=== PATIENT | male | born 1960 | race Caucasian/White ===

== ENCOUNTER 2018-08-28 10:40 | Emergency (ER) | payer MEDICAID ==
[~2018-08-28] VITALS: Ht 180.3 cm; Wt 58.7 kg
[~2018-08-28 10:40] MED LIST: APIX5TAB3 PO; ASPI-842 PO; ATOR80TA PO; CLON-529 PO; CYCL-1 PO; DICL100G30 TP; DOCU-28 PO; DULO-31 PO; FOLI1TAB16 PO; LISI-644 PO; METO50TA7 PO; MORP30TA60 PO; NICO-687 TP; PREG150C PO; SERT50TA10 PO; TEG100T PO
[2018-08-28 11:20] VITALS: BP 116/66
[2018-08-28] MEDS ORDERED: furosemide 40mg/4ml inj IV ONE (13:50)
== END 2018-08-28 14:27 | disposition home or self-care (01) ==
LOC: ER 10:41
DX: Z45.2 Encounter for adjustment and management of vascular access device (principal); I10 Essential (primary) hypertension; J44.9 Chronic obstructive pulmonary disease, unspecified; G89.29 Other chronic pain; Z86.718 Personal history of other venous thrombosis and embolism; Z98.890 Other specified postprocedural states; Z88.0 Allergy status to penicillin; Z79.82 Long term (current) use of aspirin; Z79.899 Other long term (current) drug therapy
CPT/HCPCS: 71045; 93005; 99283

== ENCOUNTER 2020-06-26 19:26 | Inpatient (IN) | payer MEDICAID ==
[~2020-06-26] VITALS: Ht 182.9 cm; Wt 60.4 kg
[~2020-06-26 19:26] MED LIST changes: +calcium chloride 100 MG/1 ML inj IV ONE; +epiNEPHrine 0.1mg/ml 10ml syringe ONE; +etomidate 2mg/ml inj. ONE; +rocuronium 10mg/ml inj IV ONE; +sod chloride 0.9% 10ml flush syringe IV ONE; +sodium bicarbonate (8.4%) 1 mEq/ml syringe ONE
--- NOTE | 2020-06-26 19:30 | NUR ---
MD Santiago verbal orders for setup for intubation, 100mg rocuronium, 20mg etomidate, and to follow with setup for central line.
[2020-06-26] MEDS ORDERED: MIDAZolam 5mg/ml 2ml vial IV ONE (19:35)
[2020-06-26] MEDS ORDERED: LIDOcaine 2% 10ml TOPICAL JELLY (Urojet) TP ONE ×2 (19:40→23:00)
[2020-06-26 20:01] LABS: ABG HCO3 6.7 mmol/L (22.0-26.0); ABG PCO2 (T) 23.2 mmHg (35.0-48.0); ABG PO2 (T) 420.6 mmHg (75.0-100.0); ALLEN'S TEST POSITIVE; PATIENT TEMPERATURE 36.6; PEEP 5 cm H2O; RESPIRATORY RATE 18 b/min; TIDAL VOLUME 500 mL; TOTAL HEMOGLOBIN < 4.7 G/dl (14.0-18.0)
[2020-06-26 20:26] LABS: CHLORIDE 104 MMOL/L (99-107); POTASSIUM 3.3 MMOL/L (3.5-5.1); SODIUM 143 MMOL/L (135-145)
[2020-06-26] MEDS: midazolam 100mg in NS 100ml 100 ML IV PRN (20:28)
[2020-06-26 20:39] LABS: CLARITY,URINE CLEAR (Clear); COLOR,URINE YELLOW (Yellow); GLUCOSE, URINE NEGATIVE (Neg); KETONES,URINE 15 mg/dl (Neg); LEUKOCYTE ESTERASE ,URINE NEGATIVE (Neg); NITRITES, URINE NEGATIVE (Neg); OCCULT BLOOD,URINE TRACE-INTACT (Neg); PH,URINE 5.5 (4.8-8.0); PROTEIN,URINE NEGATIVE (Neg); UROBILINOGEN,URINE 0.2 E.U/dL (0.2-1.0)
[2020-06-26 20:39] LABS: EOSINOPHILS % (AUTO) 0 % (0-6); MONOCYTES # (AUTO) 0.5 X10'3 (0-0.9)
[2020-06-26 20:40] LABS: OCCULT BLOOD STOOL POSITIVE (Neg)
[2020-06-26 20:41] LABS: BASOPHILS % (AUTO) 0.4 % (0-1); LYMPHOCYTES # (AUTO) 0.8 X10'3 (1.1-4.8); LYMPHOCYTES % (AUTO) 11.4 % (21-51); MEAN CORPUSCULAR HEMOGLOBIN 20.3 PG (27.0-31.0); MEAN CORPUSCULAR HGB CONC 25.6 g/dL (33.0-36.5); MEAN CORPUSCULAR VOLUME 79.5 FL (78-98); MEAN PLATELET VOLUME 8.9 FL (7.4-10.4); MONOCYTES % (AUTO) 6.6 % (2-12); NEUTROPHILS # (AUTO) 5.9 X10'3 (1.8-7.7); NEUTROPHILS % (AUTO) 81.6 % (42-75); PLATELET COUNT 191 X10'3 (140-440); RED CELL DISTRIBUTION WIDTH 22.9 % (11.5-14.5); WHITE BLOOD COUNT 7.2 X10'3 (4.5-11.0)
[2020-06-26] MEDS ORDERED: ONDA-103 PO (20:47)
[2020-06-26] MEDS ORDERED: MSC30T PO (20:47)
[2020-06-26] MEDS ORDERED: HYDR-3973 PO (20:47)
[2020-06-26] MEDS ORDERED: SERT100T10 PO (20:47)
[2020-06-26 20:50] LABS: HEMATOCRIT 8.7 % (42.0-52.0); HEMOGLOBIN 2.2 g/dl (14.0-17.9)
[2020-06-26 20:50] LABS: UA COLLECTION TYPE STRAIGHT CATH
[2020-06-26] MEDS ORDERED: METO-384 PO (20:50)
[2020-06-26 20:51] LABS: BACTERIA,URINE FEW /HPF (Neg); RBC,URINE 0-2 /HPF (0-2); SQUAMOUS EPITHELIAL CELL,UR FEW /LPF (FEW); WBC,URINE NONE SEEN /HPF (0-4)
--- NOTE | 2020-06-26 21:30 | NUR ---
Blood transfusion initiated with LRPC O positive blood. EDP aware that blood is not irradiated and OKd to administer d/t critical lab values. Pt. tolerating blood transfusion at this time, with no evident changes in VS.
[2020-06-26 22:08] LABS: ANION GAP 31 (8-16); BILIRUBIN,TOTAL 0.8 MG/DL (0.1-1.0); BLOOD UREA NITROGEN 15 MG/DL (7-18); BUN/CREATININE RATIO 7.6 (5.4-32.0); CALCIUM 8.1 MG/DL (8.5-10.1); CREATININE 1.97 MG/DL (0.60-1.10); GLUCOSE 52 MG/DL (70-104); eGFR 35 ML/MIN
[2020-06-26 22:09] LABS: ALANINE AMINOTRANSFERASE 72 U/L (12-78); ALBUMIN 3.2 G/DL (3.4-5.0); ALBUMIN/GLOBULIN RATIO 1.1 (1.1-1.5); ALKALINE PHOSPHATASE 80 IU/L (46-116); ASPARTATE AMINO TRANSFERASE 88 U/L (10-37); TOTAL PROTEIN 6.2 G/DL (6.4-8.2)
[2020-06-26 22:15] LABS: TOTAL CARBON DIOXIDE 7.6 MMOL/L (24-32)
[2020-06-26] MEDS ORDERED: CefTRIAXone 2gm/D5W 50ml BAG 50 ML IV ONE (22:25)
[2020-06-26 22:49] VITALS: BP 95/59
[2020-06-26 22:54] LABS: ANISOCYTOSIS 3+; MICROCYTOSIS 1+; NUCLEATED RED BLOOD CELLS 9 /100WBC (0-0); PLATELET ESTIMATE NORMAL; TOTAL CELLS COUNTED 100
[2020-06-26 22:55] LABS: ACANTHOCYTES FEW; HYPOCHROMASIA 3+; LARGE PLATELETS FEW
[2020-06-26] MEDS ORDERED: acetaminophen 325mg tablet PO PRN ×2 (23:00)
[2020-06-26] MEDS ORDERED: ondansetron/PF 4mg/2ml inj IV PRN (23:00)
[2020-06-26] MEDS ORDERED: acetaminophen 650mg rectal suppository RC PRN (23:00)
[2020-06-26] MEDS ORDERED: morphine 2 MG/ML inj. syringe IV PRN (23:00)
[2020-06-26] MEDS ORDERED: ipratropium/albuterol 3ml nebule NEB PRN (23:00)
[2020-06-26] MEDS ORDERED: potassium Cl 20 mEq SR tablet PO PRN ×2 (23:00)
[2020-06-26] MEDS ORDERED: midazolam 100mg in NS 100ml 100 ML IV PRN (23:00)
[2020-06-26 23:14] VITALS: BP 101/66
[2020-06-26] MEDS: normal saline 1000ml 1,000 ML IV SCH (23:19)
[2020-06-26] MEDS: K, MAG and/or Phos replacement - Verify level? MC SCH (23:43)
[2020-06-26] MEDS: levoFLOXACIN-Levaquin 750MG/D5 150 ML IV SCH (23:51)
[2020-06-27] VITALS (35 sets, daily range): BP systolic 90–118; BP diastolic 51–82
[2020-06-27 01:06] LABS: CHLORIDE 104 MMOL/L (99-107); D-DIMER 20.02 MG/L FEU (0-0.50); PARTIAL THROMBOPLASTIN TIME 24 SECONDS (22-32); SODIUM 142 MMOL/L (135-145)
[2020-06-27 01:17] LABS: BASOPHILS % (AUTO) 0.1 % (0-1); EOSINOPHILS % (AUTO) 0 % (0-6); LYMPHOCYTES # (AUTO) 0.5 X10'3 (1.1-4.8); WHITE BLOOD COUNT 12.1 X10'3 (4.5-11.0)
[2020-06-27 01:18] LABS: LYMPHOCYTES % (AUTO) 4.4 % (21-51); MEAN CORPUSCULAR HEMOGLOBIN 25.4 PG (27.0-31.0); MEAN CORPUSCULAR HGB CONC 29.5 g/dL (33.0-36.5); MEAN CORPUSCULAR VOLUME 86.3 FL (78-98); MEAN PLATELET VOLUME 9.6 FL (7.4-10.4); MONOCYTES # (AUTO) 1.6 X10'3 (0-0.9); MONOCYTES % (AUTO) 13.4 % (2-12); NEUTROPHILS % (AUTO) 82.1 % (42-75); PLATELET COUNT 189 X10'3 (140-440); RED BLOOD COUNT 2.04 X10'6 (4.70-6.10); RED CELL DISTRIBUTION WIDTH 21.8 % (11.5-14.5)
[2020-06-27 01:21] LABS: HEMATOCRIT 17.6 % (42.0-52.0); HEMOGLOBIN 5.2 g/dl (14.0-17.9)
[2020-06-27 01:24] LABS: ALANINE AMINOTRANSFERASE 79 U/L (12-78); ALBUMIN/GLOBULIN RATIO 0.5 (1.1-1.5); ALKALINE PHOSPHATASE 78 IU/L (46-116); ANION GAP 27 (8-16); ASPARTATE AMINO TRANSFERASE 110 U/L (10-37); BILIRUBIN,TOTAL 0.8 MG/DL (0.1-1.0); BLOOD UREA NITROGEN 16 MG/DL (7-18); BUN/CREATININE RATIO 8.2 (5.4-32.0); CALCIUM 7.6 MG/DL (8.5-10.1); CREATININE 1.95 MG/DL (0.60-1.10); GLUCOSE 161 MG/DL (70-104); MAGNESIUM 2.1 MG/DL (1.5-2.4); PHOSPHORUS 4.6 MG/DL (2.3-4.5); TOTAL PROTEIN 5.9 G/DL (6.4-8.2); eGFR 35 ML/MIN
[2020-06-27 01:30] LABS: OXYGEN SATURATION (MIXED VEN) 87.9 % (60-80); PO2 MIXED VENOUS (TEMP COR) 56.1 mmHg (35-46)
[2020-06-27 01:32] LABS: TOTAL CARBON DIOXIDE 11.5 MMOL/L (24-32)
[2020-06-27 02:26] LABS: ABG BASE EXCESS -12.5 mmol/L (-2.0-2.0); ABG OXYGEN SATURATION 99.6 % (94-97); ABG PCO2 (T) 27.3 mmHg (35.0-48.0); ABG PO2 (T) 283.1 mmHg (75.0-100.0); ALLEN'S TEST POSITIVE; FCOHb 0.7 % (0.0-3.9); FMetHb 0.4 % (0.0-1.5); FO2Hb 98.5 % (94-97); PATIENT TEMPERATURE 36.6; PEEP 5 cm H2O; RESPIRATORY RATE 18 b/min; TIDAL VOLUME 500 mL; TOTAL HEMOGLOBIN 5.5 G/dl (14.0-18.0)
[2020-06-27] MEDS: CefTRIAXone 2gm/D5W 50ml BAG 50 ML IV SCH (04:20)
[2020-06-27] MEDS: FENTANYL-0.9 % NACL/PF 100 ML IV PRN ×2 (05:16→19:25)
--- NOTE | 2020-06-27 06:30 | NUR ---
Received report from CHRISTIAN Chen
[2020-06-27] MEDS: carBAMazepine 100mg chewable tablet PO SCH ×3 (08:00→21:58)
[2020-06-27] MEDS: K, MAG and/or Phos replacement - Verify level? MC SCH (08:00)
[2020-06-27] MEDS: pantoprazole 40 MG vial IV SCH (08:15)
[2020-06-27] MEDS: nicotine 21mg patch - 24 hr TD SCH (08:16)
[2020-06-27] MEDS ORDERED: MESSAGE TO PHARMACY PO ONE (08:20)
[2020-06-27] MEDS ORDERED: glucagon, human recombinant 1mg kit SUBCUT PRN (08:20)
[2020-06-27] MEDS ORDERED: insulin regular, human U-100 3ml vial - multi-dose SQ SCH (08:20)
[2020-06-27] MEDS ORDERED: insulin Lispro (HumaLOG) vial - multi-dose SQ SCH ×2 (08:20→13:45)
[2020-06-27] MEDS ORDERED: dextrose 50%-water 50ml dispensing syringe IV PRN ×2 (08:20)
[2020-06-27] MEDS ORDERED: dextrose ORAL solution 15 GM/59 ML bottle PO PRN ×2 (08:20)
[2020-06-27 08:27] LABS: EOSINOPHILS % (AUTO) 0 % (0-6); LYMPHOCYTES # (AUTO) 0.6 X10'3 (1.1-4.8); MEAN CORPUSCULAR HEMOGLOBIN 27.2 PG (27.0-31.0); MONOCYTES # (AUTO) 0.7 X10'3 (0-0.9); PLATELET COUNT 115 X10'3 (140-440)
[2020-06-27 08:29] LABS: BASOPHILS % (AUTO) 0.2 % (0-1); LYMPHOCYTES % (AUTO) 8.9 % (21-51); MEAN CORPUSCULAR HGB CONC 32.6 g/dL (33.0-36.5); MEAN CORPUSCULAR VOLUME 83.6 FL (78-98); MONOCYTES % (AUTO) 9.1 % (2-12); NEUTROPHILS % (AUTO) 81.8 % (42-75); RED BLOOD COUNT 2.56 X10'6 (4.70-6.10); RED CELL DISTRIBUTION WIDTH 20.2 % (11.5-14.5); WHITE BLOOD COUNT 7.3 X10'3 (4.5-11.0)
[2020-06-27 08:37] LABS: HEMATOCRIT 21.4 % (42.0-52.0)
[2020-06-27 09:02] LABS: ANISOCYTOSIS 3+; NUCLEATED RED BLOOD CELLS 2 /100WBC (0-0); PLATELET ESTIMATE DECREASED; TOTAL CELLS COUNTED 100
[2020-06-27 09:04] LABS: HYPOCHROMASIA 2+
[2020-06-27 09:05] LABS: POLYCHROMASIA FEW; SCHISTOCYTES FEW
[2020-06-27] MEDS: normal saline 1000ml 1,000 ML IV SCH ×3 (10:19→19:00)
[2020-06-27] MEDS: midazolam 100mg in NS 100ml 100 ML IV PRN ×2 (10:24→19:49)
[2020-06-27 10:29] LABS: ALANINE AMINOTRANSFERASE 85 U/L (12-78); ALBUMIN 2.7 G/DL (3.4-5.0); ALKALINE PHOSPHATASE 64 IU/L (46-116); ASPARTATE AMINO TRANSFERASE 115 U/L (10-37); BILIRUBIN,TOTAL 0.8 MG/DL (0.1-1.0); BLOOD UREA NITROGEN 20 MG/DL (7-18); CALCIUM 7.6 MG/DL (8.5-10.1); CREATININE 1.67 MG/DL (0.60-1.10); GLUCOSE 178 MG/DL (70-104); TOTAL CARBON DIOXIDE 21.7 MMOL/L (24-32); TOTAL PROTEIN 5.4 G/DL (6.4-8.2); eGFR 42 ML/MIN
[2020-06-27 11:17] LABS: CHLORIDE 107 MMOL/L (99-107); POTASSIUM 3.1 MMOL/L (3.5-5.1)
[2020-06-27 11:22] LABS: ANION GAP 11 (8-16); SODIUM 140 MMOL/L (135-145)
[2020-06-27 12:36] LABS: CLARITY,URINE TURBID (Clear); COLOR,URINE YELLOW (Yellow); GLUCOSE, URINE NEGATIVE (Neg); KETONES,URINE 15 mg/dl (Neg); LEUKOCYTE ESTERASE ,URINE TRACE (Neg); NITRITES, URINE NEGATIVE (Neg); OCCULT BLOOD,URINE SMALL (Neg); PROTEIN,URINE 30 mg/dl (Neg); UROBILINOGEN,URINE 0.2 E.U/dL (0.2-1.0)
[2020-06-27 12:51] LABS: UA COLLECTION TYPE FOLEY CATH
[2020-06-27 13:02] LABS: HYALINE CASTS 0-3 /LPF (NEGATIVE)
[2020-06-27 13:03] LABS: MUCUS STRANDS FEW /LPF (Neg)
[2020-06-27 13:04] LABS: BACTERIA,URINE 1+ /HPF (Neg)
[2020-06-27 13:06] LABS: RBC,URINE 0-2 /HPF (0-2); SQUAMOUS EPITHELIAL CELL,UR FEW /LPF (FEW); WBC,URINE 0-4 /HPF (0-4)
[2020-06-27 13:07] LABS: AMORPHOUS URATES 2+
[2020-06-27 13:39] LABS: UA EOSINOPHILS NO EOS /HPF
[2020-06-27 14:26] LABS: HEMATOCRIT 24.1 % (42.0-52.0); HEMOGLOBIN 8.1 g/dl (14.0-17.9); MEAN CORPUSCULAR HGB CONC 33.7 g/dL (33.0-36.5); MEAN CORPUSCULAR VOLUME 83.3 FL (78-98); PLATELET COUNT 102 X10'3 (140-440); RED BLOOD COUNT 2.89 X10'6 (4.70-6.10); RED CELL DISTRIBUTION WIDTH 18.8 % (11.5-14.5); WHITE BLOOD COUNT 9.5 X10'3 (4.5-11.0)
[2020-06-27] MEDS: potassium Cl 20mEq/100mL bag 100 ML IV PRN ×4 (14:43→18:37)
[2020-06-27] MEDS ORDERED: vancomycin/NS 1 GM ADD-VANTAGE 250 ML IV ONE (15:05)
--- NOTE | 2020-06-27 18:25 | NUR ---
Report given to CHRISTIAN Chen
[2020-06-27] MEDS: insulin glargine (Lantus) pen - multi-dose SQ SCH (21:00)
[2020-06-27] MEDS ORDERED: carBAMazepine 100mg chewable tablet PO ONE (22:10)
[2020-06-28] VITALS (23 sets, daily range): BP systolic 94–116; BP diastolic 53–73
[2020-06-28] MEDS ORDERED: propofol 1000mg/100ml bottle 100 ML IV SCH (00:05)
[2020-06-28] MEDS: mineral oil/petrolatum ophthal oint EACHEYE SCH ×4 (01:04→19:56)
[2020-06-28] MEDS: CefTRIAXone 2gm/D5W 50ml BAG 50 ML IV SCH (01:04)
[2020-06-28] MEDS: normal saline 1000ml 1,000 ML IV SCH (01:40)
[2020-06-28 02:26] LABS: ABG BASE EXCESS -7.2 mmol/L (-2.0-2.0); ABG HCO3 16.1 mmol/L (22.0-26.0); ABG OXYGEN SATURATION 97.2 % (94-97); ABG PCO2 (T) 23.7 mmHg (35.0-48.0); ABG PO2 (T) 91.9 mmHg (75.0-100.0); ALLEN'S TEST POSITIVE; FCOHb 0.8 % (0.0-3.9); FMetHb 0.1 % (0.0-1.5); FO2Hb 96.3 % (94-97); PATIENT TEMPERATURE 36.1; PEEP 5 cm H2O; RESPIRATORY RATE 18 b/min; TIDAL VOLUME 500 mL; TOTAL HEMOGLOBIN 7.8 G/dl (14.0-18.0)
[2020-06-28 03:21] LABS: BASOPHILS % (AUTO) 0.3 % (0-1); EOSINOPHILS % (AUTO) 0.1 % (0-6); HEMATOCRIT 24.2 % (42.0-52.0); HEMOGLOBIN 8.1 g/dl (14.0-17.9); LYMPHOCYTES % (AUTO) 10.9 % (21-51); MEAN CORPUSCULAR HEMOGLOBIN 27.8 PG (27.0-31.0); MEAN CORPUSCULAR HGB CONC 33.5 g/dL (33.0-36.5); MEAN CORPUSCULAR VOLUME 82.8 FL (78-98); MEAN PLATELET VOLUME 9.6 FL (7.4-10.4); MONOCYTES # (AUTO) 0.5 X10'3 (0-0.9); MONOCYTES % (AUTO) 5.4 % (2-12); NEUTROPHILS # (AUTO) 7.9 X10'3 (1.8-7.7); NEUTROPHILS % (AUTO) 83.3 % (42-75); PLATELET COUNT 91 X10'3 (140-440); RED BLOOD COUNT 2.92 X10'6 (4.70-6.10); RED CELL DISTRIBUTION WIDTH 18.8 % (11.5-14.5); WHITE BLOOD COUNT 9.5 X10'3 (4.5-11.0)
[2020-06-28 03:28] LABS: PARTIAL THROMBOPLASTIN TIME 32 SECONDS (22-32)
[2020-06-28 03:36] LABS: ALANINE AMINOTRANSFERASE 191 U/L (12-78); ALBUMIN 2.5 G/DL (3.4-5.0); ALKALINE PHOSPHATASE 59 IU/L (46-116); ANION GAP 15 (8-16); ASPARTATE AMINO TRANSFERASE 245 U/L (10-37); BILIRUBIN,TOTAL 0.8 MG/DL (0.1-1.0); BLOOD UREA NITROGEN 19 MG/DL (7-18); BUN/CREATININE RATIO 12.9 (5.4-32.0); CALCIUM 7.5 MG/DL (8.5-10.1); CHLORIDE 112 MMOL/L (99-107); CREATININE 1.47 MG/DL (0.60-1.10); GLUCOSE 99 MG/DL (70-104); MAGNESIUM 1.8 MG/DL (1.5-2.4); PHOSPHORUS 1.4 MG/DL (2.3-4.5); POTASSIUM 3.9 MMOL/L (3.5-5.1); SODIUM 145 MMOL/L (135-145); TOTAL CARBON DIOXIDE 18.3 MMOL/L (24-32); TOTAL PROTEIN 5.1 G/DL (6.4-8.2); eGFR 49 ML/MIN
[2020-06-28 04:42] LABS: ANISOCYTOSIS 2+; PLATELET ESTIMATE DECREASED; TOTAL CELLS COUNTED 100
[2020-06-28 04:44] LABS: BURR CELLS 1+; HYPOCHROMASIA 1+
[2020-06-28] MEDS: K, MAG and/or Phos replacement - Verify level? MC SCH (08:00)
[2020-06-28] MEDS: sodium bicarbonate (8.4%) inj. 150 MEQ in dextrose 5%-water 1,000 ML IV SCH ×2 (09:37→19:50)
[2020-06-28] MEDS: nicotine 21mg patch - 24 hr TD SCH (09:38)
[2020-06-28] MEDS: carBAMazepine 100mg chewable tablet PO SCH (09:39)
[2020-06-28] MEDS: pantoprazole 40 MG vial IV SCH (09:39)
[2020-06-28] MEDS: midazolam 100mg in NS 100ml 100 ML IV PRN ×2 (11:00→17:47)
[2020-06-28] MEDS ORDERED: acetaminophen 325mg/10.15ml oral unit dose solution OGT PRN (11:40)
[2020-06-28] MEDS ORDERED: dextrose ORAL solution 15 GM/59 ML bottle OGT PRN ×2 (11:41)
[2020-06-28] MEDS ORDERED: POTASSIUM BICARB 20meq eff tab 20 MEQ TABLET.EFF OGT PRN (11:42)
--- NOTE | 2020-06-28 12:48 | NUR ---
Tube feeding consult. Pt intubated sedated. Presented to ED with respiratory distress. Admitted with severe anemia with hemoglobin 2.2; recent eye cancer removal sx per H&P, JOAN, right lower lobe PNA, acute respiratory failure, and metabolic acidosis. Recommend: 1. continuous tube feeding using Vital AF starting at 30 ml/hr and advance as tolerated by 20 ml q 8 hours to goal rate of 75 ml/hr will provide total volume 1800 ml, 2160 calories, 135 g protein, and 1460 ml water. 2. daily wts, prealbumin q sunday and , additional 120 ml water flush q 4 hours 3. when extubated, advance diet as medically indicated to heart healthy Addendum: 06/28/20 at [address] Amended: Links added.
[2020-06-28 13:01] LABS: PREALBUMIN 8.1 MG/DL (19-36)
--- NOTE | 2020-06-28 13:13 | NUR ---
Vital AF tube feeding started at 30 mls/hr via og tube following md orders and wallpaper inspector recommendations.
[2020-06-28] MEDS: vancomycin/NS 1 GM ADD-VANTAGE 250 ML IV SCH (13:35)
[2020-06-28] MEDS: carBAMazepine 100mg chewable tablet OGT SCH ×2 (13:35→19:56)
[2020-06-28] MEDS: FENTANYL-0.9 % NACL/PF 100 ML IV PRN (17:50)
--- NOTE | 2020-06-28 18:15 | NUR ---
Patient in room CICU 2013. I have received report from Luisa GONZALES and had the opportunity to ask questions and assume patient care.
[2020-06-28] MEDS: lactobacillus rhamnosus 10,000 MMU CELLS/CAPSULE OGT SCH (19:56)
[2020-06-28] MEDS: insulin glargine (Lantus) pen - multi-dose SQ SCH (21:00)
[2020-06-28] MEDS: levoFLOXACIN-Levaquin 750MG/D5 150 ML IV SCH (23:46)
[2020-06-29] VITALS (23 sets, daily range): BP systolic 84–132; BP diastolic 51–81
[2020-06-29 01:36] LABS: ABG BASE EXCESS -3.8 mmol/L (-2.0-2.0); ABG HCO3 19.5 mmol/L (22.0-26.0); ABG OXYGEN SATURATION 93.4 % (94-97); ABG PCO2 (T) 27.5 mmHg (35.0-48.0); ABG PO2 (T) 59.6 mmHg (75.0-100.0); ALLEN'S TEST POSITIVE; FCOHb 0.3 % (0.0-3.9); FMetHb 0.1 % (0.0-1.5); PATIENT TEMPERATURE 35.8; PEEP 5 cm H2O; RESPIRATORY RATE 18 b/min; TIDAL VOLUME 500 mL; TOTAL HEMOGLOBIN 9.3 G/dl (14.0-18.0)
[2020-06-29] MEDS: mineral oil/petrolatum ophthal oint EACHEYE SCH ×4 (02:22→23:11)
[2020-06-29] MEDS: CefTRIAXone 2gm/D5W 50ml BAG 50 ML IV SCH (02:22)
[2020-06-29] MEDS: midazolam 100mg in NS 100ml 100 ML IV PRN (02:46)
[2020-06-29 04:17] LABS: BASOPHILS # (AUTO) 0.1 X10'3 (0-0.2); BASOPHILS % (AUTO) 0.8 % (0-1); EOSINOPHILS # (AUTO) 0.1 X10'3 (0-0.9); EOSINOPHILS % (AUTO) 1.1 % (0-6); HEMATOCRIT 25.5 % (42.0-52.0); HEMOGLOBIN 8.4 g/dl (14.0-17.9); LYMPHOCYTES # (AUTO) 0.9 X10'3 (1.1-4.8); LYMPHOCYTES % (AUTO) 13.2 % (21-51); MEAN CORPUSCULAR HEMOGLOBIN 27.3 PG (27.0-31.0); MEAN CORPUSCULAR VOLUME 82.7 FL (78-98); MONOCYTES # (AUTO) 0.4 X10'3 (0-0.9); NEUTROPHILS # (AUTO) 5.5 X10'3 (1.8-7.7); NEUTROPHILS % (AUTO) 78.9 % (42-75); PLATELET COUNT 88 X10'3 (140-440); RED BLOOD COUNT 3.08 X10'6 (4.70-6.10); RED CELL DISTRIBUTION WIDTH 19.6 % (11.5-14.5)
[2020-06-29 04:24] LABS: PARTIAL THROMBOPLASTIN TIME 32 SECONDS (22-32)
[2020-06-29 04:29] LABS: ALANINE AMINOTRANSFERASE 151 U/L (12-78); ALBUMIN 2.2 G/DL (3.4-5.0); ALBUMIN/GLOBULIN RATIO 0.8 (1.1-1.5); ALKALINE PHOSPHATASE 64 IU/L (46-116); ANION GAP 7 (8-16); ASPARTATE AMINO TRANSFERASE 85 U/L (10-37); BILIRUBIN,TOTAL 0.6 MG/DL (0.1-1.0); BLOOD UREA NITROGEN 14 MG/DL (7-18); CALCIUM 7.2 MG/DL (8.5-10.1); CHLORIDE 109 MMOL/L (99-107); CREATININE 1.27 MG/DL (0.60-1.10); GLUCOSE 126 MG/DL (70-104); MAGNESIUM 1.5 MG/DL (1.5-2.4); PHOSPHORUS 1.4 MG/DL (2.3-4.5); SODIUM 141 MMOL/L (135-145); TOTAL CARBON DIOXIDE 24.6 MMOL/L (24-32); TOTAL PROTEIN 4.8 G/DL (6.4-8.2); TRIGLYCERIDES 67 MG/DL (20-135); eGFR 58 ML/MIN
[2020-06-29] MEDS: POTASSIUM BICARB 20meq eff tab 20 MEQ TABLET.EFF OGT PRN ×3 (04:39→15:16)
[2020-06-29 04:46] LABS: ANISOCYTOSIS 2+; PLATELET ESTIMATE DECREASED
[2020-06-29 04:48] LABS: BURR CELLS FEW; POLYCHROMASIA FEW; SCHISTOCYTES FEW; SPHEROCYTES FEW
[2020-06-29 04:49] LABS: ELLIPTOCYTES FEW; HYPOCHROMASIA 1+
--- NOTE | 2020-06-29 06:25 | NUR ---
Problems reprioritized. Patient report given, questions answered & plan of care reviewed with Luisa GONZALES.
[2020-06-29] MEDS: K, MAG and/or Phos replacement - Verify level? MC SCH (08:00)
[2020-06-29] MEDS: sodium bicarbonate (8.4%) inj. 150 MEQ in dextrose 5%-water 1,000 ML IV SCH (09:00)
[2020-06-29] MEDS: nicotine 21mg patch - 24 hr TD SCH (09:49)
[2020-06-29] MEDS: carBAMazepine 100mg chewable tablet OGT SCH ×3 (09:49→23:10)
[2020-06-29] MEDS: lactobacillus rhamnosus 10,000 MMU CELLS/CAPSULE OGT SCH ×2 (09:49→23:10)
[2020-06-29] MEDS: pantoprazole 40 MG vial IV SCH (09:50)
[2020-06-29] MEDS ORDERED: FLU VACC QS2020-21(6MOS UP)/PF 60 MCG/0.5 ML SYRINGE IMVAC ONE (10:00)
[2020-06-29] MEDS: vancomycin/NS 1 GM ADD-VANTAGE 250 ML IV SCH (13:01)
--- NOTE | 2020-06-29 18:15 | NUR ---
Patient in room CICU 2013. I have received report from Luisa GONZALES and had the opportunity to ask questions and assume patient care. Patient is on spontaneous mode of ventilator and has fentanyl gtt infusing. He is slightly tachycardic but all other VS are WNL. Will continue to monitor.
[2020-06-29] MEDS: insulin glargine (Lantus) pen - multi-dose SQ SCH (21:00)
--- NOTE | 2020-06-29 21:25 | NUR ---
Dr. Tineo called to check on patient's status. Since there is no evidence of active bleeding he will hold off on EGD - at least until pt. becomes more alert and oriented.
[2020-06-30] VITALS (23 sets, daily range): BP systolic 90–137; BP diastolic 57–83
[2020-06-30 03:35] LABS: BASOPHILS % (AUTO) 0.5 % (0-1); EOSINOPHILS # (AUTO) 0.1 X10'3 (0-0.9); EOSINOPHILS % (AUTO) 0.7 % (0-6); HEMATOCRIT 25.7 % (42.0-52.0); HEMOGLOBIN 8.4 g/dl (14.0-17.9); LYMPHOCYTES % (AUTO) 13.4 % (21-51); MEAN CORPUSCULAR HEMOGLOBIN 27.5 PG (27.0-31.0); MEAN CORPUSCULAR HGB CONC 32.7 g/dL (33.0-36.5); MEAN CORPUSCULAR VOLUME 84.2 FL (78-98); MEAN PLATELET VOLUME 9.4 FL (7.4-10.4); MONOCYTES # (AUTO) 0.8 X10'3 (0-0.9); MONOCYTES % (AUTO) 10.5 % (2-12); NEUTROPHILS # (AUTO) 5.6 X10'3 (1.8-7.7); NEUTROPHILS % (AUTO) 74.9 % (42-75); PLATELET COUNT 87 X10'3 (140-440); RED BLOOD COUNT 3.05 X10'6 (4.70-6.10); RED CELL DISTRIBUTION WIDTH 20.1 % (11.5-14.5); WHITE BLOOD COUNT 7.5 X10'3 (4.5-11.0)
[2020-06-30 03:43] LABS: PARTIAL THROMBOPLASTIN TIME 31 SECONDS (22-32)
[2020-06-30 03:46] LABS: ALANINE AMINOTRANSFERASE 111 U/L (12-78); ALBUMIN 2.4 G/DL (3.4-5.0); ALBUMIN/GLOBULIN RATIO 0.8 (1.1-1.5); ALKALINE PHOSPHATASE 82 IU/L (46-116); ANION GAP 9 (8-16); ASPARTATE AMINO TRANSFERASE 32 U/L (10-37); BILIRUBIN,TOTAL 0.7 MG/DL (0.1-1.0); BLOOD UREA NITROGEN 14 MG/DL (7-18); BUN/CREATININE RATIO 12.8 (5.4-32.0); CALCIUM 7.6 MG/DL (8.5-10.1); CHLORIDE 105 MMOL/L (99-107); CREATININE 1.09 MG/DL (0.60-1.10); GLUCOSE 113 MG/DL (70-104); MAGNESIUM 1.6 MG/DL (1.5-2.4); PHOSPHORUS 1.5 MG/DL (2.3-4.5); POTASSIUM 3.8 MMOL/L (3.5-5.1); SODIUM 142 MMOL/L (135-145); TOTAL CARBON DIOXIDE 28.4 MMOL/L (24-32); TOTAL PROTEIN 5.3 G/DL (6.4-8.2); eGFR 69 ML/MIN
[2020-06-30 04:15] LABS: ABG BASE EXCESS -0.6 mmol/L (-2.0-2.0); ABG HCO3 23.5 mmol/L (22.0-26.0); ABG OXYGEN SATURATION 94.1 % (94-97); ABG PCO2 (T) 37.8 mmHg (35.0-48.0); ABG PO2 (T) 80.4 mmHg (75.0-100.0); ALLEN'S TEST POSITIVE; FCOHb 0.1 % (0.0-3.9); FMetHb 0.4 % (0.0-1.5); FO2Hb 93.6 % (94-97); PATIENT TEMPERATURE 37.7; PEEP 5 cm H2O; TOTAL HEMOGLOBIN 9.1 G/dl (14.0-18.0)
[2020-06-30 04:30] LABS: ANISOCYTOSIS 3+; PLATELET ESTIMATE DECREASED
[2020-06-30 04:32] LABS: POIKILOCYTOSIS FEW; POLYCHROMASIA FEW
[2020-06-30 04:33] LABS: BURR CELLS FEW; ELLIPTOCYTES FEW
[2020-06-30 04:34] LABS: SPHEROCYTES FEW
[2020-06-30] MEDS: mineral oil/petrolatum ophthal oint EACHEYE SCH ×4 (04:49→20:06)
[2020-06-30] MEDS: FENTANYL-0.9 % NACL/PF 100 ML IV PRN (04:49)
[2020-06-30] MEDS: midazolam 100mg in NS 100ml 100 ML IV PRN ×2 (05:52→20:53)
--- NOTE | 2020-06-30 06:34 | NUR ---
Patient in room CICU 2013. I have received report from Ashley GONZALES and had the opportunity to ask questions and assume patient care.
[2020-06-30] MEDS: K, MAG and/or Phos replacement - Verify level? MC SCH (08:00)
[2020-06-30] MEDS: lactobacillus rhamnosus 10,000 MMU CELLS/CAPSULE OGT SCH ×2 (08:00→20:06)
[2020-06-30] MEDS: pantoprazole 40 MG vial IV SCH (08:00)
[2020-06-30] MEDS: nicotine 21mg patch - 24 hr TD SCH (08:00)
[2020-06-30] MEDS: carBAMazepine 100mg chewable tablet OGT SCH ×3 (08:00→20:06)
--- NOTE | 2020-06-30 09:27 | NUR ---
0800 medpass did not save. Meds were given 0745
[2020-06-30] MEDS: vancomycin/NS 1 GM ADD-VANTAGE 250 ML IV SCH ×2 (11:53→23:50)
[2020-06-30] MEDS ORDERED: sodium phosphate inj. 15 MMOL in dextrose 5%-water 250 ML IV PRN (13:00)
[2020-06-30] MEDS ORDERED: sodium phosphate inj. 30 MMOL in dextrose 5%-water 250 ML IV PRN (13:00)
[2020-06-30] MEDS ORDERED: magnesium hydroxide 30ml (MOM) UD suspension OGT ONE (13:05)
[2020-06-30] MEDS ORDERED: magnesium hydroxide 30ml (MOM) UD suspension PO PRN (13:36)
[2020-06-30] MEDS: Neutra Phos packet PO PRN ×2 (13:38→20:06)
[2020-06-30] MEDS ORDERED: magnesium hydroxide 30ml (MOM) UD suspension PO ONE (13:40)
--- NOTE | 2020-06-30 18:22 | NUR ---
Problems reprioritized. Patient report given, questions answered & plan of care reviewed with Chad GONZALES.
[2020-06-30] MEDS: insulin glargine (Lantus) pen - multi-dose SQ SCH (20:07)
[2020-06-30] MEDS: acetaminophen 325mg/10.15ml oral unit dose solution OGT PRN (21:38)
[2020-07-01] VITALS (28 sets, daily range): BP systolic 79–139; BP diastolic 49–92
--- NOTE | 2020-07-01 00:11 | NUR ---
Earlier in the shift I replaced the OG tube. Old one was difficult to flush and was found to have a kink in it. Previous tube feed residual checks likely not accurate. Midnight check had over 500cc. I replaced only 250cc and turned tube feed off until next check at 0400. Notified Aviva SCHILLING
[2020-07-01] MEDS: Neutra Phos packet PO PRN ×2 (00:24→21:00)
[2020-07-01] MEDS: docusate sodium 100mg/10ml UD cup PO SCH ×3 (00:24→20:59)
[2020-07-01] MEDS: mineral oil/petrolatum ophthal oint EACHEYE SCH ×4 (02:00→20:00)
[2020-07-01 04:11] LABS: PARTIAL THROMBOPLASTIN TIME 33 SECONDS (22-32)
[2020-07-01 04:17] LABS: ALANINE AMINOTRANSFERASE 65 U/L (12-78); ALBUMIN/GLOBULIN RATIO 0.7 (1.1-1.5); ALKALINE PHOSPHATASE 70 IU/L (46-116); ANION GAP 1 (8-16); ASPARTATE AMINO TRANSFERASE 17 U/L (10-37); BILIRUBIN,TOTAL 0.8 MG/DL (0.1-1.0); BLOOD UREA NITROGEN 15 MG/DL (7-18); BUN/CREATININE RATIO 16.5 (5.4-32.0); CALCIUM 7.1 MG/DL (8.5-10.1); CHLORIDE 106 MMOL/L (99-107); CREATININE 0.91 MG/DL (0.60-1.10); GLUCOSE 110 MG/DL (70-104); MAGNESIUM 1.7 MG/DL (1.5-2.4); PHOSPHORUS 2.6 MG/DL (2.3-4.5); SODIUM 137 MMOL/L (135-145); TOTAL CARBON DIOXIDE 29.8 MMOL/L (24-32); TOTAL PROTEIN 4.7 G/DL (6.4-8.2); eGFR 85 ML/MIN
[2020-07-01 04:19] LABS: BASOPHILS # (AUTO) 0.1 X10'3 (0-0.2); BASOPHILS % (AUTO) 0.8 % (0-1); EOSINOPHILS # (AUTO) 0.1 X10'3 (0-0.9); EOSINOPHILS % (AUTO) 1.3 % (0-6); HEMOGLOBIN 7.1 g/dl (14.0-17.9); LYMPHOCYTES # (AUTO) 1.2 X10'3 (1.1-4.8); LYMPHOCYTES % (AUTO) 16.8 % (21-51); MEAN CORPUSCULAR HEMOGLOBIN 27.9 PG (27.0-31.0); MEAN CORPUSCULAR HGB CONC 32.5 g/dL (33.0-36.5); MEAN CORPUSCULAR VOLUME 85.8 FL (78-98); MONOCYTES # (AUTO) 0.9 X10'3 (0-0.9); NEUTROPHILS # (AUTO) 4.7 X10'3 (1.8-7.7); NEUTROPHILS % (AUTO) 68.1 % (42-75); PLATELET COUNT 86 X10'3 (140-440); RED BLOOD COUNT 2.56 X10'6 (4.70-6.10); RED CELL DISTRIBUTION WIDTH 21.1 % (11.5-14.5); WHITE BLOOD COUNT 6.9 X10'3 (4.5-11.0)
[2020-07-01 04:28] LABS: HEMATOCRIT 21.9 % (42.0-52.0)
[2020-07-01] MEDS: FENTANYL-0.9 % NACL/PF 100 ML IV PRN ×2 (04:44→18:34)
[2020-07-01 05:35] LABS: ABG BASE EXCESS 2.7 mmol/L (-2.0-2.0); ABG HCO3 26.2 mmol/L (22.0-26.0); ABG OXYGEN SATURATION 96.4 % (94-97); ABG PO2 (T) 80.7 mmHg (75.0-100.0); ALLEN'S TEST Yes; FCOHb 0.3 % (0.0-3.9); FMetHb 0.2 % (0.0-1.5); FO2Hb 95.9 % (94-97); PATIENT TEMPERATURE 37.4; PEEP 5 cm H2O; RESPIRATORY RATE 16 b/min; TIDAL VOLUME 500 mL; TOTAL HEMOGLOBIN 8.5 G/dl (14.0-18.0)
[2020-07-01 06:24] LABS: ANISOCYTOSIS 3+; PLATELET ESTIMATE DECREASED
[2020-07-01 06:25] LABS: ELLIPTOCYTES FEW; HYPOCHROMASIA 1+
--- NOTE | 2020-07-01 06:45 | NUR ---
Patient in room CICU 2013. I have received report from Chad GONZALES and had the opportunity to ask questions and assume patient care.
[2020-07-01] MEDS: K, MAG and/or Phos replacement - Verify level? MC SCH (08:00)
[2020-07-01] MEDS: nicotine 21mg patch - 24 hr TD SCH (08:06)
[2020-07-01] MEDS: lactobacillus rhamnosus 10,000 MMU CELLS/CAPSULE OGT SCH ×2 (08:10→21:00)
[2020-07-01] MEDS: pantoprazole 40 MG vial IV SCH (08:10)
[2020-07-01] MEDS: furosemide 40mg/4ml inj IV SCH ×2 (08:10→20:00)
[2020-07-01] MEDS: carBAMazepine 100mg chewable tablet OGT SCH ×3 (08:11→21:00)
[2020-07-01] MEDS: midazolam 100mg in NS 100ml 100 ML IV PRN ×2 (08:12→18:34)
[2020-07-01 10:35] LABS: BASOPHILS # (AUTO) 0.1 X10'3 (0-0.2); EOSINOPHILS # (AUTO) 0.2 X10'3 (0-0.9); EOSINOPHILS % (AUTO) 2.4 % (0-6); HEMATOCRIT 22.1 % (42.0-52.0); HEMOGLOBIN 7.2 g/dl (14.0-17.9); LYMPHOCYTES # (AUTO) 1.2 X10'3 (1.1-4.8); LYMPHOCYTES % (AUTO) 18.7 % (21-51); MEAN CORPUSCULAR HEMOGLOBIN 27.8 PG (27.0-31.0); MEAN CORPUSCULAR HGB CONC 32.5 g/dL (33.0-36.5); MEAN CORPUSCULAR VOLUME 85.4 FL (78-98); MEAN PLATELET VOLUME 9.5 FL (7.4-10.4); MONOCYTES # (AUTO) 0.7 X10'3 (0-0.9); MONOCYTES % (AUTO) 11.5 % (2-12); NEUTROPHILS # (AUTO) 4.2 X10'3 (1.8-7.7); NEUTROPHILS % (AUTO) 66.4 % (42-75); PLATELET COUNT 86 X10'3 (140-440); RED BLOOD COUNT 2.59 X10'6 (4.70-6.10); RED CELL DISTRIBUTION WIDTH 21.5 % (11.5-14.5); WHITE BLOOD COUNT 6.4 X10'3 (4.5-11.0)
--- NOTE | 2020-07-01 10:51 | NUR ---
Recieved report that during the night time patient had a residual over 500. RN then stopped the feed. Feeding restarted at 0400 @ 40ml/hr. Checked residual during shift and increased feed to 60ml/hr per protocol with a goal rate 75. Will continue to monitor.
[2020-07-01] MEDS: vancomycin/NS 1 GM ADD-VANTAGE 250 ML IV SCH (11:52)
--- NOTE | 2020-07-01 12:45 | NUR ---
Reassessment: Pt remains intubated and tolerating TF at goal rate with GRV WNL. No documented BM. Pt started on routine bowel care this morning and received first dose of PRN bowel care 06/30, d/w at critical care rounds. Will continue to follow closely and make recommendations as appropriate. Recommend: 1. continuous tube feeding using Vital AF starting at 30 ml/hr and advance as tolerated by 20 ml q 8 hours to goal rate of 75 ml/hr will provide total volume 1800 ml, 2160 calories, 135 g protein, and 1460 ml water. 2. daily wts, prealbumin q Sunday and , additional 120 ml water flush q 4 hours 3. when extubated, advance diet as medically indicated to heart healthy Addendum: 07/01/20 at [address] Amended: Links added.
--- NOTE | 2020-07-01 15:47 | NUR ---
I have reviewed and agree with all medications administered and interventions performed by [facility] Student Eduardo Hale Addendum: 07/01/20 at 1548 by Alessandra Paredes RT Amended: Links added.
--- NOTE | 2020-07-01 16:41 | NUR ---
Stopped drips to further evaluate patient's low blood pressures. Will assess pt ability to comprehend and follow commands as well. Pt BP 102/62. Will continue to monitor.
--- NOTE | 2020-07-01 16:48 | NUR ---
Called Dr. Leal in regards to patient's low blood pressure. is aware pt is running low 80/50 with CVP 8-9. MD request to hold all lasix and blood pressure medication tonight and tomorrow if need be. Two fluid bolus with no effect per charge. Will continue to monitor and evaluate blood pressure.
--- NOTE | 2020-07-01 17:11 | NUR ---
Patients Iv drips restarted due to patient starting to thrash in bed. Both drips back on and pt is resting comfortably. Will continue to monitor.
--- NOTE | 2020-07-01 18:24 | NUR ---
Problems reprioritized. Patient report given, questions answered & plan of care reviewed with Chad GONZALES.
[2020-07-01 19:37] LABS: MEAN CORPUSCULAR HEMOGLOBIN 27.7 PG (27.0-31.0); MEAN CORPUSCULAR HGB CONC 32.3 g/dL (33.0-36.5); MEAN CORPUSCULAR VOLUME 85.8 FL (78-98); MEAN PLATELET VOLUME 9.5 FL (7.4-10.4); PLATELET COUNT 93 X10'3 (140-440); RED CELL DISTRIBUTION WIDTH 21.7 % (11.5-14.5); WHITE BLOOD COUNT 5.8 X10'3 (4.5-11.0)
[2020-07-01 19:42] LABS: HEMATOCRIT 21.4 % (42.0-52.0); HEMOGLOBIN 6.9 g/dl (14.0-17.9)
[2020-07-01] MEDS: insulin glargine (Lantus) pen - multi-dose SQ SCH (21:00)
[2020-07-01] MEDS ORDERED: VANCOMYCIN LEVEL IV ONE (23:30)
[2020-07-02] VITALS (24 sets, daily range): BP systolic 85–139; BP diastolic 52–87
[2020-07-02] MEDS: vancomycin/NS 1 GM ADD-VANTAGE 250 ML IV SCH ×2 (00:07)
--- NOTE | 2020-07-02 00:10 | NUR ---
Vanco trough 24.5. Held midnight dose at direction of the pharmacist
[2020-07-02] MEDS: mineral oil/petrolatum ophthal oint EACHEYE SCH ×4 (02:25→19:42)
[2020-07-02] MEDS: midazolam 100mg in NS 100ml 100 ML IV PRN ×3 (03:18→20:21)
[2020-07-02 03:24] LABS: BASOPHILS # (AUTO) 0.1 X10'3 (0-0.2); BASOPHILS % (AUTO) 0.8 % (0-1); EOSINOPHILS # (AUTO) 0.2 X10'3 (0-0.9); EOSINOPHILS % (AUTO) 3.2 % (0-6); HEMATOCRIT 25.7 % (42.0-52.0); HEMOGLOBIN 8.4 g/dl (14.0-17.9); LYMPHOCYTES # (AUTO) 1.3 X10'3 (1.1-4.8); LYMPHOCYTES % (AUTO) 20.6 % (21-51); MEAN CORPUSCULAR HEMOGLOBIN 28.1 PG (27.0-31.0); MEAN CORPUSCULAR HGB CONC 32.7 g/dL (33.0-36.5); MEAN CORPUSCULAR VOLUME 85.8 FL (78-98); MEAN PLATELET VOLUME 9.6 FL (7.4-10.4); MONOCYTES # (AUTO) 0.8 X10'3 (0-0.9); MONOCYTES % (AUTO) 12.4 % (2-12); PLATELET COUNT 101 X10'3 (140-440); RED CELL DISTRIBUTION WIDTH 19.5 % (11.5-14.5); WHITE BLOOD COUNT 6.4 X10'3 (4.5-11.0)
[2020-07-02 03:37] LABS: PARTIAL THROMBOPLASTIN TIME 28 SECONDS (22-32)
[2020-07-02 03:38] LABS: ALANINE AMINOTRANSFERASE 52 U/L (12-78); ALBUMIN/GLOBULIN RATIO 0.7 (1.1-1.5); ALKALINE PHOSPHATASE 69 IU/L (46-116); ANION GAP 3 (8-16); ASPARTATE AMINO TRANSFERASE 15 U/L (10-37); BILIRUBIN,TOTAL 0.8 MG/DL (0.1-1.0); BLOOD UREA NITROGEN 18 MG/DL (7-18); BUN/CREATININE RATIO 19.4 (5.4-32.0); CALCIUM 7.7 MG/DL (8.5-10.1); CHLORIDE 105 MMOL/L (99-107); CREATININE 0.93 MG/DL (0.60-1.10); GLUCOSE 95 MG/DL (70-104); MAGNESIUM 1.7 MG/DL (1.5-2.4); PHOSPHORUS 2.3 MG/DL (2.3-4.5); POTASSIUM 3.5 MMOL/L (3.5-5.1); SODIUM 138 MMOL/L (135-145); TOTAL CARBON DIOXIDE 29.6 MMOL/L (24-32); TOTAL PROTEIN 4.9 G/DL (6.4-8.2); eGFR 83 ML/MIN
[2020-07-02 04:11] LABS: ABG BASE EXCESS 2.6 mmol/L (-2.0-2.0); ABG HCO3 25.9 mmol/L (22.0-26.0); ABG PCO2 (T) 35.2 mmHg (35.0-48.0); ABG PO2 (T) 92.2 mmHg (75.0-100.0); ALLEN'S TEST POSITIVE; FCOHb 0.6 % (0.0-3.9); FMetHb 0.2 % (0.0-1.5); FO2Hb 96.2 % (94-97); PATIENT TEMPERATURE 37.1; PEEP 5 cm H2O; RESPIRATORY RATE 16 b/min; TIDAL VOLUME 500 mL; TOTAL HEMOGLOBIN 9.6 G/dl (14.0-18.0)
[2020-07-02] MEDS: FENTANYL-0.9 % NACL/PF 100 ML IV PRN ×2 (05:05→14:46)
--- NOTE | 2020-07-02 06:24 | NUR ---
Patient in room CICU 2013. I have received report from Chad GONZALES and had the opportunity to ask questions and assume patient care.
[2020-07-02] MEDS: pantoprazole 40 MG vial IV SCH (07:24)
[2020-07-02] MEDS: nicotine 21mg patch - 24 hr TD SCH (07:24)
[2020-07-02] MEDS: furosemide 40mg/4ml inj IV SCH ×3 (07:24→20:11)
[2020-07-02] MEDS: docusate sodium 100mg/10ml UD cup PO SCH ×2 (07:25→19:41)
[2020-07-02] MEDS: lactobacillus rhamnosus 10,000 MMU CELLS/CAPSULE OGT SCH ×2 (07:25→19:41)
[2020-07-02] MEDS: carBAMazepine 100mg chewable tablet OGT SCH ×3 (07:25→19:42)
[2020-07-02 07:36] LABS: ANISOCYTOSIS 2+; HYPOCHROMASIA 1+; MICROCYTOSIS 1+; NUCLEATED RED BLOOD CELLS 3 /100WBC (0-0); PLATELET ESTIMATE DECREASED; POLYCHROMASIA FEW; TOTAL CELLS COUNTED 100
[2020-07-02] MEDS: K, MAG and/or Phos replacement - Verify level? MC SCH (08:00)
[2020-07-02] MEDS ORDERED: metoclopramide 5 mg/ml inj IV PRN (08:15)
[2020-07-02] MEDS ORDERED: mineral oil 133ml enema RC ONE (08:15)
--- NOTE | 2020-07-02 08:18 | NUR ---
Dr. Leal at bedside with patient and nurse. MD is aware of patient unable to tolerate tube feeding at rate of 75, Currently patients tube rate is 40. No ext pt today due to being unstable, MD also aware of no BM. GI consult still waiting for patient to be stable. New orders; Relistor 12 mg Q48 hrs, Lactulose 20 mg Q6, Reglan 10 mg Q6 PRN, Once time dose enema. Goal today to to have patient pass a BM. Will continue to monitor.
[2020-07-02] MEDS: methylnaltrexone br 12mg/0.6ml inj***SubQ only SQ SCH (09:30)
[2020-07-02] MEDS: vancomycin inj. 750 MG in normal saline 250ml IV soln 250 ML IV SCH (11:59)
--- NOTE | 2020-07-02 12:13 | NUR ---
Called Pharmacy to ask for enema that the MD ordered. They are unable to obtain the location of this medication. Call materials.
[2020-07-02] MEDS: lactulose 20gm/30ml cup PO SCH ×2 (14:14→19:41)
--- NOTE | 2020-07-02 14:34 | NUR ---
Patient received enema and all the PRNs to have a bowel movement. Will continue to monitor.
[2020-07-02] MEDS: insulin glargine (Lantus) pen - multi-dose SQ SCH (21:00)
[2020-07-03] VITALS (24 sets, daily range): BP systolic 80–147; BP diastolic 51–88
[2020-07-03] MEDS: vancomycin inj. 750 MG in normal saline 250ml IV soln 250 ML IV SCH ×2 (00:03→12:30)
[2020-07-03] MEDS: FENTANYL-0.9 % NACL/PF 100 ML IV PRN (01:05)
[2020-07-03] MEDS: furosemide 40mg/4ml inj IV SCH ×5 (02:00→19:35)
[2020-07-03] MEDS: lactulose 20gm/30ml cup PO SCH ×2 (02:26→09:01)
[2020-07-03] MEDS: mineral oil/petrolatum ophthal oint EACHEYE SCH ×4 (02:26→19:32)
[2020-07-03 03:06] LABS: BASOPHILS # (AUTO) 0.1 X10'3 (0-0.2); BASOPHILS % (AUTO) 0.9 % (0-1); EOSINOPHILS # (AUTO) 0.3 X10'3 (0-0.9); HEMOGLOBIN 8.9 g/dl (14.0-17.9); LYMPHOCYTES % (AUTO) 14.1 % (21-51); MEAN CORPUSCULAR HEMOGLOBIN 28.3 PG (27.0-31.0); MEAN CORPUSCULAR HGB CONC 32.7 g/dL (33.0-36.5); MEAN CORPUSCULAR VOLUME 86.3 FL (78-98); MEAN PLATELET VOLUME 8.9 FL (7.4-10.4); MONOCYTES % (AUTO) 14.1 % (2-12); NEUTROPHILS # (AUTO) 4.8 X10'3 (1.8-7.7); NEUTROPHILS % (AUTO) 66.9 % (42-75); PLATELET COUNT 147 X10'3 (140-440); RED BLOOD COUNT 3.13 X10'6 (4.70-6.10); RED CELL DISTRIBUTION WIDTH 20.3 % (11.5-14.5); WHITE BLOOD COUNT 7.1 X10'3 (4.5-11.0)
[2020-07-03 03:17] LABS: PARTIAL THROMBOPLASTIN TIME 26 SECONDS (22-32)
[2020-07-03] MEDS: midazolam 100mg in NS 100ml 100 ML IV PRN ×2 (03:20→09:50)
[2020-07-03 03:28] LABS: ALANINE AMINOTRANSFERASE 48 U/L (12-78); ALBUMIN 2.2 G/DL (3.4-5.0); ALBUMIN/GLOBULIN RATIO 0.7 (1.1-1.5); ALKALINE PHOSPHATASE 83 IU/L (46-116); ANION GAP 2 (8-16); ASPARTATE AMINO TRANSFERASE 21 U/L (10-37); BILIRUBIN,TOTAL 0.8 MG/DL (0.1-1.0); BLOOD UREA NITROGEN 16 MG/DL (7-18); BUN/CREATININE RATIO 16.2 (5.4-32.0); CALCIUM 8.1 MG/DL (8.5-10.1); CHLORIDE 105 MMOL/L (99-107); CREATININE 0.99 MG/DL (0.60-1.10); GLUCOSE 96 MG/DL (70-104); MAGNESIUM 1.7 MG/DL (1.5-2.4); PHOSPHORUS 3.2 MG/DL (2.3-4.5); SODIUM 140 MMOL/L (135-145); TOTAL CARBON DIOXIDE 33.2 MMOL/L (24-32); TOTAL PROTEIN 5.4 G/DL (6.4-8.2); eGFR 77 ML/MIN
[2020-07-03 03:30] LABS: POTASSIUM 2.9 MMOL/L (3.5-5.1)
[2020-07-03 03:35] LABS: ABG BASE EXCESS -1.6 mmol/L (-2.0-2.0); ABG HCO3 22.3 mmol/L (22.0-26.0); ABG OXYGEN SATURATION 93.5 % (94-97); ABG PCO2 (T) 34.6 mmHg (35.0-48.0); ABG PO2 (T) 71.2 mmHg (75.0-100.0); ALLEN'S TEST POSITIVE; FCOHb 0.1 % (0.0-3.9); FMetHb 0.2 % (0.0-1.5); FO2Hb 93.2 % (94-97); PATIENT TEMPERATURE 37.2; PEEP 5 cm H2O; RESPIRATORY RATE 12 b/min; TIDAL VOLUME 500 mL; TOTAL HEMOGLOBIN 9.9 G/dl (14.0-18.0)
[2020-07-03] MEDS: POTASSIUM BICARB 20meq eff tab 20 MEQ TABLET.EFF OGT PRN ×3 (03:44→14:22)
--- NOTE | 2020-07-03 06:04 | NUR ---
Patient in room CICU 2013. I have received report from Chad GONZALES and had the opportunity to ask questions and assume patient care.
[2020-07-03 07:04] LABS: ANISOCYTOSIS 3+; PLATELET ESTIMATE DECREASED
[2020-07-03 07:05] LABS: POIKILOCYTOSIS FEW; POLYCHROMASIA 1+
[2020-07-03] MEDS: K, MAG and/or Phos replacement - Verify level? MC SCH (08:00)
[2020-07-03] MEDS: carBAMazepine 100mg chewable tablet OGT SCH ×3 (09:01→21:03)
[2020-07-03] MEDS: lactobacillus rhamnosus 10,000 MMU CELLS/CAPSULE OGT SCH ×2 (09:01→19:32)
[2020-07-03] MEDS: pantoprazole 40 MG vial IV SCH (09:01)
[2020-07-03] MEDS: nicotine 21mg patch - 24 hr TD SCH (09:01)
[2020-07-03] MEDS: docusate sodium 100mg/10ml UD cup PO SCH ×2 (09:01→19:32)
--- NOTE | 2020-07-03 10:30 | NUR ---
Dr. Leal at bedside with patient and nurse. is aware that patient had BMS today. New orders to stop all bm medications besides Reglan as prn and Relistor. is wanting to start weaning Patient with vent. New order to start Precedex and titrate to comfortable levels. And slow down to Discontinue fentanyl and versed as tolerated. Will continue to monitor.
--- NOTE | 2020-07-03 10:40 | NUR ---
With help from Mary downey, Precedex was initiated. Will continue to follow directions from .
[2020-07-03] MEDS: dexmedetomidine/D5W 100mL 100 ML IV SCH ×2 (10:41→18:34)
--- NOTE | 2020-07-03 12:19 | NUR ---
Fentanyl and Versed stopped with Precedex running. Will continue to monitor patient for weaning measures. Will continue to monitor.
--- NOTE | 2020-07-03 14:46 | NUR ---
Lowered patient drip on Preced to 0.2ml/hr, top help challange patiemt in getting home and feeling better. Pt is upsat at staff. Will cvontinue to monitor,
--- NOTE | 2020-07-03 18:29 | NUR ---
Patient in room CICU 2013. I have received report from CHRISTIAN Vogel and had the opportunity to ask questions and assume patient care.
[2020-07-03] MEDS: insulin glargine (Lantus) pen - multi-dose SQ SCH (19:47)
[2020-07-03] MEDS ORDERED: VANCOMYCIN LEVEL IV ONE (23:30)
[2020-07-04] VITALS (25 sets, daily range): BP systolic 87–160; BP diastolic 52–95
[2020-07-04] LABS: VANCOMYCIN,TROUGH 18.7 UG/ML (6.0-14.0)
[2020-07-04] MEDS: vancomycin inj. 750 MG in normal saline 250ml IV soln 250 ML IV SCH ×3 (00:08→23:45)
[2020-07-04 00:33] LABS: POTASSIUM 3.3 MMOL/L (3.5-5.1)
[2020-07-04] MEDS: morphine 4 MG/ML inj SYRINge IV PRN ×2 (01:02→22:36)
[2020-07-04] MEDS: mineral oil/petrolatum ophthal oint EACHEYE SCH ×4 (01:34→20:00)
[2020-07-04] MEDS: furosemide 40mg/4ml inj IV SCH ×2 (01:34→08:45)
[2020-07-04 03:07] LABS: BASOPHILS # (AUTO) 0.1 X10'3 (0-0.2); BASOPHILS % (AUTO) 1.2 % (0-1); EOSINOPHILS # (AUTO) 0.1 X10'3 (0-0.9); EOSINOPHILS % (AUTO) 1.4 % (0-6); HEMATOCRIT 28.8 % (42.0-52.0); HEMOGLOBIN 9.5 g/dl (14.0-17.9); LYMPHOCYTES # (AUTO) 1.1 X10'3 (1.1-4.8); LYMPHOCYTES % (AUTO) 15.2 % (21-51); MEAN CORPUSCULAR HEMOGLOBIN 28.4 PG (27.0-31.0); MEAN CORPUSCULAR HGB CONC 32.8 g/dL (33.0-36.5); MEAN CORPUSCULAR VOLUME 86.4 FL (78-98); MEAN PLATELET VOLUME 8.4 FL (7.4-10.4); MONOCYTES # (AUTO) 1.5 X10'3 (0-0.9); NEUTROPHILS # (AUTO) 4.7 X10'3 (1.8-7.7); NEUTROPHILS % (AUTO) 62.2 % (42-75); PLATELET COUNT 169 X10'3 (140-440); RED BLOOD COUNT 3.33 X10'6 (4.70-6.10); WHITE BLOOD COUNT 7.5 X10'3 (4.5-11.0)
[2020-07-04 03:16] LABS: PARTIAL THROMBOPLASTIN TIME 28 SECONDS (22-32)
[2020-07-04] MEDS: dexmedetomidine/D5W 100mL 100 ML IV SCH (03:23)
[2020-07-04 03:34] LABS: ALANINE AMINOTRANSFERASE 42 U/L (12-78); ALBUMIN 2.3 G/DL (3.4-5.0); ALBUMIN/GLOBULIN RATIO 0.7 (1.1-1.5); ALKALINE PHOSPHATASE 83 IU/L (46-116); ANION GAP 5 (8-16); ASPARTATE AMINO TRANSFERASE 20 U/L (10-37); BILIRUBIN,TOTAL 0.8 MG/DL (0.1-1.0); BLOOD UREA NITROGEN 19 MG/DL (7-18); BUN/CREATININE RATIO 18.8 (5.4-32.0); CALCIUM 8.2 MG/DL (8.5-10.1); CHLORIDE 97 MMOL/L (99-107); CREATININE 1.01 MG/DL (0.60-1.10); GLUCOSE 110 MG/DL (70-104); MAGNESIUM 1.9 MG/DL (1.5-2.4); PHOSPHORUS 3.9 MG/DL (2.3-4.5); POTASSIUM 3.7 MMOL/L (3.5-5.1); SODIUM 137 MMOL/L (135-145); TOTAL CARBON DIOXIDE 35.3 MMOL/L (24-32); TOTAL PROTEIN 5.8 G/DL (6.4-8.2); eGFR 76 ML/MIN
[2020-07-04 05:51] LABS: ABG BASE EXCESS 9.8 mmol/L (-2.0-2.0); ABG HCO3 32.3 mmol/L (22.0-26.0); ABG OXYGEN SATURATION 96.3 % (94-97); ABG PCO2 (T) 35.8 mmHg (35.0-48.0); ABG PO2 (T) 78.8 mmHg (75.0-100.0); ALLEN'S TEST POSITIVE; FMetHb 0.1 % (0.0-1.5); FO2Hb 96.2 % (94-97); PATIENT TEMPERATURE 37.4; PEEP 5 cm H2O; TIDAL VOLUME 500 mL; TOTAL HEMOGLOBIN 10.4 G/dl (14.0-18.0)
--- NOTE | 2020-07-04 06:21 | NUR ---
Problems reprioritized. Patient report given, questions answered & plan of care reviewed with CHRISTAIN Moran.
[2020-07-04] MEDS: docusate sodium 100mg/10ml UD cup PO SCH ×2 (08:00→20:00)
[2020-07-04] MEDS: K, MAG and/or Phos replacement - Verify level? MC SCH (08:00)
[2020-07-04] MEDS: methylnaltrexone br 12mg/0.6ml inj***SubQ only SQ SCH (08:00)
[2020-07-04] MEDS ORDERED: racepinephrine 11.25mg/0.5ml nebule IH PRN (08:30)
[2020-07-04 08:41] LABS: TOTAL CELLS COUNTED 100
[2020-07-04] MEDS: pantoprazole 40 MG vial IV SCH (08:45)
[2020-07-04] MEDS: nicotine 21mg patch - 24 hr TD SCH (08:45)
[2020-07-04 08:46] LABS: ANISOCYTOSIS 3+; HYPOCHROMASIA 1+; PLATELET ESTIMATE NORMAL; POLYCHROMASIA 1+
[2020-07-04] MEDS: carBAMazepine 100mg chewable tablet OGT SCH ×3 (08:46→20:41)
[2020-07-04] MEDS: lactobacillus rhamnosus 10,000 MMU CELLS/CAPSULE OGT SCH ×2 (08:46→20:00)
[2020-07-04 08:47] LABS: STOMATOCYTES FEW; TEAR DROP CELLS FEW
--- NOTE | 2020-07-04 12:52 | NUR ---
F/u 07/04: Pt extubated this AM s/p corpak placement and pending GYNAECOLOGICAL ONCOLOGIST BSS tomorrow per EMR. Tolerating TF at goal. LBM 07/03. Will monitor for diet advancement; recommend continue NGTF until at least 50% avg PO meals IF diet advances. Noted all vegetables allergies comments "difficulty swallowing" in EMR; likely not true allergy to all though will hold all as well as all nuts/nut products once PO diet until appropriate for allergy list review s/p extubation. Recommend: 1. NGTF via corpak using Vital AF starting at 75 ml/hr goal; to provide total volume 1800 ml, 2160 calories, 135 g protein, and 1460 ml water. 2. daily wts, prealbumin q Sunday and 3. additional 120 ml water flush q 4 hours 4. advance diet as medically indicated to heart healthy per GYNAECOLOGICAL ONCOLOGIST/MD recs 5. Updated allergy list once pt appropriate for verbal review of food allergies Addendum: 07/04/20 at [address] Amended: Links added.
--- NOTE | 2020-07-04 18:30 | NUR ---
Patient in room CICU 2013. I have received report from Luisa GONZALES and had the opportunity to ask questions and assume patient care.
[2020-07-04] MEDS: insulin glargine (Lantus) pen - multi-dose SQ SCH (21:00)
[2020-07-05] VITALS (22 sets, daily range): BP systolic 132–148; BP diastolic 74–98
[2020-07-05] MEDS: mineral oil/petrolatum ophthal oint EACHEYE SCH ×4 (02:00→20:26)
[2020-07-05 02:36] LABS: BASOPHILS # (AUTO) 0.1 X10'3 (0-0.2); BASOPHILS % (AUTO) 0.4 % (0-1); EOSINOPHILS % (AUTO) 0 % (0-6); HEMATOCRIT 33.6 % (42.0-52.0); HEMOGLOBIN 10.7 g/dl (14.0-17.9); LYMPHOCYTES # (AUTO) 0.5 X10'3 (1.1-4.8); LYMPHOCYTES % (AUTO) 3.7 % (21-51); MEAN CORPUSCULAR HEMOGLOBIN 27.7 PG (27.0-31.0); MEAN CORPUSCULAR HGB CONC 31.8 g/dL (33.0-36.5); MONOCYTES # (AUTO) 1.7 X10'3 (0-0.9); MONOCYTES % (AUTO) 11.3 % (2-12); NEUTROPHILS # (AUTO) 12.4 X10'3 (1.8-7.7); NEUTROPHILS % (AUTO) 84.6 % (42-75); PLATELET COUNT 192 X10'3 (140-440); RED BLOOD COUNT 3.86 X10'6 (4.70-6.10); RED CELL DISTRIBUTION WIDTH 21.1 % (11.5-14.5); WHITE BLOOD COUNT 14.7 X10'3 (4.5-11.0)
[2020-07-05] MEDS: morphine 4 MG/ML inj SYRINge IV PRN ×4 (02:42→17:07)
[2020-07-05 02:48] LABS: PARTIAL THROMBOPLASTIN TIME 27 SECONDS (22-32)
[2020-07-05 02:51] LABS: ALANINE AMINOTRANSFERASE 41 U/L (12-78); ALBUMIN 2.7 G/DL (3.4-5.0); ALBUMIN/GLOBULIN RATIO 0.7 (1.1-1.5); ALKALINE PHOSPHATASE 81 IU/L (46-116); ANION GAP 6 (8-16); ASPARTATE AMINO TRANSFERASE 23 U/L (10-37); BILIRUBIN,TOTAL 0.9 MG/DL (0.1-1.0); BLOOD UREA NITROGEN 23 MG/DL (7-18); BUN/CREATININE RATIO 20.7 (5.4-32.0); CALCIUM 8.6 MG/DL (8.5-10.1); CHLORIDE 101 MMOL/L (99-107); CREATININE 1.11 MG/DL (0.60-1.10); GLUCOSE 132 MG/DL (70-104); PHOSPHORUS 4.8 MG/DL (2.3-4.5); POTASSIUM 3.5 MMOL/L (3.5-5.1); PREALBUMIN 13.2 MG/DL (19-36); SODIUM 142 MMOL/L (135-145); TOTAL CARBON DIOXIDE 35.1 MMOL/L (24-32); TOTAL PROTEIN 6.5 G/DL (6.4-8.2); eGFR 68 ML/MIN
--- NOTE | 2020-07-05 06:04 | NUR ---
[place] documentation: I have reviewed and agree with all interventions, assessments performed and documented by Ladarius GONZALES. [place] Medication Administration: For this medication-pass time frame, all medication were reviewed, dispensed, administered and documented per hospital policy by Ladarius GONZALES.
--- NOTE | 2020-07-05 06:06 | NUR ---
Problems reprioritized. Patient report given, questions answered & plan of care reviewed with Luh GONZALES.
[2020-07-05 06:31] LABS: ANISOCYTOSIS 3+; PLATELET ESTIMATE NORMAL
[2020-07-05 06:32] LABS: HYPOCHROMASIA 1+
[2020-07-05] MEDS: K, MAG and/or Phos replacement - Verify level? MC SCH (08:00)
[2020-07-05] MEDS: pantoprazole 40 MG vial IV SCH (08:03)
[2020-07-05] MEDS: docusate sodium 100mg/10ml UD cup PO SCH (08:12)
[2020-07-05] MEDS: furosemide 40mg/4ml inj IV SCH (08:22)
[2020-07-05] MEDS: lactobacillus rhamnosus 10,000 MMU CELLS/CAPSULE OGT SCH ×2 (08:29→20:26)
[2020-07-05] MEDS: nicotine 21mg patch - 24 hr TD SCH (08:30)
[2020-07-05] MEDS: carBAMazepine 100mg chewable tablet OGT SCH ×3 (08:49→20:26)
--- NOTE | 2020-07-05 08:59 | NUR ---
Patient in room CICU 2013. I have received report from Xiomy GONZALES, and Alen GONZALES and had the opportunity to ask questions and assume patient care.
--- NOTE | 2020-07-05 09:00 | NUR ---
Pt failed swallow eval 07/05/20 at 0700, and directed to crush PO med for admin. I non administered the carbamazipine order originally at 0800 after reading the label comments below stating "do not crush medication... request oral/ liquid carbamazipine" per directions. After speaking with pharmacist, she stated that was a misprint, would correct the label comment and his short acting med could and should be crushed. I then re-admin med at 0845 and recieved a [employer] note stating I could not change the admin documentation. Med was verified, dose, route time and pt. given at 0845
[2020-07-05] MEDS: dexmedetomidine/D5W 100mL 100 ML IV SCH (09:16)
[2020-07-05] MEDS ORDERED: magnesium hydroxide 30ml (MOM) UD suspension OGT PRN (09:51)
[2020-07-05] MEDS ORDERED: Neutra Phos packet OGT PRN (09:51)
[2020-07-05] MEDS: vancomycin inj. 750 MG in normal saline 250ml IV soln 250 ML IV SCH ×2 (12:15→23:14)
--- NOTE | 2020-07-05 15:01 | NUR ---
F/u 07/05: Pt corpak has been removed for unknown reasons s/p extubation and pt remains NPO at this time unsafe for PO per DEVELOPER EVANGELIST recs. Not receiving nutrition at this time given NPO status. Addendum: 07/05/20 at [address] Amended: Links added.
--- NOTE | 2020-07-05 19:09 | NUR ---
Patient in room CICU 2013. I have received report from Luh GONZALES and had the opportunity to ask questions and assume patient care.
--- NOTE | 2020-07-05 19:28 | NUR ---
Problems reprioritized. Patient report given, questions answered & plan of care reviewed with Vernon GONZALES.
--- NOTE | 2020-07-05 19:29 | NUR ---
Dr Billings requested pt oncologist to get in touch with him reguarding Right Eye CA. I have attempted to locate pt oncoligist name and number and can not locate. Pt is a poor historian and does not know the name.
[2020-07-05] MEDS: docusate sodium 100mg/10ml UD cup OGT SCH (20:00)
[2020-07-05] MEDS: insulin glargine (Lantus) pen - multi-dose SQ SCH (21:00)
[2020-07-06] VITALS (37 sets, daily range): BP systolic 78–181; BP diastolic 44–173
[2020-07-06] MEDS: mineral oil/petrolatum ophthal oint EACHEYE SCH ×4 (02:15→21:26)
[2020-07-06 03:04] LABS: BASOPHILS # (AUTO) 0.1 X10'3 (0-0.2); BASOPHILS % (AUTO) 0.4 % (0-1); EOSINOPHILS % (AUTO) 0 % (0-6); HEMATOCRIT 32.9 % (42.0-52.0); HEMOGLOBIN 10.4 g/dl (14.0-17.9); LYMPHOCYTES # (AUTO) 0.6 X10'3 (1.1-4.8); LYMPHOCYTES % (AUTO) 5.2 % (21-51); MEAN CORPUSCULAR HEMOGLOBIN 28.5 PG (27.0-31.0); MEAN CORPUSCULAR HGB CONC 31.5 g/dL (33.0-36.5); MEAN CORPUSCULAR VOLUME 90.5 FL (78-98); MEAN PLATELET VOLUME 8.5 FL (7.4-10.4); MONOCYTES % (AUTO) 8.3 % (2-12); NEUTROPHILS # (AUTO) 10.6 X10'3 (1.8-7.7); NEUTROPHILS % (AUTO) 86.1 % (42-75); PLATELET COUNT 237 X10'3 (140-440); RED BLOOD COUNT 3.63 X10'6 (4.70-6.10); RED CELL DISTRIBUTION WIDTH 21.2 % (11.5-14.5); WHITE BLOOD COUNT 12.4 X10'3 (4.5-11.0)
[2020-07-06 03:09] LABS: PARTIAL THROMBOPLASTIN TIME 28 SECONDS (22-32)
[2020-07-06 03:17] LABS: ALANINE AMINOTRANSFERASE 42 U/L (12-78); ALBUMIN 2.8 G/DL (3.4-5.0); ALBUMIN/GLOBULIN RATIO 0.8 (1.1-1.5); ALKALINE PHOSPHATASE 77 IU/L (46-116); ANION GAP 8 (8-16); ASPARTATE AMINO TRANSFERASE 24 U/L (10-37); BILIRUBIN,TOTAL 0.9 MG/DL (0.1-1.0); BLOOD UREA NITROGEN 29 MG/DL (7-18); BUN/CREATININE RATIO 24.4 (5.4-32.0); CALCIUM 8.6 MG/DL (8.5-10.1); CHLORIDE 104 MMOL/L (99-107); CREATININE 1.19 MG/DL (0.60-1.10); GLUCOSE 123 MG/DL (70-104); MAGNESIUM 2.3 MG/DL (1.5-2.4); PHOSPHORUS 6.1 MG/DL (2.3-4.5); SODIUM 146 MMOL/L (135-145); TOTAL CARBON DIOXIDE 34.4 MMOL/L (24-32); TOTAL PROTEIN 6.5 G/DL (6.4-8.2); TRIGLYCERIDES 154 MG/DL (20-135); eGFR 63 ML/MIN
[2020-07-06 03:27] LABS: ANISOCYTOSIS 2+; HYPOCHROMASIA 1+; PLATELET ESTIMATE NORMAL
[2020-07-06] MEDS: morphine 4 MG/ML inj SYRINge IV PRN ×2 (05:58→10:38)
--- NOTE | 2020-07-06 06:33 | NUR ---
Problems reprioritized. Patient report given, questions answered & plan of care reviewed with Bailey GONZALES.
--- NOTE | 2020-07-06 06:34 | NUR ---
Patient in room CICU 2013. I have received report from Vernon GONZALES and had the opportunity to ask questions and assume patient care.
[2020-07-06] MEDS: lactobacillus rhamnosus 10,000 MMU CELLS/CAPSULE OGT SCH ×2 (07:34→21:26)
[2020-07-06] MEDS: furosemide 40mg/4ml inj IV SCH (07:34)
[2020-07-06] MEDS: pantoprazole 40 MG vial IV SCH (07:34)
[2020-07-06] MEDS: carBAMazepine 100mg chewable tablet OGT SCH ×3 (07:35→21:26)
[2020-07-06] MEDS: nicotine 21mg patch - 24 hr TD SCH (07:36)
[2020-07-06] MEDS: acetaminophen 325mg/10.15ml oral unit dose solution OGT PRN (07:56)
[2020-07-06] MEDS: K, MAG and/or Phos replacement - Verify level? MC SCH (08:00)
[2020-07-06] MEDS: docusate sodium 100mg/10ml UD cup OGT SCH ×2 (08:00→21:26)
[2020-07-06] MEDS: methylnaltrexone br 12mg/0.6ml inj***SubQ only SQ SCH (08:00)
[2020-07-06] MEDS: vancomycin inj. 750 MG in normal saline 250ml IV soln 250 ML IV SCH (13:11)
--- NOTE | 2020-07-06 13:50 | NUR ---
Pt suddenly had severe bradycardia Dr Billings close by ( came back in he had just assessed with nurse prior to sudden change and gave new orders) When he came in the Merrick went to Asystole and Bertha Gupta called.
--- NOTE | 2020-07-06 14:00 | NUR ---
1400 Blood glucose not done due to Code Blue.
--- NOTE | 2020-07-06 14:21 | NUR ---
I received verbal lab orders from Dr. Billings post code blue for CMP, CBC, blood cultures, and troponin series.
[2020-07-06] MEDS ORDERED: propofol 1000mg/100ml bottle 100 ML IV ONE (14:37)
[2020-07-06 14:38] LABS: BASOPHILS # (AUTO) 0.1 X10'3 (0-0.2); BASOPHILS % (AUTO) 0.6 % (0-1); EOSINOPHILS % (AUTO) 0 % (0-6); HEMATOCRIT 30.3 % (42.0-52.0); HEMOGLOBIN 9.4 g/dl (14.0-17.9); LYMPHOCYTES # (AUTO) 1.2 X10'3 (1.1-4.8); LYMPHOCYTES % (AUTO) 11.3 % (21-51); MEAN CORPUSCULAR HEMOGLOBIN 27.9 PG (27.0-31.0); MEAN CORPUSCULAR VOLUME 89.9 FL (78-98); MEAN PLATELET VOLUME 8.3 FL (7.4-10.4); MONOCYTES # (AUTO) 1.1 X10'3 (0-0.9); MONOCYTES % (AUTO) 10.6 % (2-12); NEUTROPHILS # (AUTO) 8.4 X10'3 (1.8-7.7); NEUTROPHILS % (AUTO) 77.5 % (42-75); PLATELET COUNT 223 X10'3 (140-440); RED BLOOD COUNT 3.37 X10'6 (4.70-6.10); RED CELL DISTRIBUTION WIDTH 21.9 % (11.5-14.5); WHITE BLOOD COUNT 10.8 X10'3 (4.5-11.0)
[2020-07-06] MEDS ORDERED: NORepinephrine 8mg/ 250ml NS 250 ML IV ONE (15:04)
[2020-07-06 16:06] LABS: ABG BASE EXCESS 9.6 mmol/L (-2.0-2.0); ABG HCO3 33.8 mmol/L (22.0-26.0); ABG PCO2 (T) 44.7 mmHg (35.0-48.0); ABG PO2 (T) 85.5 mmHg (75.0-100.0); FCOHb 0.3 % (0.0-3.9); FMetHb 0.3 % (0.0-1.5); FO2Hb 96.4 % (94-97); PEEP 5 cm H2O; RESPIRATORY RATE 18 b/min; TIDAL VOLUME 500 mL; TOTAL HEMOGLOBIN 9.7 G/dl (14.0-18.0)
--- NOTE | 2020-07-06 17:15 | NUR ---
Paged for stat PICC for 2013 s/p code. Upon arrival no consent signed. Contacted Dr. Billings, he stated "If I wanted a PICC I would have asked for one." Bailey GONZALES advised, PIV placed to right ac for additional ports if needed, IJ line has one clotted off, Dr. Billings aware two running. Katy Lew PICC RN
--- NOTE | 2020-07-06 18:00 | NUR ---
Problems reprioritized. Patient report given, questions answered & plan of care reviewed with ICU Noc RN.
[2020-07-06] MEDS: FENTANYL-0.9 % NACL/PF 100 ML IV PRN (18:33)
[2020-07-06] MEDS: propofol 1000mg/100ml bottle 100 ML IV SCH (19:03)
[2020-07-06] MEDS: insulin glargine (Lantus) pen - multi-dose SQ SCH (21:00)
[2020-07-07] VITALS (22 sets, daily range): BP systolic 95–137; BP diastolic 50–78
[2020-07-07] MEDS: FENTANYL-0.9 % NACL/PF 100 ML IV PRN ×4 (00:32→21:42)
[2020-07-07] MEDS: vancomycin inj. 750 MG in normal saline 250ml IV soln 250 ML IV SCH ×2 (00:35→12:33)
[2020-07-07] MEDS: propofol 1000mg/100ml bottle 100 ML IV SCH ×4 (02:38→18:09)
[2020-07-07 02:43] LABS: BASOPHILS # (AUTO) 0.1 X10'3 (0-0.2); BASOPHILS % (AUTO) 0.6 % (0-1); EOSINOPHILS % (AUTO) 0 % (0-6); HEMATOCRIT 24.3 % (42.0-52.0); LYMPHOCYTES # (AUTO) 1.4 X10'3 (1.1-4.8); LYMPHOCYTES % (AUTO) 14.7 % (21-51); MEAN CORPUSCULAR HEMOGLOBIN 28.8 PG (27.0-31.0); MEAN CORPUSCULAR HGB CONC 32.8 g/dL (33.0-36.5); MEAN CORPUSCULAR VOLUME 87.8 FL (78-98); MEAN PLATELET VOLUME 7.9 FL (7.4-10.4); MONOCYTES % (AUTO) 10.6 % (2-12); NEUTROPHILS % (AUTO) 74.1 % (42-75); PLATELET COUNT 170 X10'3 (140-440); RED BLOOD COUNT 2.77 X10'6 (4.70-6.10); RED CELL DISTRIBUTION WIDTH 20.9 % (11.5-14.5); WHITE BLOOD COUNT 9.4 X10'3 (4.5-11.0)
[2020-07-07 02:58] LABS: PARTIAL THROMBOPLASTIN TIME 25 SECONDS (22-32)
[2020-07-07 03:08] LABS: ALANINE AMINOTRANSFERASE 30 U/L (12-78); ALBUMIN 2.3 G/DL (3.4-5.0); ALBUMIN/GLOBULIN RATIO 0.8 (1.1-1.5); ALKALINE PHOSPHATASE 57 IU/L (46-116); ANION GAP 6 (8-16); ASPARTATE AMINO TRANSFERASE 18 U/L (10-37); BILIRUBIN,TOTAL 1.1 MG/DL (0.1-1.0); BLOOD UREA NITROGEN 33 MG/DL (7-18); BUN/CREATININE RATIO 27.3 (5.4-32.0); CHLORIDE 111 MMOL/L (99-107); CREATININE 1.21 MG/DL (0.60-1.10); GLUCOSE 94 MG/DL (70-104); MAGNESIUM 2.1 MG/DL (1.5-2.4); PHOSPHORUS 1.8 MG/DL (2.3-4.5); SODIUM 150 MMOL/L (135-145); TOTAL PROTEIN 5.2 G/DL (6.4-8.2); TRIGLYCERIDES 141 MG/DL (20-135); eGFR 61 ML/MIN
[2020-07-07 03:10] LABS: ANISOCYTOSIS 3+; PLATELET ESTIMATE NORMAL; POLYCHROMASIA FEW
[2020-07-07 03:11] LABS: ELLIPTOCYTES FEW
[2020-07-07 03:13] LABS: POTASSIUM 2.5 MMOL/L (3.5-5.1)
[2020-07-07] MEDS: mineral oil/petrolatum ophthal oint EACHEYE SCH ×4 (03:21→20:09)
[2020-07-07] MEDS: potassium Cl 20mEq/100mL bag 100 ML IV PRN ×5 (03:21→06:57)
[2020-07-07 04:16] LABS: ABG BASE EXCESS 9.8 mmol/L (-2.0-2.0); ABG HCO3 31.4 mmol/L (22.0-26.0); ABG OXYGEN SATURATION 97.5 % (94-97); ABG PCO2 (T) 31.2 mmHg (35.0-48.0); ABG PO2 (T) 89.7 mmHg (75.0-100.0); FCOHb 0.4 % (0.0-3.9); FMetHb 0.3 % (0.0-1.5); FO2Hb 96.8 % (94-97); PATIENT TEMPERATURE 37.3; PEEP 5 cm H2O; RESPIRATORY RATE 18 b/min; TIDAL VOLUME 500 mL; TOTAL HEMOGLOBIN 8.7 G/dl (14.0-18.0)
[2020-07-07] MEDS: furosemide 40mg/4ml inj IV SCH (09:12)
[2020-07-07] MEDS: pantoprazole 40 MG vial IV SCH (09:13)
[2020-07-07] MEDS: docusate sodium 100mg/10ml UD cup OGT SCH ×2 (09:13→20:00)
[2020-07-07] MEDS: carBAMazepine 100mg chewable tablet OGT SCH ×3 (09:13→21:00)
[2020-07-07] MEDS: lactobacillus rhamnosus 10,000 MMU CELLS/CAPSULE OGT SCH ×2 (09:14→20:00)
[2020-07-07] MEDS: nicotine 21mg patch - 24 hr TD SCH (09:14)
[2020-07-07] MEDS: K, MAG and/or Phos replacement - Verify level? MC SCH (09:14)
--- NOTE | 2020-07-07 12:30 | NUR ---
Reassessment: Pt intubated s/p code blue. OG tube in place though not to resume TF at this time per MD at critical care rounds. TF recommendations below remain in place for if to initiate nutrition support. [facility] 07/07. Will continue to follow closely. Recommend: 1. IF TF, continuous Vital AF starting at 75 ml/hr goal; to provide total volume 1800 ml, 2160 calories, 135 g protein, and 1460 ml water. 2. IF TF, daily wts, prealbumin q Sunday and 3. IF TF, additional 200 ml water flush q 4 hours; monitor serum Na 4. advance diet as medically indicated to heart healthy per CANDY PULLER/MD recs following extubation 5. Updated allergy list once pt appropriate for verbal review of food allergies Addendum: 07/07/20 at [address] Amended: Links added.
[2020-07-07] MEDS: insulin glargine (Lantus) pen - multi-dose SQ SCH (20:37)
[2020-07-08] VITALS (23 sets, daily range): BP systolic 107–162; BP diastolic 57–91
[2020-07-08] MEDS: mineral oil/petrolatum ophthal oint EACHEYE SCH ×4 (02:17→20:00)
[2020-07-08 03:27] LABS: BASOPHILS # (AUTO) 0.1 X10'3 (0-0.2); BASOPHILS % (AUTO) 1.3 % (0-1); EOSINOPHILS # (AUTO) 0.1 X10'3 (0-0.9); EOSINOPHILS % (AUTO) 1.1 % (0-6); HEMATOCRIT 26.7 % (42.0-52.0); HEMOGLOBIN 8.6 g/dl (14.0-17.9); LYMPHOCYTES % (AUTO) 10.4 % (21-51); MEAN CORPUSCULAR HGB CONC 32.4 g/dL (33.0-36.5); MEAN CORPUSCULAR VOLUME 86.4 FL (78-98); MEAN PLATELET VOLUME 7.8 FL (7.4-10.4); MONOCYTES # (AUTO) 0.8 X10'3 (0-0.9); NEUTROPHILS # (AUTO) 7.2 X10'3 (1.8-7.7); NEUTROPHILS % (AUTO) 78.2 % (42-75); PLATELET COUNT 185 X10'3 (140-440); RED BLOOD COUNT 3.09 X10'6 (4.70-6.10); RED CELL DISTRIBUTION WIDTH 20.8 % (11.5-14.5); WHITE BLOOD COUNT 9.2 X10'3 (4.5-11.0)
[2020-07-08 03:31] LABS: PARTIAL THROMBOPLASTIN TIME 27 SECONDS (22-32)
[2020-07-08 03:33] LABS: ALANINE AMINOTRANSFERASE 23 U/L (12-78); ALBUMIN 2.3 G/DL (3.4-5.0); ALBUMIN/GLOBULIN RATIO 0.7 (1.1-1.5); ALKALINE PHOSPHATASE 62 IU/L (46-116); ANION GAP 5 (8-16); ASPARTATE AMINO TRANSFERASE 16 U/L (10-37); BLOOD UREA NITROGEN 26 MG/DL (7-18); BUN/CREATININE RATIO 23.6 (5.4-32.0); CALCIUM 8.1 MG/DL (8.5-10.1); CHLORIDE 110 MMOL/L (99-107); GLUCOSE 92 MG/DL (70-104); MAGNESIUM 1.9 MG/DL (1.5-2.4); PHOSPHORUS 4.1 MG/DL (2.3-4.5); PREALBUMIN 12.6 MG/DL (19-36); SODIUM 150 MMOL/L (135-145); TOTAL CARBON DIOXIDE 34.8 MMOL/L (24-32); TOTAL PROTEIN 5.4 G/DL (6.4-8.2); eGFR 69 ML/MIN
[2020-07-08 03:35] LABS: POTASSIUM 2.9 MMOL/L (3.5-5.1)
[2020-07-08] MEDS: potassium Cl 20mEq/100mL bag 100 ML IV PRN ×4 (03:38→07:58)
[2020-07-08 03:50] LABS: ABG BASE EXCESS 11.1 mmol/L (-2.0-2.0); ABG HCO3 34.2 mmol/L (22.0-26.0); ABG OXYGEN SATURATION 95.4 % (94-97); ABG PCO2 (T) 40.6 mmHg (35.0-48.0); ABG PO2 (T) 78.8 mmHg (75.0-100.0); FCOHb 0.1 % (0.0-3.9); FMetHb 0.1 % (0.0-1.5); FO2Hb 95.2 % (94-97); PATIENT TEMPERATURE 37.8; PEEP 5 cm H2O; RESPIRATORY RATE 14 b/min; TIDAL VOLUME 500 mL; TOTAL HEMOGLOBIN 9.5 G/dl (14.0-18.0)
[2020-07-08] MEDS: lactobacillus rhamnosus 10,000 MMU CELLS/CAPSULE OGT SCH ×2 (07:59→20:00)
[2020-07-08] MEDS: furosemide 40mg/4ml inj IV SCH (07:59)
[2020-07-08] MEDS: docusate sodium 100mg/10ml UD cup OGT SCH ×2 (07:59→20:00)
[2020-07-08] MEDS: nicotine 21mg patch - 24 hr TD SCH (07:59)
[2020-07-08] MEDS: methylnaltrexone br 12mg/0.6ml inj***SubQ only SQ SCH (07:59)
[2020-07-08] MEDS: pantoprazole 40 MG vial IV SCH (07:59)
[2020-07-08] MEDS: K, MAG and/or Phos replacement - Verify level? MC SCH (08:00)
[2020-07-08] MEDS: carBAMazepine 100mg chewable tablet OGT SCH ×3 (08:00→21:00)
[2020-07-08] MEDS: vancomycin inj. 750 MG in normal saline 250ml IV soln 250 ML IV SCH ×3 (11:55)
--- NOTE | 2020-07-08 14:00 | NUR ---
TF consult: Pt remains intubated. TF recommendations below. Pt with a low Bunny of 12, only documented wound is a surgical wound to right eye. [facility] 07/07. Will continue to follow closely. Recommend: 1. Continuous Vital AF with 75 ml/hr goal to begin at 30 mL/hr and advance by 20 mL Q8H as tolerated to goal; to provide total volume 1800 ml, 2160 calories, 135 g protein, and 1460 ml water. 2. Daily wts, prealbumin q Sunday and 3. Additional 200 ml water flush q 4 hours; monitor serum Na 4. advance diet as medically indicated to heart healthy per BRINE PLANT OPERATOR/MD recs following extubation 5. Updated allergy list once pt appropriate for verbal review of food allergies Addendum: 07/08/20 at [address] Amended: Links added.
[2020-07-08] MEDS: FENTANYL-0.9 % NACL/PF 100 ML IV PRN (14:18)
[2020-07-08] MEDS: insulin glargine (Lantus) pen - multi-dose SQ SCH (21:00)
[2020-07-09] VITALS (24 sets, daily range): BP systolic 116–165; BP diastolic 59–90
[2020-07-09] MEDS: vancomycin inj. 750 MG in normal saline 250ml IV soln 250 ML IV SCH ×3 (01:04→23:52)
[2020-07-09] MEDS: mineral oil/petrolatum ophthal oint EACHEYE SCH ×4 (02:00→20:00)
[2020-07-09 02:58] LABS: BASOPHILS # (AUTO) 0.1 X10'3 (0-0.2); BASOPHILS % (AUTO) 0.5 % (0-1); EOSINOPHILS % (AUTO) 0.4 % (0-6); HEMATOCRIT 27.4 % (42.0-52.0); HEMOGLOBIN 8.6 g/dl (14.0-17.9); LYMPHOCYTES # (AUTO) 1.2 X10'3 (1.1-4.8); LYMPHOCYTES % (AUTO) 9.9 % (21-51); MEAN CORPUSCULAR HEMOGLOBIN 27.6 PG (27.0-31.0); MEAN CORPUSCULAR HGB CONC 31.5 g/dL (33.0-36.5); MEAN CORPUSCULAR VOLUME 87.7 FL (78-98); MEAN PLATELET VOLUME 8.4 FL (7.4-10.4); MONOCYTES % (AUTO) 8.1 % (2-12); NEUTROPHILS % (AUTO) 81.1 % (42-75); PLATELET COUNT 181 X10'3 (140-440); RED BLOOD COUNT 3.13 X10'6 (4.70-6.10); RED CELL DISTRIBUTION WIDTH 21.3 % (11.5-14.5); WHITE BLOOD COUNT 12.4 X10'3 (4.5-11.0)
[2020-07-09 03:13] LABS: PARTIAL THROMBOPLASTIN TIME 31 SECONDS (22-32)
[2020-07-09 03:29] LABS: ALANINE AMINOTRANSFERASE 20 U/L (12-78); ALBUMIN 2.2 G/DL (3.4-5.0); ALBUMIN/GLOBULIN RATIO 0.6 (1.1-1.5); ALKALINE PHOSPHATASE 68 IU/L (46-116); ANION GAP 7 (8-16); ASPARTATE AMINO TRANSFERASE 13 U/L (10-37); BILIRUBIN,TOTAL 1.1 MG/DL (0.1-1.0); BLOOD UREA NITROGEN 23 MG/DL (7-18); BUN/CREATININE RATIO 21.3 (5.4-32.0); CHLORIDE 110 MMOL/L (99-107); CREATININE 1.08 MG/DL (0.60-1.10); GLUCOSE 103 MG/DL (70-104); PHOSPHORUS 4.6 MG/DL (2.3-4.5); POTASSIUM 3.1 MMOL/L (3.5-5.1); SODIUM 149 MMOL/L (135-145); TOTAL PROTEIN 5.7 G/DL (6.4-8.2); eGFR 70 ML/MIN
[2020-07-09 03:30] LABS: ABG BASE EXCESS 8.2 mmol/L (-2.0-2.0); ABG HCO3 32.7 mmol/L (22.0-26.0); ABG OXYGEN SATURATION 96.9 % (94-97); ABG PCO2 (T) 46.3 mmHg (35.0-48.0); ABG PO2 (T) 94.1 mmHg (75.0-100.0); FCOHb 0.3 % (0.0-3.9); FMetHb 0.2 % (0.0-1.5); FO2Hb 96.4 % (94-97); PATIENT TEMPERATURE 37.4; PEEP 5 cm H2O; RESPIRATORY RATE 12 b/min; TIDAL VOLUME 500 mL
[2020-07-09] MEDS: potassium Cl 20mEq/100mL bag 100 ML IV PRN ×2 (04:54→09:07)
[2020-07-09] MEDS: docusate sodium 100mg/10ml UD cup OGT SCH ×2 (07:39→20:00)
[2020-07-09] MEDS: furosemide 40mg/4ml inj IV SCH (07:40)
[2020-07-09] MEDS: lactobacillus rhamnosus 10,000 MMU CELLS/CAPSULE OGT SCH ×2 (07:40→20:04)
[2020-07-09] MEDS: pantoprazole 40 MG vial IV SCH (07:40)
[2020-07-09] MEDS: nicotine 21mg patch - 24 hr TD SCH (07:40)
[2020-07-09] MEDS: carBAMazepine 100mg chewable tablet OGT SCH ×3 (07:40→20:04)
[2020-07-09] MEDS: K, MAG and/or Phos replacement - Verify level? MC SCH (08:00)
[2020-07-09] MEDS: FENTANYL-0.9 % NACL/PF 100 ML IV PRN ×2 (12:42→23:18)
--- NOTE | 2020-07-09 18:11 | NUR ---
Problems reprioritized. Patient report given, questions answered & plan of care reviewed with CHRISTIAN Bonilla.
[2020-07-09] MEDS: insulin glargine (Lantus) pen - multi-dose SQ SCH (20:04)
[2020-07-09] MEDS ORDERED: VANCOMYCIN LEVEL IV ONE (23:30)
[2020-07-10] VITALS (24 sets, daily range): BP systolic 95–190; BP diastolic 50–100
[2020-07-10] MEDS: mineral oil/petrolatum ophthal oint EACHEYE SCH ×4 (01:53→19:57)
[2020-07-10 02:46] LABS: BASOPHILS # (AUTO) 0.1 X10'3 (0-0.2); BASOPHILS % (AUTO) 0.7 % (0-1); EOSINOPHILS # (AUTO) 0.1 X10'3 (0-0.9); EOSINOPHILS % (AUTO) 0.6 % (0-6); HEMATOCRIT 27.5 % (42.0-52.0); HEMOGLOBIN 8.7 g/dl (14.0-17.9); LYMPHOCYTES # (AUTO) 1.5 X10'3 (1.1-4.8); LYMPHOCYTES % (AUTO) 9.5 % (21-51); MEAN CORPUSCULAR HEMOGLOBIN 28.2 PG (27.0-31.0); MEAN CORPUSCULAR HGB CONC 31.7 g/dL (33.0-36.5); MEAN CORPUSCULAR VOLUME 88.9 FL (78-98); MEAN PLATELET VOLUME 8.4 FL (7.4-10.4); MONOCYTES # (AUTO) 1.6 X10'3 (0-0.9); NEUTROPHILS # (AUTO) 12.2 X10'3 (1.8-7.7); NEUTROPHILS % (AUTO) 79.2 % (42-75); PLATELET COUNT 201 X10'3 (140-440); RED BLOOD COUNT 3.09 X10'6 (4.70-6.10); RED CELL DISTRIBUTION WIDTH 21.3 % (11.5-14.5); WHITE BLOOD COUNT 15.5 X10'3 (4.5-11.0)
[2020-07-10 02:52] LABS: PARTIAL THROMBOPLASTIN TIME 30 SECONDS (22-32)
[2020-07-10 02:56] LABS: ABG BASE EXCESS 8.7 mmol/L (-2.0-2.0); ABG HCO3 33.2 mmol/L (22.0-26.0); ABG OXYGEN SATURATION 97.5 % (94-97); ABG PCO2 (T) 48.2 mmHg (35.0-48.0); ABG PO2 (T) 104.9 mmHg (75.0-100.0); FCOHb 0.1 % (0.0-3.9); FMetHb 0.1 % (0.0-1.5); FO2Hb 97.3 % (94-97); PATIENT TEMPERATURE 38.1; PEEP 5 cm H2O; TIDAL VOLUME 500 mL; TOTAL HEMOGLOBIN 9.3 G/dl (14.0-18.0)
[2020-07-10 03:12] LABS: ANISOCYTOSIS 3+; ELLIPTOCYTES FEW; PLATELET ESTIMATE NORMAL; POLYCHROMASIA FEW; TEAR DROP CELLS FEW
[2020-07-10 04:03] LABS: ALANINE AMINOTRANSFERASE 22 U/L (12-78); ALBUMIN 2.3 G/DL (3.4-5.0); ALBUMIN/GLOBULIN RATIO 0.6 (1.1-1.5); ALKALINE PHOSPHATASE 82 IU/L (46-116); ANION GAP 7 (8-16); ASPARTATE AMINO TRANSFERASE 15 U/L (10-37); BILIRUBIN,TOTAL 0.7 MG/DL (0.1-1.0); BLOOD UREA NITROGEN 20 MG/DL (7-18); BUN/CREATININE RATIO 18.9 (5.4-32.0); CALCIUM 8.2 MG/DL (8.5-10.1); CHLORIDE 109 MMOL/L (99-107); CREATININE 1.06 MG/DL (0.60-1.10); GLUCOSE 124 MG/DL (70-104); POTASSIUM 3.7 MMOL/L (3.5-5.1); SODIUM 147 MMOL/L (135-145); TOTAL PROTEIN 6.1 G/DL (6.4-8.2); eGFR 72 ML/MIN
[2020-07-10] MEDS: furosemide 40mg/4ml inj IV SCH (07:09)
[2020-07-10] MEDS: lactobacillus rhamnosus 10,000 MMU CELLS/CAPSULE OGT SCH ×2 (07:09→19:57)
[2020-07-10] MEDS: docusate sodium 100mg/10ml UD cup OGT SCH ×2 (07:09→19:57)
[2020-07-10] MEDS: pantoprazole 40 MG vial IV SCH (07:09)
[2020-07-10] MEDS: nicotine 21mg patch - 24 hr TD SCH (07:10)
[2020-07-10] MEDS: carBAMazepine 100mg chewable tablet OGT SCH ×3 (07:11→19:58)
[2020-07-10] MEDS: acetaminophen 325mg/10.15ml oral unit dose solution OGT PRN (07:12)
[2020-07-10] MEDS: methylnaltrexone br 12mg/0.6ml inj***SubQ only SQ SCH (08:00)
[2020-07-10] MEDS: K, MAG and/or Phos replacement - Verify level? MC SCH (08:00)
[2020-07-10] MEDS: vancomycin/NS 1 GM ADD-VANTAGE 250 ML IV SCH (12:28)
[2020-07-10] MEDS: FENTANYL-0.9 % NACL/PF 100 ML IV PRN (16:01)
--- NOTE | 2020-07-10 18:15 | NUR ---
Patient in room CICU 2013. I have received report from CHRISTIAN BERRY and had the opportunity to ask questions and assume patient care.
--- NOTE | 2020-07-10 19:00 | NUR ---
patient agitated and restless, continues to reach for ETT. BP in the 200's systloic when patient is awake and agitated. Called PATIENT INTAKE COORDINATOR section housekeeper. New orders received.
[2020-07-10] MEDS: dexmedetomidine/D5W 100mL 100 ML IV PRN (19:14)
[2020-07-10] MEDS: insulin glargine (Lantus) pen - multi-dose SQ SCH (21:00)
[2020-07-11] VITALS (24 sets, daily range): BP systolic 99–166; BP diastolic 51–86
[2020-07-11] MEDS: mineral oil/petrolatum ophthal oint EACHEYE SCH ×4 (01:33→20:00)
[2020-07-11 02:03] LABS: BASOPHILS # (AUTO) 0.1 X10'3 (0-0.2); BASOPHILS % (AUTO) 0.8 % (0-1); EOSINOPHILS # (AUTO) 0.1 X10'3 (0-0.9); EOSINOPHILS % (AUTO) 1.2 % (0-6); HEMATOCRIT 24.3 % (42.0-52.0); HEMOGLOBIN 7.8 g/dl (14.0-17.9); LYMPHOCYTES % (AUTO) 8.5 % (21-51); MEAN CORPUSCULAR HEMOGLOBIN 28.5 PG (27.0-31.0); MEAN CORPUSCULAR HGB CONC 32.1 g/dL (33.0-36.5); MEAN CORPUSCULAR VOLUME 88.7 FL (78-98); MEAN PLATELET VOLUME 8.1 FL (7.4-10.4); MONOCYTES # (AUTO) 1.5 X10'3 (0-0.9); MONOCYTES % (AUTO) 12.5 % (2-12); NEUTROPHILS # (AUTO) 9.1 X10'3 (1.8-7.7); PLATELET COUNT 194 X10'3 (140-440); RED BLOOD COUNT 2.74 X10'6 (4.70-6.10); RED CELL DISTRIBUTION WIDTH 20.9 % (11.5-14.5); WHITE BLOOD COUNT 11.8 X10'3 (4.5-11.0)
[2020-07-11 02:07] LABS: ALANINE AMINOTRANSFERASE 22 U/L (12-78); ALBUMIN 1.9 G/DL (3.4-5.0); ALBUMIN/GLOBULIN RATIO 0.5 (1.1-1.5); ALKALINE PHOSPHATASE 73 IU/L (46-116); ANION GAP 2 (8-16); ASPARTATE AMINO TRANSFERASE 16 U/L (10-37); BILIRUBIN,TOTAL 0.6 MG/DL (0.1-1.0); BLOOD UREA NITROGEN 22 MG/DL (7-18); BUN/CREATININE RATIO 23.4 (5.4-32.0); CALCIUM 7.9 MG/DL (8.5-10.1); CHLORIDE 105 MMOL/L (99-107); CREATININE 0.94 MG/DL (0.60-1.10); GLUCOSE 124 MG/DL (70-104); POTASSIUM 3.3 MMOL/L (3.5-5.1); SODIUM 140 MMOL/L (135-145); TOTAL CARBON DIOXIDE 32.7 MMOL/L (24-32); TOTAL PROTEIN 5.6 G/DL (6.4-8.2); eGFR 82 ML/MIN
[2020-07-11] MEDS: dexmedetomidine/D5W 100mL 100 ML IV PRN (02:17)
[2020-07-11] MEDS: potassium Cl 20mEq/100mL bag 100 ML IV PRN ×2 (03:04→04:33)
[2020-07-11 03:13] LABS: PHOSPHORUS 3.5 MG/DL (2.3-4.5)
[2020-07-11 03:55] LABS: ABG HCO3 31.2 mmol/L (22.0-26.0); ABG OXYGEN SATURATION 95.3 % (94-97); ABG PCO2 (T) 44.2 mmHg (35.0-48.0); ABG PO2 (T) 78.1 mmHg (75.0-100.0); FCOHb 0.1 % (0.0-3.9); FMetHb 0.2 % (0.0-1.5); PATIENT TEMPERATURE 37.6; PEEP 5 cm H2O; RESPIRATORY RATE 12 b/min; TOTAL HEMOGLOBIN 10.4 G/dl (14.0-18.0)
[2020-07-11] MEDS: FENTANYL-0.9 % NACL/PF 100 ML IV PRN (04:33)
--- NOTE | 2020-07-11 06:20 | NUR ---
Problems reprioritized. Patient report given, questions answered & plan of care reviewed with Meron GONZALES.
[2020-07-11] MEDS: furosemide 40mg/4ml inj IV SCH (07:10)
[2020-07-11] MEDS: pantoprazole 40 MG vial IV SCH (07:10)
[2020-07-11] MEDS: docusate sodium 100mg/10ml UD cup OGT SCH ×2 (07:10→20:00)
[2020-07-11] MEDS: lactobacillus rhamnosus 10,000 MMU CELLS/CAPSULE OGT SCH ×2 (07:11→20:57)
[2020-07-11] MEDS: carBAMazepine 100mg chewable tablet OGT SCH ×3 (07:11→21:01)
[2020-07-11] MEDS: nicotine 21mg patch - 24 hr TD SCH (07:11)
[2020-07-11] MEDS: K, MAG and/or Phos replacement - Verify level? MC SCH (08:05)
--- NOTE | 2020-07-11 11:19 | NUR ---
Reassessment: TF continues at goal rate. No change in nutrition intervention. Intubated, sedated. Will continue to follow. Recommend: 1. Continuous Vital AF with 75 ml/hr goal to provide total volume 1800 ml, 2160 calories, 135 g protein, and 1460 ml water. 2. Daily wts, prealbumin q Sunday and 3. Additional 200 ml water flush q 4 hours; monitor serum Na Addendum: 07/11/20 at [address] Amended: Links added.
[2020-07-11] MEDS: vancomycin/NS 1 GM ADD-VANTAGE 250 ML IV SCH (11:45)
[2020-07-11] MEDS ORDERED: vancomycin/NS 1 GM ADD-VANTAGE 250 ML IV SCH (12:00)
[2020-07-11] MEDS: insulin glargine (Lantus) pen - multi-dose SQ SCH (21:00)
[2020-07-12] VITALS (24 sets, daily range): BP systolic 136–162; BP diastolic 79–99
[2020-07-12] MEDS: dexmedetomidine/D5W 100mL 100 ML IV PRN ×2 (00:41→14:15)
[2020-07-12 03:36] LABS: BASOPHILS # (AUTO) 0.1 X10'3 (0-0.2); BASOPHILS % (AUTO) 0.9 % (0-1); EOSINOPHILS # (AUTO) 0.1 X10'3 (0-0.9); EOSINOPHILS % (AUTO) 0.6 % (0-6); HEMATOCRIT 28.4 % (42.0-52.0); MEAN CORPUSCULAR HEMOGLOBIN 27.7 PG (27.0-31.0); MEAN CORPUSCULAR HGB CONC 31.6 g/dL (33.0-36.5); MEAN CORPUSCULAR VOLUME 87.7 FL (78-98); MEAN PLATELET VOLUME 8.3 FL (7.4-10.4); MONOCYTES # (AUTO) 1.6 X10'3 (0-0.9); MONOCYTES % (AUTO) 12.6 % (2-12); NEUTROPHILS # (AUTO) 9.9 X10'3 (1.8-7.7); NEUTROPHILS % (AUTO) 77.9 % (42-75); PLATELET COUNT 265 X10'3 (140-440); RED BLOOD COUNT 3.24 X10'6 (4.70-6.10); RED CELL DISTRIBUTION WIDTH 20.6 % (11.5-14.5); WHITE BLOOD COUNT 12.8 X10'3 (4.5-11.0)
[2020-07-12 03:42] LABS: ALANINE AMINOTRANSFERASE 24 U/L (12-78); ALBUMIN 2.4 G/DL (3.4-5.0); ALBUMIN/GLOBULIN RATIO 0.6 (1.1-1.5); ALKALINE PHOSPHATASE 77 IU/L (46-116); ANION GAP 6 (8-16); ASPARTATE AMINO TRANSFERASE 21 U/L (10-37); BILIRUBIN,TOTAL 0.9 MG/DL (0.1-1.0); BLOOD UREA NITROGEN 18 MG/DL (7-18); BUN/CREATININE RATIO 20.2 (5.4-32.0); CALCIUM 8.6 MG/DL (8.5-10.1); CHLORIDE 107 MMOL/L (99-107); CREATININE 0.89 MG/DL (0.60-1.10); GLUCOSE 91 MG/DL (70-104); MAGNESIUM 2.1 MG/DL (1.5-2.4); PHOSPHORUS 3.1 MG/DL (2.3-4.5); POTASSIUM 3.4 MMOL/L (3.5-5.1); SODIUM 144 MMOL/L (135-145); TOTAL CARBON DIOXIDE 31.2 MMOL/L (24-32); TOTAL PROTEIN 6.5 G/DL (6.4-8.2); eGFR 87 ML/MIN
[2020-07-12] MEDS: potassium Cl 20mEq/100mL bag 100 ML IV PRN ×3 (04:06→06:00)
--- NOTE | 2020-07-12 06:37 | NUR ---
Problems reprioritized. Patient report given, questions answered & plan of care reviewed with CHRISTIAN Nunez.
[2020-07-12] MEDS: K, MAG and/or Phos replacement - Verify level? MC SCH (08:00)
[2020-07-12] MEDS: docusate sodium 100mg/10ml UD cup OGT SCH ×2 (08:00→20:00)
[2020-07-12] MEDS: pantoprazole 40 MG vial IV SCH (08:49)
[2020-07-12] MEDS: methylnaltrexone br 12mg/0.6ml inj***SubQ only SQ SCH (08:49)
[2020-07-12] MEDS: furosemide 40mg/4ml inj IV SCH (08:49)
[2020-07-12] MEDS: lactobacillus rhamnosus 10,000 MMU CELLS/CAPSULE OGT SCH ×2 (08:49→20:00)
[2020-07-12] MEDS: nicotine 21mg patch - 24 hr TD SCH (08:49)
[2020-07-12] MEDS: carBAMazepine 100mg chewable tablet OGT SCH ×3 (08:50→20:32)
[2020-07-12] MEDS: vancomycin/NS 1 GM ADD-VANTAGE 250 ML IV SCH (12:33)
--- NOTE | 2020-07-12 12:37 | NUR ---
Reassessment: Pt extubated, OG tube removed. Pending BSS, FIELD SPEC deferred first swallow eval d/t increased respiratory effort per nursing report. Will continue to follow. Recommend: 1. advance diet as medically indicated when can pass swallow evaluation to regular, texture per FIELD SPEC recommendations 2. monitor appetite, honor preferences, and monitor need for ONS if with suboptimal PO intake 3. bowel care as needed 4. wt per rx Addendum: 07/12/20 at [address] Amended: Links added.
[2020-07-12] MEDS: ipratropium/albuterol 3ml nebule IH SCH ×3 (19:22→20:43)
--- NOTE | 2020-07-12 20:38 | NUR ---
Patient extubated and NG out, he is unable to follow commands and failed my bedside swallow. Per pharmacy Tegretol does not come IV, I will notify LANCE Dillon
[2020-07-12] MEDS: insulin glargine (Lantus) pen - multi-dose SQ SCH (21:00)
[2020-07-13] VITALS (15 sets, daily range): BP systolic 133–149; BP diastolic 66–90
[2020-07-13] MEDS: dexmedetomidine/D5W 100mL 100 ML IV PRN ×2 (00:26→09:09)
[2020-07-13 02:42] LABS: BASOPHILS # (AUTO) 0.1 X10'3 (0-0.2); BASOPHILS % (AUTO) 1.3 % (0-1); EOSINOPHILS # (AUTO) 0.1 X10'3 (0-0.9); EOSINOPHILS % (AUTO) 1.2 % (0-6); HEMOGLOBIN 8.9 g/dl (14.0-17.9); LYMPHOCYTES % (AUTO) 10.6 % (21-51); MEAN CORPUSCULAR HEMOGLOBIN 27.8 PG (27.0-31.0); MEAN CORPUSCULAR HGB CONC 31.6 g/dL (33.0-36.5); MEAN CORPUSCULAR VOLUME 87.8 FL (78-98); MEAN PLATELET VOLUME 8.1 FL (7.4-10.4); MONOCYTES # (AUTO) 1.5 X10'3 (0-0.9); MONOCYTES % (AUTO) 15.4 % (2-12); NEUTROPHILS % (AUTO) 71.5 % (42-75); PLATELET COUNT 309 X10'3 (140-440); RED BLOOD COUNT 3.19 X10'6 (4.70-6.10); RED CELL DISTRIBUTION WIDTH 20.8 % (11.5-14.5); WHITE BLOOD COUNT 9.8 X10'3 (4.5-11.0)
[2020-07-13 03:08] LABS: ALANINE AMINOTRANSFERASE 31 U/L (12-78); ALBUMIN 2.3 G/DL (3.4-5.0); ALBUMIN/GLOBULIN RATIO 0.6 (1.1-1.5); ALKALINE PHOSPHATASE 77 IU/L (46-116); ANION GAP 5 (8-16); ASPARTATE AMINO TRANSFERASE 27 U/L (10-37); BILIRUBIN,TOTAL 0.8 MG/DL (0.1-1.0); BLOOD UREA NITROGEN 17 MG/DL (7-18); BUN/CREATININE RATIO 17.9 (5.4-32.0); CALCIUM 8.7 MG/DL (8.5-10.1); CHLORIDE 110 MMOL/L (99-107); CREATININE 0.95 MG/DL (0.60-1.10); GLUCOSE 96 MG/DL (70-104); MAGNESIUM 2.3 MG/DL (1.5-2.4); PHOSPHORUS 3.4 MG/DL (2.3-4.5); POTASSIUM 3.8 MMOL/L (3.5-5.1); SODIUM 146 MMOL/L (135-145); TOTAL PROTEIN 6.3 G/DL (6.4-8.2); TRIGLYCERIDES 136 MG/DL (20-135); eGFR 81 ML/MIN
--- NOTE | 2020-07-13 06:15 | NUR ---
Problems reprioritized. Patient report given, questions answered & plan of care reviewed with CHRISTIAN Moran.
[2020-07-13] MEDS: K, MAG and/or Phos replacement - Verify level? MC SCH (08:00)
[2020-07-13] MEDS: docusate sodium 100mg/10ml UD cup OGT SCH (08:00)
[2020-07-13] MEDS: ipratropium/albuterol 3ml nebule IH SCH ×2 (08:02→14:55)
[2020-07-13] MEDS: lactobacillus rhamnosus 10,000 MMU CELLS/CAPSULE OGT SCH (09:05)
[2020-07-13] MEDS: furosemide 40mg/4ml inj IV SCH (09:05)
[2020-07-13] MEDS: pantoprazole 40 MG vial IV SCH (09:05)
[2020-07-13] MEDS: carBAMazepine 100mg chewable tablet OGT SCH ×2 (09:05→13:54)
[2020-07-13] MEDS: nicotine 21mg patch - 24 hr TD SCH (09:06)
[2020-07-13 10:52] LABS: PLATELET ESTIMATE NORMAL; TOTAL CELLS COUNTED 100
[2020-07-13 10:53] LABS: ANISOCYTOSIS 3+; BURR CELLS FEW; POLYCHROMASIA FEW; TEAR DROP CELLS FEW
[2020-07-13 10:54] LABS: STOMATOCYTES 1+
[2020-07-13] MEDS ORDERED: diltiazem 30mg tablet PO ONE (11:25)
[2020-07-13] MEDS ORDERED: VANCOMYCIN LEVEL IV ONE (11:30)
[2020-07-13] MEDS ORDERED: amiodarone 200mg tablet PO SCH (11:30)
[2020-07-13] MEDS: vancomycin/NS 1 GM ADD-VANTAGE 250 ML IV SCH (13:54)
--- NOTE | 2020-07-13 14:40 | NUR ---
Patient in room CICU 2009. I have received report from Luisa GONZALES and had the opportunity to ask questions and assume patient care.
--- NOTE | 2020-07-13 16:02 | NUR ---
Patient stable for transfer per MD orders. Transfer packet sent with patient. PIV discontinued - cannula intact. Patient transported via [facility]. Stable at time of transfer.
[2020-07-14] MEDS ORDERED: VANCOMYCIN 750MG IV in NS 250 ML IV SCH (12:00)
[2020-07-17] MEDS ORDERED: VANCOMYCIN LEVEL IV ONE (11:30)
[2020-07-18] MEDS ORDERED: amiodarone 200mg tablet PO SCH (20:00)
== END 2020-07-13 16:17 | DRG 720 ==
LOC: ER 19:26 → ED HOLD 23:00 → CICU 2S 23:35 → CMPBEDREQ 06-28 19:49 → CICU 2S 07-11 17:15
PROVIDERS: ADMIT Internal Medicine Critical Care Medicine; ATTEND Internal Medicine Critical Care Medicine
PROC: 30233N1 Transfusion of Nonautologous Red Blood Cells into Peripheral Vein, Percutaneous Approach (ICD-10-PCS; principal; 2020-06-26)
PROC: 5A1955Z Respiratory Ventilation, Greater than 96 Consecutive Hours (ICD-10-PCS; 2020-06-26)
PROC: 0BH17EZ Insertion of Endotracheal Airway into Trachea, Via Natural or Artificial Opening (ICD-10-PCS; 2020-06-26)
PROC: 30233L1 Transfusion of Nonautologous Fresh Plasma into Peripheral Vein, Percutaneous Approach (ICD-10-PCS; 2020-06-27)
PROC: 30233K1 Transfusion of Nonautologous Frozen Plasma into Peripheral Vein, Percutaneous Approach (ICD-10-PCS; 2020-06-27)
PROC: 3E02340 Introduction of Influenza Vaccine into Muscle, Percutaneous Approach (ICD-10-PCS; 2020-06-29)
DX: A41.01 Sepsis due to Methicillin susceptible Staphylococcus aureus (principal); I21.4 Non-ST elevation (NSTEMI) myocardial infarction; J96.01 Acute respiratory failure with hypoxia; F17.210 Nicotine dependence, cigarettes, uncomplicated; I10 Essential (primary) hypertension; N17.9 Acute kidney failure, unspecified; J18.9 Pneumonia, unspecified organism; C69.60 Malignant neoplasm of unspecified orbit; K92.2 Gastrointestinal hemorrhage, unspecified; J44.0 Chronic obstructive pulmonary disease with (acute) lower respiratory infection; Z66 Do not resuscitate; J81.1 Chronic pulmonary edema; J91.8 Pleural effusion in other conditions classified elsewhere; E11.9 Type 2 diabetes mellitus without complications; Z51.5 Encounter for palliative care; Z20.828 Contact with and (suspected) exposure to other viral communicable diseases; E87.4 Mixed disorder of acid-base balance; F03.90 Unspecified dementia, unspecified severity, without behavioral disturbance, psychotic disturbance, mood disturbance, and anxiety; D64.9 Anemia, unspecified; Z83.3 Family history of diabetes mellitus; Z85.840 Personal history of malignant neoplasm of eye; Z86.718 Personal history of other venous thrombosis and embolism; Z88.0 Allergy status to penicillin; Z90.01 Acquired absence of eye; Z23 Encounter for immunization
CPT/HCPCS: 31500; 36415; 36430; 36556; 36600; 71045; 74176; 76937; 80053; 80156; 80202; 81001; 82272; 82570; 82803; 82810; 82948; 83605; 83735; 83880; 84100; 84132; 84134; 84145; 84300; 84478; 84484; 85007; 85008; 85018; 85025; 85027; 85379; 85384; 85610; 85730; 86885; 86900; 86901; 86920; 86945; 87040; 87070; 87075; 87077; 87081; 87102; 87186; 87207; 87635; 92508; 92616; 92950; 93005; 93306; 93308; 94002; 94003; 94640; 94668; 94760; 94799; 96365; 99291; 99292; C9113; C9803; G0378; J0171; J0696; J1815; J1940; J1956; J2212; J2250; J2270; J2704; J2765; J3010; J3370; J3480; J7030; J7050; J7060; P9016; P9059; Q2039

== ENCOUNTER 2022-08-22 08:05 | Outpatient (CLI) | payer MEDICAID ==
[~2022-08-22 08:05] MED LIST changes: -APIX5TAB3 PO; -DICL100G30 TP; -DULO-31 PO; -FOLI1TAB16 PO; +FOLI1TAB27 PO; +HYDR-3973 PO; +METO-384 PO; -METO50TA7 PO; -MORP30TA60 PO; +MSC30T PO; +ONDA-103 PO; +SERT-434 PO; -SERT50TA10 PO; -calcium chloride 100 MG/1 ML inj IV ONE; -epiNEPHrine 0.1mg/ml 10ml syringe ONE; -etomidate 2mg/ml inj. ONE; -rocuronium 10mg/ml inj IV ONE; -sod chloride 0.9% 10ml flush syringe IV ONE; -sodium bicarbonate (8.4%) 1 mEq/ml syringe ONE
== END 2022-08-22 23:59 | disposition home or self-care (01) ==
LOC: RAD 08:05
PROVIDERS: ATTEND Psychiatry & Neurology Neurology
DX: R94.01 Abnormal electroencephalogram [EEG] (principal); G40.919 Epilepsy, unspecified, intractable, without status epilepticus
CPT/HCPCS: 95819

== ENCOUNTER → 2024-02-14 | Outpatient (CLI) | payer MEDICAID | END | disposition home or self-care (01) | LOC: RAD 16:43 | PROVIDERS: ATTEND Student in an Organized Health Care Education/Training Program | DX: J44.9 Chronic obstructive pulmonary disease, unspecified (principal); J98.11 Atelectasis | CPT/HCPCS: 71046 ==

== ENCOUNTER 2024-04-15 18:59 | Inpatient (IN) | payer MEDICAID ==
[~2024-04-15] VITALS: Ht 180.3 cm; Wt 58.6 kg
[2024-04-15 19:24] LABS: BASOPHILS # (AUTO) 0.1 X10'3 (0-0.2); BASOPHILS % (AUTO) 1.3 % (0-1); EOSINOPHILS # (AUTO) 0.2 X10'3 (0-0.9); EOSINOPHILS % (AUTO) 3.1 % (0-6); HEMOGLOBIN 12.3 g/dl (14.0-17.9); LYMPHOCYTES # (AUTO) 0.3 X10'3 (1.1-4.8); LYMPHOCYTES % (AUTO) 4.7 % (21-51); MEAN CORPUSCULAR HEMOGLOBIN 30.2 PG (27.0-31.0); MEAN CORPUSCULAR HGB CONC 33.3 g/dL (33.0-36.5); MEAN CORPUSCULAR VOLUME 90.6 FL (78-98); MEAN PLATELET VOLUME 8.9 FL (7.4-10.4); MONOCYTES # (AUTO) 0.7 X10'3 (0-0.9); MONOCYTES % (AUTO) 11.1 % (2-12); NEUTROPHILS # (AUTO) 5.2 X10'3 (1.8-7.7); NEUTROPHILS % (AUTO) 79.8 % (42-75); PLATELET COUNT 199 X10'3 (140-440); RED BLOOD COUNT 4.08 X10'6 (4.70-6.10); RED CELL DISTRIBUTION WIDTH 14.4 % (11.5-14.5); WHITE BLOOD COUNT 6.5 X10'3 (4.5-11.0)
[2024-04-15] MEDS: acetaminophen 1,000mg/100ml IV 100 ML IV SCH (19:39)
[2024-04-15 19:42] LABS: ALANINE AMINOTRANSFERASE 28 U/L (12-78); ALBUMIN/GLOBULIN RATIO 0.9 (1.1-1.5); ALKALINE PHOSPHATASE 101 IU/L (46-116); ANION GAP 4 (8-16); ASPARTATE AMINO TRANSFERASE 22 U/L (10-37); BILIRUBIN,TOTAL 0.3 MG/DL (0.1-1.0); BLOOD UREA NITROGEN 17 MG/DL (7-18); BUN/CREATININE RATIO 14.2 (10.0-20.0); CALCIUM 8.4 MG/DL (8.5-10.1); CHLORIDE 99 MMOL/L (99-107); GLUCOSE 97 MG/DL (70-104); SODIUM 132 MMOL/L (135-145); TOTAL CARBON DIOXIDE 29.5 MMOL/L (24-32); TOTAL PROTEIN 6.4 G/DL (6.4-8.2); eCRCL 50 ML/MIN; eGFR 61 ML/MIN
[2024-04-15 19:49] LABS: PRO BRAIN NATRIURETIC PEPTIDE 293 PG/ML (0-125)
[2024-04-15] MEDS: normal saline 1000ml 1,000 ML IV ONE ×2 (20:15→20:48)
[2024-04-15] MEDS ORDERED: ondansetron/PF 4mg/2ml inj IV PRN (23:35)
[2024-04-15] MEDS ORDERED: potassium Cl 20 mEq SR tablet PO PRN ×2 (23:35)
[2024-04-15] MEDS ORDERED: magnesium hydroxide 30ml (MOM) UD suspension PO PRN (23:35)
[2024-04-15] MEDS ORDERED: acetaminophen 325mg tablet PO PRN (23:35)
[2024-04-15] MEDS ORDERED: mag hydrox/Alum hydrox/simeth 30ml oral suspension PO PRN (23:35)
[2024-04-15] MEDS ORDERED: magnesium sulf-water 4G/100mL 100 ML IV PRN (23:35)
[2024-04-15] MEDS ORDERED: magnesium Cl slow-release 64mg tablet PO PRN (23:35)
[2024-04-15] MEDS ORDERED: potassium Cl 40MEQ/1/2NS 520ml 520 ML IV PRN (23:35)
[2024-04-16] VITALS (7 sets, daily range): BP systolic 111–171; BP diastolic 55–114; PULSE 63–88; RESP 12–18; TEMP 96.8–100; O2SAT 96–97
[2024-04-16] MEDS: normal saline 1000ml 1,000 ML IV SCH (00:06)
[2024-04-16 02:51] LABS: BASOPHILS # (AUTO) 0.1 X10'3 (0-0.2); BASOPHILS % (AUTO) 1.3 % (0-1); EOSINOPHILS # (AUTO) 0.1 X10'3 (0-0.9); EOSINOPHILS % (AUTO) 2.3 % (0-6); HEMATOCRIT 34.1 % (42.0-52.0); HEMOGLOBIN 11.2 g/dl (14.0-17.9); LYMPHOCYTES # (AUTO) 0.6 X10'3 (1.1-4.8); LYMPHOCYTES % (AUTO) 14.2 % (21-51); MEAN CORPUSCULAR HEMOGLOBIN 29.9 PG (27.0-31.0); MEAN CORPUSCULAR HGB CONC 32.7 g/dL (33.0-36.5); MEAN CORPUSCULAR VOLUME 91.3 FL (78-98); MEAN PLATELET VOLUME 8.6 FL (7.4-10.4); MONOCYTES # (AUTO) 0.6 X10'3 (0-0.9); MONOCYTES % (AUTO) 13.3 % (2-12); NEUTROPHILS # (AUTO) 3.1 X10'3 (1.8-7.7); NEUTROPHILS % (AUTO) 68.9 % (42-75); PLATELET COUNT 162 X10'3 (140-440); RED BLOOD COUNT 3.74 X10'6 (4.70-6.10); RED CELL DISTRIBUTION WIDTH 14.8 % (11.5-14.5); WHITE BLOOD COUNT 4.4 X10'3 (4.5-11.0)
[2024-04-16 03:05] LABS: ALANINE AMINOTRANSFERASE 21 U/L (12-78); ALBUMIN 2.6 G/DL (3.4-5.0); ALBUMIN/GLOBULIN RATIO 0.9 (1.1-1.5); ALKALINE PHOSPHATASE 90 IU/L (46-116); ANION GAP 3 (8-16); ASPARTATE AMINO TRANSFERASE 26 U/L (10-37); BILIRUBIN,TOTAL 0.2 MG/DL (0.1-1.0); BLOOD UREA NITROGEN 16 MG/DL (7-18); BUN/CREATININE RATIO 14.7 (10.0-20.0); CALCIUM 8.1 MG/DL (8.5-10.1); CHLORIDE 104 MMOL/L (99-107); CREATININE 1.09 MG/DL (0.60-1.10); GLUCOSE 89 MG/DL (70-104); MAGNESIUM 1.8 MG/DL (1.5-2.4); POTASSIUM 4.8 MMOL/L (3.5-5.1); SODIUM 135 MMOL/L (135-145); TOTAL CARBON DIOXIDE 28.3 MMOL/L (24-32); TOTAL PROTEIN 5.6 G/DL (6.4-8.2); eCRCL 55 ML/MIN; eGFR 68 ML/MIN
[2024-04-16] MEDS: docusate sod 100mg capsule PO SCH (08:00)
[2024-04-16] MEDS: heparin, porcine 5000 units/ml vial SQ SCH (09:27)
[2024-04-16 13:10] LABS: APTT 32 SECONDS (22-32); PROTHROMBIN TIME 10.7 SECONDS (9.0-12.0)
[2024-04-16 13:56] LABS: CREATINE KINASE 557 U/L (39-308); LIPASE 19 U/L (16-77); PHOSPHORUS 3.8 MG/DL (2.3-4.5); THYROID STIMULATING HORMONE 0.59 ulU/ml (0.34-4.50)
[2024-04-16 14:06] LABS: CARBAMAZEPINE (TEGRETOL) 2.7 UG/ML (4.0-12.0)
[2024-04-16] MEDS: HYDROcodone/acetaminophen 5mg/325mg tablet PO PRN (17:55)
[2024-04-16 21:06] LABS: OCCULT BLOOD STOOL NEGATIVE (Neg)
[2024-04-17 02:00] VITALS: BP 169/70; PULSE 53; RESP 15; TEMP 99.1; O2SAT 97
[2024-04-17 05:54] LABS: BASOPHILS % (AUTO) 1.3 % (0-1); EOSINOPHILS % (AUTO) 0.2 % (0-6); HEMATOCRIT 35.7 % (42.0-52.0); HEMOGLOBIN 11.9 g/dl (14.0-17.9); LYMPHOCYTES # (AUTO) 0.7 X10'3 (1.1-4.8); MEAN CORPUSCULAR HEMOGLOBIN 30.1 PG (27.0-31.0); MEAN CORPUSCULAR HGB CONC 33.3 g/dL (33.0-36.5); MEAN CORPUSCULAR VOLUME 90.2 FL (78-98); MEAN PLATELET VOLUME 9.6 FL (7.4-10.4); MONOCYTES # (AUTO) 0.7 X10'3 (0-0.9); MONOCYTES % (AUTO) 16.7 % (2-12); NEUTROPHILS # (AUTO) 2.5 X10'3 (1.8-7.7); NEUTROPHILS % (AUTO) 64.8 % (42-75); PLATELET COUNT 157 X10'3 (140-440); RED BLOOD COUNT 3.95 X10'6 (4.70-6.10); RED CELL DISTRIBUTION WIDTH 14.6 % (11.5-14.5); WHITE BLOOD COUNT 3.9 X10'3 (4.5-11.0)
[2024-04-17 06:00] VITALS: BP 167/64; PULSE 52; RESP 16; TEMP 98.2; O2SAT 97
[2024-04-17 06:18] LABS: ALANINE AMINOTRANSFERASE 28 U/L (12-78); ALBUMIN 2.5 G/DL (3.4-5.0); ALBUMIN/GLOBULIN RATIO 0.8 (1.1-1.5); ALKALINE PHOSPHATASE 80 IU/L (46-116); ANION GAP 12 (8-16); ASPARTATE AMINO TRANSFERASE 46 U/L (10-37); BILIRUBIN,TOTAL 0.2 MG/DL (0.1-1.0); BLOOD UREA NITROGEN 16 MG/DL (7-18); BUN/CREATININE RATIO 20.5 (10.0-20.0); CALCIUM 8.3 MG/DL (8.5-10.1); CHLORIDE 102 MMOL/L (99-107); CREATININE 0.78 MG/DL (0.60-1.10); GLUCOSE 80 MG/DL (70-104); MAGNESIUM 1.5 MG/DL (1.5-2.4); POTASSIUM 3.9 MMOL/L (3.5-5.1); SODIUM 139 MMOL/L (135-145); TOTAL CARBON DIOXIDE 24.9 MMOL/L (24-32); TOTAL PROTEIN 5.5 G/DL (6.4-8.2); eCRCL 80 ML/MIN; eGFR > 90 ML/MIN
[2024-04-17 06:32] LABS: PLATELET ESTIMATE NORMAL; TOTAL CELLS COUNTED 100
[2024-04-17] MEDS ORDERED: cyclobenzaprine 10mg tablet PO PRN (09:55)
[2024-04-17 10:00] VITALS: BP_SYST 169; BP_SYST 175; BP_SYST 182; BP_DIAS 74; BP_DIAS 77; BP_DIAS 83; PULSE 55; PULSE 60; PULSE 70; RESP 18; TEMP 98.1; O2SAT 97
[2024-04-17] MEDS: morphine ER 30mg tablet PO SCH (11:19)
[2024-04-17] MEDS: carBAMazepine 100mg chewable tablet PO SCH (12:57)
[2024-04-17] MEDS: HYDROcodone/acetaminophen 10/325mg tab PO PRN (13:05)
[2024-04-17] MEDS ORDERED: morphine ER 30mg tablet PO SCH (16:00)
[2024-04-17] MEDS ORDERED: docusate sod 100mg capsule PO SCH (20:00)
[2024-04-17] MEDS ORDERED: ondansetron 4mg rapidly disintigrating tab PO SCH (20:00)
[2024-04-17] MEDS ORDERED: cloNIDine 0.1 mg tablet PO SCH (20:00)
[2024-04-17] MEDS ORDERED: pregabalin 75mg capsule PO SCH (20:00)
[2024-04-17] MEDS ORDERED: metoprolol succinate 25mg (24-HOUR) SR. Tablet PO SCH (20:00)
[2024-04-17] MEDS ORDERED: atorvastatin 20mg tablet PO SCH (21:00)
[2024-04-17] MEDS ORDERED: lisinopril 20mg tablet PO SCH (21:00)
[2024-04-17] MEDS ORDERED: folic acid 1mg tablet PO SCH (21:00)
[2024-04-18] MEDS ORDERED: sertraline 50mg tablet PO SCH (08:00)
[2024-04-18] MEDS ORDERED: nicotine 21mg patch - 24 hr TD SCH (08:00)
== END 2024-04-17 15:10 | disposition swing bed (61) | DRG 52 ==
LOC: ER 19:00 → ED HOLD 23:38 → ORTHO 4S 04-16 03:00
PROVIDERS: ADMIT Surgery; ATTEND Family Medicine
PROC: 4A00X4Z Measurement of Central Nervous Electrical Activity, External Approach (ICD-10-PCS; principal; 2024-04-16)
DX: G93.49 Other encephalopathy (principal); J96.00 Acute respiratory failure, unspecified whether with hypoxia or hypercapnia; I50.33 Acute on chronic diastolic (congestive) heart failure; N17.9 Acute kidney failure, unspecified; E87.1 Hypo-osmolality and hyponatremia; E11.42 Type 2 diabetes mellitus with diabetic polyneuropathy; G91.0 Communicating hydrocephalus; I95.9 Hypotension, unspecified; D64.9 Anemia, unspecified; E78.5 Hyperlipidemia, unspecified; F41.9 Anxiety disorder, unspecified; J44.1 Chronic obstructive pulmonary disease with (acute) exacerbation; G43.909 Migraine, unspecified, not intractable, without status migrainosus; Z20.822 Contact with and (suspected) exposure to COVID-19; I11.0 Hypertensive heart disease with heart failure; G89.4 Chronic pain syndrome; K21.9 Gastro-esophageal reflux disease without esophagitis; Z79.82 Long term (current) use of aspirin; Z88.0 Allergy status to penicillin; Z91.018 Allergy to other foods; Z79.899 Other long term (current) drug therapy; Z85.840 Personal history of malignant neoplasm of eye; Z86.718 Personal history of other venous thrombosis and embolism
CPT/HCPCS: 36415; 70450; 70551; 71045; 71250; 74176; 80053; 80156; 82140; 82272; 82550; 83605; 83690; 83735; 83880; 84100; 84132; 84145; 84443; 84484; 85007; 85025; 85610; 85651; 85730; 87040; 87081; 87811; 93005; 93306; 95816; 96374; 97161; 97530; 99285; G0378; J0131; J1644; J7030

== ENCOUNTER 2025-01-06 18:57 | Inpatient (IN) | payer MEDICAID ==
[~2025-01-06] VITALS: Ht 180.3 cm; Wt 60.0 kg
[~2025-01-06 18:57] MED LIST changes: -ASPI-842 PO; +ATOR-429 PO; -ATOR80TA PO
--- NOTE | 2025-01-06 19:12 | Physician Documentation ---
History of Present Illness ~ Chief Complaint: Leg Pain Stated Complaint: "HE HAS BLOOD CLOTS IN HIS LEG" Time Seen by MD: 19:31 Primary Medical Doctor: Heather BASURTO This is a 64-year-old male with history of peripheral vascular disease who presents with bilateral leg pain, patient was at a scheduled outpatient vascular study in which severe occlusions of his left leg were observed by certified nuclear medicine technologist, he was directed to the emergency department. Patient reports that he has had multiple vascular surgeries on his lower extremities due to occlusions. Patient reports no chest pain or new shortness of breath. He is not on anticoagulation Tetanus witin 5 years: No Medication Reconciliation Allergies: Coded Allergies: Penicillins (Unverified Allergy, Unknown, ANAPHYLAXIS, 01/06/25) Uncoded Allergies: ALL VEGETABLES (Allergy, Intermediate, 03/13/16) DIFFICULTY SWALLOWING All Nuts (Allergy, Unknown, 03/23/17) Scheduled Atorvastatin Calcium* (Lipitor*), 1 TABLET PO HS, (Reported) Carbamazepine* (Tegretol*), 200 MG PO TID, (Reported) Clonidine Hcl* (Catapres*), 0.2 MG PO BID, (Reported) Docusate Sodium (Colace), 1 CAP PO BID, (Reported) Folic Acid* (Folic Acid*), 1 TABLET PO HS, (Reported) Lisinopril* (Zestril*), 1 TAB PO HS, (Reported) Metoprolol Succinate (Metoprolol Succinate), 1 TAB PO BID, (Reported) Morphine Sulfate (MS CONTIN tablet), 1 TAB PO Q8H, (Reported) Nicotine 21 MG Patch* (Habitrol 21 MG Patch*), 1 PATCH TP DAILY, (Reported) Ondansetron HCl (Ondansetron HCl), 1 TAB PO BID, (Reported) Pregabalin (Lyrica), 1 CAP PO Q12H, (Reported) Sertraline HCl (Sertraline HCl), 1 TAB PO DAILY, (Reported) Scheduled PRN Cyclobenzaprine* (Cyclobenzaprine*), 1 TAB PO TID PRN for muscle spasms, (Reported) Hydrocodone Bit/Acetaminophen (Hydrocodone-Apap 10-325 Tablet), 1-2 TAB PO DAILY PRN for pain, (Reported) Past Medical History Past Medical History: Seizures, Hypertension, COPD, Anemia, Chronic Pain, Deep Vein Thrombosis, Anxiety Past Surgical History: abdominal surgery, other Patient History: (DM Type 2) Diabetes mellitus type 2 MOTHER Alcohol Use: None Drug Use: none Lives with: Alone Lives In: Home Occupation: disabled Physical Exam Vital Signs: Temperature: 98.6, Source: Oral, Heart Rate: 92, Respiratory Rate: 19, BP: 172/85, Pulse Oximetry: 96, Weight: 60.000 Oxygen Flow Rate: 0 Physical Exam VITALS: Reviewed and as above. GENERAL: Alert, nontoxic appearing, no apparent distress. RESPIRATORY: No increased work of breathing, no respiratory distress, speaking in full clear sentences Progress Progress Note Reviewed ultrasound with the certified nuclear medicine technologist and confirms that is there it was an occlusion of is bypass graft from the groin to the distal anastomosis. Last ultrasound performed of this area it was October 26, 2023 and it was unclear when the occlusion occurred. From what patient was states he always has pain that has it was not seem to be an acute episode of when he was leg pain symptoms worsened. Speaking with Dr. Velasquez states that if this is an acute occlusion he needs a place where Interventional Radiology can administered tPA and if it is chronic thin it was pain management. He was set at bedside evaluated patient feels there may be an acute element to patient's symptoms therefore we will admit. Lovenox already administered. Recommends heparin until he was able to intervene tomorrow. Results/Orders Results/Orders Orders - CHAD ARTHUR MD Cta Abdomen Lower Extr Runoff (01/06/25 20:20) Page Hospitalist (01/06/25 21:46) Fill Out Med Reconciliation (01/06/25 21:46) Completed Orders - CHAD ARTHUR MD Cbc/Diff (01/06/25 19:15) CMP (01/06/25 19:15) PTT (01/06/25 19:15) Pt Inr (01/06/25 19:15) Cta Abdomen Lower Extr Runoff (01/06/25 20:20) Normal Saline 1000ml (Sodium Chloride 10 (01/06/25 19:50) Enoxaparin Syringe (Lovenox Syringe) (01/06/25 19:50) Enoxaparin Syringe (Lovenox Syringe) (01/06/25 19:55) Iohexol 350mg/Ml 50ml Inj (Omnipaque 350 (01/06/25 19:53) Iohexol 350mg/Ml 100ml (Omnipaque 350mg/ (01/06/25 19:53) Medications Received in ER Medications (Trade) Dose Ordered Sig/Andreia Route PRN Reason Start Time Stop Time Status Last Admin Dose Admin Sodium Chloride 1,000 ml @ 1,000 mls/hr ONCE ONCE IV 01/06/25 19:50 01/06/25 20:49 DC 01/06/25 20:24 1,000 MLS/HR (Lovenox syringe) 60 mg ONCE ONCE SUBCUT 01/06/25 19:55 01/06/25 19:56 DC 01/06/25 20:25 60 MG Vancomycin HCl 250 ml @ 166 mls/hr ONCE ONCE IV 01/06/25 22:15 01/06/25 23:45 01/06/25 22:39 166 MLS/HR Vital Signs 01/06/25 18:58 Temp 98.6 Pulse 92 Resp 19 B/P (MAP) 172/85 Pulse Ox 96 O2 Flow Rate 0 Laboratory Tests Test 01/06/25 19:23 White Blood Count 9.2 Red Blood Count 4.61 L Hemoglobin 13.9 L Hematocrit 41.6 L Mean Corpuscular Volume 90.4 Mean Corpuscular Hemoglobin 30.1 Mean Corpuscular Hemoglobin Concent 33.3 Red Cell Distribution Width 15.1 H Platelet Count 262 Mean Platelet Volume 8.2 Neutrophils (%) (Auto) 64.8 Lymphocytes (%) (Auto) 23.2 Monocytes (%) (Auto) 6.3 Eosinophils (%) (Auto) 4.3 Basophils (%) (Auto) 1.4 H Neutrophils # (Auto) 6.0 Lymphocytes # (Auto) 2.1 Monocytes # (Auto) 0.6 Eosinophils # (Auto) 0.4 Basophils # (Auto) 0.1 CBC Comment Prothrombin Time 10.7 INR International Normalized Ratio 1.0 Activated Partial Thromboplast Time 29 Coagulation Comments Sodium Level 136 Potassium Level 4.8 Chloride Level 100 Carbon Dioxide Level 29.3 Anion Gap 7 L Blood Urea Nitrogen 13 Creatinine 1.04 Estimated GFR/1.73 m2 72 BUN/Creatinine Ratio 12.5 Glucose Level 86 Calcium Level 9.0 Total Bilirubin 0.5 Aspartate Amino Transf (AST/SGOT) 13 Alanine Aminotransferase (ALT/SGPT) 18 Alkaline Phosphatase 112 Total Protein 7.0 Albumin 3.5 Globulin 3.5 Albumin/Globulin Ratio 1.0 L Chemistry Comments Medical Decision Making Findings Patient presented to the emergency room reporting occluded bypass graft. Differentials include but are not limited to include bypass graft, DVT, limb ischemia, rhabdo therefore emergent labs and imaging indicated. Ultrasound confirms bypass graft occlusion. Dr. Velasquez feels there may be an acute sanket ment to this therefore he recommends heparin and admission for intervention tomorrow. Departure Admitted to Inpatient Unit: yes, to hospitalist Impression: Primary Impression: Occluded bypass graft Condition: Guarded Referrals: NO PRIMARY CARE PROVIDER (PCP) Signature Scribe Signature: No scribe Attestation: The note accurately reflects work and decisions made by me.Chad Arthur MD 01/06/25 21:48 VLADISLAV LÓPEZ January 06, 2025 19:12 CHAD ARTHUR MD January 06, 2025 21:23
[2025-01-06 19:35] LABS: BASOPHILS # (AUTO) 0.1 X10'3 (0-0.2); BASOPHILS % (AUTO) 1.4 % (0-1); EOSINOPHILS # (AUTO) 0.4 X10'3 (0-0.9); EOSINOPHILS % (AUTO) 4.3 % (0-6); HEMATOCRIT 41.6 % (42.0-52.0); HEMOGLOBIN 13.9 g/dl (14.0-17.9); LYMPHOCYTES # (AUTO) 2.1 X10'3 (1.1-4.8); LYMPHOCYTES % (AUTO) 23.2 % (21-51); MEAN CORPUSCULAR HEMOGLOBIN 30.1 PG (27.0-31.0); MEAN CORPUSCULAR HGB CONC 33.3 g/dL (33.0-36.5); MEAN CORPUSCULAR VOLUME 90.4 FL (78-98); MEAN PLATELET VOLUME 8.2 FL (7.4-10.4); MONOCYTES # (AUTO) 0.6 X10'3 (0-0.9); MONOCYTES % (AUTO) 6.3 % (2-12); NEUTROPHILS % (AUTO) 64.8 % (42-75); PLATELET COUNT 262 X10'3 (140-440); RED BLOOD COUNT 4.61 X10'6 (4.70-6.10); RED CELL DISTRIBUTION WIDTH 15.1 % (11.5-14.5); WHITE BLOOD COUNT 9.2 X10'3 (4.5-11.0)
[2025-01-06 19:43] LABS: APTT 29 SECONDS (22-32); PROTHROMBIN TIME 10.7 SECONDS (9.0-12.0)
[2025-01-06 19:45] LABS: ALANINE AMINOTRANSFERASE 18 U/L (12-78); ALBUMIN 3.5 G/DL (3.4-5.0); ALKALINE PHOSPHATASE 112 IU/L (46-116); ANION GAP 7 (8-16); ASPARTATE AMINO TRANSFERASE 13 U/L (10-37); BILIRUBIN,TOTAL 0.5 MG/DL (0.1-1.0); BLOOD UREA NITROGEN 13 MG/DL (7-18); BUN/CREATININE RATIO 12.5 (10.0-20.0); CHLORIDE 100 MMOL/L (99-107); CREATININE 1.04 MG/DL (0.60-1.10); GLUCOSE 86 MG/DL (70-104); POTASSIUM 4.8 MMOL/L (3.5-5.1); SODIUM 136 MMOL/L (135-145); TOTAL CARBON DIOXIDE 29.3 MMOL/L (24-32); eCRCL 62 ML/MIN; eGFR 72 ML/MIN
[2025-01-06] MEDS ORDERED: iohexol 350MG/ML 100ml bottle IV ONE (19:53)
[2025-01-06] MEDS ORDERED: iohexol 350 MG/ML 50ML vial IV ONE (19:53)
[2025-01-06] MEDS: normal saline 1000ml 1,000 ML IV ONE (20:24)
[2025-01-06] MEDS: enoxaparin 60mg/0.6ml syringe SUBCUT ONE (20:25)
[2025-01-06] MEDS: enoxaparin 100mg/ml syringe SUBCUT ONE (20:26)
--- NOTE | 2025-01-06 22:13 | PROGRESS NOTE ---
Progress Note ID Providers to CC ~ Progress Note Progress Note: pt seen and examined-motor and sensory function intact in left foot-cta fidings consistent with left ilio-popliteal graft occlusion-pt has reconstitution of popliteal-last doppler from 11/24 revealed patent graft-pt taken off eliquis by pmd-timing of graft occlusion unclear-pt needs lovenox adn graft thrombectomy in am JARRETT DA SILVA MD January 06, 2025 22:13
[2025-01-06] MEDS: vancomycin/NS 1 GM ADD-VANTAGE 250 ML IV ONE (22:39)
[2025-01-06] MEDS ORDERED: IPRA3AMP31 NEB (22:56)
[2025-01-06] MEDS ORDERED: FLUT1BLS16 PO (22:56)
[2025-01-06] MEDS ORDERED: ACET-2778 PO (22:56)
[2025-01-06] MEDS ORDERED: CLON-330 PO (22:56)
[2025-01-06] MEDS ORDERED: PREG150C47 PO (22:56)
[2025-01-06] MEDS ORDERED: BACL10TA2 PO (22:56)
[2025-01-06] MEDS ORDERED: BISA-77 PO (22:56)
[2025-01-06] MEDS ORDERED: magnesium Cl slow-release 64mg tablet PO PRN (23:05)
[2025-01-06] MEDS ORDERED: acetaminophen 325mg tablet PO PRN ×2 (23:05)
[2025-01-06] MEDS ORDERED: potassium Cl 20 mEq SR tablet PO PRN ×2 (23:05)
[2025-01-06] MEDS ORDERED: mag hydrox/Alum hydrox/simeth 30ml oral suspension PO PRN (23:05)
[2025-01-06] MEDS ORDERED: magnesium hydroxide 30ml (MOM) UD suspension PO PRN (23:05)
[2025-01-06] MEDS ORDERED: potassium Cl 40MEQ/1/2NS 520ml 520 ML IV PRN (23:05)
[2025-01-06] MEDS ORDERED: ondansetron/PF 4mg/2ml inj IV PRN (23:05)
[2025-01-06] MEDS ORDERED: HYDROcodone/acetaminophen 5mg/325mg tablet PO PRN (23:05)
[2025-01-06] MEDS: HYDROcodone/acetaminophen 10/325mg tab PO PRN (23:27)
[2025-01-06 23:35] LABS: HEMOGLOBIN A1C 5.3 % (4.5-6.2)
[2025-01-06 23:37] LABS: BILIRUBIN,URINE NEGATIVE (Neg); CLARITY,URINE CLEAR (Clear); COLOR,URINE YELLOW (Yellow); GLUCOSE, URINE NEGATIVE (Neg); KETONES,URINE NEGATIVE (Neg); LEUKOCYTE ESTERASE ,URINE NEGATIVE (Neg); NITRITES, URINE NEGATIVE (Neg); OCCULT BLOOD,URINE NEGATIVE (Neg); PROTEIN,URINE NEGATIVE (Neg); UROBILINOGEN,URINE 0.2 E.U/dL (0.2-1.0)
[2025-01-06 23:38] LABS: PRO BRAIN NATRIURETIC PEPTIDE 765 PG/ML (0-125)
[2025-01-06 23:40] LABS: UA COLLECTION TYPE NON-SPECIFIED
--- NOTE | 2025-01-06 23:49 | HISTORY AND PHYSICAL-Residence ---
History & Physical Providers to CC Resident Creating Document: MARGY HECTOR, RES ~ History of Present Illness Primary Medical Doctor: Heather Reason for Admit\Complaint: Left lower extremity bypass thrombosis History of Present Illness The patient was a 64-year-old male with past medical history of hypertension, seizures, COPD, DVT, presented to the ED with complaints of left leg pain. The patient is a poor historian. He underwent an outpatient vascular study which showed severe occlusions of his left leg arteries and was thus sent to the ED. The patient has a history of left ileo popliteal bypass graft placement and reconstitution of popliteal. Doppler from 11/24 showed patent graft. The patient was taken off Eliquis by PMD. The patient reports pain in his left thigh even at rest. Denies fevers, cough, shortness of breaths, nausea, vomiting, diarrhea, constipation, burning micturition. He continues to smoke about four cigarettes per day. Allergies: Coded Allergies: Penicillins (Unverified Allergy, Unknown, ANAPHYLAXIS, 01/06/25) Uncoded Allergies: ALL VEGETABLES (Allergy, Intermediate, 03/13/16) DIFFICULTY SWALLOWING All Nuts (Allergy, Unknown, 03/23/17) Home Medications Home Medications Active Reported Acetaminophen ER (Acetaminophen) 650 Mg Tablet.er 1 Tab PO Q8H PRN MDD 4000 Baclofen 10 Mg Tablet 1 Tab PO TID Duoneb 2.5-0.5 Mg/3 Ml Soln (Ipratropium/Albuterol Sulfate) 0.5 Mg-3 Mg (2.5 Mg Base)/3 Ml Ampul.neb 3 Ml QID Trelegy Ellipta 200-62.5-25 (Fluticasone/Umeclidin/Vilanter) 200-62.5 Blst.w.dev 1 Puffs PO DAILY Bisacodyl 5 Mg Tablet. Clonidine HCl 0.2 Mg Tablet 1 Tab PO BID Pregabalin 150 Mg Capsule 1 Cap PO BID Metoprolol Succinate 50 Mg Tab.sr.24h 1 Tab PO BID MS CONTIN tablet (Morphine Sulfate) 30 Mg Tablet.sa 1 Tab PO Q8H Hydrocodone-Apap 10-325 Tablet (Acetaminophen/Hydrocodone Bitart) 1 Each Tablet 1-2 Tab PO DAILY PRN Ondansetron HCl 4 Mg Tablet 1 Tab PO BID Sertraline HCl 100 Mg Tablet 1 Tab PO DAILY Habitrol 21 MG Patch* (Nicotine) 1 Each Patch.td24 1 Patch TP DAILY STARTED ON 06/03/18 21 MG PATCH DAILY FOR 90 DAYS, 14 MG PATCH DAILY FOR 60 DAYS, 7 MG PATCH DAILY Cyclobenzaprine* (Cyclobenzaprine HCl) 10 Mg Tablet 1 Tab PO TID PRN Colace (Docusate Sodium) 100 Mg Capsule 1 Cap PO BID Zestril* (Lisinopril) 20 Mg Tablet 1 Tab PO HS Folic Acid* (Folic Acid) 1 Mg Tablet 1 Tablet PO HS Lipitor* (Atorvastatin Calcium) 80 Mg Tablet 1 Tablet PO HS Tegretol* (Carbamazepine) 100 Mg Tab.chew 200 Mg PO TID Past Medical History Past Medical History Hypertension Seizures COPD DVT PAD s/p left ileo popliteal bypass graft Anxiety History of right eye cancer Past Surgical History Surgical History Comment Left ileo popliteal bypass graft and popliteal reconstitution Right eye removal after cancer Family History Family History: (DM Type 2) Diabetes mellitus type 2 MOTHER Past Social History Social History Comment The patient lives in an apartment by himself with his cat. He ambulates using a walker. Continues to smoke four cigarettes every morning. Has been smoking all his life. Denies alcohol and illicit drug abuse. He does not remember the name of his primary care physician or other specialists he sees. Smoking: Cigarettes, Greater than 1 pack/day Alcohol Use: None Drug Use: None Lives with: Alone Lives In: Home Occupation: disabled ROS ROS Reviewed in full. Negative except for pertinent positives in HPI. Exam Vitals: Vital Signs Date Time Temp Pulse Resp B/P (MAP) Pulse Ox O2 Delivery O2 Flow Rate FiO2 01/06/25 23:27 14 01/06/25 22:59 62 169/84 (112) 97 0 01/06/25 18:58 98.6 General: Elderly male, lethargic, alert and oriented, not in acute distress Head: Normocephalic with an atraumatic Eyes: Right eye excision, wearing a patch, Pupils- 3mm, reacting to light, conjunctiva- anicteric Nose and throat: No polyps, septum- normal, no mucosal ulcers, moist mucosal membranes Neck: Supple, no lymphadenopathy, no carotid bruit Respiratory: No use of accessory muscles of respiration, Bilateral normal vesicular breath sounds heard. No wheeze, rhochi or creps Cardiac: S1-S2 heard, rhythm regular, no gallop/murmur Abdomen: non distended, no tenderness, no organomegaly, bowel sounds - heard Extremities: Left foot colder than right, dorsalis pedis pulse faint on left foot, 1+ on right foot Skin: warm and dry, no rash, no purpura Neuro: No focal deficit, gross cranial nerve exam - normal, left foot sensations absent Diagnostic Data Last Recorded Lab Results: 01/06/[id number]/[id number] Diagnostic Data: Laboratory Tests Test 01/06/25 19:23 Prothrombin Time 10.7 SECONDS (9.0-12.0) INR International Normalized Ratio 1.0 INR Activated Partial Thromboplast Time 29 SECONDS (22-32) Coagulation Comments Counseling Services Smoking & Tobacco Cessation: > 10 Minutes Advance Care Planning Advanced Care plannin - 30 Minutes Additional Plan A 64-year-old male admitted for the management of left ileo popliteal bypass graft occlusion. Plan: Left ileo popliteal graft occlusion Vascular surgeon, Dr. Romero aware. Plan for graft thrombectomy tomorrow. Patient received 60 mg of Lovenox subcutaneous. Start heparin drip tomorrow. NPO from midnight. Doppler ultrasound of left leg-occlusion of bypass graft from groin to distal anastomosis. Patient's [place] left PFA and proximal to mid SFA still appear to be occluded. >75% stenosis noted at left distal SFA. Awaiting results of CTA with lower extremity runoff. COPD Continue home inhalers. Hypertension Seizures COPD DVT PAD s/p left ileo popliteal bypass graft Anxiety History of right eye cancer Continue medications after medication reconciliation. Code Status: Full code DVT Prophylaxis: Lovenox Analgesia/Sedation: [place] Lines/Tubes: PIV Nutrition: NPO after midnight PT: Ordered Disposition: We will admit the patient into medical huitron. NPO from midnight and thrombectomy by Dr. Romero tomorrow. Margy Hector MD Internal Medicine Resident PGY-1 I discussed patient with resident and agree with the plan and recommendations above. Siobhan Marx MD Tele medicine Date of Service: January 06, 2025 Billing Provider: SIOBHAN MARX MD,MARGY POWERS, RES January 06, 2025 23:49 SIOBHAN MARX MD January 07, 2025 03:57
[2025-01-07] VITALS (34 sets, daily range): BP systolic 121–180; BP diastolic 51–90; PULSE 54–80; RESP 9–20; TEMP 96.2–98.7; O2SAT 95–100
[2025-01-07] MEDS: amLODIPine 5mg tablet PO ONE (00:22)
--- NOTE | 2025-01-07 00:30 | RADIOLOGY REPORT ---
Clinical History difficulty breathing Comparison None Technique: A single AP/PA chest radiograph was provided for review. Without Contrast NOLAN ZAPATA, [id number] FINDINGS:/IMPRESSION: Normal cardiac size. Surgical clips in the right upper extremity. Bilaterally hyperexpanded lungs. Scattered hazy densities at left lung base likely represents scarring. Flattened diaphragm bilaterally. This report was electronically signed by Scott Serrano MD on 01/07/2025 12:26:24 AM.
--- NOTE | 2025-01-07 00:50 | RADIOLOGY REPORT ---
Clinical History occluded arteries Comparison None Technique: MIPS reconstruction was performed in multiple planes. All CT scans at this medical facility are performed using dose modulation techniques as appropriate t o a performed exam including the following: Automated exposure control was utilized; adjustment of th e mA and/or kV according to patient size; and use of iterative reconstruction technique. All CT studies are reported to the Dose Index Registry of the [employer]. Contrast: Radiation Dose: CTDI (mGy): 5.86; DLP (mGy-cm): 1167.0 NOLAN ZAPATA, [id number] CT angiogram extremity Clinical history: 64-year-old occluded arteries Findings: Contrast:130ml Omni 350 Left leg: There is mild diffuse narrowing of the left popliteal artery. The trifurcation vessels are intact. The left posterior Tibial artery is dominant. Right leg:Trifurcation vessels intact. The anterior tibial artery appears dominant. Impression: No definite obstruction. This report was electronically signed by Claudio Barreto MD on 01/07/2025 12:46:45 AM.
[2025-01-07] MEDS: morphine 2 MG/ML inj. syringe IV ONE (06:02)
[2025-01-07 07:07] LABS: BASOPHILS # (AUTO) 0.1 X10'3 (0-0.2); BASOPHILS % (AUTO) 1.5 % (0-1); EOSINOPHILS # (AUTO) 0.5 X10'3 (0-0.9); EOSINOPHILS % (AUTO) 7.3 % (0-6); HEMATOCRIT 38.9 % (42.0-52.0); HEMOGLOBIN 13.1 g/dl (14.0-17.9); MEAN CORPUSCULAR HEMOGLOBIN 30.6 PG (27.0-31.0); MEAN CORPUSCULAR HGB CONC 33.8 g/dL (33.0-36.5); MEAN CORPUSCULAR VOLUME 90.4 FL (78-98); MEAN PLATELET VOLUME 8.4 FL (7.4-10.4); MONOCYTES # (AUTO) 0.5 X10'3 (0-0.9); MONOCYTES % (AUTO) 7.7 % (2-12); NEUTROPHILS # (AUTO) 3.8 X10'3 (1.8-7.7); NEUTROPHILS % (AUTO) 54.5 % (42-75); PLATELET COUNT 200 X10'3 (140-440); RED CELL DISTRIBUTION WIDTH 14.8 % (11.5-14.5)
[2025-01-07 07:42] LABS: ALANINE AMINOTRANSFERASE 13 U/L (12-78); ALBUMIN 2.8 G/DL (3.4-5.0); ALBUMIN/GLOBULIN RATIO 0.9 (1.1-1.5); ALKALINE PHOSPHATASE 99 IU/L (46-116); ANION GAP 5 (8-16); ASPARTATE AMINO TRANSFERASE 18 U/L (10-37); BILIRUBIN,TOTAL 0.2 MG/DL (0.1-1.0); BLOOD UREA NITROGEN 14 MG/DL (7-18); BUN/CREATININE RATIO 14.4 (10.0-20.0); CALCIUM 8.3 MG/DL (8.5-10.1); CHLORIDE 103 MMOL/L (99-107); CHOL/HDL RATIO 2.4 (0.00-4.99); CHOLESTEROL 126 MG/DL (0-200); CREATININE 0.97 MG/DL (0.60-1.10); GLUCOSE 93 MG/DL (70-104); HDL CHOLESTEROL 53 MG/DL (35-60); LDL CHOLESTEROL 55 MG/DL (50-100); MAGNESIUM 1.9 MG/DL (1.5-2.4); POTASSIUM 4.3 MMOL/L (3.5-5.1); SODIUM 136 MMOL/L (135-145); TOTAL CARBON DIOXIDE 28.1 MMOL/L (24-32); TOTAL PROTEIN 5.9 G/DL (6.4-8.2); TRIGLYCERIDES 108 MG/DL (20-135); eCRCL 66 ML/MIN; eGFR 78 ML/MIN
[2025-01-07] MEDS: K and/or MAG REPLACEMENT MC SCH (08:00)
[2025-01-07] MEDS ORDERED: heparin 10,000 units/1 ML INJ ONE (10:39)
--- NOTE | 2025-01-07 11:00 | ELECTROCARDIOGRAPH REPORT ---
[facility] Test Date: 2025-01-07 Test Time: 10:56:17 Pat Name: NOLAN ZAPATA Department: [facility] Room: [facility] Gender: M Management Professor: : [id number] Requested By: JARRETT DA SILVA Order Number: [id number] Reading MD: Dr. MALLORIE Meza Measurements Intervals [place] Rate: 53 P: 65 DE: 228 QRS: 38 QRSD: 84 T: 85 QT: 461 QTc: 433 Interpretive Statements Sinus bradycardia Prolonged DE interval Abnormal R-wave progression, early transition Minimal ST depression, lateral leads Electronically Signed On 01-07-2025 17:37:[address] MALLORIE Meza Please click the below link to view image of tracing.
[2025-01-07] MEDS ORDERED: DULO-31 PO (11:16)
[2025-01-07] MEDS ORDERED: PANT-47 PO (11:16)
[2025-01-07] MEDS ORDERED: CARB100T15 PO (11:16)
[2025-01-07] MEDS ORDERED: PRIM50TA5 PO (11:16)
[2025-01-07] MEDS ORDERED: iohexol 300 MG/1 ML 50ml polymer ONE (11:46)
[2025-01-07] MEDS ORDERED: LIDOcaine 1% (10mg/ml)w/preservative inj. 20ml MDV ONE (11:55)
[2025-01-07] MEDS: morphine 2 MG/ML inj. syringe IV PRN ×2 (11:56→18:57)
[2025-01-07] MEDS: vancomycin/NS 1 GM ADD-VANTAGE 250 ML IV SCH (12:00)
--- NOTE | 2025-01-07 12:47 | VASCULAR REPORT ---
PROCEDURE: [facility] VENOUS Exam Date: 01/06/2025 12:00 AM History: Pre op mapping Findings: Technique: Duplex Doppler evaluation of the superficial veins of the right and left lower extremities was perfor med including color Doppler and spectral/pulsed waveform analysis. Findings: Measurements of the lower extremity superficial veins in millimeters (mm) are provided below. RIGHT GREAT SAPHENOUS VEIN (GSV) in mm: 1.3 at proximal thigh, patent. 1.2 at mid thigh, patent. 1.3 at distal thigh, patent. 0.9 at proximal calf, patent. 0.8 at mid calf, patent. 0.7 at distal calf, patent. LEFT GREAT SAPHENOUS VEIN (GSV) in mm: 1.5 at proximal thigh, patent. 1.8 at mid thigh, patent. 1.9 at distal thigh, patent. 1.3 at proximal calf, patent. 1.3 at mid calf, patent. 1.6 at distal calf, patent. Impression: Lower extremity superficial venous mapping as detailed above.
[2025-01-07] MEDS ORDERED: ondansetron/PF 4mg/2ml inj IV PRN (13:00)
[2025-01-07] MEDS: ringers solution, lacted 1,000 ML IV SCH (13:00)
[2025-01-07] MEDS ORDERED: HYDROmorphone/PF 0.2 MG/ML SYRINGE IV PRN (13:00)
[2025-01-07] MEDS ORDERED: labetalol 20mg/4ml (5mg/ml) syringe IV PRN (13:00)
[2025-01-07] MEDS ORDERED: sevoflurane 250ml liquid IH ONE (13:07)
[2025-01-07] MEDS ORDERED: fentaNYL /PF 50mcg/ml 5ml ampule ONE (13:09)
[2025-01-07] MEDS ORDERED: midazolam 1 mg/ML 2ml injection ONE (13:09)
[2025-01-07] MEDS ORDERED: propofol inj 20 ML IV ONE (13:09)
[2025-01-07] MEDS ORDERED: rocuronium 10mg/ml inj IV ONE ×2 (13:09→14:40)
[2025-01-07] MEDS ORDERED: vancomycin 1,000mg inj ONE (13:31)
[2025-01-07] MEDS ORDERED: heparin 1,000unit/ml 10ml vial 10 ML ONE ×2 (14:03→16:37)
[2025-01-07] MEDS ORDERED: DULO60CA65 PO (16:09)
--- NOTE | 2025-01-07 16:12 | PROGRESS NOTE- Residence ---
Progress Note - Resident Providers to CC Resident Creating Document: TONJA GREENWOOD RES ~ Antibiotic Timeout Antibiotic Ordered?: Yes Subjective Seen and examined the patient at bedside. still complaining of leg pain. Patient is going to the OR for thrombectomy by Dr. Romero. Objective Vital Signs Date Time Temp Pulse Resp B/P (MAP) Pulse Ox O2 Delivery O2 Flow Rate FiO2 01/07/25 12:39 98.4 54 01/07/25 11:50 158/77 (104) 01/07/25 10:00 10 96 Room Air 01/07/25 08:04 0.0 Result Diagram: 01/07/25 0641 01/07/25 0641 Elderly male, lethargic, alert and oriented, not in acute distress Head: Normocephalic with an atraumatic Eyes: Right eye excision, wearing a patch, Pupils- 3mm, reacting to light, conjunctiva- anicteric Nose and throat: No polyps, septum- normal, no mucosal ulcers, moist mucosal membranes Neck: Supple, no lymphadenopathy, no carotid bruit Respiratory: No use of accessory muscles of respiration, Bilateral normal vesicular breath sounds heard. No wheeze, rhochi or creps Cardiac: S1-S2 heard, rhythm regular, no gallop/murmur Abdomen: non distended, no tenderness, no organomegaly, bowel sounds - heard Extremities: Left foot colder than right, dorsalis pedis pulse faint on left foot, 1+ on right foot Skin: warm and dry, no rash, no purpura Neuro: No focal deficit, gross cranial nerve exam - normal, left foot sensations absent Coagulation Studies Laboratory Tests Test 01/06/25 19:23 Prothrombin Time 10.7 SECONDS (9.0-12.0) INR International Normalized Ratio 1.0 INR Activated Partial Thromboplast Time 29 SECONDS (22-32) Coagulation Comments Advance Care Planning Advanced Care plannin - 30 Minutes Assessment Assessment A 64-year-old male admitted for the management of left ileo popliteal bypass graft occlusion. Plan Plan Peripheral arterial disease Left ileo popliteal graft occlusion 01/06/2025 Vascular surgeon, Dr. Romero aware. Plan for graft thrombectomy tomorrow. Patient received 60 mg of Lovenox subcutaneous. Start heparin drip tomorrow. NPO from midnight. Doppler ultrasound of left leg-occlusion of bypass graft from groin to distal anastomosis. Patient's [place] left PFA and proximal to mid SFA still appear to be occluded. >75% stenosis noted at left distal SFA. Awaiting results of CTA with lower extremity runoff. 01/07/2025 CT angiography with lower extremity Left leg: There is mild diffuse narrowing of the left popliteal artery. Dr. Romero is on board patient will be going to OR for surgical intervention- thrombectomy and then to CICU COPD Continue home inhalers. Hypertension Blood pressures are in 170s Continue to monitor blood pressure Seizures On home medications of carbamazepine, primidone COPD On home medications of DuoNebs, fluticasone/umeclidin/vilanter DVT Anxiety Was using sertraline 100 mg p.o. daily Using duloxetine History of right eye cancer Continue medications after medication reconciliation. Code Status: Full code DVT Prophylaxis: Lovenox Analgesia/Sedation: [place] Lines/Tubes: PIV Nutrition: NPO after midnight PT: Ordered Disposition: Patient is going to the OR for thrombectomy and then to CICU and management plan is per Dr. Romero. Tonja Greenwood MD Internal Medicine Resident PGY-1 Date of Service: January 07, 2025 Billing Provider: ESSENCE HATCH MD Common Visit Codes: [id number] INP/OBS CARE(HIGH) TONJA GREENWOOD, JESSICA January 07, 2025 16:12 ESSENCE HATCH MD January 07, 2025 21:07
[2025-01-07] MEDS ORDERED: albumin (Human) 5% 250ml 250 ML IV ONE ×2 (17:11)
[2025-01-07] MEDS ORDERED: acetaminophen 1,000mg/100ml IV 100 ML IV ONE (17:36)
[2025-01-07 17:55] LABS: APTT > 139 SECONDS (22-32)
[2025-01-07] MEDS ORDERED: sugammadex 200mg/2ml injection IV ONE (17:57)
[2025-01-07] MEDS: potassium 20mEq/D5LR 1,000 ML IV SCH (18:35)
--- NOTE | 2025-01-07 18:36 | RADIOLOGY REPORT ---
EXAM: DI ABDOMEN,SINGLE VIEW(KUB) HISTORY: INSTRUMENT COUNT IN THE O.R. COMPARISON: None TECHNIQUE: Single AP of the abdomen and pelvis was obtained. Findings: Frontal view of the abdomen demonstrates gaseous dilated loops of bowel. No visualized renal calculi. There is no evidence of an acute fracture, dislocation, blastic, or lytic lesions. The visualized portions of the lung bases are unremarkable. Midline surgical clips. Partially visualized enteric tube. Surgical clips overlying the left proxima l femur. No definite retained radiopaque foreign bodies. No superficial soft tissue abnormalities. Impression: 1. Multiple loops of gaseous dilated bowel which may reflect ileus versus bowel obstruction. Correlat e with signs and symptoms. 2. No definite retained radiopaque foreign bodies. Dr. Mckeon spoke with Dr. Romero on 01/07/2025 at 6:32 PM regarding the above finding(s). Findings we re understood.
--- NOTE | 2025-01-07 18:46 | OPERATIVE REPORT ---
Operative Report Providers to CC ~ Date of Procedure: January 07, 2025 Pre-Operative Diagnosis: LLE ischemia with graft occlusion Post-Operative Diagnosis SAME as PRE-Op Procedure Performed right iliac to left popliteal with goretex/redo left groin/right iliac endart erectomy'/attempted graft thrombectomy Surgeon: fransisco patino Anesthesiologist: Charles Purcell Type of Anesthesia: General Findings: left iliopop graft thrombosis/right iliac plaque Estimated Blood Loss: 500 ml Specimen Removed: clot JARRETT DA SILVA MD January 07, 2025 18:45
[2025-01-07] MEDS ORDERED: naloxone 0.4 mg/ml inj IV PRN (18:55)
[2025-01-07] MEDS: hydrALAZINE 20mg/ml inj. IV PRN ×2 (18:59→20:43)
[2025-01-07] MEDS: morphine 4 MG/ML inj SYRINge IV PRN (20:03)
[2025-01-07] MEDS: niCARDipine-NS 40mg/200ml IVPB 200 ML IV PRN (22:10)
[2025-01-07] MEDS: HYDROmorphone/PF 0.2 MG/ML SYRINGE IV PRN (23:08)
[2025-01-08] VITALS (36 sets, daily range): BP systolic 90–184; BP diastolic 48–79; PULSE 77–106; RESP 12–26; O2SAT 90–100
[2025-01-08 04:08] LABS: BASOPHILS % (AUTO) 0 % (0-1); EOSINOPHILS % (AUTO) 0 % (0-6); HEMATOCRIT 30.8 % (42.0-52.0); HEMOGLOBIN 10.3 g/dl (14.0-17.9); LYMPHOCYTES # (AUTO) 1.1 X10'3 (1.1-4.8); LYMPHOCYTES % (AUTO) 6.2 % (21-51); MEAN CORPUSCULAR HEMOGLOBIN 29.9 PG (27.0-31.0); MEAN CORPUSCULAR HGB CONC 33.4 g/dL (33.0-36.5); MEAN CORPUSCULAR VOLUME 89.3 FL (78-98); MEAN PLATELET VOLUME 8.7 FL (7.4-10.4); MONOCYTES # (AUTO) 1.5 X10'3 (0-0.9); NEUTROPHILS # (AUTO) 14.5 X10'3 (1.8-7.7); NEUTROPHILS % (AUTO) 84.8 % (42-75); PLATELET COUNT 290 X10'3 (140-440); RED BLOOD COUNT 3.45 X10'6 (4.70-6.10); RED CELL DISTRIBUTION WIDTH 14.9 % (11.5-14.5); WHITE BLOOD COUNT 17.1 X10'3 (4.5-11.0)
[2025-01-08 04:23] LABS: ALANINE AMINOTRANSFERASE 24 U/L (12-78); ALBUMIN 2.9 G/DL (3.4-5.0); ALBUMIN/GLOBULIN RATIO 1.1 (1.1-1.5); ALKALINE PHOSPHATASE 71 IU/L (46-116); ANION GAP 8 (8-16); ASPARTATE AMINO TRANSFERASE 31 U/L (10-37); BILIRUBIN,TOTAL 0.4 MG/DL (0.1-1.0); BLOOD UREA NITROGEN 11 MG/DL (7-18); BUN/CREATININE RATIO 12.9 (10.0-20.0); CALCIUM 7.9 MG/DL (8.5-10.1); CHLORIDE 101 MMOL/L (99-107); CREATININE 0.85 MG/DL (0.60-1.10); GLUCOSE 250 MG/DL (70-104); MAGNESIUM 1.3 MG/DL (1.5-2.4); POTASSIUM 3.9 MMOL/L (3.5-5.1); SODIUM 136 MMOL/L (135-145); TOTAL CARBON DIOXIDE 26.9 MMOL/L (24-32); TOTAL PROTEIN 5.5 G/DL (6.4-8.2); eCRCL 75 ML/MIN; eGFR > 90 ML/MIN
[2025-01-08] MEDS: magnesium sulf-water 2g/50mL 50 ML IV PRN (04:52)
--- NOTE | 2025-01-08 06:26 | CONSULTATION ---
DATE OF CONSULTATION: 01/06/2025 DICTATING PHYSICIAN: Rosalino Romero MD REASON FOR CONSULTATION: Evaluation of abnormal Doppler study. HISTORY OF PRESENT ILLNESS: The patient is a 64-year-old male with known peripheral vascular disease and a previous left iliopopliteal bypass in the past. He is seen, he had a Doppler on 11/24/2024, which revealed a patent graft. The patient was taken off his Eliquis, presented to the ER with complaints of left leg pain. CTA revealed occlusion of the previously placed left iliofemoral bypass graft. Surgical evaluation is now requested. On further questioning, the patient complains of some pain of the left lower extremity. His motor and sensory function intact. PAST MEDICAL HISTORY: Notable for hypertension, seizures, COPD, history of DVT, PAD, anxiety, right eye cancer. PAST SURGICAL HISTORY: Include right eye removal, left iliopopliteal bypass, and brachial artery repair. MEDICATIONS: Included Baclofen, DuoNeb, Trelegy, clonidine, pregabalin, metoprolol, MS Contin, hydrocodone, Zofran, sertraline, Habitrol, Tegretol, and Lipitor. ALLERGIES: PENICILLIN. SOCIAL HISTORY: Ongoing tobacco use, no alcohol use. REVIEW OF SYSTEMS: See H and P. PHYSICAL EXAMINATION: GENERAL: Well-nourished male, in no acute distress. VITAL SIGNS: Unremarkable. HEART: Regular rate and rhythm. LUNGS: Clear to auscultation. ABDOMEN: Benign. EXTREMITIES: Left lower extremity has diminished pedal pulses. CTA reveals occlusion of the previously placed iliopopliteal bypass graft. There is a reconstitution of the popliteal below the level of the anastomosis. LABORATORY DATA: WBC of 9, hematocrit of 41, platelet count is 262. Chemistries notable for BUN and creatinine of 13 and 1. IMPRESSION: * Left lower extremity ischemia secondary to occlusion of the previously placed iliopopliteal bypass. * History of chronic obstructive pulmonary disease. * Ongoing tobacco use. * History of deep vein thrombosis. * History of anxiety. * Right eye cancer. RECOMMENDATIONS: * Lovenox. * Graft thrombectomy with possible revision. Rosalino Romero MD TID: [id number] RECEIPT: [id number] KB/KISHAN/AMI
[2025-01-08] MEDS: acetaminophen 1,000mg/100ml IV 100 ML IV PRN (06:33)
--- NOTE | 2025-01-08 07:16 | OPERATIVE REPORT ---
DATE OF SURGERY: 01/07/2025 DICTATING PHYSICIAN: Rosalino Romero MD PREOPERATIVE DIAGNOSIS: Left lower extremity ischemia secondary to occluded iliopopliteal bypass. POSTOPERATIVE DIAGNOSIS: Left lower extremity ischemia secondary to occluded iliopopliteal bypass. PROCEDURES PERFORMED: * Attempted left iliopopliteal graft thrombectomy. * Right common iliac left popliteal bypass using [employer]. * Right common iliac endarterectomy. * Redo left groin exposure. SURGEON: Rosalino Romero MD M[employer]IAL [employer] INSTRUCTOR: Evy. ANESTHESIA: General/Dr. Purcell DRAINS: None. INDICATIONS FOR OPERATION: The patient is a 64-year-old male who has history of peripheral vascular disease who was taking Eliquis, had a normal Doppler approximately a year ago. The patient was taken off of his Eliquis, developed left leg pain, CTA revealed a graft occlusion. The patient was taken to surgery for attempted graft thrombectomy, possible revision. INTRAOPERATIVE FINDINGS: The patient had a large amount of clot in the previous iliopopliteal bypass graft. The clot appears to be somewhat old. Despite multiple attempts, catheter could not be passed through the common iliac. Given the inability to reestablish inflow, decision was made to proceed with a new bypass graft to the left popliteal artery. DESCRIPTION OF PROCEDURE: The patient was placed supine on the operating room table. After induction of general anesthesia and placement of endotracheal tube, the abdomen was subsequently prepped and draped. Incision was made in the medial aspect of the left thigh. Previously placed graft identified. Popliteal artery seemed to be isolated distal to the anastomosis. Incision was made in graft and #4 and #5 Mady catheter passed proximally without reestablishment of inflow to the graft. Graft was then sutured with 4-0 Prolene. Midline incision was subsequently made. Abdominal cavity entered. Subcutaneous incised over the previously placed graft. Remnant scar tissue present. Decision was made to use the right common iliac as inflow. Right common iliac was isolated proximally and distally. The patient was heparinized with 5000 units of heparin. After a few minutes, clamps were placed in the right common iliac. Incision was then made and endarterectomy performed. The patient had good inflow. Incision was then made in the left groin and extended down through the fascia. Tunnel was created from the left groin to the left retroperitoneal space and 8 mm graft passed. Peroneus then ripped over the left iliac. Graft was passed and tunnel created. Graft was then anastomosed end-to-side to the right common iliac with running suture of 5-0 Prolene. Clamps were removed. Hemostasis was obtained. Graft was then flushed, found to have good inflow. Attention was then turned to the left thigh where tunnel was created from the medial aspect of the left distal thigh to the groin. Graft subsequently passed in the tunnel and passed down to the popliteal space. Popliteal artery was occluded proximally and distally. proximally and distally. This end-to-side anastomosis was secured with running suture of 5-0 Prolene after the graft was trimmed to length. Flow was then established in the left lower extremity. Hemostasis was obtained. Abdomen was irrigated with large amount of antibiotic-containing solution. Perineum was closed over the graft using a running suture of #1 Vicryl. Hemostasis was found to be adequate. The abdomen was irrigated with antibiotic-containing solution. Rectal fascia was closed with running suture of looped PDS. Skin was closed with clips. closed in layers. Skin was closed with clips. Left calf incision was irrigated with a Marcaine solution and closing in layers. After hemostasis was obtained, skin was closed with clips. Dressing was applied. The patient was transferred to ICU in critical condition. Rosalino Romero MD TID: [id number] RECEIPT: [id number] SUZY/KISHAN/FARSHAD
[2025-01-08] MEDS ORDERED: vancomycin/NS 1 GM ADD-VANTAGE 250 ML IV SCH (10:00)
[2025-01-08] MEDS ORDERED: metoclopramide 5 mg/ml inj IV PRN (10:50)
[2025-01-08] MEDS ORDERED: naloxone 0.4 mg/ml inj IV PRN (10:50)
[2025-01-08] MEDS ORDERED: non-formulary drug (Acetaminophen (Acetaminophen ER) 1 TAB) PO PRN (10:50)
[2025-01-08] MEDS ORDERED: cloNIDine 0.1 mg tablet PO SCH (11:29)
[2025-01-08] MEDS: carBAMazepine 100mg chewable tablet PO ONE (12:02)
[2025-01-08] MEDS: ringers solution, lacted 1,000 ML IV SCH (12:04)
[2025-01-08] MEDS: cloNIDine 0.1 mg tablet PO SCH (12:05)
[2025-01-08] MEDS: vancomycin/NS 1 GM ADD-VANTAGE 250 ML IV SCH (12:06)
[2025-01-08] MEDS: metoclopramide 5 mg/ml inj IV SCH (12:08)
[2025-01-08] MEDS: baclofen 10mg tablet PO SCH (12:12)
[2025-01-08] MEDS: carBAMazepine 100mg chewable tablet PO SCH ×2 (12:36→21:23)
[2025-01-08] MEDS: HYDROmorph/NS 0.2 mg/ml PCA 100 ML IV SCH (12:40)
[2025-01-08] MEDS ORDERED: ipratropium/albuterol 3ml nebule NEB SCH (13:00)
--- NOTE | 2025-01-08 14:10 | PROGRESS NOTE ---
Progress Note ID Providers to CC ~ Progress Note Progress Note: complains of pain/vss/LLE well perfused/labs noted a/p 1. s/p ilio fem-doing well/cont supportive care JARRETT DA SILVA MD January 08, 2025 14:10
[2025-01-08] MEDS: ipratropium/albuterol 3ml nebule NEB SCH (15:00)
[2025-01-08] MEDS: magnesium sulf-water 4G/100mL 100 ML IV PRN (15:20)
--- NOTE | 2025-01-08 19:42 | PROGRESS NOTE- Residence ---
Progress Note - Resident Providers to CC Resident Creating Document: TONJA GREENWOOD RES ~ Antibiotic Timeout Antibiotic Ordered?: Yes Subjective Seen and examined the patient at bedside. He is Still complaining of pain. Status post iliofemoral bypass graft, Day one. Objective Vital Signs Date Time Temp Pulse Resp B/P (MAP) Pulse Ox O2 Delivery O2 Flow Rate FiO2 01/08/25 18:00 106 20 125/70 (88) 90 01/08/25 17:00 99.1 Room Air 01/08/25 08:00 2.0 Result Diagram: 01/08/25 0324 01/08/25 0324 Elderly male, lethargic, alert and oriented, not in acute distress Head: Normocephalic with an atraumatic Eyes: Right eye excision, wearing a patch, Pupils- 3mm, reacting to light, conjunctiva- anicteric Nose and throat: No polyps, septum- normal, no mucosal ulcers, moist mucosal membranes Neck: Supple, no lymphadenopathy, no carotid bruit Respiratory: No use of accessory muscles of respiration, Bilateral normal vesicular breath sounds heard. No wheeze, rhochi or creps Cardiac: S1-S2 heard, rhythm regular, no gallop/murmur Abdomen: non distended, no tenderness, no organomegaly, bowel sounds - heard Extremities: Well-perfused Skin: warm and dry, no rash, no purpura Neuro: No focal deficit, gross cranial nerve exam - normal, left foot sensations absent Coagulation Studies Laboratory Tests Test 01/06/25 19:23 01/07/25 16:42 Prothrombin Time 10.7 SECONDS (9.0-12.0) INR International Normalized Ratio 1.0 INR Activated Partial Thromboplast Time > 139 SECONDS (22-32) *H Coagulation Comments Advance Care Planning Advanced Care plannin - 30 Minutes Assessment Assessment A 64-year-old male admitted for the management of left ileo popliteal bypass graft occlusion. Plan Plan Peripheral arterial disease Left ileo popliteal graft occlusion Status post left popliteal bypass(with the right common iliac as inflow), Pod one Vascular surgeon, Dr. Romero is on board Plan for graft thrombectomy tomorrow. Patient received 60 mg of Lovenox subcutaneous. Start heparin drip tomorrow. NPO from midnight. Doppler ultrasound of left leg-occlusion of bypass graft from groin to distal anastomosis. Patient's [place] left PFA and proximal to mid SFA still appear to be occluded. >75% stenosis noted at left distal SFA. Awaiting results of CTA with lower extremity runoff. 01/07/2025 CT angiography with lower extremity Left leg: There is mild diffuse narrowing of the left popliteal artery. Dr. Romero is on board patient will be going to OR for surgical intervention- thrombectomy and then to CICU 01/08/[address] Romero. Left popliteal bypass with graft secured from right common iliac artery. complains of pain over the leg. Vitals are stable. Pain management with hydro morphine. Patient is on vancomycin and clonidine and Reglan. COPD On albuterol ipratropium nebulization q.i.d. scheduled doses Hypertension Blood pressures are in 140s Continue to monitor blood pressure On clonidine 0.2 mg p.o. b.i.d. and hydralazine 10 mg p.r.n. Seizures Continuing carbamazepine, primidone 50 mg p.o. daily. Anxiety Was using sertraline 100 mg p.o. daily Using duloxetine History of right eye cancer History of DVT Code Status: Full code Analgesia/Sedation: Dilaudid Lines/Tubes: PIV Tonja Greenwood MD Internal Medicine Resident PGY-1 Date of Service: January 08, 2025 Billing Provider: ESSENCE HATCH MD Common Visit Codes: [id number] INP/OBS CARE(HIGH) TONJA GREENWOOD, RES January 08, 2025 19:42 ESSENCE HATCH MD January 08, 2025 21:13
[2025-01-08] MEDS: docusate sod 100mg capsule PO SCH (21:05)
[2025-01-08] MEDS: pregabalin 75mg capsule PO SCH (21:05)
[2025-01-08] MEDS: HYDROcodone/acetaminophen 10/325mg tab PO ONE (21:52)
--- NOTE | 2025-01-08 23:46 | RADIOLOGY REPORT ---
Clinical History line placement Comparison PCXR on 01/06/2025, 1 images. Technique: A single AP/PA chest radiograph was provided for review. Without Contrast JODINOLAN, [id number] FINDINGS:/IMPRESSION: Normal cardiac silhouette. Low lung volumes. Scarring at the left lung base Right jugular central line terminates in the superior vena cava. Endovascular stent overlies the right lung apex. Diffuse hazy densities in the lungs, possible underlying interstitial lung disease. This report was electronically signed by Scott Serrano MD on 01/08/2025 11:42:29 PM.
[2025-01-09] VITALS (23 sets, daily range): BP systolic 109–172; BP diastolic 61–92; PULSE 77–107; RESP 16–25; TEMP 97.4–97.8; O2SAT 94–98
[2025-01-09] MEDS: vancomycin/NS 1 GM ADD-VANTAGE 250 ML IV SCH (00:46)
[2025-01-09 03:43] LABS: BASOPHILS % (AUTO) 0.2 % (0-1); EOSINOPHILS % (AUTO) 0 % (0-6); HEMATOCRIT 26.1 % (42.0-52.0); HEMOGLOBIN 8.8 g/dl (14.0-17.9); LYMPHOCYTES # (AUTO) 1.7 X10'3 (1.1-4.8); LYMPHOCYTES % (AUTO) 9.7 % (21-51); MEAN CORPUSCULAR HEMOGLOBIN 30.1 PG (27.0-31.0); MEAN CORPUSCULAR HGB CONC 33.7 g/dL (33.0-36.5); MEAN CORPUSCULAR VOLUME 89.2 FL (78-98); MEAN PLATELET VOLUME 8.6 FL (7.4-10.4); MONOCYTES # (AUTO) 1.9 X10'3 (0-0.9); MONOCYTES % (AUTO) 10.9 % (2-12); NEUTROPHILS # (AUTO) 13.9 X10'3 (1.8-7.7); NEUTROPHILS % (AUTO) 79.2 % (42-75); PLATELET COUNT 222 X10'3 (140-440); RED BLOOD COUNT 2.92 X10'6 (4.70-6.10); RED CELL DISTRIBUTION WIDTH 15.1 % (11.5-14.5); WHITE BLOOD COUNT 17.6 X10'3 (4.5-11.0)
[2025-01-09 03:49] LABS: ALANINE AMINOTRANSFERASE 23 U/L (12-78); ALBUMIN 2.6 G/DL (3.4-5.0); ALKALINE PHOSPHATASE 66 IU/L (46-116); ANION GAP 7 (8-16); ASPARTATE AMINO TRANSFERASE 19 U/L (10-37); BILIRUBIN,TOTAL 0.4 MG/DL (0.1-1.0); BLOOD UREA NITROGEN 11 MG/DL (7-18); BUN/CREATININE RATIO 15.7 (10.0-20.0); CALCIUM 7.9 MG/DL (8.5-10.1); CHLORIDE 102 MMOL/L (99-107); GLUCOSE 99 MG/DL (70-104); MAGNESIUM 2.4 MG/DL (1.5-2.4); POTASSIUM 3.9 MMOL/L (3.5-5.1); SODIUM 138 MMOL/L (135-145); TOTAL CARBON DIOXIDE 29.4 MMOL/L (24-32); TOTAL PROTEIN 5.2 G/DL (6.4-8.2); eCRCL 92 ML/MIN; eGFR > 90 ML/MIN
[2025-01-09] MEDS: pantoprazole 40mg Tablet.DR PO SCH (07:55)
[2025-01-09] MEDS: sertraline 50mg tablet PO SCH (07:56)
[2025-01-09] MEDS: primidone 50mg tablet PO SCH (07:56)
[2025-01-09] MEDS ORDERED: Fluticasone/Umeclidin/Vilanter (Trelegy Ellipta 200-62.5-25) PO SCH (08:00)
[2025-01-09] MEDS: ondansetron/PF 4mg/2ml inj IV PRN (08:07)
[2025-01-09 11:18] LABS: ALBUMIN 2.4 G/DL (3.4-5.0); ANION GAP 6 (8-16); BLOOD UREA NITROGEN 11 MG/DL (7-18); BUN/CREATININE RATIO 14.7 (10.0-20.0); CALCIUM 7.9 MG/DL (8.5-10.1); CHLORIDE 102 MMOL/L (99-107); CREATININE 0.75 MG/DL (0.60-1.10); GLUCOSE 100 MG/DL (70-104); SODIUM 137 MMOL/L (135-145); TOTAL CARBON DIOXIDE 29.5 MMOL/L (24-32); eCRCL 86 ML/MIN; eGFR > 90 ML/MIN
--- NOTE | 2025-01-09 12:52 | RADIOLOGY REPORT ---
CHEST RADIOGRAPH Indication: tachypnea Technique: Single frontal view of the chest was obtained Comparison: DI CHEST,SINGLE VIEW on DOS: 01/08/25, DI CHEST,SINGLE VIEW on DOS: 01/06/25, DI CHEST,SINGLE VIEW on DOS: 04/15/24, CHEST,SINGLE VIEW on DOS: 07/11/20, CHEST,SINGLE VIEW on DOS: 07/10/20 FINDINGS: Lines and Tubes: Right central venous catheter tip in the SVC Lungs: No focal consolidation. Pleura: No effusion. No pneumothorax. Cardiomediastinal contours: Unremarkable Bones: No acute osseous abnormality. IMPRESSION: No acute cardiopulmonary disease.
--- NOTE | 2025-01-09 15:58 | PROGRESS NOTE- Residence ---
Progress Note - Resident Providers to CC Resident Creating Document: TONJA GREENWOOD RES ~ Antibiotic Timeout Antibiotic Ordered?: Yes Subjective Seen and examined the patient at bedside. He is Still complaining of pain. Status post iliofemoral bypass graft, Day one. Objective Vital Signs Date Time Temp Pulse Resp B/P (MAP) Pulse Ox O2 Delivery O2 Flow Rate FiO2 01/09/25 14:00 89 22 126/86 (99) 94 Room Air 01/09/25 13:00 99.9 01/09/25 07:36 0 21 Result Diagram: 01/09/25 0308 01/09/25 1057 Elderly male, lethargic, alert and oriented, not in acute distress Head: Normocephalic with an atraumatic Eyes: Right eye excision, wearing a patch, Pupils- 3mm, reacting to light, conjunctiva- anicteric Nose and throat: No polyps, septum- normal, no mucosal ulcers, moist mucosal membranes Neck: Supple, no lymphadenopathy, no carotid bruit Respiratory: No use of accessory muscles of respiration, Bilateral normal vesicular breath sounds heard. No wheeze, rhochi or creps Cardiac: S1-S2 heard, rhythm regular, no gallop/murmur Abdomen: non distended, no tenderness, no organomegaly, bowel sounds - heard Extremities: Well-perfused Skin: warm and dry, no rash, no purpura Neuro: No focal deficit, gross cranial nerve exam - normal, left foot sensations absent Coagulation Studies Laboratory Tests Test 01/06/25 19:23 01/07/25 16:42 Prothrombin Time 10.7 SECONDS (9.0-12.0) INR International Normalized Ratio 1.0 INR Activated Partial Thromboplast Time > 139 SECONDS (22-32) *H Coagulation Comments Advance Care Planning Advanced Care plannin - 30 Minutes Assessment Assessment A 64-year-old male admitted for the management of left ileo popliteal bypass graft occlusion. Plan Plan Peripheral arterial disease Left ileo popliteal graft occlusion Status post left popliteal bypass(with the right common iliac as inflow), Pod one Vascular surgeon, Dr. Romero is on board Plan for graft thrombectomy tomorrow. Patient received 60 mg of Lovenox subcutaneous. Start heparin drip tomorrow. NPO from midnight. Doppler ultrasound of left leg-occlusion of bypass graft from groin to distal anastomosis. Patient's [place] left PFA and proximal to mid SFA still appear to be occluded. >75% stenosis noted at left distal SFA. Awaiting results of CTA with lower extremity runoff. 01/07/2025 CT angiography with lower extremity Left leg: There is mild diffuse narrowing of the left popliteal artery. Dr. Romero is on board patient will be going to OR for surgical intervention- thrombectomy and then to CICU 01/08/[address] Romero. Left popliteal bypass with graft secured from right common iliac artery. complains of pain over the leg. Vitals are stable. Pain management with hydro morphine. Patient is on vancomycin and clonidine and Reglan. 01/09/[address] Romero. Status post left popliteal bypass, Pod day two. Vitals are stable. Reactive leukocytosis is seen. Hemoglobin is 8.8. Hematocrit is 26.1. Sodium, potassium is okay. Hypoalbuminemia is present. Continuing vancomycin, clonidine, carbamazepine, baclofen, ipratropium albuterol nebulizations, Dilaudid, hydralazine p.r.n. COPD On albuterol ipratropium nebulization q.i.d. scheduled doses Hypertension Blood pressures are in 140s Continue to monitor blood pressure On clonidine 0.2 mg p.o. b.i.d. and hydralazine 10 mg p.r.n. 01/09/2025 Blood pressures are in normal range we are continuing clonidine, hydralazine. Seizures Continuing carbamazepine, primidone 50 mg p.o. daily. Anxiety Was using sertraline 100 mg p.o. daily Using duloxetine History of right eye cancer History of DVT Code Status: Full code Analgesia/Sedation: Dilaudid Lines/Tubes: PIV Tonja Greenwood MD Internal Medicine Resident PGY-1 Date of Service: January 09, 2025 Billing Provider: ESSENCE HATCH MD Common Visit Codes: [id number] INP/OBS CARE(HIGH) TONJA GREENWOOD RES January 09, 2025 15:58 ESSENCE HATCH MD January 09, 2025 21:57
--- NOTE | 2025-01-09 16:16 | PATHOLOGY REPORT ---
[facility] [address] [place] [address] SURGICAL PATHOLOGY REPORT CaseNumber: [id number] Surgeon:Rosalino Romero P.A.-C CLINICAL INFORMATION CLINICAL INFORMATION: Blood clots. DIAGNOSIS DIAGNOSIS: A.ARTERY, LEFT ILIAC; THROMBECTOMY - BLOOD CLOT, RECENT. DIAGNOSIS: B.ARTERY, AORTA; ENDARTERECTOMY - ATHEROSCLEROTIC PLAQUE, GROSSLY IDENTIFIED. MICROSCOPIC DESCRIPTION A. ARTERY, LEFT ILIAC MICROSCOPIC DESCRIPTION: One slide is examined. Performed. B. ARTERY, AORTA MICROSCOPIC DESCRIPTION: Not performed. GROSS DESCRIPTION A. ARTERY, LEFT ILIAC GROSS DESCRIPTION: Received in a container of formalin labeled with the patient's name, number, and " thrombus" is a 3 cm aggregate of irregularly shaped pieces of purple-mcconnell tissue. [employer] ons are submitted as A1. The time at which the specimen was removed was 155. The time at which the s pecimen was placed in formalin was not provided. B. ARTERY, AORTA GROSS DESCRIPTION: Received in a container of formalin labeled with the patient's name, number, and " aortic calcification" is a 1.7 cm aggregate of irregularly shaped pieces of moderately calcified athe rosclerotic plaque. Thrombus is not identified. A discrete mass lesion is not identified. No sections . The time at which the specimen was removed was 1559. The time at which the specimen was placed in f ormalin was not provided. (ncb) Electronically signed by: Jordi Castro M.D. 01/09/2025 3:45:00 PM
[2025-01-10] VITALS (10 sets, daily range): BP systolic 80–153; BP diastolic 43–86; PULSE 59–98; RESP 11–19; TEMP 97–98.9; O2SAT 94–99
[2025-01-10 06:26] LABS: BASOPHILS # (AUTO) 0.1 X10'3 (0-0.2); BASOPHILS % (AUTO) 0.8 % (0-1); EOSINOPHILS % (AUTO) 0.1 % (0-6); HEMATOCRIT 22.9 % (42.0-52.0); HEMOGLOBIN 7.6 g/dl (14.0-17.9); LYMPHOCYTES # (AUTO) 1.4 X10'3 (1.1-4.8); LYMPHOCYTES % (AUTO) 12.1 % (21-51); MEAN CORPUSCULAR HEMOGLOBIN 29.8 PG (27.0-31.0); MEAN CORPUSCULAR HGB CONC 33.1 g/dL (33.0-36.5); MEAN CORPUSCULAR VOLUME 89.8 FL (78-98); MEAN PLATELET VOLUME 8.6 FL (7.4-10.4); MONOCYTES # (AUTO) 1.2 X10'3 (0-0.9); NEUTROPHILS # (AUTO) 9.2 X10'3 (1.8-7.7); PLATELET COUNT 185 X10'3 (140-440); RED BLOOD COUNT 2.55 X10'6 (4.70-6.10); RED CELL DISTRIBUTION WIDTH 15.3 % (11.5-14.5); WHITE BLOOD COUNT 11.9 X10'3 (4.5-11.0)
[2025-01-10 07:17] LABS: ALANINE AMINOTRANSFERASE 24 U/L (12-78); ALBUMIN 2.3 G/DL (3.4-5.0); ALBUMIN/GLOBULIN RATIO 0.9 (1.1-1.5); ALKALINE PHOSPHATASE 60 IU/L (46-116); ANION GAP 11 (8-16); ASPARTATE AMINO TRANSFERASE 16 U/L (10-37); BILIRUBIN,TOTAL 0.4 MG/DL (0.1-1.0); BLOOD UREA NITROGEN 10 MG/DL (7-18); BUN/CREATININE RATIO 12.8 (10.0-20.0); CALCIUM 7.9 MG/DL (8.5-10.1); CHLORIDE 103 MMOL/L (99-107); CREATININE 0.78 MG/DL (0.60-1.10); GLUCOSE 87 MG/DL (70-104); MAGNESIUM 1.9 MG/DL (1.5-2.4); SODIUM 139 MMOL/L (135-145); TOTAL CARBON DIOXIDE 25.4 MMOL/L (24-32); TOTAL PROTEIN 4.9 G/DL (6.4-8.2); eCRCL 82 ML/MIN; eGFR > 90 ML/MIN
[2025-01-10] MEDS: pantoprazole 40mg Tablet.DR PO SCH (08:36)
[2025-01-10 12:29] LABS: MEAN CORPUSCULAR HEMOGLOBIN 30.7 PG (27.0-31.0); MEAN CORPUSCULAR HGB CONC 33.9 g/dL (33.0-36.5); MEAN CORPUSCULAR VOLUME 90.5 FL (78-98); MEAN PLATELET VOLUME 8.6 FL (7.4-10.4); PLATELET COUNT 157 X10'3 (140-440); RED BLOOD COUNT 2.11 X10'6 (4.70-6.10); RED CELL DISTRIBUTION WIDTH 15.3 % (11.5-14.5); WHITE BLOOD COUNT 8.8 X10'3 (4.5-11.0)
[2025-01-10 12:33] LABS: HEMATOCRIT 19.1 % (42.0-52.0); HEMOGLOBIN 6.5 g/dl (14.0-17.9)
[2025-01-10] MEDS: PCA WASTE DOCUMENTATION 1 MG ML MC SCH (13:36)
[2025-01-10] MEDS: morphine ER 15mg tablet PO SCH (13:57)
[2025-01-10] MEDS: HYDROmorphone inj. 0.5 MG/0.5 ML DISP.SYRIN IV PRN ×2 (13:58→20:22)
--- NOTE | 2025-01-10 17:23 | PROGRESS NOTE ---
Progress Note ID Providers to CC ~ Progress Note Progress Note: doing well/advance po JARRETT DA SILVA MD January 10, 2025 17:23
--- NOTE | 2025-01-10 19:15 | PROGRESS NOTE- Residence ---
Progress Note - Resident Providers to CC Resident Creating Document: DIDI LINDSEY RES ~ Antibiotic Timeout Antibiotic Ordered?: Yes Subjective Patient had a bowel movement which is dark brown color, patient was reported to press pain pump by on and pain is not controlled well. The patient is refusing to have breathing therapy which will be changed to p.r.n.. Patient's hemoglobin is dropping down. Objective Vital Signs Date Time Temp Pulse Resp B/P (MAP) Pulse Ox O2 Delivery O2 Flow Rate FiO2 01/10/25 18:11 97.6 78 14 153/80 01/10/25 15:00 96 Room Air 01/10/25 08:00 0.0 21 Result Diagram: 01/10/25 1146 01/10/25 0554 Vitals were stable at the moment with temp 97.7 F, OR 64/minute, RR 11/minute, BP 90/45 mm Hg, pulse oximetry 96% on room air. On examination, General: Well alert, well oriented, not confused, not agitated, not in acute distress, well cooperated during the physical. HEENT: Conjunctive are pink, sclerae clear, no icterus, pupil is equal in both sides, reactive to light, no ear discharge, no pharyngeal erythema or an edema, mouth and lips are moist. Neck: Supple, no JVD, no lymphadenopathy and thyromegaly. Lungs:Equal air entry on both lungs, no additional sounds Heart: S1-S2 regular sinus rhythm and, regular rate, no gallops, no rubs, no murmurs Abdomen: No visible peristalsis, Bowel sounds present on auscultation, soft, nontender, no guarding, no rigidity Extremities: Left medial thigh was secured with the intent and dry dressing, No obvious deformities, no pitting edema bilaterally, capillary refill intact, able to wiggle toes both sides, peripheral pulsations are intact on both sides TROUBLE DISPATCHER: No focal neurological deficits, no motor and sensory weakness in all 4 extremities, could move all 4 extremities Musculoskeletal: No joint swelling, deformities, inflammations, and no scoliosis and back tenderness Skin: No active skin lesions and rashes Coagulation Studies Laboratory Tests Test 01/06/25 19:23 01/07/25 16:42 Prothrombin Time 10.7 SECONDS (9.0-12.0) INR International Normalized Ratio 1.0 INR Activated Partial Thromboplast Time > 139 SECONDS (22-32) *H Coagulation Comments Assessment Assessment A 64-year-old male admitted for the management of left ileo popliteal bypass graft occlusion. Plan Plan Normochromic normocytic anemia Likely upper GI bleeding 01/10/2025: Hemoglobin dropped down to 7.6 today from 8.8 yesterday, H&H q.6 hours show 6.5 again -continue H&H q.6 hours -continue IV pantoprazole 40 mg b.i.d. -typing and cross matching, transfused 1 unit of PRBC's -plan for transfusion if hemoglobin dropping down < 7 Peripheral arterial disease Left ileo popliteal graft occlusion Status post left popliteal bypass(with the right common iliac as inflow), Pod one Vascular surgeon, Dr. Romero is on board Plan for graft thrombectomy tomorrow. Patient received 60 mg of Lovenox subcutaneous. Start heparin drip tomorrow. NPO from midnight. Doppler ultrasound of left leg-occlusion of bypass graft from groin to distal anastomosis. Patient's [place] left PFA and proximal to mid SFA still appear to be occluded. >75% stenosis noted at left distal SFA. Awaiting results of CTA with lower extremity runoff. 01/07/2025 CT angiography with lower extremity Left leg: There is mild diffuse narrowing of the left popliteal artery. Dr. Romero is on board patient will be going to OR for surgical intervention- thrombectomy and then to CICU 01/08/[address] Romero. Left popliteal bypass with graft secured from right common iliac artery. complains of pain over the leg. Vitals are stable. Pain management with hydro morphine. Patient is on vancomycin and clonidine and Reglan. 01/09/[address] Romero. Status post left popliteal bypass, Pod day two. Vitals are stable. Reactive leukocytosis is seen. Hemoglobin is 8.8. Hematocrit is 26.1. Sodium, potassium is okay. Hypoalbuminemia is present. Continuing vancomycin, clonidine, carbamazepine, baclofen, ipratropium albuterol nebulizations, Dilaudid, hydralazine p.r.n. 01/10/2025 Patient's pain is managed with IV Dilaudid 0.5 mg q.4 hours now and discontinue pain pump. Switch to PRN Reglan for his bowel movement. Continue management as per Dr. Gilmore COPD On albuterol ipratropium nebulization q.i.d. scheduled doses 01/10/2025: Switch breathing therapy into PRN as patient is refusing. Hypertension Blood pressures are in 140s Continue to monitor blood pressure On clonidine 0.2 mg p.o. b.i.d. and hydralazine 10 mg p.r.n. 01/09/2025 Blood pressures are in normal range we are continuing clonidine, hydralazine. Seizures Continuing carbamazepine, primidone 50 mg p.o. daily. Anxiety Was using sertraline 100 mg p.o. daily Using duloxetine History of right eye cancer History of DVT Code Status: Full code Analgesia/Sedation: Dilaudid Lines/Tubes: PIV Disposition: Continue medical management, H&H q.6 hours and plan for transfusion, continue IV Protonix 40 mg, follow up with FOBT, continue management as per surgical team plan, PT eval and DC plan possibly rehab. Resident MD attestation: Patient was seen, examined and discussed with attending MD, Dr. Luz LINDSEY MD Internal Medicine Resident, PGY2 [facility] Date of Service: January 10, 2025 Billing Provider: ESSENCE HATCH MD Common Visit Codes: [id number] INP/OBS CARE(HIGH) DIDI LINDSEY RES January 10, 2025 19:15 ESSENCE HATCH MD January 10, 2025 21:07
[2025-01-10] MEDS: pantoprazole 40 MG vial IV SCH (20:12)
[2025-01-10 21:01] LABS: HEMATOCRIT 28.8 % (42.0-52.0); HEMOGLOBIN 9.6 g/dl (14.0-17.9); MEAN CORPUSCULAR HGB CONC 33.5 g/dL (33.0-36.5); MEAN CORPUSCULAR VOLUME 89.4 FL (78-98); MEAN PLATELET VOLUME 8.8 FL (7.4-10.4); PLATELET COUNT 185 X10'3 (140-440); RED BLOOD COUNT 3.22 X10'6 (4.70-6.10); RED CELL DISTRIBUTION WIDTH 15.9 % (11.5-14.5); WHITE BLOOD COUNT 11.5 X10'3 (4.5-11.0)
[2025-01-11] VITALS (13 sets, daily range): BP systolic 96–159; BP diastolic 50–75; PULSE 60–111; RESP 9–20; TEMP 97.3–98.5; O2SAT 93–98
[2025-01-11 01:19] LABS: HEMATOCRIT 24.2 % (42.0-52.0); HEMOGLOBIN 8.2 g/dl (14.0-17.9); MEAN CORPUSCULAR HEMOGLOBIN 30.2 PG (27.0-31.0); MEAN CORPUSCULAR HGB CONC 33.7 g/dL (33.0-36.5); MEAN CORPUSCULAR VOLUME 89.7 FL (78-98); MEAN PLATELET VOLUME 8.4 FL (7.4-10.4); PLATELET COUNT 142 X10'3 (140-440); WHITE BLOOD COUNT 11.6 X10'3 (4.5-11.0)
[2025-01-11 06:31] LABS: BASOPHILS # (AUTO) 0.1 X10'3 (0-0.2); BASOPHILS % (AUTO) 1.2 % (0-1); EOSINOPHILS # (AUTO) 0.3 X10'3 (0-0.9); EOSINOPHILS % (AUTO) 2.6 % (0-6); HEMATOCRIT 26.3 % (42.0-52.0); HEMOGLOBIN 8.7 g/dl (14.0-17.9); LYMPHOCYTES # (AUTO) 2.4 X10'3 (1.1-4.8); LYMPHOCYTES % (AUTO) 21.4 % (21-51); MEAN CORPUSCULAR HEMOGLOBIN 29.9 PG (27.0-31.0); MEAN CORPUSCULAR HGB CONC 33.1 g/dL (33.0-36.5); MEAN CORPUSCULAR VOLUME 90.3 FL (78-98); MEAN PLATELET VOLUME 8.5 FL (7.4-10.4); MONOCYTES # (AUTO) 1.8 X10'3 (0-0.9); MONOCYTES % (AUTO) 15.7 % (2-12); NEUTROPHILS # (AUTO) 6.7 X10'3 (1.8-7.7); NEUTROPHILS % (AUTO) 59.1 % (42-75); PLATELET COUNT 157 X10'3 (140-440); RED BLOOD COUNT 2.91 X10'6 (4.70-6.10); WHITE BLOOD COUNT 11.4 X10'3 (4.5-11.0)
[2025-01-11 07:06] LABS: ALANINE AMINOTRANSFERASE 22 U/L (12-78); ALBUMIN 2.2 G/DL (3.4-5.0); ALBUMIN/GLOBULIN RATIO 0.8 (1.1-1.5); ALKALINE PHOSPHATASE 56 IU/L (46-116); ANION GAP 9 (8-16); ASPARTATE AMINO TRANSFERASE 21 U/L (10-37); BILIRUBIN,TOTAL 0.5 MG/DL (0.1-1.0); BLOOD UREA NITROGEN 11 MG/DL (7-18); BUN/CREATININE RATIO 14.1 (10.0-20.0); CHLORIDE 105 MMOL/L (99-107); CREATININE 0.78 MG/DL (0.60-1.10); GLUCOSE 81 MG/DL (70-104); MAGNESIUM 1.9 MG/DL (1.5-2.4); POTASSIUM 3.8 MMOL/L (3.5-5.1); SODIUM 138 MMOL/L (135-145); TOTAL PROTEIN 4.9 G/DL (6.4-8.2); eCRCL 82 ML/MIN; eGFR > 90 ML/MIN
[2025-01-11 07:46] LABS: PLATELET ESTIMATE NORMAL; TOTAL CELLS COUNTED 100
--- NOTE | 2025-01-11 11:45 | PROGRESS NOTE ---
Progress Note ID Providers to CC ~ Progress Note Progress Note: complains of pain/vss/abd-mild distention/LLE well perfused/labs noted a/p 1. s/p ili0-pop bypass-doing well/cont pt JARRETT DA SILVA MD January 11, 2025 11:45
[2025-01-11] MEDS: ipratropium/albuterol 3ml nebule NEB PRN (12:17)
--- NOTE | 2025-01-11 13:18 | PROGRESS NOTE- Residence ---
Progress Note - Resident Providers to CC Resident Creating Document: TONJA GREENWOOD RES ~ Antibiotic Timeout Antibiotic Ordered?: Yes Subjective Seen and examined the patient at bedside. Complained of abdominal pain on and off. Patient is a smoker and vasculopathic. She had a bowel movement. Objective Vital Signs Date Time Temp Pulse Resp B/P (MAP) Pulse Ox O2 Delivery O2 Flow Rate FiO2 01/11/25 12:26 60 20 Room Air 0.0 21 01/11/25 12:17 93 01/11/25 10:00 98.0 105/60 (75) Result Diagram: 01/11/25 0608 01/11/25 0608 Elderly male, lethargic, alert and oriented, not in acute distress Head: Normocephalic with an atraumatic Eyes: Right eye excision, wearing a patch, Pupils- 3mm, reacting to light, conjunctiva- anicteric Nose and throat: No polyps, septum- normal, no mucosal ulcers, moist mucosal membranes Neck: Supple, no lymphadenopathy, no carotid bruit Respiratory: No use of accessory muscles of respiration, Bilateral normal vesicular breath sounds heard. No wheeze, rhochi or creps Cardiac: S1-S2 heard, rhythm regular, no gallop/murmur Abdomen: non distended, tenderness is present left iliac fossa, umbilical, left lower quadrant, no organomegaly, bowel sounds - heard Extremities: Well-perfused Skin: warm and dry, no rash, no purpura Neuro: No focal deficit, gross cranial nerve exam - normal, left foot sensations absent Coagulation Studies Laboratory Tests Test 01/06/25 19:23 01/07/25 16:42 Prothrombin Time 10.7 SECONDS (9.0-12.0) INR International Normalized Ratio 1.0 INR Activated Partial Thromboplast Time > 139 SECONDS (22-32) *H Coagulation Comments Advance Care Planning Advanced Care plannin - 30 Minutes Assessment Assessment A 64-year-old male admitted for the management of left ileo popliteal bypass graft occlusion. Plan Plan Pain abdomen likely secondary to possible acute on chronic mesenteric ischemia Dilaudid 0.[address] angiography abdomen done on today- IMPRESSION: 1. New postoperative changes of right common iliac artery to left lower extremity bypass graft. The bypass graft is patent. The distal extent of the bypass graft is not imaged here. There is associated left mid to lower mesenteric hematoma measuring up to 8.4 cm transverse. There is associated low volume free air gas within the abdominal wall and left inguinal region. 2. Extensive atherosclerotic vascular disease with greater than 50% stenosis of the renal artery origins, 50% stenosis of the left common iliac artery, occlusion of the previous left external iliac artery bypass. Evaluation of the arterial structures is limited by absence of standard sagittal and coronal reformatted images. 3. 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 Romero again on afternoon and left text with CTA chest abdomen pelvis report showing hematoma and renal artery stenosis. Normochromic normocytic anemia Likely upper GI bleeding 01/10/2025: Hemoglobin dropped down to 7.6 today from 8.8 yesterday, H&H q.6 hours show 6.5 again -continue H&H q.6 hours -continue IV pantoprazole 40 mg b.i.d. -typing and cross matching, transfused 1 unit of PRBC's -plan for transfusion if hemoglobin dropping down < 7 01/11/2025 Hemoglobin and hematocrit is gradually improving and we will continue to monitor H&H and transfuse if hemoglobin is less than seven. Peripheral arterial disease Left ileo popliteal graft occlusion Status post left popliteal bypass(with the right common iliac as inflow), Pod one Vascular surgeon, Dr. Romero is on board Plan for graft thrombectomy tomorrow. Patient received 60 mg of Lovenox subcutaneous. Start heparin drip tomorrow. NPO from midnight. Doppler ultrasound of left leg-occlusion of bypass graft from groin to distal anastomosis. Patient's [place] left PFA and proximal to mid SFA still appear to be occluded. >75% stenosis noted at left distal SFA. Awaiting results of CTA with lower extremity runoff. 01/07/2025 CT angiography with lower extremity Left leg: There is mild diffuse narrowing of the left popliteal artery. Dr. Romero is on board patient will be going to OR for surgical intervention- thrombectomy and then to CICU 01/08/[address] Romero. Left popliteal bypass with graft secured from right common iliac artery. complains of pain over the leg. Vitals are stable. Pain management with hydro morphine. Patient is on vancomycin and clonidine and Reglan. 01/09/[address] Romero. Status post left popliteal bypass, Pod day two. Vitals are stable. Reactive leukocytosis is seen. Hemoglobin is 8.8. Hematocrit is 26.1. Sodium, potassium is okay. Hypoalbuminemia is present. Continuing vancomycin, clonidine, carbamazepine, baclofen, ipratropium albuterol nebulizations, Dilaudid, hydralazine p.r.n. 01/10/2025 Patient's pain is managed with IV Dilaudid 0.5 mg q.4 hours now and discontinue pain pump. Switch to PRN Reglan for his bowel movement. Continue management as per Dr. Gilmore 01/11/2025 - Plan per Dr. Romero-started ceftriaxone - addressed the pain management with the Dilaudid 0.5 mg q.4 H IV if not subsiding with 0.5& 1 mg q.4h p.r.n. for severe pain. COPD On albuterol ipratropium nebulization q.i.d. scheduled doses 01/10/2025: Switch breathing therapy into PRN as patient is refusing. 01/11/2025: continue p.r.n. albuterol ipratropium nebulization Hypertension Blood pressures are in 140s Continue to monitor blood pressure On clonidine 0.2 mg p.o. b.i.d. and hydralazine 10 mg p.r.n. 01/09/2025 Blood pressures are in normal range we are continuing clonidine, hydralazine. 01/11/2025: Blood pressures are normal we will continue clonidine and hydralazine Seizures Continuing carbamazepine, primidone 50 mg p.o. daily. Anxiety Continuing sertraline 100 mg p.o. daily Was Using duloxetine. History of right eye cancer History of DVT Code Status: Full code Analgesia/Sedation: Dilaudid Lines/Tubes: PIV Tonja Greenwood Internal Medicine Resident. Date of Service: January 11, 2025 Billing Provider: ESSENCE HATCH MD Common Visit Codes: [id number] INP/OBS CARE(HIGH) TONJA GREENWOOD, JESSICA January 11, 2025 13:18 ESSENCE HATCH MD January 16, 2025 06:44
[2025-01-11] MEDS: HYDROmorphone 1 mg/ml syringe IV PRN (13:36)
[2025-01-11] MEDS ORDERED: iohexol 350MG/ML 100ml bottle IV ONE (13:50)
--- NOTE | 2025-01-11 15:33 | RADIOLOGY REPORT ---
EXAM: CT CTA ABDOMEN PELVIS HISTORY: abd pain COMPARISON: CT CT CHEST ABDOMEN PELVIS on DOS: 04/16/24; CTA with runoff dated 01/06/2025. TECHNIQUE: Helical high resolution CT images of the abdomen and pelvis were performed with 100 ml omn ipaque 350 IV contrast using CTA protocol. Sagittal and coronal reformatted images were not performed . 3-D MIP images were obtained. This CT exam was performed using one or more of the following dose re duction techniques: Automated exposure control, adjustment of the mA and/or kV according to patient s ize, or use of iterative reconstruction technique. Radiation Dose: CTDI volume is 12.16 mGy. Dose-length product is 635.16 mGy*cm FINDINGS: Abdominal Aorta: No abdominal aortic aneurysm, dissection, or significant stenosis. There are promine nt atherosclerotic calcifications of the abdominal aorta and major branches. Renals: There are single renal arteries arising from the abdominal aorta bilaterally. There is estima radhika 60% stenosis of the right renal artery origin. There is 70% stenosis of the left renal artery or igin. Celiomesenteric: There is common origin of the celiac trunk and SMA. There is narrowing of the JOANNE or igin. Pelvis: There is estimated 50% stenosis of the left common iliac artery. No significant stenosis of t he right common iliac artery. There is diffuse moderate narrowing of the bilateral internal iliac art eries. There is diffuse [id number] narrowing of the right external iliac artery. There is compl ete occlusion of a left external iliac artery bypass graft which extends to the left SFA on the previ ous CTA with runoff. There are interval postoperative changes of right common iliac artery to left lo wer extremity bypass graft, visualized to the left mid thigh but not fully imaged here. The new bypas s graft is patent. Miscellaneous: There are coronary artery calcifications. The heart is not enlarged. There is emphyse ma of the lung bases. There are trace right and small left pleural effusions. There is bilateral lowe r lobe atelectasis, increased. There are interval postoperative changes midline laparotomy with assoc iated low volume intraperitoneal gas and gas within the anterior abdominal wall. Gas also tracks in t he left inguinal region extending into the scrotum. There is a left mid to lower mesenteric hematoma measuring 8.4 cm transverse x 4.5 cm AP (image 64, series 2). There is presacral edema. There is low volume free fluid in the pericolic gutters. There is duplication of the right renal collecting system . Romero catheter decompresses the urinary bladder. There is advanced lumbar degenerative disc disease and facet arthropathy. There is mild osteoarthritis of the bilateral hips. IMPRESSION: 1. New postoperative changes of right common iliac artery to left lower extremity bypass graft. The bypass graft is patent. The distal extent of the bypass graft is not imaged here. There is associate d left mid to lower mesenteric hematoma measuring up to 8.4 cm transverse. There is associated low vo lume free air gas within the abdominal wall and left inguinal region. 2. Extensive atherosclerotic vascular disease with greater than 50% stenosis of the renal artery orig ins, 50% stenosis of the left common iliac artery, occlusion of the previous left external iliac amarilis ry bypass. Evaluation of the arterial structures is limited by absence of standard sagittal and ramesh nal reformatted images. 3. 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
[2025-01-12] VITALS (9 sets, daily range): BP systolic 95–181; BP diastolic 57–77; PULSE 60–103; RESP 11–20; TEMP 97.1–97.5; O2SAT 93–100
[2025-01-12 07:50] LABS: ALBUMIN 2.3 G/DL (3.4-5.0); ANION GAP 10 (8-16); BLOOD UREA NITROGEN 8 MG/DL (7-18); BUN/CREATININE RATIO 9.8 (10.0-20.0); CHLORIDE 105 MMOL/L (99-107); CREATININE 0.82 MG/DL (0.60-1.10); GLUCOSE 83 MG/DL (70-104); POTASSIUM 3.5 MMOL/L (3.5-5.1); SODIUM 141 MMOL/L (135-145); eCRCL 78 ML/MIN; eGFR > 90 ML/MIN
[2025-01-12 08:30] LABS: ALANINE AMINOTRANSFERASE 19 U/L (12-78); ALBUMIN/GLOBULIN RATIO 0.8 (1.1-1.5); ALKALINE PHOSPHATASE 68 IU/L (46-116); ASPARTATE AMINO TRANSFERASE 16 U/L (10-37); BILIRUBIN,TOTAL 0.5 MG/DL (0.1-1.0); TOTAL PROTEIN 5.3 G/DL (6.4-8.2)
[2025-01-12] MEDS: CefTRIAXone 2gm/D5W 50ml BAG 50 ML IV SCH (08:30)
[2025-01-12] MEDS: aspirin 81mg, enteric-coated 1 TAB TABLET.DR PO SCH (08:30)
[2025-01-12] MEDS ORDERED: baclofen 10mg tablet PO SCH (13:00)
[2025-01-12] MEDS: baclofen 10mg tablet PO SCH (13:14)
[2025-01-12] MEDS: HYDROmorphone inj. 0.5 MG/0.5 ML DISP.SYRIN IV PRN (17:19)
--- NOTE | 2025-01-12 17:56 | PROGRESS NOTE- Residence ---
Progress Note - Resident Providers to CC Resident Creating Document: TONJA GREENWOOD RES ~ Antibiotic Timeout Antibiotic Ordered?: Yes Subjective Seen and examined the patient at bedside. He is still complaining of the abdominal pain, 05/13. Patient had a bowel movement. We recommended for the cessation of smoking. There is a oozing of blood from the left lower extremity postsurgical area. We were concerned about the abdominal pain and left abdominal hematoma and we again consulted Dr. Romero. Objective Vital Signs Date Time Temp Pulse Resp B/P (MAP) Pulse Ox O2 Delivery O2 Flow Rate FiO2 01/12/25 17:19 16 01/12/25 16:30 68 93 Room Air* 0 21 01/12/25 15:00 97.5 158/69 (98) Result Diagram: 01/11/25 0608 01/12/25 0650 Elderly male, lethargic, alert and oriented, not in acute distress Head: Normocephalic with an atraumatic Eyes: Right eye excision, wearing a patch, Pupils- 3mm, reacting to light, conjunctiva- anicteric Nose and throat: No polyps, septum- normal, no mucosal ulcers, moist mucosal membranes Neck: Supple, no lymphadenopathy, no carotid bruit Respiratory: No use of accessory muscles of respiration, Bilateral normal vesicular breath sounds heard. No wheeze, rhochi or creps Cardiac: S1-S2 heard, rhythm regular, no gallop/murmur Abdomen: non distended, tenderness is present left iliac fossa, umbilical, left lower quadrant, no organomegaly, bowel sounds - heard Extremities: Well-perfused Skin: warm and dry, no rash, no purpura. Oozing of blood from the surgical site from one point. Neuro: No focal deficit, gross cranial nerve exam - normal, left foot sensations absent Coagulation Studies Laboratory Tests Test 01/06/25 19:23 01/07/25 16:42 Prothrombin Time 10.7 SECONDS (9.0-12.0) INR International Normalized Ratio 1.0 INR Activated Partial Thromboplast Time > 139 SECONDS (22-32) *H Coagulation Comments Advance Care Planning Advanced Care plannin - 30 Minutes Assessment Assessment A 64-year-old male admitted for the management of left ileo popliteal bypass graft occlusion. Plan Plan Pain abdomen likely secondary to possible acute on chronic mesenteric ischemia Dilaudid 0.[address] angiography abdomen done on today- IMPRESSION: 1. New postoperative changes of right common iliac artery to left lower extremity bypass graft. The bypass graft is patent. The distal extent of the bypass graft is not imaged here. There is associated left mid to lower mesenteric hematoma measuring up to 8.4 cm transverse. There is associated low volume free air gas within the abdominal wall and left inguinal region. 2. Extensive atherosclerotic vascular disease with greater than 50% stenosis of the renal artery origins, 50% stenosis of the left common iliac artery, occlusion of the previous left external iliac artery bypass. Evaluation of the arterial structures is limited by absence of standard sagittal and coronal reformatted images. 3. 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 Romero again on afternoon and left text with CTA chest abdomen pelvis report showing hematoma and renal artery stenosis. 01/12/2025: Nothing from the surgical point of view per Dr. Romero. Ordered procalcitonin, lactic acid, ESR. Normochromic normocytic anemia Likely upper GI bleeding 01/10/2025: Hemoglobin dropped down to 7.6 today from 8.8 yesterday, H&H q.6 hours show 6.5 again -continue H&H q.6 hours -continue IV pantoprazole 40 mg b.i.d. -typing and cross matching, transfused 1 unit of PRBC's -plan for transfusion if hemoglobin dropping down < 7 01/11/2025 Hemoglobin and hematocrit is gradually improving and we will continue to monitor H&H and transfuse if hemoglobin is less than seven. 01/12/2025 Hemoglobin is stable continue to monitor H&H Peripheral arterial disease Left ileo popliteal graft occlusion Status post left popliteal bypass(with the right common iliac as inflow), Pod one Vascular surgeon, Dr. Romero is on board Plan for graft thrombectomy tomorrow. Patient received 60 mg of Lovenox subcutaneous. Start heparin drip tomorrow. NPO from midnight. Doppler ultrasound of left leg-occlusion of bypass graft from groin to distal anastomosis. Patient's [place] left PFA and proximal to mid SFA still appear to be occluded. >75% stenosis noted at left distal SFA. Awaiting results of CTA with lower extremity runoff. 01/07/2025 CT angiography with lower extremity Left leg: There is mild diffuse narrowing of the left popliteal artery. Dr. Romero is on board patient will be going to OR for surgical intervention- thrombectomy and then to CICU 01/08/[address] Romero. Left popliteal bypass with graft secured from right common iliac artery. complains of pain over the leg. Vitals are stable. Pain management with hydro morphine. Patient is on vancomycin and clonidine and Reglan. 01/09/[address] Romero. Status post left popliteal bypass, Pod day two. Vitals are stable. Reactive leukocytosis is seen. Hemoglobin is 8.8. Hematocrit is 26.1. Sodium, potassium is okay. Hypoalbuminemia is present. Continuing vancomycin, clonidine, carbamazepine, baclofen, ipratropium albuterol nebulizations, Dilaudid, hydralazine p.r.n. 01/10/2025 Patient's pain is managed with IV Dilaudid 0.5 mg q.4 hours now and discontinue pain pump. Switch to PRN Reglan for his bowel movement. Continue management as per Dr. Gilmore 01/11/2025 - Plan per Dr. Romero-started ceftriaxone - addressed the pain management with the Dilaudid 0.5 mg q.4 H IV if not subsiding with 0.5& 1 mg q.4h p.r.n. for severe pain. 01/12/2025 - no acute postsurgical changes on today COPD On albuterol ipratropium nebulization q.i.d. scheduled doses 01/10/2025: Switch breathing therapy into PRN as patient is refusing. 01/11/2025: continue p.r.n. albuterol ipratropium nebulization 01/12/2025: We will continue albuterol ipratropium nebulization. PRN Hypertension Blood pressures are in 140s Continue to monitor blood pressure On clonidine 0.2 mg p.o. b.i.d. and hydralazine 10 mg p.r.n. 01/09/2025 Blood pressures are in normal range we are continuing clonidine, hydralazine. 01/11/2025: Blood pressures are normal we will continue clonidine and hydralazine 01/12/2025: Reduce the clonidine dose to 0.1 mg p.o. b.i.d. blood pressure is in 108 Seizures Continuing carbamazepine 100 mg p.o. b.i.d., carbamazepine 200 mg PO HS, primidone 50 mg p.o. daily. Anxiety Continuing sertraline 100 mg p.o. daily Was Using duloxetine. History of right eye cancer History of DVT Code Status: Full code Analgesia/Sedation: Dilaudid Lines/Tubes: JERZY [facility] Resident. Date of Service: January 12, 2025 Billing Provider: NICHOLAS HILL MD Common Visit Codes: [id number] INP/OBS CARE(HIGH) TONJA GREENWOOD, RES January 12, 2025 17:56 NICHOLAS HILL MD January 13, 2025 08:45
--- NOTE | 2025-01-12 19:16 | Visit Coding Note ---
Date of Service: January 12, 2025 Billing Provider: NICHOLAS HILL MD Common Visit Codes: [id number] INP/OBS CARE(HIGH) NICHOLAS HILL MD January 12, 2025 19:16
[2025-01-12] MEDS: cloNIDine 0.1 mg tablet PO SCH (20:12)
--- NOTE | 2025-01-12 20:28 | PROGRESS NOTE ---
Progress Note ID Providers to CC ~ Progress Note Progress Note: persistent pain/vss/abd-mild distention/labs noted/ct reviewed a/p 1. s/p [id number] progress/cont supportive care JARRETT DA SILVA MD January 12, 2025 20:28
[2025-01-12 20:31] LABS: BASOPHILS # (AUTO) 0.1 X10'3 (0-0.2); EOSINOPHILS % (AUTO) 10.4 % (0-6); HEMATOCRIT 29.2 % (42.0-52.0); HEMOGLOBIN 9.9 g/dl (14.0-17.9); LYMPHOCYTES # (AUTO) 1.5 X10'3 (1.1-4.8); LYMPHOCYTES % (AUTO) 15.9 % (21-51); MEAN CORPUSCULAR HEMOGLOBIN 30.6 PG (27.0-31.0); MEAN CORPUSCULAR HGB CONC 33.8 g/dL (33.0-36.5); MEAN CORPUSCULAR VOLUME 90.5 FL (78-98); MEAN PLATELET VOLUME 7.9 FL (7.4-10.4); MONOCYTES # (AUTO) 1.2 X10'3 (0-0.9); MONOCYTES % (AUTO) 12.8 % (2-12); NEUTROPHILS # (AUTO) 5.5 X10'3 (1.8-7.7); NEUTROPHILS % (AUTO) 59.9 % (42-75); PLATELET COUNT 243 X10'3 (140-440); RED BLOOD COUNT 3.23 X10'6 (4.70-6.10); RED CELL DISTRIBUTION WIDTH 15.7 % (11.5-14.5); WHITE BLOOD COUNT 9.2 X10'3 (4.5-11.0)
[2025-01-13] VITALS (10 sets, daily range): BP systolic 137–189; BP diastolic 69–107; PULSE 78–91; RESP 12–20; TEMP 97.1–98.5; O2SAT 93–98
[2025-01-13 07:07] LABS: BASOPHILS # (AUTO) 0.1 X10'3 (0-0.2); BASOPHILS % (AUTO) 1.1 % (0-1); EOSINOPHILS % (AUTO) 10.8 % (0-6); HEMATOCRIT 28.2 % (42.0-52.0); HEMOGLOBIN 9.6 g/dl (14.0-17.9); LYMPHOCYTES # (AUTO) 1.7 X10'3 (1.1-4.8); LYMPHOCYTES % (AUTO) 19.1 % (21-51); MEAN CORPUSCULAR HEMOGLOBIN 30.6 PG (27.0-31.0); MEAN CORPUSCULAR HGB CONC 34.1 g/dL (33.0-36.5); MEAN CORPUSCULAR VOLUME 89.8 FL (78-98); MEAN PLATELET VOLUME 8.1 FL (7.4-10.4); MONOCYTES # (AUTO) 1.2 X10'3 (0-0.9); MONOCYTES % (AUTO) 13.2 % (2-12); NEUTROPHILS % (AUTO) 55.8 % (42-75); PLATELET COUNT 258 X10'3 (140-440); RED BLOOD COUNT 3.14 X10'6 (4.70-6.10); RED CELL DISTRIBUTION WIDTH 15.5 % (11.5-14.5)
--- NOTE | 2025-01-13 13:33 | PROGRESS NOTE- Residence ---
Progress Note - Resident Providers to CC Resident Creating Document: TONJA GREENWOOD RES ~ Antibiotic Timeout Antibiotic Ordered?: Yes Subjective Seen and examined the patient at bedside. He is still complaining of the abdominal pain, 7-04/12. Patient had a bowel movement on yesterday but not today. Wound site and left lower extremities without any oozing blood. Objective Vital Signs Date Time Temp Pulse Resp B/P (MAP) Pulse Ox O2 Delivery O2 Flow Rate FiO2 01/13/25 11:49 16 01/13/25 11:40 82 96 Room Air* 0 21 01/13/25 02:00 97.1 141/84 (103) Result Diagram: 01/13/25 0637 01/12/25 0650 Elderly male, lethargic, alert and oriented, not in acute distress Head: Normocephalic with an atraumatic Eyes: Right eye excision, wearing a patch, Pupils- 3mm, reacting to light, conjunctiva- anicteric Nose and throat: No polyps, septum- normal, no mucosal ulcers, moist mucosal membranes Neck: Supple, no lymphadenopathy, no carotid bruit Respiratory: No use of accessory muscles of respiration, Bilateral normal vesicular breath sounds heard. No wheeze, rhochi or creps Cardiac: S1-S2 heard, rhythm regular, no gallop/murmur Abdomen: non distended, tenderness is present left iliac fossa, umbilical, left lower quadrant, no organomegaly, bowel sounds - heard Extremities: Well-perfused Skin: warm and dry, no rash, no purpura. Wound on left lower extremity is covered well with dressing and it does not showed any bleeding, discharge. Neuro: No focal deficit, gross cranial nerve exam - normal, left foot sensations absent Coagulation Studies Laboratory Tests Test 01/06/25 19:23 01/07/25 16:42 Prothrombin Time 10.7 SECONDS (9.0-12.0) INR International Normalized Ratio 1.0 INR Activated Partial Thromboplast Time > 139 SECONDS (22-32) *H Coagulation Comments Advance Care Planning Advanced Care plannin - 30 Minutes Assessment Assessment A 64-year-old male admitted for the management of left ileo popliteal bypass graft occlusion. Plan Plan Pain abdomen likely secondary to possible acute on chronic mesenteric ischemia Dilaudid 0.[address] angiography abdomen done on today- IMPRESSION: 1. New postoperative changes of right common iliac artery to left lower extremity bypass graft. The bypass graft is patent. The distal extent of the bypass graft is not imaged here. There is associated left mid to lower mesenteric hematoma measuring up to 8.4 cm transverse. There is associated low volume free air gas within the abdominal wall and left inguinal region. 2. Extensive atherosclerotic vascular disease with greater than 50% stenosis of the renal artery origins, 50% stenosis of the left common iliac artery, occlusion of the previous left external iliac artery bypass. Evaluation of the arterial structures is limited by absence of standard sagittal and coronal reformatted images. 3. 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 Romero again on afternoon and left text with CTA chest abdomen pelvis report showing hematoma and renal artery stenosis. 01/12/2025: Nothing from the surgical point of view per Dr. Romero. Ordered procalcitonin, lactic acid, ESR. 01/13/2025: - -patient is still complaining of the pain and pain medication seeking behavior is noted. -patient is getting Dilaudid, morphine for pain control. Normochromic normocytic anemia Likely upper GI bleeding 01/10/2025: Hemoglobin dropped down to 7.6 today from 8.8 yesterday, H&H q.6 hours show 6.5 again -continue H&H q.6 hours -continue IV pantoprazole 40 mg b.i.d. -typing and cross matching, transfused 1 unit of PRBC's -plan for transfusion if hemoglobin dropping down < 7 01/11/2025 Hemoglobin and hematocrit is gradually improving and we will continue to monitor H&H and transfuse if hemoglobin is less than seven. 01/12/2025 Hemoglobin is stable continue to monitor H&H 01/13/2025 -H&H is 9.6, 28 -we will monitor H&H Peripheral arterial disease Left ileo popliteal graft occlusion Status post left popliteal bypass(with the right common iliac as inflow), Pod one Vascular surgeon, Dr. Romero is on board Plan for graft thrombectomy tomorrow. Patient received 60 mg of Lovenox subcutaneous. Start heparin drip tomorrow. NPO from midnight. Doppler ultrasound of left leg-occlusion of bypass graft from groin to distal anastomosis. Patient's [place] left PFA and proximal to mid SFA still appear to be occluded. >75% stenosis noted at left distal SFA. Awaiting results of CTA with lower extremity runoff. 01/07/2025 CT angiography with lower extremity Left leg: There is mild diffuse narrowing of the left popliteal artery. Dr. Romero is on board patient will be going to OR for surgical intervention- thrombectomy and then to CICU 01/08/[address] Romero. Left popliteal bypass with graft secured from right common iliac artery. complains of pain over the leg. Vitals are stable. Pain management with hydro morphine. Patient is on vancomycin and clonidine and Reglan. 01/09/[address] Romero. Status post left popliteal bypass, Pod day two. Vitals are stable. Reactive leukocytosis is seen. Hemoglobin is 8.8. Hematocrit is 26.1. Sodium, potassium is okay. Hypoalbuminemia is present. Continuing vancomycin, clonidine, carbamazepine, baclofen, ipratropium albuterol nebulizations, Dilaudid, hydralazine p.r.n. 01/10/2025 Patient's pain is managed with IV Dilaudid 0.5 mg q.4 hours now and discontinue pain pump. Switch to PRN Reglan for his bowel movement. Continue management as per Dr. Gilmore 01/11/2025 - Plan per Dr. Romero-started ceftriaxone - addressed the pain management with the Dilaudid 0.5 mg q.4 H IV if not subsiding with 0.5& 1 mg q.4h p.r.n. for severe pain. 01/12/2025 - no acute postsurgical changes on today 01/13/2025: -patient surgical site wound is clear with with dressing. -patient is getting Dilaudid and morphine even with this he is asking for more pain med, looking like a pains medication seeking behavior. -we will continue vanc and ceftriaxone. COPD On albuterol ipratropium nebulization q.i.d. scheduled doses 01/10/2025: Switch breathing therapy into PRN as patient is refusing. 01/11/2025: continue p.r.n. albuterol ipratropium nebulization 01/12/2025: We will continue albuterol ipratropium nebulization. PRN 01/13/2025: No new complaints of shortness of breath and we will continue albuterol ipratropium p.r.n. nebulization. Hypertension Blood pressures are in 140s Continue to monitor blood pressure On clonidine 0.2 mg p.o. b.i.d. and hydralazine 10 mg p.r.n. 01/09/2025 Blood pressures are in normal range we are continuing clonidine, hydralazine. 01/11/2025: Blood pressures are normal we will continue clonidine and hydralazine 01/12/2025: Reduce the clonidine dose to 0.1 mg p.o. b.i.d. blood pressure is in 108 01/13/2025: -Blood pressure is in 140s, -we will continue clonidine 0.1 mg p.o. b.i.d. dose and hydralazine 10 mg q.6 H p.r.n. -continue to monitor blood pressure with a target of less than 130 Seizures Continuing carbamazepine 100 mg p.o. b.i.d., carbamazepine 200 mg PO HS, primidone 50 mg p.o. daily. Ordered trough levels of carbamazepine and primidone. Anxiety Continuing sertraline 100 mg p.o. daily Was Using duloxetine. History of right eye cancer History of DVT Code Status: Full code Analgesia/Sedation: Dilaudid Lines/Tubes: PIV PT: Recommended [facility]. Date of Service: January 13, 2025 Billing Provider: NICHOLAS HILL MD Common Visit Codes: [id number] INP/OBS CARE(HIGH) TONJA GREENWOOD, JESSICA January 13, 2025 13:33 NICHOLAS HILL MD January 13, 2025 15:58
--- NOTE | 2025-01-13 21:39 | PROGRESS NOTE ---
Progress Note ID Providers to CC ~ Progress Note Progress Note: slow progress/cont supportive care JARRETT DA SILVA MD January 13, 2025 21:39
[2025-01-14] VITALS (7 sets, daily range): BP systolic 104–156; BP diastolic 66–90; PULSE 74–92; RESP 14–16; TEMP 97.1–98.5; O2SAT 93–98
--- NOTE | 2025-01-14 14:13 | PROGRESS NOTE- Residence ---
Progress Note - Resident Providers to CC Resident Creating Document: TONJA GREENWOOD RES ~ Antibiotic Timeout Antibiotic Ordered?: Yes Subjective Seen and examined the patient at bedside. He is still complaining of the abdominal pain, five to 6/10. Wound left lower leg extremity is healing well. Patient is feeling weak. Dr. Romero cleared the patient for rehab discharge. Objective Vital Signs Date Time Temp Pulse Resp B/P (MAP) Pulse Ox O2 Delivery O2 Flow Rate FiO2 01/14/25 13:41 14 01/14/25 12:40 89 95 Room Air* 0 21 01/14/25 11:00 97.1 147/80 (102) Result Diagram: 01/13/25 0637 01/12/25 0650 Elderly male, lethargic, alert and oriented, not in acute distress Head: Normocephalic with an atraumatic Eyes: Right eye excision, wearing a patch, Pupils- 3mm, reacting to light, conjunctiva- anicteric Nose and throat: No polyps, septum- normal, no mucosal ulcers, moist mucosal membranes Neck: Supple, no lymphadenopathy, no carotid bruit Respiratory: No use of accessory muscles of respiration, Bilateral normal vesicular breath sounds heard. No wheeze, rhochi or creps Cardiac: S1-S2 heard, rhythm regular, no gallop/murmur Abdomen: non distended, tenderness is present left iliac fossa, umbilical, left lower quadrant, no organomegaly, bowel sounds - heard Extremities: Well-perfused Skin: warm and dry, no rash, no purpura. Wound on left lower extremity is covered well with dressing and it does not showed any bleeding, discharge. Neuro: No focal deficit, gross cranial nerve exam - normal, left foot sensations absent Coagulation Studies Laboratory Tests Test 01/06/25 19:23 01/07/25 16:42 Prothrombin Time 10.7 SECONDS (9.0-12.0) INR International Normalized Ratio 1.0 INR Activated Partial Thromboplast Time > 139 SECONDS (22-32) *H Coagulation Comments Advance Care Planning Advanced Care plannin - 30 Minutes Assessment Assessment A 64-year-old male admitted for the management of left ileo popliteal bypass graft occlusion. Plan Plan Pain abdomen likely secondary to possible acute on chronic mesenteric ischemia Dilaudid 0.[address] angiography abdomen done on today- IMPRESSION: 1. New postoperative changes of right common iliac artery to left lower extremity bypass graft. The bypass graft is patent. The distal extent of the bypass graft is not imaged here. There is associated left mid to lower mesenteric hematoma measuring up to 8.4 cm transverse. There is associated low volume free air gas within the abdominal wall and left inguinal region. 2. Extensive atherosclerotic vascular disease with greater than 50% stenosis of the renal artery origins, 50% stenosis of the left common iliac artery, occlusion of the previous left external iliac artery bypass. Evaluation of the arterial structures is limited by absence of standard sagittal and coronal reformatted images. 3. 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 Romero again on afternoon and left text with CTA chest abdomen pelvis report showing hematoma and renal artery stenosis. 01/12/2025: Nothing from the surgical point of view per Dr. Romero. Ordered procalcitonin, lactic acid, ESR. 01/13/2025: - -patient is still complaining of the pain and pain medication seeking behavior is noted. -patient is getting Dilaudid, morphine for pain control. 01/14/2025 :- patient is with Dilaudid and morphine for pain control and he could not able to walk for 4-5 steps with support. Patient needs to go to the rehab. Dr. Romero cleared the patient for rehab discharge. Normochromic normocytic anemia Likely upper GI bleeding 01/10/2025: Hemoglobin dropped down to 7.6 today from 8.8 yesterday, H&H q.6 hours show 6.5 again -continue H&H q.6 hours -continue IV pantoprazole 40 mg b.i.d. -typing and cross matching, transfused 1 unit of PRBC's -plan for transfusion if hemoglobin dropping down < 7 01/11/2025 Hemoglobin and hematocrit is gradually improving and we will continue to monitor H&H and transfuse if hemoglobin is less than seven. 01/12/2025 Hemoglobin is stable continue to monitor H&H 01/13/2025 -H&H is 9.6, 28 -we will monitor H&H 01/14/2025: -H&H is 9.628.4 and we will monitor H&H Peripheral arterial disease Left ileo popliteal graft occlusion Status post left popliteal bypass(with the right common iliac as inflow), Pod one Vascular surgeon, Dr. Romero is on board Plan for graft thrombectomy tomorrow. Patient received 60 mg of Lovenox subcutaneous. Start heparin drip tomorrow. NPO from midnight. Doppler ultrasound of left leg-occlusion of bypass graft from groin to distal anastomosis. Patient's [place] left PFA and proximal to mid SFA still appear to be occluded. >75% stenosis noted at left distal SFA. Awaiting results of CTA with lower extremity runoff. 01/07/2025 CT angiography with lower extremity Left leg: There is mild diffuse narrowing of the left popliteal artery. Dr. Romero is on board patient will be going to OR for surgical intervention- thrombectomy and then to CICU 01/08/[address] Romero. Left popliteal bypass with graft secured from right common iliac artery. complains of pain over the leg. Vitals are stable. Pain management with hydro morphine. Patient is on vancomycin and clonidine and Reglan. 01/09/[address] Romero. Status post left popliteal bypass, Pod day two. Vitals are stable. Reactive leukocytosis is seen. Hemoglobin is 8.8. Hematocrit is 26.1. Sodium, potassium is okay. Hypoalbuminemia is present. Continuing vancomycin, clonidine, carbamazepine, baclofen, ipratropium albuterol nebulizations, Dilaudid, hydralazine p.r.n. 01/10/2025 Patient's pain is managed with IV Dilaudid 0.5 mg q.4 hours now and discontinue pain pump. Switch to PRN Reglan for his bowel movement. Continue management as per Dr. Gilmore 01/11/2025 - Plan per Dr. Romero-started ceftriaxone - addressed the pain management with the Dilaudid 0.5 mg q.4 H IV if not subsiding with 0.5& 1 mg q.4h p.r.n. for severe pain. 01/12/2025 - no acute postsurgical changes on today 01/13/2025: -patient surgical site wound is clear with with dressing. -patient is getting Dilaudid and morphine even with this he is asking for more pain med, looking like a pains medication seeking behavior. -we will continue vanc and ceftriaxone. 01/14/2025 -surgical site is looking clear without any pus, discharge accept the serous discharge. -Dr. Romero is aware about the patient's hematoma in the pelvic region and patient is not going to get any interventions per Dr. Romero. Conservative management COPD On albuterol ipratropium nebulization q.i.d. scheduled doses 01/10/2025: Switch breathing therapy into PRN as patient is refusing. 01/11/2025: continue p.r.n. albuterol ipratropium nebulization 01/12/2025: We will continue albuterol ipratropium nebulization. PRN 01/13/2025: No new complaints of shortness of breath and we will continue albuterol ipratropium p.r.n. nebulization. 01/14/2025: No new complaints of shortness of breath and patient is on albuterol ipratropium p.r.n. nebulization Hypertension Blood pressures are in 140s Continue to monitor blood pressure On clonidine 0.2 mg p.o. b.i.d. and hydralazine 10 mg p.r.n. 01/09/2025 Blood pressures are in normal range we are continuing clonidine, hydralazine. 01/11/2025: Blood pressures are normal we will continue clonidine and hydralazine 01/12/2025: Reduce the clonidine dose to 0.1 mg p.o. b.i.d. blood pressure is in 108 01/13/2025: -Blood pressure is in 140s, -we will continue clonidine 0.1 mg p.o. b.i.d. dose and hydralazine 10 mg q.6 H p.r.n. -continue to monitor blood pressure with a target of less than 130 01/14/2025: -blood pressure is maintaining at one and rates with clonidine and hydralazine p.r.n. Seizures Continuing carbamazepine 100 mg p.o. b.i.d., carbamazepine 200 mg PO HS, primidone 50 mg p.o. daily. Carbamazepine is 3.3 which is low. Anxiety Continuing sertraline 100 mg p.o. daily and was using duloxetine History of right eye cancer History of DVT Code Status: Full code Analgesia/Sedation: Dilaudid Lines/Tubes: PIV PT: Recommended for post-acute care [facility] Internal Medicine Resident. Disposition: Anticipate rehab discharge on tomorrow. Date of Service: January 14, 2025 Billing Provider: NICHOLAS HILL MD Common Visit Codes: [id number] INP/OBS CARE(HIGH) TONJA GREENWOOD, JESSICA January 14, 2025 14:13 NICHOLAS HILL MD January 15, 2025 19:02
--- NOTE | 2025-01-14 17:59 | PROGRESS NOTE ---
Progress Note ID Providers to CC ~ Progress Note Progress Note: DOING WELL/OK FOR REHAB IN AM JARRETT DA SILVA MD January 14, 2025 17:59
[2025-01-15] VITALS (11 sets, daily range): BP systolic 92–167; BP diastolic 70–89; PULSE 67–97; RESP 11–18; TEMP 97–98.4; O2SAT 92–97
[2025-01-15 07:23] LABS: BASOPHILS # (AUTO) 0.1 X10'3 (0-0.2); BASOPHILS % (AUTO) 0.9 % (0-1); EOSINOPHILS # (AUTO) 0.5 X10'3 (0-0.9); EOSINOPHILS % (AUTO) 6.1 % (0-6); HEMATOCRIT 26.4 % (42.0-52.0); LYMPHOCYTES # (AUTO) 1.6 X10'3 (1.1-4.8); LYMPHOCYTES % (AUTO) 19.2 % (21-51); MEAN CORPUSCULAR HGB CONC 34.1 g/dL (33.0-36.5); MEAN CORPUSCULAR VOLUME 90.7 FL (78-98); MONOCYTES % (AUTO) 11.7 % (2-12); NEUTROPHILS # (AUTO) 5.2 X10'3 (1.8-7.7); NEUTROPHILS % (AUTO) 62.1 % (42-75); PLATELET COUNT 329 X10'3 (140-440); RED BLOOD COUNT 2.91 X10'6 (4.70-6.10); RED CELL DISTRIBUTION WIDTH 15.5 % (11.5-14.5); WHITE BLOOD COUNT 8.3 X10'3 (4.5-11.0)
[2025-01-15 07:55] LABS: ALANINE AMINOTRANSFERASE 14 U/L (12-78); ALBUMIN 2.4 G/DL (3.4-5.0); ALBUMIN/GLOBULIN RATIO 0.8 (1.1-1.5); ALKALINE PHOSPHATASE 74 IU/L (46-116); ANION GAP 7 (8-16); ASPARTATE AMINO TRANSFERASE 16 U/L (10-37); BLOOD UREA NITROGEN 4 MG/DL (7-18); BUN/CREATININE RATIO 4.8 (10.0-20.0); CALCIUM 8.2 MG/DL (8.5-10.1); CHLORIDE 101 MMOL/L (99-107); CREATININE 0.83 MG/DL (0.60-1.10); GLUCOSE 82 MG/DL (70-104); POTASSIUM 3.3 MMOL/L (3.5-5.1); SODIUM 137 MMOL/L (135-145); TOTAL CARBON DIOXIDE 29.5 MMOL/L (24-32); TOTAL PROTEIN 5.5 G/DL (6.4-8.2); eCRCL 77 ML/MIN; eGFR > 90 ML/MIN
[2025-01-15 07:58] LABS: BILIRUBIN,TOTAL 0.5 MG/DL (0.1-1.0)
--- NOTE | 2025-01-15 15:37 | PROGRESS NOTE- Residence ---
Progress Note - Resident Providers to CC Resident Creating Document: TONJA GREENWOOD RES ~ Antibiotic Timeout Antibiotic Ordered?: Yes Subjective Seen and examined the patient at bedside. His previous abdominal pain was a bit decreased and better than yesterday but did not had bowel movement in the past two days. Wound left lower leg extremity is healing well. patient is still feel weakness. Dr. Romero cleared the patient for rehab discharge. Objective Vital Signs Date Time Temp Pulse Resp B/P (MAP) Pulse Ox O2 Delivery O2 Flow Rate FiO2 01/15/25 15:00 98.4 85 18 134/89 (104) 95 Room Air 01/15/25 08:15 0.0 21 Result Diagram: 01/15/25 0641 01/15/25 0631 Elderly male, lethargic, alert and oriented, not in acute distress Head: Normocephalic with an atraumatic Eyes: Right eye excision, wearing a patch, Pupils- 3mm, reacting to light, conjunctiva- anicteric. Right eye is with cover. Nose and throat: No polyps, septum- normal, no mucosal ulcers, moist mucosal membranes Neck: Supple, no lymphadenopathy, no carotid bruit Respiratory: No use of accessory muscles of respiration, Bilateral normal vesicular breath sounds heard. No wheeze, rhochi or creps Cardiac: S1-S2 heard, rhythm regular, no gallop/murmur Abdomen: non distended, tenderness is present left iliac fossa but better than the previous three days, umbilical, left lower quadrant, no organomegaly, bowel sounds - heard Extremities: Well-perfused Skin: warm and dry, no rash, no purpura. Wound on left lower extremity is covered well with dressing and it does not showed any bleeding, discharge, pus. Neuro: No focal deficit, gross cranial nerve exam - normal, left foot sensations absent Coagulation Studies Laboratory Tests Test 01/06/25 19:23 01/07/25 16:42 Prothrombin Time 10.7 SECONDS (9.0-12.0) INR International Normalized Ratio 1.0 INR Activated Partial Thromboplast Time > 139 SECONDS (22-32) *H Coagulation Comments Advance Care Planning Advanced Care plannin - 30 Minutes Assessment Assessment A 64-year-old male admitted for the management of left ileo popliteal bypass graft occlusion. Plan Plan Pain abdomen likely secondary to possible acute on chronic mesenteric ischemia Dilaudid 0.5 mg q.4h p.r.n CT angiography abdomen done on 01/11/2025- IMPRESSION: 1. New postoperative changes of right common iliac artery to left lower extremity bypass graft. The bypass graft is patent. The distal extent of the bypass graft is not imaged here. There is associated left mid to lower mesenteric hematoma measuring up to 8.4 cm transverse. There is associated low volume free air gas within the abdominal wall and left inguinal region. 2. Extensive atherosclerotic vascular disease with greater than 50% stenosis of the renal artery origins, 50% stenosis of the left common iliac artery, occlusion of the previous left external iliac artery bypass. Evaluation of the arterial structures is limited by absence of standard sagittal and coronal reformatted images. 3. 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 Romero again on afternoon and left text with CTA chest abdomen pelvis report showing hematoma and renal artery stenosis. 01/12/2025: Nothing from the surgical point of view per Dr. Romero. Ordered procalcitonin, lactic acid, ESR. 01/13/2025: - -patient is still complaining of the pain and pain medication seeking behavior is noted. -patient is getting Dilaudid, morphine for pain control. 01/14/2025 :- patient is with Dilaudid and morphine for pain control and he could not able to walk for 4-5 steps with support. Patient needs to go to the rehab. Dr. Romero cleared the patient for rehab discharge. 01/15/2025: patient is on dilaudid 0.5 mg Q4H p.r.n and morphine for pain control and he could not walk with out support. patient needs to go to the rehab, Dr. Romero cleared the patient for discharge and going to rehab tomorrow. Normochromic normocytic anemia Likely upper GI bleeding 01/10/2025: Hemoglobin dropped down to 7.6 today from 8.8 yesterday, H&H q.6 hours show 6.5 again -continue H&H q.6 hours -continue IV pantoprazole 40 mg b.i.d. -typing and cross matching, transfused 1 unit of PRBC's -plan for transfusion if hemoglobin dropping down < 7 01/11/2025 Hemoglobin and hematocrit is gradually improving and we will continue to monitor H&H and transfuse if hemoglobin is less than seven. 01/12/2025 Hemoglobin is stable continue to monitor H&H 01/13/2025 -H&H is 9.6, 28 -we will monitor H&H 01/14/2025: -H&H is 9.628.4 and we will monitor H&H 01/15/2025: -H&H is 9.0 and 26.4 -we will monitor H&H Peripheral arterial disease Left ileo popliteal graft occlusion Status post left popliteal bypass(with the right common iliac as inflow), Vascular surgeon, Dr. Romero is on board Plan for graft thrombectomy tomorrow. Patient received 60 mg of Lovenox subcutaneous. Start heparin drip tomorrow. NPO from midnight. Doppler ultrasound of left leg-occlusion of bypass graft from groin to distal anastomosis. Patient's [place] left PFA and proximal to mid SFA still appear to be occluded. >75% stenosis noted at left distal SFA. Awaiting results of CTA with lower extremity runoff. 01/07/2025 CT angiography with lower extremity Left leg: There is mild diffuse narrowing of the left popliteal artery. Dr. Romero is on board patient will be going to OR for surgical intervention- thrombectomy and then to CICU 01/08/[address] Romero. Left popliteal bypass with graft secured from right common iliac artery. complains of pain over the leg. Vitals are stable. Pain management with hydro morphine. Patient is on vancomycin and clonidine and Reglan. 01/09/[address] Romero. Status post left popliteal bypass, Pod day two. Vitals are stable. Reactive leukocytosis is seen. Hemoglobin is 8.8. Hematocrit is 26.1. Sodium, potassium is okay. Hypoalbuminemia is present. Continuing vancomycin, clonidine, carbamazepine, baclofen, ipratropium albuterol nebulizations, Dilaudid, hydralazine p.r.n. 01/10/2025 Patient's pain is managed with IV Dilaudid 0.5 mg q.4 hours now and discontinue pain pump. Switch to PRN Reglan for his bowel movement. Continue management as per Dr. Gilmore 01/11/2025 - Plan per Dr. Romero-started ceftriaxone - addressed the pain management with the Dilaudid 0.5 mg q.4 H IV if not subsiding with 0.5& 1 mg q.4h p.r.n. for severe pain. 01/12/2025 - no acute postsurgical changes on today 01/13/2025: -patient surgical site wound is clear with with dressing. -patient is getting Dilaudid and morphine even with this he is asking for more pain med, looking like a pains medication seeking behavior. -we will continue vanc and ceftriaxone. 01/14/2025 -surgical site is looking clear without any pus, discharge except the serous discharge. -Dr. Romero is aware about the patient's hematoma in the pelvic region and patient is not going to get any interventions per Dr. Romero. Conservative management 01/15/2025: -surgical site is looking clear without any pus, discharge. Patient needs to follow up with Dr. Romero in outpatient. COPD On albuterol ipratropium nebulization q.i.d. scheduled doses 01/10/2025: Switch breathing therapy into PRN as patient is refusing. 01/11/2025: continue p.r.n. albuterol ipratropium nebulization 01/12/2025: We will continue albuterol ipratropium nebulization. PRN 01/13/2025: No new complaints of shortness of breath and we will continue albuterol ipratropium p.r.n. nebulization. 01/14/2025: No new complaints of shortness of breath and patient is on albuterol ipratropium p.r.n. nebulization 01/15/2025: No new complaints of shortness of breath and patient is on albuterol ipratropium p.r.n. nebulization Hypertension Blood pressures are in 140s Continue to monitor blood pressure On clonidine 0.2 mg p.o. b.i.d. and hydralazine 10 mg p.r.n. 01/09/2025 Blood pressures are in normal range we are continuing clonidine, hydralazine. 01/11/2025: Blood pressures are normal we will continue clonidine and hydralazine 01/12/2025: Reduce the clonidine dose to 0.1 mg p.o. b.i.d. blood pressure is in 108 01/13/2025: -Blood pressure is in 140s, -we will continue clonidine 0.1 mg p.o. b.i.d. dose and hydralazine 10 mg q.6 H p.r.n. -continue to monitor blood pressure with a target of less than 130 01/14/2025: -blood pressure is maintaining at one and rates with clonidine and hydralazine p.r.n. 01/15/2025: -Blood pressure is maintaining at normal range with clonidine and hydralazine p.r.n. Seizures Continuing carbamazepine 100 mg p.o. b.i.d., carbamazepine 200 mg PO HS, primidone 50 mg p.o. daily. Carbamazepine is 3.3 which is low. Anxiety Continuing sertraline 100 mg p.o. daily and was using duloxetine History of right eye cancer History of DVT Code Status: Full code Analgesia/Sedation: Dilaudid Lines/Tubes: PIV PT: Recommended for post-acute care [facility] Internal Medicine Resident. Disposition: Anticipate rehab discharge tomorrow. Date of Service: January 15, 2025 Billing Provider: NICHOLSA HILL MD Common Visit Codes: [id number] INP/OBS CARE(HIGH) TONJA GREENWOOD, JESSICA January 15, 2025 15:37 NICHOLAS HILL MD January 15, 2025 19:02
[2025-01-15] MEDS ORDERED: magnesium sulf-water 2g/50mL 50 ML IV PRN (16:25)
[2025-01-15] MEDS ORDERED: magnesium sulf-water 4G/100mL 100 ML IV PRN (16:25)
[2025-01-15] MEDS ORDERED: potassium Cl 40MEQ/1/2NS 520ml 520 ML IV PRN (16:25)
[2025-01-15] MEDS ORDERED: potassium Cl 20 mEq SR tablet PO PRN (16:25)
[2025-01-15] MEDS ORDERED: magnesium Cl slow-release 64mg tablet PO PRN (16:25)
--- NOTE | 2025-01-15 19:53 | PROGRESS NOTE ---
Progress Note ID Providers to CC ~ Progress Note Progress Note: doing well/awaiting rehab JARRETT DA SILVA MD January 15, 2025 19:53
[2025-01-15] MEDS: K and/or MAG REPLACEMENT MC SCH (19:58)
[2025-01-15] MEDS: magnesium hydroxide 30ml (MOM) UD suspension PO SCH (20:03)
[2025-01-15] MEDS: potassium Cl 20 mEq SR tablet PO PRN (20:04)
[2025-01-16 02:00] VITALS: BP 124/62; PULSE 70; RESP 15; TEMP 97.6; O2SAT 95
[2025-01-16 06:45] LABS: ALANINE AMINOTRANSFERASE 12 U/L (12-78); ALBUMIN 2.3 G/DL (3.4-5.0); ALBUMIN/GLOBULIN RATIO 0.7 (1.1-1.5); ALKALINE PHOSPHATASE 79 IU/L (46-116); ANION GAP 6 (8-16); ASPARTATE AMINO TRANSFERASE 21 U/L (10-37); BILIRUBIN,TOTAL 0.3 MG/DL (0.1-1.0); BLOOD UREA NITROGEN 4 MG/DL (7-18); BUN/CREATININE RATIO 4.9 (10.0-20.0); CALCIUM 7.8 MG/DL (8.5-10.1); CHLORIDE 105 MMOL/L (99-107); CREATININE 0.82 MG/DL (0.60-1.10); GLUCOSE 78 MG/DL (70-104); SODIUM 138 MMOL/L (135-145); TOTAL CARBON DIOXIDE 26.9 MMOL/L (24-32); TOTAL PROTEIN 5.4 G/DL (6.4-8.2); eCRCL 78 ML/MIN; eGFR > 90 ML/MIN
[2025-01-16 06:46] LABS: POTASSIUM 4.5 MMOL/L (3.5-5.1)
[2025-01-16 07:13] LABS: BASOPHILS # (AUTO) 0.1 X10'3 (0-0.2); EOSINOPHILS # (AUTO) 0.6 X10'3 (0-0.9); EOSINOPHILS % (AUTO) 6.2 % (0-6); HEMATOCRIT 26.9 % (42.0-52.0); LYMPHOCYTES % (AUTO) 22.3 % (21-51); MEAN CORPUSCULAR HEMOGLOBIN 30.7 PG (27.0-31.0); MEAN CORPUSCULAR HGB CONC 33.6 g/dL (33.0-36.5); MEAN CORPUSCULAR VOLUME 91.4 FL (78-98); MEAN PLATELET VOLUME 7.1 FL (7.4-10.4); MONOCYTES # (AUTO) 1.1 X10'3 (0-0.9); MONOCYTES % (AUTO) 12.5 % (2-12); NEUTROPHILS # (AUTO) 5.3 X10'3 (1.8-7.7); PLATELET COUNT 371 X10'3 (140-440); RED BLOOD COUNT 2.94 X10'6 (4.70-6.10); RED CELL DISTRIBUTION WIDTH 15.9 % (11.5-14.5); WHITE BLOOD COUNT 9.1 X10'3 (4.5-11.0)
[2025-01-16 07:14] VITALS: BP 152/86; PULSE 80; RESP 16; TEMP 97.8; O2SAT 95
[2025-01-16 08:19] VITALS: RESP 16; O2SAT 95
[2025-01-16 11:28] VITALS: BP 103/55; PULSE 82; RESP 19; TEMP 97.8; O2SAT 96
[2025-01-16 13:16] LABS: PRIMIDONE, SERUM None Detected ug/mL (5.0-12.0)
--- NOTE | 2025-01-16 17:46 | DISCHARGE SUMMARY-Residence ---
Discharge Summary Providers to CC Resident Creating Document: TONJA GREENWOOD, RES ~ Discharge Summary Admission Diagnosis: LLE ischemia with graft occlusion Hospital Course DATE OF ADMISSION: 01/06/2025 DATE OF DISCHARGE: 01/16/2025 Vascular ultrasound of the leg on 01/06/2025 PROCEDURE: VASC VL VENOUS Exam Date: 01/06/2025 12:00 AM History: Pre op mapping Findings: Technique: Duplex Doppler evaluation of the superficial veins of the right and left lower extremities was performed including color Doppler and spectral/pulsed waveform analysis. Findings: Measurements of the lower extremity superficial veins in millimeters (mm) are provided below. RIGHT GREAT SAPHENOUS VEIN (GSV) in mm: 1.3 at proximal thigh, patent. 1.2 at mid thigh, patent. 1.3 at distal thigh, patent. 0.9 at proximal calf, patent. 0.8 at mid calf, patent. 0.7 at distal calf, patent. LEFT GREAT SAPHENOUS VEIN (GSV) in mm: 1.5 at proximal thigh, patent. 1.8 at mid thigh, patent. 1.9 at distal thigh, patent. 1.3 at proximal calf, patent. 1.3 at mid calf, patent. 1.6 at distal calf, patent. Impression: Lower extremity superficial venous mapping as detailed above. Aorta with runoff CTA on 01/06/2025 CT angiogram extremity Clinical history: 64-year-old occluded arteries Findings: Contrast:130ml Omni 350 Left leg: There is mild diffuse narrowing of the left popliteal artery. The trifurcation vessels are intact. The left posterior Tibial artery is dominant. Right leg:Trifurcation vessels intact. The anterior tibial artery appears dominant. Impression: No definite obstruction. Chest x-ray on 01/06/2025 FINDINGS:/IMPRESSION: Normal cardiac size. Surgical clips in the right upper extremity. Bilaterally hyperexpanded lungs. Scattered hazy densities at left lung base likely represents scarring. Flattened diaphragm bilaterally. Abdomen x-ray on 01/07/2025 Findings: Frontal view of the abdomen demonstrates gaseous dilated loops of bowel. No visualized renal calculi. There is no evidence of an acute fracture, dislocation, blastic, or lytic lesions. The visualized portions of the lung bases are unremarkable. Midline surgical clips. Partially visualized enteric tube. Surgical clips overlying the left proximal femur. No definite retained radiopaque foreign bodies. No superficial soft tissue abnormalities. Impression: 1. Multiple loops of gaseous dilated bowel which may reflect ileus versus bowel obstruction. Correlate with signs and symptoms. 2. No definite retained radiopaque foreign bodies. Dr. Mckeon spoke with Dr. Romero on 01/07/2025 at 6:32 PM regarding the above finding(s). Findings were understood. Chest x-ray on 01/08/2025 FINDINGS:/IMPRESSION: Normal cardiac silhouette. Low lung volumes. Scarring at the left lung base Right jugular central line terminates in the superior vena cava. Endovascular stent overlies the right lung apex. Diffuse hazy densities in the lungs, possible underlying interstitial lung disease. Chest x-ray 01/09/2025 FINDINGS: Lines and Tubes: Right central venous catheter tip in the SVC Lungs: No focal consolidation. Pleura: No effusion. No pneumothorax. Cardiomediastinal contours: Unremarkable Bones: No acute osseous abnormality. IMPRESSION: No acute cardiopulmonary disease. abdominal pelvis CTA on 01/11/2025 FINDINGS: Abdominal Aorta: No abdominal aortic aneurysm, dissection, or significant stenosis. There are prominent atherosclerotic calcifications of the abdominal aorta and major branches. Renals: There are single renal arteries arising from the abdominal aorta bilaterally. There is estimated 60% stenosis of the right renal artery origin. There is 70% stenosis of the left renal artery origin. Celiomesenteric: There is common origin of the celiac trunk and SMA. There is narrowing of the JOANNE origin. Pelvis: There is estimated 50% stenosis of the left common iliac artery. No significant stenosis of the right common iliac artery. There is diffuse moderate narrowing of the bilateral internal iliac arteries. There is diffuse [id number] narrowing of the right external iliac artery. There is complete occlusion of a left external iliac artery bypass graft which extends to the left SFA on the previous CTA with runoff. There are interval postoperative changes of right common iliac artery to left lower extremity bypass graft, visualized to the left mid thigh but not fully imaged here. The new bypass graft is patent. Miscellaneous: There are coronary artery calcifications. The heart is not enlarged. There is emphysema of the lung bases. There are trace right and small left pleural effusions. There is bilateral lower lobe atelectasis, increased. There are interval postoperative changes midline laparotomy with associated low volume intraperitoneal gas and gas within the anterior abdominal wall. Gas also tracks in the left inguinal region extending into the scrotum. There is a left mid to lower mesenteric hematoma measuring 8.4 cm transverse x 4.5 cm AP (image 64, series 2). There is presacral edema. There is low volume free fluid in the pericolic gutters. There is duplication of the right renal collecting system. Romero catheter decompresses the urinary bladder. There is advanced lumbar degenerative disc disease and facet arthropathy. There is mild osteoarthritis of the bilateral hips. IMPRESSION: 1. New postoperative changes of right common iliac artery to left lower extremity bypass graft. The bypass graft is patent. The distal extent of the bypass graft is not imaged here. There is associated left mid to lower mesenteric hematoma measuring up to 8.4 cm transverse. There is associated low volume free air gas within the abdominal wall and left inguinal region. 2. Extensive atherosclerotic vascular disease with greater than 50% stenosis of the renal artery origins, 50% stenosis of the left common iliac artery, occlusion of the previous left external iliac artery bypass. Evaluation of the arterial structures is limited by absence of standard sagittal and coronal reformatted images. 3. 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 Discharge Diagnosis\Comment: Peripheral arterial disease Left iliac popliteal graft occlusion Status post left popliteal bypass with the right common iliac as inflow Moderate anemia Pain abdomen Mesenteric hematoma(expected outcome) Hypertension Seizure Anxiety History of right eye cancer history of DVT Operations\Procedures: DATE OF SURGERY: 01/07/2025 DICTATING PHYSICIAN: Rosalino Romero MD PREOPERATIVE DIAGNOSIS: Left lower extremity ischemia secondary to occluded iliopopliteal bypass. POSTOPERATIVE DIAGNOSIS: Left lower extremity ischemia secondary to occluded iliopopliteal bypass. PROCEDURES PERFORMED: * Attempted left iliopopliteal graft thrombectomy. * Right common iliac left popliteal bypass using Panther-Ramsey. * Right common iliac endarterectomy. * Redo left groin exposure. SURGEON: Rosalino Romero MD SHOULDER PUNCHER: Evy. ANESTHESIA: General/Dr. Purcell DRAINS: None. INDICATIONS FOR OPERATION: The patient is a 64-year-old male who has history of peripheral vascular disease who was taking Eliquis, had a normal Doppler approximately a year ago. The patient was taken off of his Eliquis, developed left leg pain, CTA revealed a graft occlusion. The patient was taken to surgery for attempted graft thrombectomy, possible revision. INTRAOPERATIVE FINDINGS: The patient had a large amount of clot in the previous iliopopliteal bypass graft. The clot appears to be somewhat old. Despite multiple attempts, catheter could not be passed through the common iliac. Given the inability to reestablish inflow, decision was made to proceed with a new bypass graft to the left popliteal artery. DESCRIPTION OF PROCEDURE: The patient was placed supine on the operating room table. After induction of general anesthesia and placement of endotracheal tube, the abdomen was subsequently prepped and draped. Incision was made in the medial aspect of the left thigh. Previously placed graft identified. Popliteal artery seemed to be isolated distal to the anastomosis. Incision was made in graft and #4 and #5 Mady catheter passed proximally without reestablishment of inflow to the graft. Graft was then sutured with 4-0 Prolene. Midline incision was subsequently made. Abdominal cavity entered. Subcutaneous incised over the previously placed graft. Remnant scar tissue present. Decision was made to use the right common iliac as inflow. Right common iliac was isolated proximally and distally. The patient was heparinized with 5000 units of heparin. After a few minutes, clamps were placed in the right common iliac. Incision was then made and endarterectomy performed. The patient had good inflow. Incision was then made in the left groin and extended down through the fascia. Tunnel was created from the left groin to the left retroperitoneal space and 8 mm graft passed. Peroneus then ripped over the left iliac. Graft was passed and tunnel created. Graft was then anastomosed end-to-side to the right common iliac with running suture of 5-0 Prolene. Clamps were removed. Hemostasis was obtained. Graft was then flushed, found to have good inflow. Attention was then turned to the left thigh where tunnel was created from the medial aspect of the left distal thigh to the groin. Graft subsequently passed in the tunnel and passed down to the popliteal space. Popliteal artery was occluded proximally and distally. proximally and distally. This end-to-side anastomosis was secured with running suture of 5-0 Prolene after the graft was trimmed to length. Flow was then established in the left lower extremity. Hemostasis was obtained. Abdomen was irrigated with large amount of antibiotic-containing solution. Perineum was closed over the graft using a running suture of #1 Vicryl. Hemostasis was found to be adequate. The abdomen was irrigated with antibiotic-containing solution. Rectal fascia was closed with running suture of looped PDS. Skin was closed with clips. closed in layers. Skin was closed with clips. Left calf incision was irrigated with a Marcaine solution and closing in layers. After hemostasis was obtained, skin was closed with clips. Dressing was applied. The patient was transferred to ICU in critical condition. Consultants: DR. Romero. Complications: NONE Condition on DC: Stable Discharge Summary: HPI at the time of admission The patient was a 64-year-old male with past medical history of hypertension, seizures, COPD, DVT, presented to the ED with complaints of left leg pain. The patient is a poor historian. He underwent an outpatient vascular study which showed severe occlusions of his left leg arteries and was thus sent to the ED. The patient has a history of left ileo popliteal bypass graft placement and reconstitution of popliteal. Doppler from 11/24 showed patent graft. The patient was taken off Eliquis by PMD. The patient reports pain in his left thigh even at rest. Denies fevers, cough, shortness of breaths, nausea, vomiting, diarrhea, constipation, burning micturition. He continues to smoke about four cigarettes per day. Course in the hospital 64-year-old male admitted for peripheral arterial disease left ileo popliteal graft occlusion and we consulted Dr. Romero. Patient received left popliteal bypass with the right common iliac case inflow. Evaluated with Doppler ultrasound of left leg which showed occlusion of bypass graft from groin to distal anastomosis. Patient's [place] left PF you and proximal to mid SFA still appear to be accompanied more than 70% stenosis noted at left distal SFA And received 60 mg of L[address]ox subcutaneous. CT angiography with left lower extremity on 01/07/2025 showed mild diffuse narrowing of the left popliteal artery. Dr. Romero is on board and plan for surgical intervention of thrombectomy . On 01/07/2025 Patient underwent surgical intervention by Dr. Romero-he attempted left ileo popliteal graft thrombectomy, right common iliac left popliteal bypass using Panther-Ramsey, right common iliac endarterectomy, redo left groin exposure. After that we managed the pain with pain pump and latter we discontinued that and then switched to hydro morphine and clonidine for blood pressure maintenance and vancomycin, ceftriaxone Reglan. Status post surgery was uneventful. Patient received medications of carbamazepine and primidone, nebulizations Dilaudid and hydralazine p.r.n, Reglan PRN. He is looking like a pain seeking behavior. Surgical site after the surgery is looking clear without any pus and discharge. Patient has a hematoma in the left mid to lower mesenteric hematoma up to 8.4 cm transverse. and we contacted Dr. Romero back for this finding on the imaging part. He recommended for conservative management and follow up in outpatient. Patient had abdominal pain and we did the CT angiography abdomen on 01/11/2025 which showedExtensive atherosclerotic vascular disease with greater than 50% stenosis of the renal artery origins, 50% stenosis of the left common iliac artery, occlusion of the previous left external iliac artery bypass. Evaluation of the arterial structures is limited by absence of standard sagittal and coronal reformatted images. Patient received 1 unit of PRBC as the hemoglobin is less than seven and then it trended up to 8.8 and stabilized over nine We monitored daily CBC and CMP. Patient received clonidine 0.2 mg p.o. and hydralazine p.r.n. for blood pressure maintenance and blood pressure was stable during the course of hospitalization. Trough levels of carbamazepine is 3.3 which is low. We treated his anxiety with sertraline 100 mg p.o. daily. We discharge the patient to rehab with antibiotics Examination at the time of discharge Vital Signs Date Time Temp Pulse Resp B/P (MAP) Pulse Ox O2 Delivery O2 Flow Rate FiO2 01/16/25 11:28 97.8 82 19 103/55 (71) 96 Nasal Cannula 01/16/25 08:19 0.0 21 Elderly male, lethargic, alert and oriented, not in acute distress Head: Normocephalic with an atraumatic Eyes: Right eye excision, wearing a patch, Pupils- 3mm, reacting to light, conjunctiva- anicteric. Right eye is with cover. Nose and throat: No polyps, septum- normal, no mucosal ulcers, moist mucosal membranes Neck: Supple, no lymphadenopathy, no carotid bruit Respiratory: No use of accessory muscles of respiration, Bilateral normal vesicular breath sounds heard. No wheeze, rhochi or creps Cardiac: S1-S2 heard, rhythm regular, no gallop/murmur Abdomen: non distended, mild tenderness is present left iliac fossa. umbilical, left lower quadrant, no organomegaly, bowel sounds - heard Extremities: Well-perfused Skin: warm and dry, no rash, no purpura. Wound on left lower extremity is cover ed well with dressing and it does not showed any bleeding, discharge, pus. Neuro: No focal deficit, gross cranial nerve exam - normal, left foot sensations are improving Laboratory Tests Test 01/15/25 06:31 01/15/25 06:41 01/16/25 05:34 01/16/25 07:05 Sodium Level 137 MMOL/L 138 MMOL/L Potassium Level 3.3 MMOL/L 4.5 MMOL/L Chloride Level 101 MMOL/L 105 MMOL/L Carbon Dioxide Level 29.5 MMOL/L 26.9 MMOL/L Anion Gap 7 6 Blood Urea Nitrogen 4 MG/DL 4 MG/DL Creatinine 0.83 MG/DL 0.82 MG/DL Estimated GFR/1.73 m2 > 90 ML/MIN > 90 ML/MIN BUN/Creatinine Ratio 4.8 4.9 Glucose Level 82 MG/DL 78 MG/DL Calcium Level 8.2 MG/DL 7.8 MG/DL Total Bilirubin 0.5 MG/DL 0.3 MG/DL Aspartate Amino Transf (AST/SGOT) 16 U/L 21 U/L Alanine Aminotransferase (ALT/SGPT) 14 U/L 12 U/L Alkaline Phosphatase 74 IU/L 79 IU/L Total Protein 5.5 G/DL 5.4 G/DL Albumin 2.4 G/DL 2.3 G/DL Globulin 3.1 G/DL 3.1 G/DL Albumin/Globulin Ratio 0.8 0.7 Chemistry Comments White Blood Count 8.3 X10'3 9.1 X10'3 Red Blood Count 2.91 X10'6 2.94 X10'6 Hemoglobin 9.0 g/dl 9.0 g/dl Hematocrit 26.4 % 26.9 % Mean Corpuscular Volume 90.7 FL 91.4 FL Mean Corpuscular Hemoglobin 31.0 PG 30.7 PG Mean Corpuscular Hemoglobin Concent 34.1 g/dL 33.6 g/dL Red Cell Distribution Width 15.5 % 15.9 % Platelet Count 329 X10'3 371 X10'3 Mean Platelet Volume 8.0 FL 7.1 FL Neutrophils (%) (Auto) 62.1 % 58.0 % Lymphocytes (%) (Auto) 19.2 % 22.3 % Monocytes (%) (Auto) 11.7 % 12.5 % Eosinophils (%) (Auto) 6.1 % 6.2 % Basophils (%) (Auto) 0.9 % 1.0 % Neutrophils # (Auto) 5.2 X10'3 5.3 X10'3 Lymphocytes # (Auto) 1.6 X10'3 2.0 X10'3 Monocytes # (Auto) 1.0 X10'3 1.1 X10'3 Eosinophils # (Auto) 0.5 X10'3 0.6 X10'3 Basophils # (Auto) 0.1 X10'3 0.1 X10'3 CBC Comment Discharge Advice FUP WITH PC IN 1 WEEK WITH CBC,CMP. FUP WITH FOLLOW UP WITH WOUND CARE CONTINUE CAP.CEFDINIR 300MG PO BID FOR 5 DAYS. STRICTLY ADHERE TO CARBAMAZEPINE 100MG PO BID & CARBAMAZEPINE 200MG PO HS AND PRIMIDONE 50MG PO DAILY. CONTINUE ASPIRIN 81MG PO DAILY,CLONIDINE 0.1 MG PO BID READ ADVERSE EFFECTS OF MEDICATIONS PRESCRIBED. Call 911 OR VISIT ER IF EMERGENCY. *Problems/Diagnosis: (1) Pain in the abdomen (2) Mesenteric hematoma (3) Hypertension (4) Seizure (5) Anxiety (6) Peripheral arterial disease with history of revascularization (7) Graft failure due to stenosis (8) Graft failure due to thrombosis (9) Normocytic normochromic anemia (10) Status post bypass graft of extremity Total Time Spent on D/C: > 30 Minutes Date of Service: January 16, 2025 Billing Provider: NICHOLAS HILL MD Common Visit Codes: 67477-NFX/OBS DISCH DAY >30min TONJA GREENWOOD, JESSICA January 16, 2025 17:30 NICHOLAS HILL MD January 16, 2025 18:35
== END 2025-01-16 15:26 | DRG 169 ==
LOC: ER 18:58 → ED HOLD 23:15 → ORTHO 4S 01-07 02:18 → CICU 2S 01-07 15:30 → PCU 3S 01-09 20:25
PROVIDERS: ADMIT Internal Medicine Pulmonary Disease; ATTEND Internal Medicine
PROC: 04CC0ZZ Extirpation of Matter from Right Common Iliac Artery, Open Approach (ICD-10-PCS; 2025-01-07)
PROC: 041 Lower Arteries, Bypass (ICD-10-PCS; 2025-01-07)
PROC: 041C0JQ Bypass Right Common Iliac Artery to Lower Extremity Artery with Synthetic Substitute, Open Approach (ICD-10-PCS; principal; 2025-01-07 13:07)
PROC: 05HF33Z Insertion of Infusion Device into Left Cephalic Vein, Percutaneous Approach (ICD-10-PCS; 2025-01-09)
PROC: B54NZZA Ultrasonography of Left Upper Extremity Veins, Guidance (ICD-10-PCS; 2025-01-09)
PROC: 30233N1 Transfusion of Nonautologous Red Blood Cells into Peripheral Vein, Percutaneous Approach (ICD-10-PCS; 2025-01-10)
PROC: B4201ZZ Computerized Tomography (CT Scan) of Abdominal Aorta using Low Osmolar Contrast (ICD-10-PCS; 2025-01-11)
PROC: B4241ZZ Computerized Tomography (CT Scan) of Superior Mesenteric Artery using Low Osmolar Contrast (ICD-10-PCS; 2025-01-11)
PROC: B4281ZZ Computerized Tomography (CT Scan) of Bilateral Renal Arteries using Low Osmolar Contrast (ICD-10-PCS; 2025-01-11)
PROC: B42C1ZZ Computerized Tomography (CT Scan) of Pelvic Arteries using Low Osmolar Contrast (ICD-10-PCS; 2025-01-11)
PROC: B42H1ZZ Computerized Tomography (CT Scan) of Bilateral Lower Extremity Arteries using Low Osmolar Contrast (ICD-10-PCS; 2025-01-11)
PROC: B4211ZZ Computerized Tomography (CT Scan) of Celiac Artery using Low Osmolar Contrast (ICD-10-PCS; 2025-01-11)
PROC: B42H1ZZ Computerized Tomography (CT Scan) of Bilateral Lower Extremity Arteries using Low Osmolar Contrast (ICD-10-PCS; 2025-01-11)
DX: T82.898A Other specified complication of vascular prosthetic devices, implants and grafts, initial encounter (principal); E11.51 Type 2 diabetes mellitus with diabetic peripheral angiopathy without gangrene; J44.9 Chronic obstructive pulmonary disease, unspecified; I10 Essential (primary) hypertension; F41.9 Anxiety disorder, unspecified; Y83.8 Other surgical procedures as the cause of abnormal reaction of the patient, or of later complication, without mention of misadventure at the time of the procedure; Z79.899 Other long term (current) drug therapy; Z88.0 Allergy status to penicillin; Z91.018 Allergy to other foods; Z86.718 Personal history of other venous thrombosis and embolism; Z85.840 Personal history of malignant neoplasm of eye; Z90.01 Acquired absence of eye; Y92.89 Other specified places as the place of occurrence of the external cause
CPT/HCPCS: 36410; 36415; 36430; 71045; 74018; 74174; 75635; 76937; 80048; 80053; 80061; 80156; 80184; 80188; 80202; 81003; 82948; 83036; 83605; 83735; 83880; 84145; 84484; 85007; 85025; 85027; 85610; 85651; 85730; 86885; 86900; 86901; 86920; 87070; 87075; 87081; 92508; 92616; 93005; 93970; 94640; 94760; 96365; 96372; 97116; 97161; 97530; 99285; A4215; A4615; A4618; A6212; A6213; A6234; A6253; A6258; A6402; A6449; A6455; A6590; A7000; C1751; C1757; C1758; C1768; G0378; J0131; J0360; J0696; J1100; J1171; J1644; J1650; J2250; J2270; J2405; J2470; J2704; J2765; J3010; J3370; J3475; J3480; J3490; J7030; J7040; J7120; P9016; P9045; Q9967

== ENCOUNTER 2025-06-06 19:25 | Inpatient (IN) | payer MEDICAID ==
[~2025-06-06] VITALS: Ht 180.3 cm; Wt 47.7 kg
[~2025-06-06 19:25] MED LIST changes: +ACET-3669 PO; +BACL10TA2 PO; +BISA-77 PO; +CARB100T15 PO; +CLON-330 PO; -CLON-529 PO; -CYCL-1 PO; +DULO60CA65 PO; +FLUT1BLS16 PO; -HYDR-3973 PO; +IPRA3AMP31 NEB; -LISI-644 PO; -METO-384 PO; -NICO-687 TP; -ONDA-103 PO; +PANT-47 PO; -PREG150C PO; +PREG150C47 PO; +PRIM50TA5 PO
[2025-06-06 19:53] LABS: MEAN PLATELET VOLUME 8.8 FL (7.4-10.4); RED CELL DISTRIBUTION WIDTH 15.4 % (11.5-14.5)
--- NOTE | 2025-06-06 20:05 | ELECTROCARDIOGRAPH REPORT ---
[facility] Test Date: 2025-06-06 Test Time: 20:03:39 Pat Name: NOLAN ZAPATA Department: EMERGENCY ROOM Room: Gender: M Cell Reliner: JOSE : 1960 Requested By: JAYDEN ROMO Order Number: [id number] Reading MD: Dr. Jayden Romo Measurements Intervals [place] Rate: 77 P: 75 WV: 199 QRS: 54 QRSD: 93 T: 104 QT: 384 QTc: 435 Interpretive Statements Sinus rhythm Consider left atrial enlargement LVH with secondary repolarization abnormality Baseline wander in lead(s) V4 Electronically Signed On 06-06-2025 21:45:[address] Jayden Romo Please click the below link to view image of tracing.
[2025-06-06 20:13] LABS: CREATININE 1.84 MG/DL (0.60-1.10); PRO BRAIN NATRIURETIC PEPTIDE 1114 PG/ML (0-125); TOTAL CARBON DIOXIDE 28.5 MMOL/L (24-32); eGFR 37 ML/MIN
--- NOTE | 2025-06-06 20:20 | RADIOLOGY REPORT ---
EXAM: CT CT CERVICAL SPINE INDICATION: fall on thinners EXAM DATE: 06/06/2025 07:46 PM COMPARISON: CT CT HEAD on DOS: 04/15/24 TECHNIQUE: Multiple axial CT images of the cervical spine were obtained using bone algorithm. Axial and coronal reformatting was done. Bone and soft tissue windows were reviewed. Radiation Dose Information: CT Dose: CTDI volume is 22.4 mGy. Dose-length product is 483 mGy*cm FINDINGS: Reversal of the normal cervical lordosis. No acute cervical spine fracture is identified. The vertebral body heights are intact. No suspicious osseous lesions are identified. Severe degenerative changes throughout the cervical spine. There is no prevertebral soft tissue swelling. IMPRESSION: 1. No evidence of acute cervical spine fracture or traumatic malalignment. 2. All CT scans at this medical facility are performed using dose modulation techniques as appropriate to a performed exam including the following: Automated exposure control was utilized; adjustment of the MA and/or KV according to patient size; and use of iterative reconstruction technique.
--- NOTE | 2025-06-06 20:21 | RADIOLOGY REPORT ---
Procedure: [facility] Study Date and Requested Time: 06/06/2025 07:44 PM History: fall on thinners Comparison: MR MRI HEAD on DOS: 04/16/24, CT CT HEAD on DOS: 04/15/24 reports only Dose: CTDI: 68.17 mGy DLP: 1319.6 mGycm Technique: Multiplanar images obtained through the brain without intravenous contrast. Findings: Moderate diffuse brain atrophy out of proportion for patient's age. Dilatation of the ventricles out of proportion with cortical atrophy. No prior imaging for direct comparison. No hemorrhages, masses, mass effect, midline shift, herniation or cytotoxic edema following a large vascular territory. No intra-axial or extra-axial fluid collections. No evidence of hydrocephalus. The basal cisterns are patent. The pituitary gland, sella and parasellar regions are unremarkable. The cerebellar tonsils are in normal position. 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 Dysplasia of the inferior cerebellum. The orbits and globes are unremarkable. The paranasal sinuses and mastoids are clear. There are no worrisome calvarial lesions. Extensive right-sided facial surgery with mucoperiosteal thickening of residual right frontal and maxillary sinus.. Impression: No evidence of acute intracranial abnormality. Moderate diffuse brain atrophy, out of proportion for patient's age. Mild communicating hydrocephalus.
--- NOTE | 2025-06-06 20:23 | RADIOLOGY REPORT ---
CHEST RADIOGRAPH Indication: CP Technique: 1 view Comparison: DI CHEST,SINGLE VIEW on DOS: 01/09/25, DI CHEST,SINGLE VIEW on DOS: 01/08/25, DI CHEST,SINGLE VIEW on DOS: 01/06/25, DI CHEST,SINGLE VIEW on DOS: 04/15/24, CHEST,SINGLE VIEW on DOS: 07/11/20 FINDINGS: Lines and Tubes: None Lungs/Pleura: No acute consolidation. Similar scarring/atelectasis in the left lung base. No pleural abnormality. Cardiomediastinum: Normal heart size. Aortic atherosclerosis. Other: No acute osseous abnormality. IMPRESSION: 1. No acute cardiopulmonary abnormality or significant change from prior exam.
--- NOTE | 2025-06-06 20:59 | Physician Documentation ---
History of Present Illness ~ Chief Complaint: Head Injury Stated Complaint: FALL/HIT HEAD ON BLOOD THINNERS Time Seen by MD: 20:58 OK to notify your PCP?: Yes Primary Medical Doctor: Heather Source: patient, RN/MD, EMS, RN notes reviewed, EMS notes reviewed, old records Mode of Arrival: EMS Exam Limitations: no limitations HPI This patient is on baclofen has been feeling weak wobbly tired falling a lot specifically today he has a chronic tremor for which he takes baclofen. He has been drinking fluids no vomiting no signs of dehydration that they are aware of does not take anti-inflammatories possible gabapentin use as well. Family or caregivers state that he dropped the pin was unable to pick it up see me more confused worsening tremors. Another time he just bent over fell down and had trouble getting up. Patient is very thin frail cachectic-appearing however he has no specific new complaints they were just concerned had him evaluated. He is now here for evaluation and care. No sick contacts no fevers chills series frequency cough. 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 Tetanus within 5 years?: No Medication Reconciliation Allergies: Coded Allergies: Penicillins (Unverified Allergy, Unknown, ANAPHYLAXIS, 01/11/25) PT TOLERATED ROCEPHIN 2020 Uncoded Allergies: ALL VEGETABLES (Allergy, Intermediate, 03/13/16) DIFFICULTY SWALLOWING All Nuts (Allergy, Unknown, 03/23/17) Scheduled Atorvastatin Calcium* (Lipitor*), 1 TABLET PO HS, (Reported) Baclofen (Baclofen), 1 TAB PO TID, (Reported) Bisacodyl (Bisacodyl), 5 MG PO BID, (Reported) Carbamazepine (Carbamazepine), 1 TAB PO BIDBL, (Reported) Carbamazepine* (Tegretol*), 200 MG PO HS, (Reported) Clonidine HCl (Clonidine HCl), 1 TAB PO BID, (Reported) Docusate Sodium (Colace), 1 CAP PO BID, (Reported) Duloxetine HCl (Duloxetine HCl), 1 CAP PO DAILY, (Reported) Fluticasone/Umeclidin/Vilanter (Trelegy Ellipta 200-62.5-25), 1 PUFFS PO DAILY, (Reported) Folic Acid* (Folic Acid*), 1 TABLET PO HS, (Reported) Ipratropium/Albuterol Sulfate (Duoneb 2.5-0.5 Mg/3 Ml Soln), 3 ML NEB QID, (Reported) Morphine Sulfate (MS CONTIN tablet), 1 TAB PO Q8H, (Reported) Pantoprazole Sodium (PROTONIX tablet), 20 MG PO DAILY, (Reported) Pregabalin (Pregabalin), 1 CAP PO BID, (Reported) Primidone (Mysoline), 1 TAB PO DAILY, (Reported) Sertraline HCl (Sertraline HCl), 1 TAB PO DAILY, (Reported) Scheduled PRN Acetaminophen (Acetaminophen ER), 1 TAB PO Q8H PRN for pain, (Reported) Past Medical History Past Medical History: Seizures, Hypertension, COPD, Anemia, Chronic Pain, Deep Vein Thrombosis, Anxiety Past Surgical History: abdominal surgery, other Patient History: (DM Type 2) Diabetes mellitus type 2 MOTHER Alcohol Use: None Drug Use: none Lives with: Alone Lives In: Home Occupation: disabled Review of Systems All Other Systems at this time: Reviewed and Negative Physical Exam Vital Signs: RN Vital Signs have been reviewed: Yes, Temperature: 97.6, Source: Oral, Heart Rate: 80, Respiratory Rate: 10, BP: 143/85, Pulse Oximetry: 98 Oxygen Flow Rate: 0 Physical Exam General: The patient is well developed, well nourished, nontoxic appearing and is in no acute distress. Thin frail cachectic Skin: [place], warm and dry with no rashes. HEENT: Head was normocephalic and atraumatic. Eyes - pupils equal, round, reactive to light and accommodation. Right eye patch status post I resection. Extraocular movements were intact. Conjunctivae were nonicteric. The mouth and oropharynx were clear with dry mucous membranes. There were no pharyngeal exudates or erythema. Neck: Supple and nontender. There was no jugular venous distention, lympha denopathy, thyromegaly or masses. Chest: Clear to auscultation bilaterally without wheezes, rales or rhonchi. No accessory muscle use. No dullness to percussion. Heart: Rate regular and rhythmic. S1, S2. No murmurs. Palpation of the chest wall was normal. No rubs or thrills. Abdomen: Soft, nontender and nondistended. Positive bowel sounds. No guarding or rebound. No hepatosplenomegaly or palpable masses. Extremities: No cyanosis, clubbing or edema. The patient moves all extremities. Pulses were equal and symmetric. Neurologic: Cranial nerves II-XII were intact. Sensation was intact to light touch throughout. Motor strength was 5/5 in all four extremities. Deep tendon reflexes were intact in both upper and lower extremities. Resting tremor Psychologic: The patient was oriented to person, place and time. The patient demonstrated appropriate judgement and insight. Progress Results/Orders Reviewed/noted all lab results: Yes Results/Orders Orders - GEORGE HERNANDEZ MD Chest,Single View (06/06/25:) Monitor (06/06/25:) Saline Lock (06/06/25:) Oxygen (06/06/25:) Electrocardiogram (06/06/25:) Hs Troponin I W Calculations (06/06/25:33) Hs Troponin I W Calculations (06/06/25 22:33) Ct Head (06/06/25 19:45) Ct Cervical Spine (06/06/25 19:45) Page Hospitalist (06/06/25 21:31) Fill Out Med Reconciliation (06/06/25:31) Completed Orders - GEORGE HERNANDEZ MD Chest,Single View (06/06/25:33) Cbc/Diff (06/06/25) BMP (06/06/25:33) PBNP (06/06/25:) Electrocardiogram (06/06/25:) Hs Troponin I W Calculations (06/06/25:) Ct Head (06/06/25 19:45) Ct Cervical Spine (06/06/25 19:45) Ua W/Microscopic, Cult If Ind (06/06/25 21:03) Vital Signs 06/06/25 06/06/25 19:33 20:14 Temp 97.6 Pulse 80 Resp 16 10 B/P (MAP) 143/85 Pulse Ox 98 O2 Flow Rate 0 Laboratory Tests Test 06/06/25 19:46 06/06/25 21:03 06/06/25 21:35 White Blood Count 11.0 Red Blood Count 4.38 L Hemoglobin 12.7 L Hematocrit 38.6 L Mean Corpuscular Volume 88.0 Mean Corpuscular Hemoglobin 29.1 Mean Corpuscular Hemoglobin Concent 33.1 Red Cell Distribution Width 15.4 H Platelet Count 246 Mean Platelet Volume 8.8 Neutrophils (%) (Auto) 66.7 Lymphocytes (%) (Auto) 17.6 L Monocytes (%) (Auto) 9.3 Eosinophils (%) (Auto) 5.3 Basophils (%) (Auto) 1.1 H Neutrophils # (Auto) 7.4 Lymphocytes # (Auto) 1.9 Monocytes # (Auto) 1.0 H Eosinophils # (Auto) 0.6 Basophils # (Auto) 0.1 CBC Comment Sodium Level 142 Potassium Level 3.5 Chloride Level 103 Carbon Dioxide Level 28.5 Anion Gap 11 Blood Urea Nitrogen 30 H Creatinine 1.84 H Estimated GFR/1.73 m2 37 BUN/Creatinine Ratio 16.3 Glucose Level 90 Calcium Level 9.4 Troponin I High Sensitivity 50 Pro-B-Type Natriuretic Peptide 1114 H Albumin 3.8 Chemistry Comments Urine Specimen Description Urinal Urine Color Yellow Urine Clarity Clear Urine pH 5.5 Urine Specific [place] 1.020 Urine Protein Trace Urine Glucose (UA) Negative Urine Ketones Trace H Urine Occult Blood Negative Urine Nitrite Negative Urine Bilirubin Moderate Urine Urobilinogen 0.2 Urine Leukocyte Esterase Negative Urine RBC 0-2 Urine WBC 0-4 Urine Squamous Epithelial Cells Few Urine Bacteria Few Urine Mucus Few Urine Culture Indicated Not ind Volume Urine Centrifuged 10 ml Urine Comment Re-Evaluation Re-Evaluation : Re-Evaluation: Improved Progress Patient was seen and examined. Patient is given reassurance. Patient takes baclofen appears to be dehydrated falling weak unsteady gait. Patient's laboratory work was obtained WBC within normal limits 11 hemoglobin 12 hem atocrit 38 platelets 243 without left shift slight anemia no signs of leukocytosis or infection. Chemistry troponin is negative proBNP slightly elevated at 1114. However patient's BUN is 30 creatinine 1.84 which is up from a baseline of 0.84. Patient's urinalysis has a specific gravity of 1.020 slightly dehydrated some trace bilirubin leukocyte esterase negative nitrates negative. Infectious etiologies appear negative. Chest x-ray was negative for infiltrates or effusions CT scan of the head showed no acute strokes hemorrhage subdurals tumors or masses. Patient was then admitted to the hospitalist service for hydration further workup and care holding baclofen for possible metabolic encephalopathy. Continuous wellness nurse interpretation shows normal sinus rhythm heart rate 80s, no ectopy, normal, my interpretation. Pulse oximetry monitor interpretation shows normal oxygenation 98% room air, normal, my interpretation. 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 George Hernandez Measurements Intervals [place] Rate: 77 P: 75 DC: 199 QRS: 54 QRSD: 93 T: 104 QT: 384 QTc: 435 Interpretive Statements Sinus rhythm Consider left atrial enlargement LVH with secondary repolarization abnormality Baseline wander in lead(s) V4 Electronically Signed On 06-06-2025 21:45:[address] George Hernandez Please click the below link to view image of tracing. Chest X-Ray : Interpreted By: self Additional Comments CHEST RADIOGRAPH Indication: CP Technique: 1 view Comparison: DI CHEST,SINGLE VIEW on DOS: 01/09/25, DI CHEST,SINGLE VIEW on DOS: 01/08/25, DI CHEST,SINGLE VIEW on DOS: 01/06/25, DI CHEST,SINGLE VIEW on DOS: 04/15/24, CHEST,SINGLE VIEW on DOS: 07/11/20 FINDINGS: Lines and Tubes: None Lungs/Pleura: No acute consolidation. Similar scarring/atelectasis in the left lung base. No pleural abnormality. Cardiomediastinum: Normal heart size. Aortic atherosclerosis. Other: No acute osseous abnormality. IMPRESSION: 1. No acute cardiopulmonary abnormality or significant change from prior exam. #1: CT: head With Contrast?: No Impression Procedure: CT CT HEAD [facility] Study Date and Requested Time: 06/06/2025 07:44 PM History: fall on thinners Comparison: MR MRI HEAD on DOS: 04/16/24, CT CT HEAD on DOS: 04/15/24 reports only Dose: CTDI: 68.17 mGy DLP: 1319.6 mGycm Technique: Multiplanar images obtained through the brain without intravenous contrast. Findings: Moderate diffuse brain atrophy out of proportion for patient's age. Dilatation of the ventricles out of proportion with cortical atrophy. No prior imaging for direct comparison. No hemorrhages, masses, mass effect, midline shift, herniation or cytotoxic edema following a large vascular territory. No intra-axial or extra-axial fluid collections. No evidence of hydrocephalus. The basal cisterns are patent. The pituitary gland, sella and parasellar regions are unremarkable. The cerebellar tonsils are in normal position. 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 Dysplasia of the inferior cerebellum. The orbits and globes are unremarkable. The paranasal sinuses and mastoids are clear. There are no worrisome calvarial lesions. Extensive right-sided facial surgery with mucoperiosteal thickening of residual right frontal and maxillary sinus.. Impression: No evidence of acute intracranial abnormality. Moderate diffuse brain atrophy, out of proportion for patient's age. Mild communicating hydrocephalus. #2: CT: C-spine With Contrast?: No Impression EXAM: CT CT CERVICAL SPINE INDICATION: fall on thinners EXAM DATE: 06/06/2025 07:46 PM COMPARISON: CT CT HEAD on DOS: 04/15/24 TECHNIQUE: Multiple axial CT images of the cervical spine were obtained using bone algorithm. Axial and coronal reformatting was done. Bone and soft tissue windows were reviewed. Radiation Dose Information: CT Dose: CTDI volume is 22.4 mGy. Dose-length product is 483 mGy*cm FINDINGS: Reversal of the normal cervical lordosis. No acute cervical spine fracture is identified. The vertebral body heights are intact. No suspicious osseous lesions are identified. Severe degenerative changes throughout the cervical spine. There is no prevertebral soft tissue swelling. IMPRESSION: 1. No evidence of acute cervical spine fracture or traumatic malalignment. 2. All CT scans at this medical facility are performed using dose modulation techniques as appropriate to a performed exam including the following: Automated exposure control was utilized; adjustment of the MA and/or KV according to patient size; and use of iterative reconstruction technique. Medical Decision Making Additional info obtained from: old records Differential Dx:Considerations: Include: Closed head injury, Cervical spine injury, Skull facture, Fracture, Abrasion, Contusion, Foreign body, Laceration, Intoxication-alcohol, Intoxication-other drug, Substance abuse disorder, Personality disorder, Non-accidental trauma, Other Departure Admitted to Inpatient Unit: yes, to hospitalist Admission Level of Care: Med/Surg with Tele Impression: Primary Impression: Acute renal failure Qualified Codes: N17.9 - Acute kidney failure, unspecified Additional Impressions: Dehydration Metabolic encephalopathy Falls frequently Condition: Fair Discharge Instructions: Contusion (Bruise), Post Concussion Syndrome,Adult Referrals: NO PRIMARY CARE PROVIDER (PCP) Education Educated: Patient Educated regarding: diagnosis Signature Scribe Signature: No Attestation: The note accurately reflects work and decisions made by me.George Hernandez MD 06/06/25 20:59 GEORGE HERNANDEZ MD Jun 06, 2025 20:59
[2025-06-06 21:27] LABS: LEUKOCYTE ESTERASE ,URINE NEGATIVE (Neg); NITRITES, URINE NEGATIVE (Neg); OCCULT BLOOD,URINE NEGATIVE (Neg)
[2025-06-06 21:29] LABS: UA COLLECTION TYPE URINAL
[2025-06-06 21:34] LABS: MUCUS STRANDS FEW /LPF (Neg); SQUAMOUS EPITHELIAL CELL,UR FEW /LPF (FEW)
[2025-06-06] MEDS ORDERED: CLOP75TA34 PO (22:02)
[2025-06-06] MEDS ORDERED: FERR325T7 PO (22:02)
[2025-06-06] MEDS ORDERED: potassium Cl 20 mEq SR tablet PO PRN ×2 (22:10)
[2025-06-06] MEDS ORDERED: mag hydrox/Alum hydrox/simeth 30ml oral suspension PO PRN (22:10)
[2025-06-06] MEDS ORDERED: magnesium sulf-water 2g/50mL 50 ML IV PRN (22:10)
[2025-06-06] MEDS ORDERED: albuterol 2.5 MG/3 ML nebule NEB PRN (22:10)
[2025-06-06] MEDS ORDERED: ipratropium/albuterol 3ml nebule NEB PRN (22:10)
[2025-06-06] MEDS ORDERED: magnesium sulf-water 4G/100mL 100 ML IV PRN (22:10)
[2025-06-06] MEDS ORDERED: magnesium hydroxide 30ml (MOM) UD suspension PO PRN (22:10)
[2025-06-06] MEDS ORDERED: magnesium Cl slow-release 64mg tablet PO PRN (22:10)
[2025-06-06] MEDS ORDERED: potassium Cl 40MEQ/1/2NS 520ml 520 ML IV PRN (22:10)
[2025-06-06 22:53] VITALS: PULSE 71; RESP 16; O2SAT 98
[2025-06-06 22:58] LABS: URINE AMPHETAMINE SCREEN NEGATIVE (Neg); URINE BARBITUATE SCREEN POSITIVE (Neg); URINE BENZODIAZEPINES SCREEN NEGATIVE (Neg); URINE CANNABINOID SCREEN NEGATIVE (Neg); URINE COCAINE SCREEN NEGATIVE (Neg); URINE METHADONE SCREEN NEGATIVE (Neg); URINE OPIATE SCREEN POSITIVE (Neg); URINE PHENCYCLIDINE SCREEN NEGATIVE (Neg)
--- NOTE | 2025-06-06 23:08 | HISTORY AND PHYSICAL-Residence ---
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 The patient is a poor historian, history also contributed from prior medical records. As per prior medical records, he has supposed to be on anticoagulation the patient is unsure. He reports multiple falls on an every day basis due to imbalance but today afternoon his legs gave away and he fell to the ground hitting his head, back, shoulders and lower extremities. Denies loss of consciousness, loss of bowel or bladder control. He has had worsening of his back pain and right lower extremity pain since then. He also complains of ongoing diffuse headache but this is not unusual as he has regular migraines. Also reports ongoing nausea and vomiting which again is not unusual for him as well since the cancer. His appetite and hydration has been at baseline. He in fact reports that he has been drinking plenty of fluids every day. Denies any fevers, chills, shortness of breath, chest pain, abdominal pain, diarrhea, urinary incontinence or retention. Allergies: Coded Allergies: Penicillins (Unverified Allergy, Unknown, ANAPHYLAXIS, 01/11/25) PT TOLERATED ROCEPHIN 2020 Uncoded Allergies: ALL VEGETABLES (Allergy, Intermediate, 03/13/16) DIFFICULTY SWALLOWING All Nuts (Allergy, Unknown, 03/23/17) Home Medications Home Medications Active Reported Clopidogrel (Clopidogrel Bisulfate) 75 Mg Tablet 1 Tab PO DAILY Ferrous Sulfate 325 Mg (65 Mg Iron) Tablet.dr 1 Tab PO DAILY Duloxetine HCl 60 Mg Capsule.dr 1 Cap PO DAILY Mysoline (Primidone) 50 Mg Tablet 2 Tab PO HS PROTONIX tablet (Pantoprazole Sodium) 40 Mg Tablet.dr 20 Mg PO DAILY Carbamazepine 100 Mg Tab.chew 1 Tab PO BIDBL Acetaminophen ER (Acetaminophen) 650 Mg Tablet.er 1 Tab PO Q8H PRN MDD 4000 Baclofen 10 Mg Tablet 1 Tab PO TID Duoneb 2.5-0.5 Mg/3 Ml Soln (Ipratropium/Albuterol Sulfate) 0.5 Mg-3 Mg (2.5 Mg Base)/3 Ml Ampul.neb 3 Ml NEB QID Trelegy Ellipta 200-62.5-25 (Fluticasone/Umeclidin/Vilanter) 200-62.5 Blst.w.dev 1 Puffs PO DAILY Bisacodyl 5 Mg Tablet.dr 5 Mg PO BID Clonidine HCl 0.2 Mg Tablet 1 Tab PO BID Pregabalin 150 Mg Capsule 1 Cap PO BID MS CONTIN tablet (Morphine Sulfate) 30 Mg Tablet.sa 1 Tab PO Q8H Sertraline HCl 100 Mg Tablet 1 Tab PO DAILY Colace (Docusate Sodium) 100 Mg Capsule 1 Cap PO BID Folic Acid* (Folic Acid) 1 Mg Tablet 1 Tablet PO HS Lipitor* (Atorvastatin Calcium) 80 Mg Tablet 1 Tablet PO HS Tegretol* (Carbamazepine) 100 Mg Tab.chew 200 Mg PO HS Past Medical History Past Medical History Hypertension COPD Seizure disorder 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 * Right common iliac left popliteal bypass using [place]. * Right common iliac endarterectomy. * Redo left groin exposure - ex vacuo evacuation for right eye malignancy Family History Family History: (DM Type 2) Diabetes mellitus type 2 MOTHER Past Social History Social History Comment Smokes four cigarettes per day all his life Denies alcohol and illicit drug abuse He ambulates using a walker Alcohol Use: None Drug Use: None Lives with: Alone Lives In: Home Occupation: disabled ROS Constitutional: Reports: no symptoms reported Eyes: Reports: blurred vision ENT: Reports: no symptoms reported Respiratory: Reports: cough Cardiovascular: Reports: no symptoms reported Gastrointestinal: Reports: no symptoms reported Genitourinary: Reports: no symptoms reported Male Genitalia: Reports: no symptoms reported Neurological: Reports: speech problem, headache, problems walking, unable to move lower ext Musculoskeletal: Reports: swelling, back pain Integumentary: Reports: bruise(s) Allergic/Immunologic: Reports: no symptoms reported Hematologic/Lymphatic: Reports: no symptoms reported Endocrine: Reports: no symptoms reported Psychiatric: Reports: no symptoms reported Exam Vitals: Vital Signs Date Time Temp Pulse Resp B/P (MAP) Pulse Ox O2 Delivery O2 Flow Rate FiO2 06/06/25 20:14 10 06/06/25 19:33 97.6 80 98 0 General: General: Awake and Alert, cachectic-appearing HEENT: Conjunctiva pale, Sclera clear, Mucus Membranes moist. Large ex-vacuo reseection of the right eye, part of the temporal bone Resp: Unlabored. Lungs clear to auscultation bilaterally. Heart: Regular Rate and rhythm, normal S1 and S2 without murmur, rub or gallop. Abdomen: Soft and non tender no organomegaly. Central large vertical scar present Extremities: No cyanosis,clubbing or edema. Bruising and tenderness in the bilateral knees. FACE WORKER: Oriented x4. Tongue midline. Mild dysarthria present. No other cranial nerve deficits. Poor nutrition in upper and lower extremities. Motor strength upper extremities 4+. Motor strength of right lower extremity 3+. Left lower extremity 4+. Preserved bilateral sensations. Reflexes 3+. Gait unable to be examined Spine: 3 x 3 cms cystic appearing paravertebral soft tissue mass Heme: Conjunctiva pale. There is a bruise on the left foot under the great toe extending to the medial aspect of the foot Skin: Warm and Dry. Bruising on the head in multiple location; diffuse tenderness Diagnostic Data Last Recorded Lab Results: 06/06/25194506/06/251945 Advance Care Planning Advanced Care plannin - 30 Minutes Additional Plan 1. Fall under evaluation: Increasing ataxia Mechanical/stroke/seizure CT head reveals no fractures or hematomas. No acute pathological findings on cervical spine. As patient is a poor historian, ordered prolactin and lactic acid to rule out seizure induced activity MRI from 04/26 reveals prominent cisterna magna versus posterior fossa arachnoid cyst Additionally, due to unclear history, extensive vasculopathy status and compliance with anticoagulation. Tele neurology consulted; recommends labs and MRI head. NIHSS score seven. Due to his high-risk of fall, no anticoagulation recommended at this time Follow TSH and vitamin B12 PT eval and treat in a.m. for baseline and discharge planning Fall precautions and neurochecks in place 2. Communicating hydrocephalus: Diffuse cortical atrophy notable on CT Ataxia likely secondary to above Recommend Neurosurgery consultation for NPH, consider possible lumbar puncture Fall precautions in place Patient is progressively declining in the ability of taking care of himself family assessment worker consulted 2. Acute kidney injury: Likely secondary to ATN/intrarenal injury Last known normal creatinine from 01/16/2025- 0.8 Creatinine today 1.84 with mildly elevated BUN IVF at the rate of 100 cc/hour Elevated proBNP likely secondary to JOAN. Chest x-ray without increased pulmonary vascular congestion Follow spot urine studies Hold home medication of baclofen and pregabalin Continue monitoring BMP 3. COPD: Current smoker RT eval and treat Albuterol q.2h p.r.n. and duo nebs q.4 hours PRN 4. Uncontrolled hypertension: Continue clonidine 0.2 mg b.i.d. Close monitoring of hemodynamic stability 5. Peripheral arterial disease status post endarterectomy and bypass grafting: Continue Plavix Controlled blood pressure with clonidine Pulses intact and warm bilateral lower extremities Advice regarding importance of quitting smoking was 16-30 minutes 6. Seizure disorder Follow carbamazepine level Prolactin and lactic acid Continue carbamazepine and primidone Considering underlying structural brain damage and seizure disorder, baclofen to be discontinued as it can increase the risk 7. Soft tissue cystic mass on the back: Follow soft tissue USG Lines: PIV Code status: Full code Diet: Renal GI prophylaxis: Protonix DVT prophylaxis: Heparin Barbie Dumont PGY3, Internal medicine resident I saw and discussed the case with the resident team and I agree with assessment and plan Would suggest neuro eval Sounds like Normal Pressure Hydrocephalus Date of Service: Jun 06, 2025 Billing Provider: MAURICIO MILLAN MD, DEEPANJALI, RES Jun 06, 2025 23:08 MAURICIO MILLAN MD Jun 07, 2025 08:11
[2025-06-06] MEDS ORDERED: morphine 4 MG/ML inj SYRINge IV PRN (23:15)
[2025-06-06] MEDS ORDERED: non-formulary drug (Acetaminophen (Acetaminophen ER) 1 TAB) PO PRN (23:30)
[2025-06-06] MEDS: normal saline 1000ml 1,000 ML IV SCH ×2 (23:34→23:40)
[2025-06-06] MEDS: ondansetron/PF 4mg/2ml inj IV PRN (23:34)
[2025-06-06] MEDS: morphine 4 MG/ML inj SYRINge IV PRN (23:34)
[2025-06-07] VITALS (8 sets, daily range): BP systolic 100–179; BP diastolic 59–107; PULSE 52–67; RESP 14–19; TEMP 96.8–97.9; O2SAT 96–100
[2025-06-07] MEDS: morphine ER 30mg tablet PO SCH
--- NOTE | 2025-06-07 01:34 | [facility] CONSULT REPORT ---
[facility] Procedure Note [facility] Procedure Note Consult [facility] Note # Demographics Consult Type: General Neurology Patient Location: Emergency Room First Name: NOLAN Last Name: JODI Date of : 1960 Age: 65 Gender: Male Facility: [facility] Time of Initial Page (): 06/07/2025 00:55 First Contact with Site (): 06/07/2025 00:55 # HPI Chief Complaint: - confusion - s/p falls History: 65-year-old male with a history of seizure disorder, stroke, brain tumor (right eye s/p resection) who presents after an unwitnessed fall today. The patient reports he did not lose consciousness during the fall but hit his head multiple times and sustained injuries to his back and knees. It was noted that his right side seemed weaker than the left. His speech was also noted to be slurred as well. It's unclear when these symptoms started. Patient is a poor historian. He thinks symptoms started this past November. Patient reports that he uses a walker due to his ataxia. Last Known Normal: - unknown Associated Symptoms: - headache - gait dyscoordination - confusion # Scores Time of exam and NIHSS (): 06/07/2025 01:28 Level of Consciousness 1a: [0] = Alert; keenly responsive LOC Questions 1b: [0] = Answers both questions correctly LOC Commands 1c: [2] = Performs neither correctly Best Gaze 2: [0] = Normal Visual 3: [0] = No visual loss Facial Palsy 4: [2] = Partial paralysis Motor Arm Left 5a: [0] = No drift Motor Arm Right 5b: [0] = No drift Motor Leg Left 6a: [1] = Drift Motor Leg Right 6b: [1] = Drift Limb Ataxia 7: [0] = Absent Sensory 8: [0] = Normal Best Language 9: [0] = No aphasia Dysarthria 10: [1] = Eznb-ef-vagalyew dysarthria Extinction and Inattention 11: [0] = No abnormality NIHSS Total: 7 # Exam Vitals: vital signs reviewed Mental Status: - disoriented to place - disoriented to time - confused Language: confusion Motor: - bilateral drift # ROS Unable to obtain ROS: - altered mentation # Data Time Head CT personally read by me (): 06/07/2025 01:[address]: - no bleed - per radiologist read # Assessment Impression: - Altered Mental Status - Differential diagnosis: metabolic encephalopathy. No clear focal findings on remote exam. Recommend a metabolic and infectious work-up. If patient doesn't improve, recommend MRI Brain with and without and spot EEG. Depending on findings on MRI, may need to consider LP. Please call us back or inpatient neurology to determine this. # Plan Thrombolytic/Intervention: NOT IV Thrombolysis or IA Intervention candidate Thrombolytic Exclusion: > 4.5 hours Intraarterial Exclusion: - clinical exam not consistent with presence of large vessel occlusion (LVO), can reconsider if LVO found on vascular imaging Labs: - Ammonia - B12 - CBC - comprehensive metabolic panel - ua - urine drug screen - TSH - thiamine - ABG Imaging: (urgency: routine): - MRI Brain without contrast Therapy/Evaluation: - NPO until swallow evaluation Medication: - aspirin 81 mg daily - start statin with goal of LDL < 70 Other: - If patient has any neurological deterioration please call me back immediately - seizure precautions - would not pursue stroke work-up if MRI is negative - I have discussed my recommendations with the referring provider Disposition: admit # Logistics Attestation of consult completion: The patient is located at: [facility]. Facility staff participated in the visit. I performed this telemedicine visit from my offsite office utilizing interactive 2 way audio and visual telecommunication technology at the request of the onsite emergency room provider. Total time spent in telemedicine encounter: I spent 15 minutes reviewing clinical data and/or imaging, obtaining history, examining the patient, communicating with the onsite care team, and in preparation of this report. # Demographics First Name: NOLAN Last Name: JODI Facility: [facility] Neuro Consult Order placed for: Yes ANIL RAYMUNDO MD Jun 07, 2025 01:34
[2025-06-07 06:14] LABS: MEAN PLATELET VOLUME 8.9 FL (7.4-10.4); RED CELL DISTRIBUTION WIDTH 15.9 % (11.5-14.5)
[2025-06-07 07:24] LABS: CHOL/HDL RATIO 2.7 (0.00-4.99); CREATININE 1.61 MG/DL (0.60-1.10); LDL CHOLESTEROL 60 MG/DL (50-100); PHOSPHORUS 3.4 MG/DL (2.3-4.5); TOTAL CARBON DIOXIDE 28.8 MMOL/L (24-32); eCRCL 31 ML/MIN; eGFR 43 ML/MIN
[2025-06-07] MEDS: K and/or MAG REPLACEMENT MC SCH (08:00)
[2025-06-07] MEDS ORDERED: pantoprazole 40mg Tablet.DR PO SCH (08:00)
[2025-06-07] MEDS: docusate sod 100mg capsule PO SCH (08:00)
[2025-06-07] MEDS: duloxetine 30mg CAPSULE.DR PO SCH (10:04)
[2025-06-07] MEDS: heparin, porcine 5000 units/ml vial SQ SCH (10:07)
[2025-06-07] MEDS: carBAMazepine 100mg chewable tablet PO SCH ×2 (12:30→21:25)
--- NOTE | 2025-06-07 14:33 | RADIOLOGY REPORT ---
Exam: US US SOFT TISSUE MASS Clinical History: Soft fluid-filled cyst on the skin near the upper lumbar vertebral column Comparison: None Technique: Targeted sonographic evaluation of the soft tissues of the left lower back was obtained utilizing grayscale and color Doppler imaging. Findings/Impression: Wider than tall isoechoic structure in the superficial subcutaneous soft-tissue of the left back. Differential considerations could include lipoma or edema. Clinical correlation advised.
--- NOTE | 2025-06-07 16:02 | PROGRESS NOTE- Residence ---
Progress Note - Resident Providers to CC Resident Creating Document: AFSHIN CAM, RES ~ Antibiotic Timeout Antibiotic Ordered?: No Subjective Patient was seen at bedside. He is a poor historian, hard of hearing. Patient complains of more weakness on right arm than the left arm. Patient uses walker at home. Kept on fall precautions. We tried to speak with his caregiver on phone but she did not pick the call ( [phone] - Olivia ) Objective Vital Signs Date Time Temp Pulse Resp B/P (MAP) Pulse Ox O2 Delivery O2 Flow Rate FiO2 06/07/25 06:00 97.4 63 15 179/88 (118) 99 Room Air 06/06/25 23:30 0 21 Result Diagram: 06/07/25 0529 06/07/25 0542 General: Awake and Alert cachectic-appearing HEENT: Conjunctiva pale, Sclera clear, Mucus Membranes moist. Large ex-vacuo reseection of the right eye, part of the temporal bone Resp: Unlabored. Lungs clear to auscultation bilaterally. Heart: Regular Rate and rhythm, normal S1 and S2 without murmur, rub or gallop. Abdomen: Soft and non tender no organomegaly. Central large vertical scar present Extremities: No cyanosis,clubbing or edema. Bruising and tenderness in the bilateral knees. 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 Tongue midline. Mild dysarthria present. No other cranial nerve deficits. Poor nutrition in upper and lower extremities. Motor strength upper extremities 4+. Motor strength of right lower extremity 3+. Left lower extremity 4+. Preserved bilateral sensations. Reflexes 3+. Gait unable to be examined. Spine: 3 x 3 cms cystic appearing paravertebral soft tissue mass Heme: Conjunctiva pale. There is a bruise on the left foot under the great toe extending to the medial aspect of the foot Skin: Warm and Dry. Bruising on the head in multiple location; diffuse tenderness Advance Care Planning Advanced Care plannin - 30 Minutes Plan Plan 1. Fall under evaluation: Progressive ataxia more likely Communicating hydrocephalus and deconditing less likely Mechanical/stroke/seizure -Patient is progressively declining in the ability of taking care of himself and he is living alone at home. -CT head reveals Diffuse cortical atrophy notable on CT . no fractures or hematomas. No acute pathological findings on cervical spine. 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 Tele neurology consulted; recommends labs and MRI head. NIHSS score seven. Due to his high-risk of fall, no anticoagulation recommended at this time -TSH is 2.08 -Lactate is normal, Follow up with prolactin, vitamin B12 -Blood glucose is 81, placed on hypoglycemia/ hyperglycemia protocol -drying can worker consulted -PT eval and treat in a.m. for baseline and discharge planning -Fall precautions and neurochecks in place -Follow up with MRI and EEG as per Neurology consultation. may need to consider LP depends on MRI findings 2. Acute kidney injury: Likely secondary to ATN/intrarenal injury Creatinine down trended to 0.61 from 1.84 today -IVF at the rate of 100 cc/hour -Elevated proBNP likely secondary to JOAN. Chest x-ray without increased pulmonary vascular congestion -Follow spot urine studies -Continue monitoring BMP 3. COPD: Current smoker -RT eval and treat -Albuterol q.2h p.r.n. and duo nebs q.4 hours PRN 4. Hypertension urgency -Echocardiogram was normal -Continue clonidine 0.2 mg b.i.d. -Close monitoring of hemodynamic stability -IV hydralazine 10 mg p.r.n. 5. Peripheral arterial disease status post endarterectomy and bypass grafting: -Continue Plavix -Controlled blood pressure with clonidine -Pulses intact and warm bilateral lower extremities -Advice regarding importance of quitting smoking 6. Seizure disorder -carbamazepine level is 3.1 -Prolactin and lactic acid -Continue carbamazepine and primidone -Considering underlying structural brain damage and seizure disorder, baclofen to be discontinued as it can increase the risk -Continue home medication pregabalin 7.Lipoma on the back: -USG shows Wider than tall isoechoic structure in the superficial subcutaneous soft-tissue of the left back. Differential considerations could include lipoma or edema. Lines: PIV Code status: Full code Diet: Renal diet GI prophylaxis: Protonix DVT prophylaxis: Scds Disposition: Continue medical management and workup for progressive ataxia and falls. Resident attestation The above note has been reviewed and supervised by a senior resident PGY3 Patient was seen, examined and discussed with the attending physician Shiela Cam MD Internal Medicine Resident, PGY 1 Date of Service: Jun 07, 2025 Billing Provider: ESSENCE HATCH MD Common Visit Codes: [id number] INP/OBS CARE(HIGH) AFSHIN CAM, RES Jun 07, 2025 16:02 ESSENCE HATCH MD Jun 07, 2025 21:40
[2025-06-07] MEDS ORDERED: HYDROcodone/acetaminophen 5mg/325mg tablet PO PRN (16:05)
[2025-06-07] MEDS ORDERED: dextrose 50%-water 50ml dispensing syringe IV PRN ×2 (16:15)
[2025-06-07] MEDS ORDERED: DEXTROSE 15 GM of carb/4 tabs (each vial/BOTTLE has 4 tablets) PO PRN ×2 (16:15)
[2025-06-07] MEDS ORDERED: glucagon, human recombinant 1mg kit SUBCUT PRN (16:15)
[2025-06-07] MEDS ORDERED: hydrALAZINE 20mg/ml inj. IV PRN (16:30)
[2025-06-07] MEDS: INSULIN LISPRO 100 UNIT/ML INSULN.PEN MULTI-DOSE SQ SCH (16:55)
--- NOTE | 2025-06-07 18:42 | CARDIOLOGY REPORT ---
APPROVED REPORT EXAM: Comprehensive 2D, Doppler, and color-flow Echocardiogram. Patient Location: [address] Heart Rate: 60's bpm Rhythm: SINUS Indications CONGESTIVE HEART FAILURE HYPERTENSION COPD Armature [employer]: Hannah Arriola MD Previous echo: 04/16/24 [facility] EF 65%, trMR, trTR 2D Dimensions RVDd 3.0 cm IVSd 0.9 (0.7-1.1cm) LVDd 4.2 cm PWd 0.9 (0.7-1.1cm) IVSs 1.1 (0.8-1.2cm) LVDs 3.1 (2.5-4.0cm) PWs 1.1 (0.8-1.2cm) LVOT Diameter 2.06 (1.8-2.4cm) FS (%) 25.1 % SV 38.3 ml CO 2.6 L/min M-Mode Dimensions Aortic Root 3.23 (2.2-3.7cm) Aortic Valve AoV Peak Nick. 136.6 cm/s AoV VTI 24.6 cm AO Peak GR. 7.5 mmHg AO Mean GR. 4 mmHg LVOT VTI 20.14 cm LVOT Peak Nick. 95.6 cm/s ARNALDO(VTI)/BSA 2.73 cm2/m2 ARNALDO (VTI) 2.73 cm2 AV DI 0.82 % Mitral Valve MV E Velocity 57.0 cm/s MV Peak Gr. 3 mmHg MV DECEL TIME 244 ms MV A Velocity 79.4 cm/s MV PHT 56 ms E/A Ratio 0.7 MVA (PHT) 3.93 cm2 MV VMax 89.2 cm/s LEFT VENTRICLE Normal LV size and wall thickness. Overall systolic function is normal. LVEF is 55-60% RIGHT VENTRICLE The right ventricle is normal size. ATRIA The left atrium size appears normal. AORTIC VALVE Probabale trileaflet AV appears mildly sclerotic and calcified without stenosis. No insufficiency. MITRAL VALVE Mild MV annular calcification without stenosis. Trace regurgitation. TRICUSPID VALVE TV appears structurally normal with trace regurgitation. PULMONIC VALVE Pulmonic valve is not well visualized. GREAT VESSELS The aortic root is normal in size. PERICARDIUM Normal pericardium. No effusion. Other Information Study Quality: Adequate Conclusion Normal LV size and wall thickness. Overall systolic function is normal. LVEF is 55-60% The right ventricle is normal size. The left atrium size appears normal. Probabale trileaflet AV appears mildly sclerotic and calcified without stenosis. No insufficiency. Mild MV annular calcification without stenosis. Trace regurgitation. TV appears structurally normal with trace regurgitation. Normal pericardium. No effusion.
[2025-06-07] MEDS: normal saline 1000ml 1,000 ML IV SCH (18:55)
[2025-06-08 02:59] VITALS: O2SAT 99
[2025-06-08 06:00] VITALS: BP 118/68; PULSE 50; RESP 14; TEMP 98.2; O2SAT 99
[2025-06-08 06:56] LABS: MEAN PLATELET VOLUME 8.8 FL (7.4-10.4); RED CELL DISTRIBUTION WIDTH 15.9 % (11.5-14.5)
[2025-06-08 07:21] LABS: CREATININE 1.23 MG/DL (0.60-1.10); PHOSPHORUS 3.5 MG/DL (2.3-4.5); TOTAL CARBON DIOXIDE 25.4 MMOL/L (24-32); eCRCL 41 ML/MIN; eGFR 59 ML/MIN
[2025-06-08 08:00] VITALS: RESP 16; O2SAT 98
[2025-06-08] MEDS: pantoprazole 40mg Tablet.DR PO SCH (09:04)
[2025-06-08 10:00] VITALS: BP 135/69; PULSE 58; RESP 14; TEMP 98.4; O2SAT 100
[2025-06-08] MEDS: multivitamins, therapeutics tablet PO SCH (14:55)
--- NOTE | 2025-06-08 16:28 | PROGRESS NOTE- Residence ---
Progress Note - Resident Providers to CC Resident Creating Document: AFSHIN CAM, JESSICA ~ Antibiotic Timeout Antibiotic Ordered?: No Subjective Patient was seen at bedside. He is a poor historian, hard of hearing. Patient has improvement in weakness and he is able to ambulate with assistance. No acute overnight symptoms noted. Patient uses walker at home. Kept on fall precautions. caregiver ( [phone] - Olivia ) Objective Vital Signs Date Time Temp Pulse Resp B/P (MAP) Pulse Ox O2 Delivery O2 Flow Rate FiO2 06/08/25 10:00 98.4 58 14 135/69 (91) 100 Room Air 06/08/25 08:00 0.0 21 Result Diagram: 06/08/2560506/08/25605 General: Awake and Alert cachectic-appearing HEENT: Conjunctiva pale, Sclera clear, Mucus Membranes moist. Large ex-vacuo re-section of the right eye, part of the temporal bone Resp: Unlabored. Lungs clear to auscultation bilaterally. Heart: Regular Rate and rhythm, normal S1 and S2 without murmur, rub or gallop. Abdomen: Soft and non tender no organomegaly. Central large vertical scar present Extremities: No cyanosis,clubbing or edema. Bruising and tenderness in the bilateral knees. 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 Tongue midline. Mild dysarthria present. No other cranial nerve deficits. Poor nutrition in upper and lower extremities. Motor strength upper extremities 4+. Motor strength of right lower extremity 3+. Left lower extremity 4+. Preserved bilateral sensations. Reflexes 3+. Gait unable to be examined. Spine: 3 x 3 cms cystic appearing paravertebral soft tissue mass Heme: Conjunctiva pale. There is a bruise on the left foot under the great toe extending to the medial aspect of the foot Skin: Warm and Dry. Bruising on the head in multiple location; diffuse tenderness Plan Plan 1. Fall under evaluation: Progressive ataxia more likely Communicating hydrocephalus and deconditing less likely Mechanical/stroke/seizure -Patient is progressively declining in the ability of taking care of himself and he is living alone at home. -CT head reveals Diffuse cortical atrophy notable on CT . no fractures or hematomas. No acute pathological findings on cervical spine. 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 Tele neurology consulted; recommends labs and MRI head. NIHSS score seven. Due to his high-risk of fall, no anticoagulation recommended at this time -TSH is 2.08 -Lactate is normal, Follow up with prolactin, vitamin B12 -Blood glucose is 81, placed on hypoglycemia/ hyperglycemia protocol -silver spray worker consulted -Fall precautions and neurochecks in place -Follow up with MRI and patient may need to consider LP depends on MRI findings 2. Acute kidney injury: Likely secondary to ATN/intrarenal injury Creatinine down trended to 1.23 from 1.84 -Elevated proBNP likely secondary to JOAN. Chest x-ray without increased pulmonary vascular congestion -Follow spot urine studies -Continue monitoring BMP -IVF at the rate of 100 cc/hour 3. COPD: Current smoker -RT eval and treat -Albuterol q.2h p.r.n. and duo nebs q.4 hours PRN 4. Hypertension urgency -Echocardiogram was normal -Continue clonidine 0.2 mg b.i.d. -Close monitoring of hemodynamic stability -IV hydralazine 10 mg p.r.n. 5. Peripheral arterial disease status post endarterectomy and bypass grafting: -Continue Plavix -Controlled blood pressure with clonidine -Pulses intact and warm bilateral lower extremities -Advice regarding importance of quitting smoking 6. Seizure disorder -carbamazepine level is 3.1 -Prolactin and lactic acid -Continue carbamazepine and primidone -Considering underlying structural brain damage and seizure disorder, baclofen to be discontinued as it can increase the risk -Continue home medication pregabalin 7.Lipoma on the back: -USG shows Wider than tall isoechoic structure in the superficial subcutaneous soft-tissue of the left back. Differential considerations could include lipoma or edema. Peripheral neuropathy Continue Lyrica 75 mg p.o. daily Lines: PIV Code status: Full code Diet: Regular diet / multivitamins/fe GI prophylaxis: Protonix DVT prophylaxis: Scds Physical therapy: Post acute care([facility]) Disposition: Telemetry monitoring,workup for progressive ataxia and falls . Continue medical management Resident attestation The above note has been reviewed and supervised by a senior resident PGY3 Patient was seen, examined and discussed with the attending physician Shiela Cam MD Internal Medicine Resident, PGY 1 Date of Service: Jun 08, 2025 Billing Provider: ESSENCE HATCH MD Common Visit Codes: [id number] INP/OBS CARE(HIGH) AFSHIN CAM, RES Jun 08, 2025 16:28 ESSENCE HATCH MD Jun 08, 2025 21:49
[2025-06-08 18:00] VITALS: BP 130/70; PULSE 61; RESP 13; TEMP 97.4; O2SAT 98
--- NOTE | 2025-06-08 18:07 | RADIOLOGY REPORT ---
EXAM: MR MRI HEAD INDICATION: Fall; ataxia TECHNIQUE: Multiplanar, multisequence imaging of the brain without contrast. COMPARISON: CT CT HEAD on DOS: 06/06/25 FINDINGS: [PARENCHYMA]: No acute infarct or hemorrhage. No mass effect or herniation. No abnormal susceptibility weighted artifact. There are mild periventricular and centrum semiovale T2/FLAIR hyperintensities, which are nonspecific but most likely represent chronic microvascular ischemic change. [VENTRICLES]: No hydrocephalus. The ventricles and sulcation are prominent, compatible with cerebral volume loss. [EXTRA-AXIAL SPACES]: No extra-axial fluid collections. [FLOW VOIDS]: The flow voids are intact. [EXTRA-CRANIAL STRUCTURES]: The bony structures are intact. Prior visualized cataract surgery small amount of fluid in the left posterior inferior mastoid air cells IMPRESSION: 1. No MR evidence of an acute intracranial abnormality. Significant cerebral volume loss.
[2025-06-08 22:00] VITALS: BP 145/67; PULSE 57; RESP 15; TEMP 97.4; O2SAT 97
[2025-06-09 06:00] VITALS: BP 117/64; PULSE 57; RESP 12; TEMP 96.9; O2SAT 100
[2025-06-09 06:14] LABS: MEAN PLATELET VOLUME 9.1 FL (7.4-10.4); RED CELL DISTRIBUTION WIDTH 16.2 % (11.5-14.5)
[2025-06-09 06:21] LABS: CREATININE 1.32 MG/DL (0.60-1.10); PHOSPHORUS 4.2 MG/DL (2.3-4.5); TOTAL CARBON DIOXIDE 30.4 MMOL/L (24-32); eCRCL 38 ML/MIN; eGFR 55 ML/MIN
[2025-06-09 08:52] VITALS: PULSE 49; RESP 16; O2SAT 97
[2025-06-09 10:00] VITALS: BP 103/56; PULSE 63; RESP 16; TEMP 98; O2SAT 96
--- NOTE | 2025-06-09 14:09 | PROGRESS NOTE- Residence ---
Progress Note - Resident Providers to CC Resident Creating Document: AFSHIN CAM, RES ~ Central Line/PICC still needed: N\A Romero-Non Protocol Romero Indications Met/Not Met: F/C Indications Not Met Antibiotic Timeout Antibiotic Ordered?: No Subjective Patient was seen at bedside. No acute overnight symptoms noted. Patient endorses that his weakness improved compared to admission. caregiver ( [phone] - Olivia ) Objective Vital Signs Date Time Temp Pulse Resp B/P (MAP) Pulse Ox O2 Delivery O2 Flow Rate FiO2 06/09/25 10:00 98.0 63 16 103/56 (72) 96 Room Air 06/09/25 08:52 0 21 Result Diagram: 06/09/2543 06/09/2543 General: Awake and Alert cachectic-appearing, oriented to time place and person HEENT: Conjunctiva pale, Sclera clear, Mucus Membranes moist. Large ex-vacuo re-section of the right eye, part of the temporal bone Resp: Unlabored. Lungs clear to auscultation bilaterally. Heart: Regular Rate and rhythm, normal S1 and S2 without murmur, rub or gallop. Abdomen: Soft and non tender no organomegaly. Central large vertical scar present Extremities: No cyanosis,clubbing or edema. Bruising and tenderness in the bilateral knees. 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 Tongue midline. Mild dysarthria present. No other cranial nerve deficits. Poor nutrition in upper and lower extremities. Motor strength upper extremities 4+. Motor strength of right lower extremity 3+. Left lower extremity 4+. Preserved bilateral sensations. Reflexes 3+. Gait unable to be examined. Spine: 3 x 3 cms cystic appearing paravertebral soft tissue mass Heme: Conjunctiva pale. There is a bruise on the left foot under the great toe extending to the medial aspect of the foot Skin: Warm and Dry. Bruising on the head in multiple location; diffuse tenderness Advance Care Planning Advanced Care plannin - 30 Minutes Plan Plan Falls and Progressive ataxia of unknown etiology Age-related deconditing Ruled out Communicating hydrocephalus/stroke/seizure -Patient is progressively declining in the ability of taking care of himself and he is living alone at home. -CT head reveals Diffuse cortical atrophy notable on CT . no fractures or hematomas. No acute pathological findings on cervical spine. 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 Tele neurology consulted; recommends labs and MRI head. NIHSS score seven. Due to his high-risk of fall, no anticoagulation recommended at this time -TSH is 2.08 -Lactate is normal, Follow up with prolactin, vitamin B12 -Blood glucose is 81, placed on hypoglycemia/ hyperglycemia protocol -dry dip worker consulted -Fall precautions and neurochecks in place -MRI head showed no hydrocephalus and no acute intracranial abnormality. Significant cerebral volume loss. -PT recommended long-term acute care -patient was advised to follow up with outpatient PCP and the Neurology for evaluation of ataxia 2. Acute kidney injury Likely secondary to ATN/intrarenal injury Creatinine down trended to 1.32 today from 1.84 on admission -Elevated proBNP likely secondary to JOAN. Chest x-ray without increased pulmonary vascular congestion -Follow spot urine studies -Continue monitoring BMP -IV normal saline 500 mL bolus was given. -IVF at the rate of 100 cc/hour 3. COPD: Current smoker -RT eval and treat -Albuterol q.2h p.r.n. and duo nebs q.4 hours PRN 4. Hypertension urgency Telemetry showed sinus bradycardia with heart rate of 50-60s -Echocardiogram was normal -Continue clonidine 0.2 mg b.i.d. -Close monitoring of hemodynamic stability -IV hydralazine 5 mg p.r.n. 06/09/25: Discontinue clonidine in view of of sinus bradycardia Started on lisinopril 10 mg p.o. daily Monitor vitals Severe malnutrition Nutrition was consulted Recommended regular diet with multivitamin/iron/folic acid 5. Peripheral arterial disease status post endarterectomy and bypass grafting: -Continue Plavix -Controlled blood pressure with clonidine -Pulses intact and warm bilateral lower extremities -Advice regarding importance of quitting smoking 6. Seizure disorder -carbamazepine level is 3.1 -Prolactin and lactic acid -Continue carbamazepine and primidone -Considering underlying structural brain damage and seizure disorder, baclofen to be discontinued as it can increase the risk -Continue home medication pregabalin 7.Lipoma on the back: -USG shows Wider than tall isoechoic structure in the superficial subcutaneous soft-tissue of the left back. Differential considerations could include lipoma or edema. Peripheral neuropathy Continue Lyrica 75 mg p.o. daily Lines: PIV Code status: Full code Diet: Regular diet / multivitamins/fe GI prophylaxis: Protonix DVT prophylaxis: Scds Physical therapy: Post acute care([facility]), awaiting for placement confirmation. Disposition: Continue medical management. awaiting for placement confirmation. Resident attestation The above note has been reviewed and supervised by a senior resident PGY3 Patient was seen, examined and discussed with the attending physician Shiela Cam MD Internal Medicine Resident, PGY 1 Date of Service: Jun 09, 2025 Billing Provider: ESSENCE HATCH MD Common Visit Codes: [id number] INP/OBS CARE(HIGH) AFSHIN CAM, RES Jun 09, 2025 14:09 ESSENCE HATCH MD Jun 09, 2025 22:11
[2025-06-09 18:00] VITALS: BP 104/57; PULSE 57; RESP 16; TEMP 97.9; O2SAT 97
[2025-06-09 21:06] VITALS: PULSE 60; RESP 16; O2SAT 95
[2025-06-09 22:00] VITALS: BP 123/67; PULSE 60; RESP 14; TEMP 97.2; O2SAT 96
[2025-06-10 06:32] LABS: MEAN PLATELET VOLUME 9.2 FL (7.4-10.4); RED CELL DISTRIBUTION WIDTH 16.4 % (11.5-14.5)
[2025-06-10 06:41] VITALS: BP 165/68; PULSE 72; RESP 15; TEMP 96.9; O2SAT 95
[2025-06-10 06:59] LABS: CREATININE 1.13 MG/DL (0.60-1.10); PHOSPHORUS 3.8 MG/DL (2.3-4.5); TOTAL CARBON DIOXIDE 24.1 MMOL/L (24-32); eCRCL 45 ML/MIN; eGFR 65 ML/MIN
[2025-06-10 11:00] VITALS: BP 151/84; PULSE 71; RESP 15; TEMP 98.2; O2SAT 95
[2025-06-10 11:23] VITALS: PULSE 73; RESP 18; O2SAT 96
--- NOTE | 2025-06-10 16:45 | PROGRESS NOTE- Residence ---
Progress Note - Resident Providers to CC Resident Creating Document: AFSHIN CAM, RES ~ Romero-Non Protocol Romero Indications Met/Not Met: F/C Indications Not Met Antibiotic Timeout Antibiotic Ordered?: No Subjective Patient was seen at bedside. No acute overnight symptoms noted. Patient denies any concerns or complaints at the moment. caregiver ( [phone] - Olivia ) Objective Vital Signs Date Time Temp Pulse Resp B/P (MAP) Pulse Ox O2 Delivery O2 Flow Rate FiO2 06/10/25 11:23 73 18 96 Room Air* 0 21 06/10/25 11:00 98.2 151/84 (106) Result Diagram: 06/10/25 0553 06/10/25 0533 General: Awake and Alert cachectic-appearing, oriented to time place and person HEENT: Conjunctiva pale, Sclera clear, Mucus Membranes moist. Large ex-vacuo re-section of the right eye, part of the temporal bone Resp: Unlabored. Lungs clear to auscultation bilaterally. Heart: Regular Rate and rhythm, normal S1 and S2 without murmur, rub or gallop. Abdomen: Soft and non tender no organomegaly. Central large vertical scar present Extremities: No cyanosis,clubbing or edema. Bruising and tenderness in the bilateral knees. WELT BEATER: Oriented x4. Tongue midline. Mild dysarthria present. No other cranial nerve deficits. Poor nutrition in upper and lower extremities. Motor strength upper extremities 4+. Motor strength of right lower extremity 3+. Left lower extremity 4+. Preserved bilateral sensations. Reflexes 3+. Gait unable to be examined. Spine: 3 x 3 cms cystic appearing paravertebral soft tissue mass Heme: Conjunctiva pale. There is a bruise on the left foot under the great toe extending to the medial aspect of the foot Skin: Warm and Dry. Bruising on the head in multiple location; diffuse tenderness Advance Care Planning Advanced Care plannin - 30 Minutes Plan Plan Falls and Progressive ataxia of unknown etiology Age-related deconditing Ruled out Communicating hydrocephalus/stroke/seizure -Patient is progressively declining in the ability of taking care of himself and he is living alone at home. -CT head reveals Diffuse cortical atrophy notable on CT . no fractures or hematomas. No acute pathological findings on cervical spine. 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 Tele neurology consulted; recommends labs and MRI head. NIHSS score seven. Due to his high-risk of fall, no anticoagulation recommended at this time -TSH is 2.08 -Lactate is normal, Follow up with prolactin, vitamin B12 -Blood glucose is 81, placed on hypoglycemia/ hyperglycemia protocol -home worker consulted -Fall precautions and neurochecks in place -MRI head showed no hydrocephalus and no acute intracranial abnormality. Significant cerebral volume loss. -PT recommended long-term acute care -patient was advised to follow up with outpatient PCP and the Neurology for evaluation of ataxia -patient denies any complaints, waiting for the placement 2. Acute kidney injury, resolved Likely secondary to ATN/intrarenal injury Creatinine down trended to 1.32 today from 1.84 on admission -Elevated proBNP likely secondary to JOAN. Chest x-ray without increased pulmonary vascular congestion -Follow spot urine studies -Continue monitoring BMP -IV normal saline 500 mL bolus was given. -IVF at the rate of 100 cc/hour -06/10/25: Discontinue IV fluids 3. COPD: Current smoker -RT eval and treat -Albuterol q.2h p.r.n. and duo nebs q.4 hours PRN 4. Hypertension urgency Telemetry showed sinus bradycardia with heart rate of 50-60s -Echocardiogram was normal -Continue clonidine 0.2 mg b.i.d. -Close monitoring of hemodynamic stability -IV hydralazine 5 mg p.r.n. 06/09/25: Discontinue clonidine in view of of sinus bradycardia Started on lisinopril 10 mg p.o. daily Monitor vitals 06/10/25: Blood pressure is stable, continue lisinopril 10 mg p.o. daily Severe malnutrition Nutrition was consulted Recommended regular diet with multivitamin/iron/folic acid 5. Peripheral arterial disease status post endarterectomy and bypass grafting: -Continue Plavix -Controlled blood pressure with clonidine -Pulses intact and warm bilateral lower extremities -Advice regarding importance of quitting smoking 6. Seizure disorder -carbamazepine level is 3.1 -Prolactin and lactic acid -Continue carbamazepine and primidone -Considering underlying structural brain damage and seizure disorder, baclofen to be discontinued as it can increase the risk -Continue home medication pregabalin 7.Lipoma on the back: -USG shows Wider than tall isoechoic structure in the superficial subcutaneous soft-tissue of the left back. Differential considerations could include lipoma or edema. Peripheral neuropathy Continue Lyrica 75 mg p.o. daily Lines: PIV Code status: Full code Diet: Regular diet / multivitamins/fe GI prophylaxis: Protonix DVT prophylaxis: Scds Physical therapy: Post acute care([facility]), awaiting for placement confirmation. Disposition: Continue medical management. awaiting for placement confirmation. Resident attestation The above note has been reviewed and supervised by a senior resident PGY3 Patient was seen, examined and discussed with the attending physician Shiela Cam MD Internal Medicine Resident, PGY 1 Date of Service: Jun 10, 2025 Billing Provider: ESSENCE HATCH MD Common Visit Codes: [id number] INP/OBS CARE(HIGH) AFSHIN CAM, RES Jun 10, 2025 16:45 ESSENCE HATCH MD Jun 11, 2025 06:03
[2025-06-10 18:00] VITALS: BP 152/73; PULSE 66; RESP 15; TEMP 97.9; O2SAT 99
[2025-06-10 19:58] VITALS: PULSE 70; RESP 16; O2SAT 97
[2025-06-10 22:00] VITALS: BP 135/70; PULSE 66; RESP 16; TEMP 98.6; O2SAT 96
[2025-06-11 05:56] LABS: MEAN PLATELET VOLUME 9.2 FL (7.4-10.4); RED CELL DISTRIBUTION WIDTH 16.3 % (11.5-14.5)
[2025-06-11 06:00] VITALS: BP 150/72; PULSE 72; RESP 14; TEMP 97.2; O2SAT 96
[2025-06-11 06:11] LABS: CREATININE 1.11 MG/DL (0.60-1.10); PHOSPHORUS 3.6 MG/DL (2.3-4.5); TOTAL CARBON DIOXIDE 27.4 MMOL/L (24-32); eCRCL 45 ML/MIN; eGFR 67 ML/MIN
[2025-06-11 10:00] VITALS: BP 172/69; PULSE 76; RESP 16; TEMP 98.3; O2SAT 94
[2025-06-11 10:10] VITALS: PULSE 84; RESP 20; O2SAT 93
--- NOTE | 2025-06-11 12:20 | PROGRESS NOTE- Residence ---
Progress Note - Resident Providers to CC Resident Creating Document: AFSHIN CAM, JESSICA ~ Antibiotic Timeout Antibiotic Ordered?: No Subjective Patient was seen at bedside. No acute overnight symptoms noted. Patient denies any concerns or complaints at the moment. caregiver ( [phone] - Olivia ) Objective Vital Signs Date Time Temp Pulse Resp B/P (MAP) Pulse Ox O2 Delivery O2 Flow Rate FiO2 06/11/25 10:10 84 20 93 Room Air* 0 21 06/11/25 10:00 98.3 172/69 (103) Result Diagram: 06/11/25 0501 06/11/25 0501 General: Awake and Alert cachectic-appearing, oriented to time place and person HEENT: Conjunctiva pale, Sclera clear, Mucus Membranes moist. Large ex-vacuo re-section of the right eye, part of the temporal bone Resp: Unlabored. Lungs clear to auscultation bilaterally. Heart: Regular Rate and rhythm, normal S1 and S2 without murmur, rub or gallop. Abdomen: Soft and non tender no organomegaly. Central large vertical scar present Extremities: No cyanosis,clubbing or edema. Bruising and tenderness in the bilateral knees. CLINICAL CASE MANAGER: Oriented x4. Tongue midline. Mild dysarthria present. No other cranial nerve deficits. Poor nutrition in upper and lower extremities. Motor strength upper extremities 4+. Motor strength of right lower extremity 3+. Left lower extremity 4+. Preserved bilateral sensations. Reflexes 3+. Gait unable to be examined. Spine: 3 x 3 cms cystic appearing paravertebral soft tissue mass Heme: Conjunctiva pale. There is a bruise on the left foot under the great toe extending to the medial aspect of the foot Skin: Warm and Dry. Bruising on the head in multiple location; diffuse tenderness Plan Plan Falls and Progressive ataxia of unknown etiology Age-related deconditing Ruled out Communicating hydrocephalus/stroke/seizure -Patient is progressively declining in the ability of taking care of himself and he is living alone at home. -CT head reveals Diffuse cortical atrophy notable on CT . no fractures or hematomas. No acute pathological findings on cervical spine. 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 Tele neurology consulted; recommends labs and MRI head. NIHSS score seven. Due to his high-risk of fall, no anticoagulation recommended at this time -TSH is 2.08 -Lactate is normal, Follow up with prolactin, vitamin B12 -Blood glucose is 81, placed on hypoglycemia/ hyperglycemia protocol -web worker consulted -Fall precautions and neurochecks in place -MRI head showed no hydrocephalus and no acute intracranial abnormality. Significant cerebral volume loss. -PT recommended long-term acute care -patient was advised to follow up with outpatient PCP and the Neurology for evaluation of ataxia -patient denies any complaints, waiting for the placement 2. Acute kidney injury, resolved Likely secondary to ATN/intrarenal injury Creatinine down trended to 1.11 today from 1.84 on admission -Elevated proBNP likely secondary to JOAN. Chest x-ray without increased pulmonary vascular congestion -IV normal saline 500 mL bolus was given. -IVF at the rate of 100 cc/hour -06/10/25: Discontinue IV fluids Adequate oral hydration 3. COPD: Current smoker -RT eval and treat -Albuterol q.2h p.r.n. and duo nebs q.4 hours PRN 4. Hypertension urgency Telemetry showed sinus bradycardia with heart rate of 50-60s -Echocardiogram was normal -Continue clonidine 0.2 mg b.i.d. -Close monitoring of hemodynamic stability -IV hydralazine 5 mg p.r.n. 06/09/25: Discontinue clonidine in view of of sinus bradycardia Started on lisinopril 10 mg p.o. daily Monitor vitals 06/10/25: Blood pressure is stable, continue lisinopril 10 mg p.o. daily 06/11/25: Blood pressure is stable, continue lisinopril 10 mg p.o. daily Severe malnutrition Nutrition was consulted Recommended regular diet with multivitamin/iron/folic acid 5. Peripheral arterial disease status post endarterectomy and bypass grafting: -Continue Plavix -Controlled blood pressure with clonidine -Pulses intact and warm bilateral lower extremities -Advice regarding importance of quitting smoking 6. Seizure disorder -carbamazepine level is 3.1 -Prolactin and lactic acid -Continue carbamazepine and primidone -Considering underlying structural brain damage and seizure disorder, baclofen to be discontinued as it can increase the risk -Continue home medication pregabalin 7.Lipoma on the back: -USG shows Wider than tall isoechoic structure in the superficial subcutaneous soft-tissue of the left back. Differential considerations could include lipoma or edema. Peripheral neuropathy Continue Lyrica 75 mg p.o. daily Lines: PIV Code status: Full code Diet: Regular diet / multivitamins/fe GI prophylaxis: Protonix DVT prophylaxis: Scds Physical therapy: Post acute care([facility]), awaiting for placement confirmation. Disposition: Continue medical management. awaiting for placement confirmation. Resident attestation The above note has been reviewed and supervised by a senior resident PGY3 Patient was seen, examined and discussed with the attending physician Shiela Cam MD Internal Medicine Resident, PGY 1 Date of Service: Jun 11, 2025 Billing Provider: ESSENCE HATCH MD Common Visit Codes: [id number] INP/OBS CARE(HIGH) AFSHIN CAM, RES Jun 11, 2025 12:20 ESSENCE HATCH MD Jun 12, 2025 06:42
[2025-06-11 18:00] VITALS: BP 162/79; PULSE 76; RESP 17; TEMP 99; O2SAT 98
[2025-06-11 22:00] VITALS: BP 161/84; PULSE 78; RESP 17; TEMP 97.1; O2SAT 99
[2025-06-12] VITALS (9 sets, daily range): BP systolic 127–166; BP diastolic 60–91; PULSE 80–94; RESP 14–18; TEMP 98.3–101; O2SAT 92–98
[2025-06-12 10:06] LABS: MEAN PLATELET VOLUME 8.5 FL (7.4-10.4); RED CELL DISTRIBUTION WIDTH 16.0 % (11.5-14.5)
[2025-06-12 10:17] LABS: CREATININE 1.38 MG/DL (0.60-1.10); TOTAL CARBON DIOXIDE 27.8 MMOL/L (24-32); eCRCL 36 ML/MIN; eGFR 52 ML/MIN
[2025-06-12] MEDS: normal saline 1000ml 1,000 ML IV SCH (14:12)
--- NOTE | 2025-06-12 15:58 | PROGRESS NOTE- Residence ---
Progress Note - Resident Providers to CC Resident Creating Document: YOLANDA KEYS RES ~ Antibiotic Timeout Antibiotic Ordered?: No Subjective Patient was seen at bedside. No acute overnight symptoms noted. Patient denies any concerns or complaints at the moment. He says he is feeling fine and denies any pain Objective Vital Signs Date Time Temp Pulse Resp B/P (MAP) Pulse Ox O2 Delivery O2 Flow Rate FiO2 06/12/25 10:00 100.5 93 17 166/87 (113) 97 Room Air 06/12/25 08:15 0 21 Result Diagram: 06/12/2535 06/12/25934 General: Awake and Alert cachectic-appearing, oriented to time place and person HEENT: Conjunctiva pale, Sclera clear, Mucus Membranes moist. re-section of the right eye, part of the temporal bone Resp: Unlabored. Lungs clear to auscultation bilaterally. Heart: Regular Rate and rhythm, normal S1 and S2 without murmur, rub or gallop. Abdomen: Soft and non tender no organomegaly. Central large vertical scar present Extremities: No cyanosis,clubbing or edema. Bruising and tenderness in the bilateral knees. CUT AND COVER LINE WORKER: Oriented x4. Tongue midline. Mild dysarthria present. No other cranial nerve deficits. Poor nutrition in upper and lower extremities. Motor strength upper extremities 4+. Motor strength of right lower extremity 3+. Left lower extremity 4+. Preserved bilateral sensations. Reflexes 3+. Gait unable to be examined. Spine: 3 x 3 cms cystic appearing paravertebral soft tissue mass Heme: Conjunctiva pale. There is a bruise on the left foot under the great toe extending to the medial aspect of the foot Skin: Warm and Dry. Bruising on the head in multiple location; Advance Care Planning Advanced Care plannin - 30 Minutes Plan Plan Falls and Progressive ataxia of unknown etiology Age-related deconditing Ruled out Communicating hydrocephalus/stroke/seizure -Patient is progressively declining in the ability of taking care of himself and he is living alone at home. -CT head reveals Diffuse cortical atrophy notable on CT . no fractures or hematomas. No acute pathological findings on cervical spine. 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 Tele neurology consulted; recommends labs and MRI head. NIHSS score seven. Due to his high-risk of fall, no anticoagulation recommended at this time -TSH is 2.08 -Lactate is normal, Follow up with prolactin, vitamin B12 -Blood glucose is 81, placed on hypoglycemia/ hyperglycemia protocol -mud worker consulted -Fall precautions and neurochecks in place -MRI head showed no hydrocephalus and no acute intracranial abnormality. Significant cerebral volume loss. -PT recommended long-term acute care -patient was advised to follow up with outpatient PCP and the Neurology for evaluation of ataxia -patient denies any complaints, waiting for the placement 06/12/25 Waiting for the placement Fever Patient had fever around 101 received acetaminophen WBC count is normal 2. Acute kidney injury, resolved Likely secondary to ATN/intrarenal injury Creatinine down trended to 1.11 today from 1.84 on admission -Elevated proBNP likely secondary to JOAN. Chest x-ray without increased pulmonary vascular congestion -IV normal saline 500 mL bolus was given. -IVF at the rate of 100 cc/hour -06/10/25: Discontinue IV fluids Adequate oral hydration 06/12/25 JOAN, Pre Renal likely Secondary to Vasomotor Nephropathy Creatinine 1.38 BUN/creatinine ratio greater than 20 Continue IV N/S 100 mL/hour Follow up with CMP 3. COPD: Current smoker -RT eval and treat -Albuterol q.2h p.r.n. and duo nebs q.4 hours PRN 06/12/25 Continue albuterol q.2h p.r.n and DuoNebs q.4h PRN 4. Hypertension urgency Telemetry showed sinus bradycardia with heart rate of 50-60s -Echocardiogram was normal -Continue clonidine 0.2 mg b.i.d. -Close monitoring of hemodynamic stability -IV hydralazine 5 mg p.r.n. 06/09/25: Discontinue clonidine in view of of sinus bradycardia Started on lisinopril 10 mg p.o. daily Monitor vitals 06/10/25: Blood pressure is stable, continue lisinopril 10 mg p.o. daily 06/11/25: Blood pressure is stable, continue lisinopril 10 mg p.o. daily 06/12/25 Patient blood pressure was 168/87 in morning In the afternoon was 140/76 Increased from lisinopril 10 mg to 20 mg Hydralazine p.r.n. clonidine has been dced Severe malnutrition Nutrition was consulted Recommended regular diet with multivitamin/iron/folic acid 5. Peripheral arterial disease status post endarterectomy and bypass grafting: -Continue Plavix -Controlled blood pressure with clonidine -Pulses intact and warm bilateral lower extremities -Advice regarding importance of quitting smoking 06/12/25 Continue Plavix 6. Seizure disorder -carbamazepine level is 3.1 -Prolactin and lactic acid -Continue carbamazepine and primidone -Considering underlying structural brain damage and seizure disorder, baclofen to be discontinued as it can increase the risk -Continue home medication pregabalin 06/12/25 Continue carbamazepine, primidone and pregabalin. 7.Lipoma on the back: -USG shows Wider than tall isoechoic structure in the superficial subcutaneous soft-tissue of the left back. Differential considerations could include lipoma or edema. Peripheral neuropathy Continue Lyrica 75 mg p.o. daily Lines: PIV Code status: Full code Diet: Heart healthy diet GI prophylaxis: Protonix DVT prophylaxis: Plavix Physical therapy: Post acute care([facility]), awaiting for placement confirmation. Disposition: Continue medical management. Patient is awaiting for placement confirmation and will be discharged to [facility] like Yolanda Keys PGY1 Internal Medicine Resident, PGY 1 Date of Service: Jun 12, 2025 Billing Provider: ESSENCE HATCH MD Common Visit Codes: [id number] INP/OBS CARE(HIGH) YOLANDA KEYS, RES Jun 12, 2025 15:58 ESSENCE HATCH MD Jun 13, 2025 07:25
[2025-06-13 06:00] VITALS: BP 165/90; PULSE 80; RESP 16; TEMP 98.8; O2SAT 94
[2025-06-13 09:07] VITALS: PULSE 80; RESP 18; O2SAT 92
[2025-06-13 10:00] VITALS: BP 156/88; PULSE 81; RESP 16; TEMP 97.9; O2SAT 94
--- NOTE | 2025-06-13 15:05 | PROGRESS NOTE- Residence ---
Progress Note - Resident Providers to CC Resident Creating Document: DEJON KEYS RES ~ Antibiotic Timeout Antibiotic Ordered?: No Subjective Patient was seen at bedside. Patient denies any concern or convinced her to vomit he says he is feeling fine denies any pain Objective Vital Signs Date Time Temp Pulse Resp B/P (MAP) Pulse Ox O2 Delivery O2 Flow Rate FiO2 06/13/25 10:54 80 06/13/25 09:07 18 92 Room Air* 0 21 06/12/25 22:00 99.2 127/60 (82) Result Diagram: 06/12/2593406/12/25934 General: Awake and Alert cachectic-appearing, oriented to time place and person HEENT: Conjunctiva pale, Sclera clear, Mucus Membranes moist. re-section of the right eye, part of the temporal bone Resp: Unlabored. Lungs clear to auscultation bilaterally. Heart: Regular Rate and rhythm, normal S1 and S2 without murmur, rub or gallop. Abdomen: Soft and non tender no organomegaly. Central large vertical scar present Extremities: No cyanosis,clubbing or edema. Bruising and tenderness in the bilateral knees. COT ASSEMBLER: Oriented x4. Tongue midline. Mild dysarthria present. No other cranial nerve deficits. Poor nutrition in upper and lower extremities. Motor strength upper extremities 4+. Motor strength of right lower extremity 3+. Left lower extremity 4+. Preserved bilateral sensations. Reflexes 3+. Gait unable to be examined. Spine: 3 x 3 cms cystic appearing paravertebral soft tissue mass Heme: Conjunctiva pale. There is a bruise on the left foot under the great toe extending to the medial aspect of the foot Skin: Warm and Dry. Bruising on the head in multiple location; Advance Care Planning Advanced Care plannin - 30 Minutes Plan Plan Falls and Progressive ataxia of unknown etiology Age-related deconditing Ruled out Communicating hydrocephalus/stroke/seizure -Patient is progressively declining in the ability of taking care of himself and he is living alone at home. -CT head reveals Diffuse cortical atrophy notable on CT . no fractures or hematomas. No acute pathological findings on cervical spine. 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 Tele neurology consulted; recommends labs and MRI head. NIHSS score seven. Due to his high-risk of fall, no anticoagulation recommended at this time -TSH is 2.08 -Lactate is normal, Follow up with prolactin, vitamin B12 -Blood glucose is 81, placed on hypoglycemia/ hyperglycemia protocol -speeder worker consulted -Fall precautions and neurochecks in place -MRI head showed no hydrocephalus and no acute intracranial abnormality. Significant cerebral volume loss. -PT recommended long-term acute care -patient was advised to follow up with outpatient PCP and the Neurology for evaluation of ataxia -patient denies any complaints, waiting for the placement 06/12/25 Waiting for the placement Fever Patient had fever around 101 received acetaminophen WBC count is normal 06/13/25 WBC count normal Fever resolved Patient is waiting for replacement 2. Acute kidney injury, resolved Likely secondary to ATN/intrarenal injury Creatinine down trended to 1.11 today from 1.84 on admission -Elevated proBNP likely secondary to JOAN. Chest x-ray without increased pulmonary vascular congestion -IV normal saline 500 mL bolus was given. -IVF at the rate of 100 cc/hour -06/10/25: Discontinue IV fluids Adequate oral hydration 06/12/25 JOAN, Pre Renal likely Secondary to Vasomotor Nephropathy Creatinine 1.38 BUN/creatinine ratio greater than 20 Continue IV N/S 100 mL/hour Follow up with CMP 06/13/25 JOAN possibly prerenal likely secondary to vasomotor nephropathy Continue IV NS 100 mL per CMP awaiting 3. COPD: Current smoker -RT eval and treat -Albuterol q.2h p.r.n. and duo nebs q.4 hours PRN 06/12/25 Continue albuterol q.2h p.r.n and DuoNebs q.4h PRN 4. Hypertension urgency Telemetry showed sinus bradycardia with heart rate of 50-60s -Echocardiogram was normal -Continue clonidine 0.2 mg b.i.d. -Close monitoring of hemodynamic stability -IV hydralazine 5 mg p.r.n. 06/09/25: Discontinue clonidine in view of of sinus bradycardia Started on lisinopril 10 mg p.o. daily Monitor vitals 06/10/25: Blood pressure is stable, continue lisinopril 10 mg p.o. daily 06/11/25: Blood pressure is stable, continue lisinopril 10 mg p.o. daily 06/12/25 Patient blood pressure was 168/87 in morning In the afternoon was 140/76 Increased from lisinopril 10 mg to 20 mg Hydralazine p.r.n. clonidine has been dced 06/13/25 Patient blood pressure improved with lisinopril 20 mg, continue lisinopril 20 mg Severe malnutrition Nutrition was consulted Recommended regular diet with multivitamin/iron/folic acid 5. Peripheral arterial disease status post endarterectomy and bypass grafting: -Continue Plavix -Controlled blood pressure with clonidine -Pulses intact and warm bilateral lower extremities -Advice regarding importance of quitting smoking 06/12/25 Continue Plavix 6. Seizure disorder -carbamazepine level is 3.1 -Prolactin and lactic acid -Continue carbamazepine and primidone -Considering underlying structural brain damage and seizure disorder, baclofen to be discontinued as it can increase the risk -Continue home medication pregabalin 06/12/25 Continue carbamazepine, primidone and pregabalin. 7.Lipoma on the back: -USG shows Wider than tall isoechoic structure in the superficial subcutaneous soft-tissue of the left back. Differential considerations could include lipoma or edema. Peripheral neuropathy Continue Lyrica 75 mg p.o. daily Lines: PIV Code status: Full code Diet: Heart healthy diet GI prophylaxis: Protonix DVT prophylaxis: Plavix Physical therapy: Post acute care([facility]), awaiting for placement confirmation. Disposition: Continue medical management. Patient is awaiting for placement confirmation and will be discharged to [facility] on Sunday Dejon Keys PGY1 Internal Medicine Resident, PGY 1 Date of Service: Jun 13, 2025 Billing Provider: ESSENCE HATCH MD Common Visit Codes: [id number] INP/OBS CARE(MOD) DEJON KEYS, JESSICA Jun 13, 2025 15:05 ESSENCE HATCH MD Jun 14, 2025 07:40
[2025-06-13 15:38] LABS: MEAN PLATELET VOLUME 7.7 FL (7.4-10.4); RED CELL DISTRIBUTION WIDTH 16.0 % (11.5-14.5)
[2025-06-13 15:53] LABS: CREATININE 1.23 MG/DL (0.60-1.10); TOTAL CARBON DIOXIDE 26.8 MMOL/L (24-32); eCRCL 41 ML/MIN; eGFR 59 ML/MIN
[2025-06-13 16:05] LABS: BANDS% (MANUAL) 3.0 % (0-10); LYMPHOCYTES % (MANUAL) 15.0 % (21-51); MONOCYTES % (MANUAL) 17.0 % (2-12); NEUTROPHILS % (MANUAL) 65.0 % (42-75)
[2025-06-13 16:06] LABS: PLATELET ESTIMATE NORMAL
[2025-06-13 18:00] VITALS: BP 104/65; PULSE 74; RESP 16; TEMP 98.9; O2SAT 92
[2025-06-13 22:00] VITALS: BP 118/57; PULSE 69; RESP 16; TEMP 98; O2SAT 96
[2025-06-13 23:29] VITALS: PULSE 62; RESP 18; O2SAT 94
[2025-06-14 06:00] VITALS: BP 143/74; PULSE 67; RESP 16; TEMP 97.5; O2SAT 99
[2025-06-14 08:00] VITALS: RESP 16; O2SAT 99
[2025-06-14 08:53] LABS: MEAN PLATELET VOLUME 8.2 FL (7.4-10.4); RED CELL DISTRIBUTION WIDTH 15.7 % (11.5-14.5)
[2025-06-14 09:20] LABS: CREATININE 1.18 MG/DL (0.60-1.10); TOTAL CARBON DIOXIDE 27.5 MMOL/L (24-32); eCRCL 43 ML/MIN; eGFR 62 ML/MIN
[2025-06-14 09:54] LABS: BANDS% (MANUAL) 1.0 % (0-10); EOSINOPHILS % (MANUAL) 6.0 % (0-6); LYMPHOCYTES % (MANUAL) 24.0 % (21-51); METAMYLEOCYTES% (MANUAL) 1.0 % (0-0); MONOCYTES % (MANUAL) 18.0 % (2-12); NEUTROPHILS % (MANUAL) 50.0 % (42-75); PLATELET ESTIMATE NORMAL
[2025-06-14 10:00] VITALS: BP 142/73; PULSE 69; RESP 16; TEMP 97.1; O2SAT 98
--- NOTE | 2025-06-14 14:42 | PROGRESS NOTE- Residence ---
Progress Note - Resident Providers to CC Resident Creating Document: YOLANDA KEYS RES ~ Antibiotic Timeout Antibiotic Ordered?: No Subjective Patient was seen at bedside. Patient denies any concern or denies pain,reports he is feeling fine, was comfortable drinkig coffe Objective Vital Signs Date Time Temp Pulse Resp B/P (MAP) Pulse Ox O2 Delivery O2 Flow Rate FiO2 06/14/25 10:00 97.1 69 16 142/73 (96) 98 Room Air 06/13/25 23:29 0 21 Result Diagram: 06/14/25 0810 06/14/25 0810 General: Awake and Alert cachectic-appearing, oriented to time place and person HEENT: Conjunctiva pale, Sclera clear, Mucus Membranes moist. re-section of the right eye, part of the temporal bone Resp: Unlabored. Lungs clear to auscultation bilaterally. Heart: Regular Rate and rhythm, normal S1 and S2 without murmur, rub or gallop. Abdomen: Soft and non tender no organomegaly. Central large vertical scar present Extremities: No cyanosis,clubbing or edema. Bruising and tenderness in the bilateral knees. 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 Tongue midline. Mild dysarthria present. No other cranial nerve deficits. Poor nutrition in upper and lower extremities. Motor strength upper extremities 4+. Motor strength of right lower extremity 3+. Left lower extremity 4+. Preserved bilateral sensations. Reflexes 3+. Gait unable to be examined. Spine: 3 x 3 cms cystic appearing paravertebral soft tissue mass Heme: Conjunctiva pale. There is a bruise on the left foot under the great toe extending to the medial aspect of the foot Skin: Warm and Dry. Bruising on the head in multiple location; Advance Care Planning Advanced Care plannin - 30 Minutes Plan Plan Falls and Progressive ataxia of unknown etiology Age-related deconditing Ruled out Communicating hydrocephalus/stroke/seizure -Patient is progressively declining in the ability of taking care of himself and he is living alone at home. -CT head reveals Diffuse cortical atrophy notable on CT . no fractures or hematomas. No acute pathological findings on cervical spine. 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 Tele neurology consulted; recommends labs and MRI head. NIHSS score seven. Due to his high-risk of fall, no anticoagulation recommended at this time -TSH is 2.08 -Lactate is normal, Follow up with prolactin, vitamin B12 -Blood glucose is 81, placed on hypoglycemia/ hyperglycemia protocol -[facility] worker consulted -Fall precautions and neurochecks in place -MRI head showed no hydrocephalus and no acute intracranial abnormality. Significant cerebral volume loss. -PT recommended long-term acute care -patient was advised to follow up with outpatient PCP and the Neurology for evaluation of ataxia -patient denies any complaints, waiting for the placement 06/12/25 Waiting for the placement Fever Patient had fever around 101 received acetaminophen WBC count is normal 06/13/25 WBC count normal Fever resolved Patient is waiting for replacement 06/14/25 WBC count on 06/13/25, 2.9 and today trended upto 3.3 Leukopenia possibly could be due to carbamazepine use or possibly due to fluids. 2. Acute kidney injury, resolved Likely secondary to ATN/intrarenal injury Creatinine down trended to 1.11 today from 1.84 on admission -Elevated proBNP likely secondary to JOAN. Chest x-ray without increased pulmonary vascular congestion -IV normal saline 500 mL bolus was given. -IVF at the rate of 100 cc/hour -06/10/25: Discontinue IV fluids Adequate oral hydration 06/12/25 JOAN, Pre Renal likely Secondary to Vasomotor Nephropathy Creatinine 1.38 BUN/creatinine ratio greater than 20 Continue IV N/S 100 mL/hour Follow up with CMP 06/13/25 JOAN possibly prerenal likely secondary to vasomotor nephropathy Continue IV NS 100 mL per CMP awaiting 06/14/25 JOAN possibly prerenal likely secondary to vasomotor nephropathy Creatinine 1.18 Held IV fluids, in view of dilutional leukopenia Patient is tolerating oral fluids, ensure adequate hydration 3. COPD: Current smoker -RT eval and treat -Albuterol q.2h p.r.n. and duo nebs q.4 hours PRN 06/12/25 Continue albuterol q.2h p.r.n and DuoNebs q.4h PRN 4. Hypertension urgency Telemetry showed sinus bradycardia with heart rate of 50-60s -Echocardiogram was normal -Continue clonidine 0.2 mg b.i.d. -Close monitoring of hemodynamic stability -IV hydralazine 5 mg p.r.n. 06/09/25: Discontinue clonidine in view of of sinus bradycardia Started on lisinopril 10 mg p.o. daily Monitor vitals 06/10/25: Blood pressure is stable, continue lisinopril 10 mg p.o. daily 06/11/25: Blood pressure is stable, continue lisinopril 10 mg p.o. daily 06/12/25 Patient blood pressure was 168/87 in morning In the afternoon was 140/76 Increased from lisinopril 10 mg to 20 mg Hydralazine p.r.n. clonidine has been dced 06/13/25 Patient blood pressure improved with lisinopril 20 mg, continue lisinopril 20 mg Severe malnutrition Nutrition was consulted Recommended regular diet with multivitamin/iron/folic acid 5. Peripheral arterial disease status post endarterectomy and bypass grafting: -Continue Plavix -Controlled blood pressure with clonidine -Pulses intact and warm bilateral lower extremities -Advice regarding importance of quitting smoking 06/12/25 Continue Plavix 6. Seizure disorder -carbamazepine level is 3.1 -Prolactin and lactic acid -Continue carbamazepine and primidone -Considering underlying structural brain damage and seizure disorder, baclofen to be discontinued as it can increase the risk -Continue home medication pregabalin 06/12/25 Continue carbamazepine, primidone and pregabalin. 7.Lipoma on the back: -USG shows Wider than tall isoechoic structure in the superficial subcutaneous soft-tissue of the left back. Differential considerations could include lipoma or edema. Peripheral neuropathy Continue Lyrica 75 mg p.o. daily Lines: PIV Code status: Full code Diet: Heart healthy diet GI prophylaxis: Protonix DVT prophylaxis: Plavix Physical therapy: Post acute care([facility]), awaiting for placement confirmation. Disposition: Continue medical management. Patient is awaiting for placement confirmation and will be discharged to [facility] likely on Sunday am. Yolanda Keys PGY1 Internal Medicine Resident, PGY 1 Date of Service: Jun 14, 2025 Billing Provider: ESSENCE HATCH MD Common Visit Codes: [id number] INP/OBS CARE(MOD) YOLANDA KEYS, RES Jun 14, 2025 14:42 ESSENCE HATCH MD Jun 15, 2025 06:39
[2025-06-14 18:00] VITALS: BP 130/64; PULSE 75; RESP 14; TEMP 97.3; O2SAT 95
[2025-06-14 20:00] VITALS: RESP 14; O2SAT 95
[2025-06-14 22:00] VITALS: BP 115/59; PULSE 69; RESP 14; TEMP 98.1; O2SAT 95
[2025-06-15 05:47] LABS: MEAN PLATELET VOLUME 8.3 FL (7.4-10.4); RED CELL DISTRIBUTION WIDTH 16.4 % (11.5-14.5)
[2025-06-15 06:00] VITALS: BP 125/54; PULSE 65; RESP 14; TEMP 97.8; O2SAT 99
[2025-06-15 06:35] LABS: CREATININE 1.33 MG/DL (0.60-1.10); TOTAL CARBON DIOXIDE 26.9 MMOL/L (24-32); eCRCL 38 ML/MIN; eGFR 54 ML/MIN
[2025-06-15 09:42] VITALS: PULSE 69; RESP 12; O2SAT 97
[2025-06-15 11:00] VITALS: BP 139/77; PULSE 69; RESP 14; TEMP 96.8; O2SAT 97
[2025-06-15] MEDS ORDERED: LISI10TA27 PO (11:41)
--- NOTE | 2025-06-15 15:26 | DISCHARGE SUMMARY-Residence ---
Discharge Summary Providers to CC Resident Creating Document: ALETHA LAMAR RES ~ Discharge Summary Admission Diagnosis: JOAN Hospital Course DATE OF ADMISSION: 06/06/2025 DATE OF DISCHARGE: 06/15/2025 Chest x-ray: No acute cardiopulmonary abnormality or significant change from prior exam. Cervical spine CT: No evidence of acute cervical spine fracture or traumatic malalignment. Head CT: No evidence of acute intracranial abnormality. Moderate diffuse brain atrophy, out of proportion for patient's age. Mild communicating hydrocephalus. Echocardiogram: Normal LV size and wall thickness. Overall systolic function is normal. LVEF is 55-60% The right ventricle is normal size. The left atrium size appears normal. Probabale trileaflet AV appears mildly sclerotic and calcified without stenosis. No insufficiency. Mild MV annular calcification without stenosis. Trace regurgitation. TV appears structurally normal with trace regurgitation. Normal pericardium. No effusion. Soft tissue US: Wider than tall isoechoic structure in the superficial subcutaneous soft-tissue of the left back. Differential considerations could include lipoma or edema. Clinical correlation advised. Head MRI: No MR evidence of an acute intracranial abnormality. Significant cerebral volume loss. Laboratory Tests Test 06/14/25 08:10 06/15/25 05:04 White Blood Count 3.3 X10'3 5.1 X10'3 Red Blood Count 3.79 X10'6 3.36 X10'6 Hemoglobin 11.2 g/dl 10.0 g/dl Hematocrit 33.7 % 29.6 % Mean Corpuscular Volume 88.9 FL 88.3 FL Mean Corpuscular Hemoglobin 29.5 PG 29.9 PG Mean Corpuscular Hemoglobin Concent 33.2 g/dL 33.8 g/dL Red Cell Distribution Width 15.7 % 16.4 % Platelet Count 209 X10'3 198 X10'3 Mean Platelet Volume 8.2 FL 8.3 FL Neutrophils (%) (Auto) 46.7 % 46.9 % Lymphocytes (%) (Auto) 24.7 % 27.1 % Monocytes (%) (Auto) 20.6 % 17.7 % Eosinophils (%) (Auto) 6.7 % 7.0 % Basophils (%) (Auto) 1.3 % 1.3 % Neutrophils # (Auto) 1.5 X10'3 2.4 X10'3 Lymphocytes # (Auto) 0.8 X10'3 1.4 X10'3 Monocytes # (Auto) 0.7 X10'3 0.9 X10'3 Eosinophils # (Auto) 0.2 X10'3 0.4 X10'3 Basophils # (Auto) 0.0 X10'3 0.1 X10'3 CBC Comment Differential Total Cells Counted 100 Neutrophils % (Manual) 50.0 % Band Neutrophils % 1.0 % Lymphocytes % (Manual) 24.0 % Monocytes % (Manual) 18.0 % Eosinophils % (Manual) 6.0 % Metamyelocytes % 1.0 % Platelet Estimate Normal Red Blood Cell Morphology Perf Basophilic Stippling Anisocytosis 1+ Sodium Level 137 MMOL/L 139 MMOL/L Potassium Level 4.0 MMOL/L 4.2 MMOL/L Chloride Level 102 MMOL/L 105 MMOL/L Carbon Dioxide Level 27.5 MMOL/L 26.9 MMOL/L Anion Gap 8 7 Blood Urea Nitrogen 23 MG/DL 26 MG/DL Creatinine 1.18 MG/DL 1.33 MG/DL Estimated GFR/1.73 m2 62 ML/MIN 54 ML/MIN BUN/Creatinine Ratio 19.5 19.5 Glucose Level 98 MG/DL 96 MG/DL Calcium Level 7.8 MG/DL 7.7 MG/DL Total Bilirubin 0.3 MG/DL 0.2 MG/DL Aspartate Amino Transf (AST/SGOT) 43 U/L 39 U/L Alanine Aminotransferase (ALT/SGPT) 31 U/L 32 U/L Alkaline Phosphatase 84 IU/L 94 IU/L Total Protein 6.0 G/DL 5.6 G/DL Albumin 2.3 G/DL 2.2 G/DL Globulin 3.7 G/DL 3.4 G/DL Albumin/Globulin Ratio 0.6 0.6 Chemistry Comments Discharge Diagnosis\\Comment: Recurrent falls and Progressive ataxia Age-related deconditing Ruled out Communicating hydrocephalus/stroke/seizure Acute kidney injury,likely secondary to vasomotor nephropathy Hypertension urgency Severe malnutrition Peripheral arterial disease status post endarterectomy and bypass grafting Epilepsy Peripheral neuropathy Operations\\Procedures: None Consultants: Neurology Complications: None Condition on DC: Stable New Medications: Lisinopril (Lisinopril) 10 Mg Tablet 20 MG PO DAILY, #60 TAB Continued Medications: Acetaminophen (Acetaminophen ER) 650 Mg Tablet.er 1 TAB PO Q8H PRN for pain MDD 4000 Atorvastatin Calcium* (Lipitor*) 80 Mg Tablet 1 TABLET PO HS, TABLET Baclofen (Baclofen) 10 Mg Tablet 1 TAB PO TID Bisacodyl (Bisacodyl) 5 Mg Tablet.dr 5 MG PO BID Carbamazepine (Carbamazepine) 100 Mg Tab.chew 1 TAB PO BIDBL, TAB 0 Refills Carbamazepine* (Tegretol*) 100 Mg Tab.chew 200 MG PO HS Clopidogrel Bisulfate (Clopidogrel) 75 Mg Tablet 1 TAB PO DAILY Docusate Sodium (Colace) 100 Mg Capsule 1 CAP PO BID, CAP Duloxetine HCl (Duloxetine HCl) 60 Mg Capsule.dr 1 CAP PO DAILY Ferrous Sulfate (Ferrous Sulfate) 325 Mg (65 Mg Iron) Tablet.dr 1 TAB PO DAILY Fluticasone/Umeclidin/Vilanter (Trelegy Ellipta 200-62.5-25) 200-62.5 Blst.w.dev 1 PUFFS PO DAILY Folic Acid* (Folic Acid*) 1 Mg Tablet 1 TABLET PO HS, TABLET Ipratropium/Albuterol Sulfate (Duoneb 2.5-0.5 Mg/3 Ml Soln) 0.5 Mg-3 Mg (2.5 Mg Base)/3 Ml Ampul.neb 3 ML NEB QID Morphine Sulfate (MS CONTIN tablet) 30 Mg Tablet.sa 1 TAB PO Q8H Pantoprazole Sodium (PROTONIX tablet) 40 Mg Tablet.dr 20 MG PO DAILY, TAB.SR Pregabalin (Pregabalin) 150 Mg Capsule 1 CAP PO BID Primidone (Mysoline) 50 Mg Tablet 2 TAB PO HS, TAB 0 Refills Sertraline HCl (Sertraline HCl) 100 Mg Tablet 1 TAB PO DAILY Discontinued Medications: Clonidine HCl (Clonidine HCl) 0.2 Mg Tablet 1 TAB PO BID Discharge Summary: History of present illness Patient was admitted with the following HPI: "This is a 65-year-old male patient with a past medical history of hypertension, COPD, seizure disorder, 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 The patient is a poor historian, history also contributed from prior medical records. As per prior medical records, he has supposed to be on anticoagulation the patient is unsure. He reports multiple falls on an every day basis due to imbalance but today afternoon his legs gave away and he fell to the ground hitting his head, back, shoulders and lower extremities. Denies loss of consciousness, loss of bowel or bladder control. He has had worsening of his back pain and right lower extremity pain since then. He also complains of ongoing diffuse headache but this is not unusual as he has regular migraines. Also reports ongoing nausea and vomiting which again is not unusual for him as well since the cancer. His appetite and hydration has been at baseline. He in fact reports that he has been drinking plenty of fluids every day. Denies any fevers, chills, shortness of breath, chest pain, abdominal pain, diarrhea, urinary incontinence or retention." Hospital course 65-year-old male with a history of seizure disorder, stroke, and a brain tumor (right eye, status post resection) presented after an unwitnessed fall. He reported that he did not lose consciousness during the incident but hit his head multiple times, resulting in injuries to his back and knees. It was observed that his right side appeared weaker than his left, and his speech was slurred. The onset of these symptoms is unclear, as the patient, being a poor historian, believes they began this past November. He also reported using a walker due to ataxia. Brain imaging did not reveal any significant findings. The patient was treated for hypertensive urgency, and his blood pressure was controlled after administer ing lisinopril 20 mg daily. Acute kidney injury was noted upon admission but resolved during the hospital stay. The hospital course was uncomplicated; however, the patient continued to experience ataxia and difficulty walking. Although he was considered for post-acute care, insurance denied the request. He engaged with physical therapy and has been deemed stable for discharge with home health services. Discharge physical exam General: Awake and Alert cachectic-appearing, oriented to time place and person HEENT: Conjunctiva pale, Sclera clear, Mucus Membranes moist. re-section of the right eye, part of the temporal bone Resp: Unlabored. Lungs clear to auscultation bilaterally. Heart: Regular Rate and rhythm, normal S1 and S2 without murmur, rub or gallop. Abdomen: Soft and non tender no organomegaly. Central large vertical scar present Extremities: No cyanosis,clubbing or edema. Bruising and tenderness in the bilateral knees. 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 Tongue midline. Mild dysarthria present. No other cranial nerve deficits. Poor nutrition in upper and lower extremities. Motor strength upper extremities 4+. Motor strength of right lower extremity 3+. Left lower extremity 4+. Preserved bilateral sensations. Reflexes 3+. Unstable gait. Spine: 3 x 3 cms cystic appearing paravertebral soft tissue mass Heme: Conjunctiva pale. There is a bruise on the left foot under the great toe extending to the medial aspect of the foot Skin: Warm and Dry. Bruising on the head in multiple location; Discharge medications See below Discharge instructions Follow-up with your primary care physician in 1-2 weeks Continue physical therapy with home health Take lisinopril 20 mg daily Discontinue clonidine Continue other home medication Come back in case of fever, chest pain, shortness for breath, head injury or any other concerning symptoms *Problems/Diagnosis: (1) Falls frequently Status: Acute (2) Seizure disorder Status: Chronic (3) Hypertension, benign Status: Acute (4) JOAN (acute kidney injury) Status: Acute (5) Neuropathy Status: Chronic (6) Encephalopathy Status: Chronic (7) Peripheral arterial disease with history of revascularization Status: Chronic (8) Complex regional pain syndrome i of left lower limb Status: Chronic Total Time Spent on D/C: > 30 Minutes Date of Service: Jun 15, 2025 Billing Provider: ESSENCE HATCH MD Common Visit Codes: 00496-WTX/[id number] DISCH DAY >30min Problem Qualifiers (1) Encephalopathy: Encephalopathy type: unspecified encephalopathy Qualified Codes: G93.40 - Encephalopathy, unspecified ALETHA LAMAR, JESSICA Jun 15, 2025 15:26 ESSENCE HATCH MD Jun 16, 2025 08:18
== END 2025-06-15 14:48 | disposition home health service (06) | DRG 52 ==
LOC: ER 19:26 → ED HOLD 22:19 → EDBEDREQ 06-07 00:37 → ORTHO 4S 06-07 02:45
PROVIDERS: ADMIT Internal Medicine; ATTEND Internal Medicine
DX: G93.41 Metabolic encephalopathy (principal); N17.0 Acute kidney failure with tubular necrosis; E43 Unspecified severe protein-calorie malnutrition; I16.0 Hypertensive urgency; E78.5 Hyperlipidemia, unspecified; Z20.822 Contact with and (suspected) exposure to COVID-19; F41.9 Anxiety disorder, unspecified; I10 Essential (primary) hypertension; G40.909 Epilepsy, unspecified, not intractable, without status epilepticus; R27.0 Ataxia, unspecified; E11.51 Type 2 diabetes mellitus with diabetic peripheral angiopathy without gangrene; E86.0 Dehydration; J44.9 Chronic obstructive pulmonary disease, unspecified; Z88.0 Allergy status to penicillin; Z79.899 Other long term (current) drug therapy; Z68.1 Body mass index [BMI] 19.9 or less, adult
CPT/HCPCS: 36415; 70450; 70551; 71045; 72125; 76882; 80048; 80053; 80061; 80156; 80305; 81001; 82607; 82948; 83036; 83605; 83735; 83880; 84100; 84146; 84443; 84484; 85007; 85025; 87081; 87811; 93005; 93306; 94760; 96374; 97110; 97116; 97163; 97530; 99285; A4615; A6212; G0378; J1644; J1815; J2270; J2405; J7030; J7120

== ENCOUNTER 2025-07-17 13:02 | Inpatient (IN) | payer MEDICAID ==
[~2025-07-17] VITALS: Ht 172.7 cm; Wt 52.3 kg
[~2025-07-17 13:02] MED LIST changes: +ASPI-1071 PO; -CARB100T15 PO; +CARB200C7 PO; -CLON-330 PO; +CLOP75TA34 PO; +CYAN100T47 PO; +FERR325T7 PO; +LOSA50TA64 PO; +METO-395 PO; +MULT-25 PO; +NOR5T PO; +PANT40TA54 PO; -TEG100T PO; +TOPI-95 PO
--- NOTE | 2025-07-17 13:44 | RADIOLOGY REPORT ---
CHEST RADIOGRAPH Indication: CP Technique: Single frontal view of the chest was obtained COMPARISON: DI CHEST,SINGLE VIEW on DOS: 07/02/25, DI CHEST,SINGLE VIEW on DOS: 06/06/25, DI CHEST,SINGLE VIEW on DOS: 01/09/25, DI CHEST,SINGLE VIEW on DOS: 01/08/25, DI CHEST,SINGLE VIEW on DOS: 01/06/25 FINDINGS: Lines and Tubes: None Lungs: Scarring or atelectasis in the left lower lobe. Pleura: No effusion. No pneumothorax. Cardiomediastinal contours: Unremarkable Bones: Unremarkable IMPRESSION: Scarring or atelectasis in the left lower lobe.
--- NOTE | 2025-07-17 13:47 | ELECTROCARDIOGRAPH REPORT ---
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 MALLORIE Meza Measurements Intervals [place] Rate: 59 P: 78 ME: 182 QRS: 42 QRSD: 117 T: 54 QT: 456 QTc: 452 Interpretive Statements Sinus bradycardia Left ventricular hypertrophy Borderline T abnormalities, lateral leads Anterior ST elevation, probably due to LVH Electronically Signed On 07-19-2025 15:16:[address] MALLORIE Meza Please click the below link to view image of tracing.
[2025-07-17 13:50] LABS: MEAN PLATELET VOLUME 8.4 FL (7.4-10.4); RED CELL DISTRIBUTION WIDTH 17.5 % (11.5-14.5)
--- NOTE | 2025-07-17 13:54 | Physician Documentation ---
History of Present Illness ~ General Chief Complaint: ALOC Stated Complaint: ALOC Time Seen by MD: 13:06 Primary Medical Doctor: None Mode of Arrival: EMS, Stretcher History of Present Illness Initial Comments 65-year-old male was brought to the ED by the EMS, for encephalopathy. Patient was [facility] ago for age-related decline in functional decline, severe dehydration, team calorie malnutrition, and was discharged on 07/13/25 with instructions to follow up with the surgeon Dr. Kyrie Mcleod outpatient for his bilateral ICA aneurysms. As per EMS: Patient was extremely dehydrated and was found altered by his caregiver at home, which prompted the caregiver to call 911 for immediate trans ferred to the ED. Patient had similar complaints during his last admission and was altered. He had a stroke workup where an MRI brain a CT head were done which did not show any acute pathologies. Patient is currently altered, does not provide any relevant medical history. Medication Reconciliation Allergies: Coded Allergies: Penicillins (Verified Allergy, Unknown, ANAPHYLAXIS, 07/17/25) PT TOLERATED ROCEPHIN 2020 Uncoded Allergies: ALL VEGETABLES (Allergy, Intermediate, 03/13/16) DIFFICULTY SWALLOWING All Nuts (Allergy, Unknown, 03/23/17) Scheduled Amlodipine Besylate (Amlodipine Besylate), 10 MG PO DAILY Aspirin (Ecotrin*), 1 TAB PO DAILY Atorvastatin Calcium* (Lipitor*), 1 TABLET PO HS, (Reported) Baclofen (Baclofen), 1 TAB PO Q8H, (Reported) Bisacodyl (Bisacodyl), 5 MG PO BID, (Reported) Carbamazepine (Carbamazepine), 1 CAP PO TID, (Reported) Clopidogrel Bisulfate (Clopidogrel), 1 TAB PO DAILY, (Reported) Cyanocobalamin (Vitamin B-12) (Vitamin B-12), 100 MCG PO DAILY Docusate Sodium (Colace), 1 CAP PO BID, (Reported) Duloxetine HCl (Duloxetine HCl), 1 CAP PO DAILY, (Reported) Ferrous Sulfate (Ferrous Sulfate), 1 TAB PO DAILY, (Reported) Fluticasone/Umeclidin/Vilanter (Trelegy Ellipta 200-62.5-25), 1 PUFFS PO DAILY, (Reported) Folic Acid* (Folic Acid*), 1 TABLET PO HS, (Reported) Folic Acid* (Folic Acid*), 1 MG PO DAILY Ipratropium/Albuterol Sulfate (Duoneb 2.5-0.5 Mg/3 Ml Soln), 3 ML NEB QID, (Reported) Losartan Potassium (Losartan Potassium), 1 TAB PO DAILY Metoprolol Succinate (Metoprolol Succinate), 50 MG PO DAILY Morphine Sulfate (MS CONTIN tablet), 1 TAB PO Q8H, (Reported) Multivitamin with Folic Acid (Thera Tablet), 1 EACH PO DAILY Pantoprazole Sodium (PROTONIX tablet), 20 MG PO DAILY, (Reported) Pantoprazole Sodium (Pantoprazole Sodium), 40 MG PO DAILY Pregabalin (Pregabalin), 1 CAP PO BID, (Reported) Primidone (Mysoline), 2 TAB PO HS, (Reported) Sertraline HCl (Sertraline HCl), 1 TAB PO DAILY, (Reported) Topiramate (Topiramate), 1 TAB PO HS, (Reported) Scheduled PRN Acetaminophen (Acetaminophen ER), 1 TAB PO Q8H PRN for pain, (Reported) Past Medical History Past Medical History: Seizures, Hypertension, COPD, Anemia, Chronic Pain, Deep Vein Thrombosis, Anxiety Other Past Medical History: Age-related deconditing and functional decline Bilateral ICA brain aneurysms Acute kidney injury, most likely prerenal 2/2 renal tubular stasis- resolved Severe protein calorie malnutrition Normocytic normochromic anemia Seizure disorder COPD, not in exacerbation hypertension Peripheral arterial disease status post endarterectomy and bypass grafting Past Surgical History: abdominal surgery, other Patient History: (DM Type 2) Diabetes mellitus type 2 MOTHER Alcohol Use: None Drug Use: none Lives with: Alone Lives In: Home Occupation: disabled Unable to obtain complete PMH: altered mental status Review of Systems Unable to obtain complete ROS: altered mental status Physical Exam Physical Exam Vital Signs: Temperature: 98.5, Source: Oral, Heart Rate: 61, Respiratory Rate: 16, BP: 167/77, Pulse Oximetry: 98, Weight: 52.270 Oxygen Flow Rate: 0 Physical Exam Disoriented, ANO*0 HEENT: Atraumatic, normocephalic, EOMI, anicteric sclera ; pale conjunctiva Neck: Trachea midline. Supple, full range of motion, no JVD Cardiac: Regular rhythm, regular rate with no murmurs all over the precordium. Respiratory: Mild wheezing with crackles present Gastrointestinal: Abdomen symmetric, non-distended, soft, non-tender, normal bowel sounds x4 quadrant, normoactive, no hepatosplenomegaly Musculoskeletal: Linear scar present over the abdomen Neurological: Could not be performed Skin: Warm and dry Progress Results/Orders Results/Orders Orders - OHLFS,JOE Sanders MD Page Hospitalist (07/17/25 17:02) Fill Out Med Reconciliation (07/17/25 17:02) Levofloxacin-Levaquin 250mg/D5 (Levaquin (07/18/25 08:00) Completed Orders - OHLJOE MARROQUIN MD Normal Saline 1000ml (0.9% Sodium Chlori (07/17/25 17:05) Ceftriaxone/L8c-Htwmoauh 1gm (Rocephin 1 (07/17/25 17:20) Vital Signs 07/17/25 07/17/25 07/17/25 07/17/25 13:05 13:35 13:35 14:52 Temp 98.5 Pulse 60 61 60 Resp 18 16 16 16 B/P (MAP) 176/8 167/77 (107) 179/104 (129) Pulse Ox 97 98 93 O2 Flow Rate 0 0 0 07/17/25 07/17/25 15:56 16:26 Pulse 70 62 Resp 16 16 B/P (MAP) 184/86 (118) 186/97 (126) Pulse Ox 94 99 O2 Flow Rate 0 0 Laboratory Tests Test 07/17/25 13:10 07/17/25 13:28 07/17/25 13:31 07/17/25 14:49 White Blood Count 12.1 H Red Blood Count 4.02 L Hemoglobin 12.1 L Hematocrit 37.2 L Mean Corpuscular Volume 92.7 Mean Corpuscular Hemoglobin 30.2 Mean Corpuscular Hemoglobin Concent 32.6 L Red Cell Distribution Width 17.5 H Platelet Count 436 Mean Platelet Volume 8.4 Neutrophils (%) (Auto) 78.3 H Lymphocytes (%) (Auto) 10.3 L Monocytes (%) (Auto) 6.1 Eosinophils (%) (Auto) 4.3 Basophils (%) (Auto) 1.0 Neutrophils # (Auto) 9.5 H Lymphocytes # (Auto) 1.2 Monocytes # (Auto) 0.7 Eosinophils # (Auto) 0.5 Basophils # (Auto) 0.1 CBC Comment Sodium Level 142 Potassium Level 4.2 Chloride Level 107 Carbon Dioxide Level 23.8 L Anion Gap 11 Blood Urea Nitrogen 38 H Creatinine 1.72 H Estimated GFR/1.73 m2 40 BUN/Creatinine Ratio 22.1 H Glucose Level 95 Calcium Level 8.9 Troponin I High Sensitivity 18 Pro-B-Type Natriuretic Peptide 281 H Albumin 3.6 Procalcitonin < 0.05 Chemistry Comments SARS-CoV-2 Antigen (Rapid) Negative Influenza Type A Antigen Negative Influenza Type B Antigen Negative Urine Specimen Description Romero cath Urine Color Yellow Urine Clarity Slightly cloudy Urine pH 5.5 Urine Specific [place] 1.020 Urine Protein Trace Urine Glucose (UA) Negative Urine Ketones Negative Urine Occult Blood Small Urine Nitrite Negative Urine Bilirubin Negative Urine Urobilinogen 0.2 Urine Leukocyte Esterase Negative Urine RBC 20-50 Urine WBC 5-10 H Urine Squamous Epithelial Cells None seen Urine Transitional Epithelial Cells Few Urine Bacteria Few Urine Culture Indicated Indicated Volume Urine Centrifuged 10 ml Urine Comment Test 07/17/25 15:30 07/17/25 16:31 Troponin I High Sensitivity 19 Troponin I High Sens Percent Delta 5 Troponin I Hi Sens Absolute Change 1 Microbiology Date/Time Source Procedure Growth Status 07/17/25 15:08 Urine Romero Cath Urine Culture - Preliminary Culture received. Resulted Medical Decision Making Additional information obtaine: old records Findings Altered mental sensorium: Patient was recently admitted here for similar complaints Repeat CT head ordered Urinalysis ordered Follow up with CBC/CMP Blood glucose levels as per EMS were 91 EKG: Sinus bradycardia with a heart rate of 59 Differential Diagnosis Altered mental sensorium Metabolic encephalopathy secondary to UTI Possibly secondary to acute stroke Departure Impression: Primary Impression: Acute confusion Additional Impressions: Altered mental status Qualified Codes: R41.82 - Altered mental status, unspecified Urinary tract infection Referrals: NO PRIMARY CARE PROVIDER (PCP) Signature Scribe Signature: No scribe Attestation: Trell Hernandez MD Internal Medicine Resident, PGY-2 TRELL HERNANDEZ, RES Jul 17, 2025 13:54 [facility] Jul 17, 2025 17:30
[2025-07-17 14:06] LABS: INFLUENZA TYPE A ANTIGEN RAPID NEGATIVE (Negative); INFLUENZA TYPE B ANTIGEN RAPID NEGATIVE (Negative)
[2025-07-17 14:06] LABS: CREATININE 1.72 MG/DL (0.60-1.10); PRO BRAIN NATRIURETIC PEPTIDE 281 PG/ML (0-125); TOTAL CARBON DIOXIDE 23.8 MMOL/L (24-32); eCRCL 32 ML/MIN; eGFR 40 ML/MIN
--- NOTE | 2025-07-17 14:15 | RADIOLOGY REPORT ---
CT CT HEAD Indication: For any acute pathology/ patient presented with altered mental sensorium EXAM DATE: 07/17/2025 01:46 PM COMPARISON: CT CT HEAD on DOS: 07/05/25, TECHNIQUE: CT of the head without intravenous contrast. RADIATION DOSE: CTDIvol: 61 mGy, DLP: 1088 mGy*cm FINDINGS: There is no intracranial hemorrhage. There is no extra-axial fluid, mass, mass effect or midline shift. The ventricles are midline and normal in size. Basilar cisterns are patent. There is moderate global cerebral volume loss. Mild periventricular and subcortical white matter chronic microvascular ischemic changes. The paranasal sinuses and mastoids are well-pneumatized. Right orbital enucleation. Mucosal thickening right maxillary sinus, ethmoids. IMPRESSION: No intracranial hemorrhage or mass effect. Moderate global cerebral volume loss. Mild chronic microvascular ischemic changes. Paranasal sinus disease.
[2025-07-17 15:00] LABS: LEUKOCYTE ESTERASE ,URINE NEGATIVE (Neg); NITRITES, URINE NEGATIVE (Neg); OCCULT BLOOD,URINE SMALL (Neg)
[2025-07-17 15:03] LABS: UA COLLECTION TYPE FOLEY CATH
[2025-07-17 15:06] LABS: SQUAMOUS EPITHELIAL CELL,UR NONE SEEN /LPF (FEW)
[2025-07-17] MEDS ORDERED: CefTRIAXone/D5W-Rocephin 1gm 50 ML IV ONE (17:20)
--- NOTE | 2025-07-17 18:09 | HISTORY AND PHYSICAL-Residence ---
History & Physical Providers to CC Resident Creating Document: JAYSON DEWITTSUMMER, RES ~ History of Present Illness Primary Medical Doctor: [facility] Reason for Admit\Complaint: Altered level of consciousness History of Present Illness 65-year-old male patient presented to the hospital with chief complaint of altered level of consciousness. The patient was evaluated at the bedside, currently somnolent, poor historian, complaining of some back pain. Caregiver (Claus Leon point number:[phone]) who was contacted who mentioned that the patient was recently discharged from [facility] on 07/13, after discharge he was completely normal for a couple of days, able to walk by himself, completely oriented but during the last two days the patient has been experiencing progressive decline in which got worse today. This morning the patient was not able to wake up, speak, appeared severely confused and mumbling when she was trying to wake him up. Upon further evaluation the patient has been able to complaint of burning sensation with urine. Allergies: Coded Allergies: Penicillins (Verified Allergy, Unknown, ANAPHYLAXIS, 07/17/25) PT TOLERATED ROCEPHIN 2020 Uncoded Allergies: ALL VEGETABLES (Allergy, Intermediate, 03/13/16) DIFFICULTY SWALLOWING All Nuts (Allergy, Unknown, 03/23/17) Home Medications Home Medications Active Thera Tablet (Multivitamin with Folic Acid) 400 Mcg Tablet 1 Each PO DAILY 30 Days Folic Acid* (Folic Acid) Y Tab 1 Mg PO DAILY 30 Days Vitamin B-12 (Cyanocobalamin (Vitamin B-12)) 100 Mcg Tablet 100 Mcg PO DAILY 30 Days Pantoprazole Sodium 40 Mg Tablet.dr 40 Mg PO DAILY 30 Days Ecotrin* (Aspirin) 81 Mg Tablet.dr 1 Tab PO DAILY 30 Days Amlodipine Besylate 5 Mg Tablet 10 Mg PO DAILY 30 Days Metoprolol Succinate 25 Mg Tab.sr.24h 50 Mg PO DAILY 30 Days Losartan Potassium 50 Mg Tablet 1 Tab PO DAILY 30 Days Reported Carbamazepine 200 Mg Cpmp.12hr 1 Cap PO TID 30 Days Baclofen 10 Mg Tablet 1 Tab PO Q8H 30 Days Topiramate 50 Mg Tablet 1 Tab PO HS 30 Days Clopidogrel (Clopidogrel Bisulfate) 75 Mg Tablet 1 Tab PO DAILY Ferrous Sulfate 325 Mg (65 Mg Iron) Tablet.dr 1 Tab PO DAILY Duloxetine HCl 60 Mg Capsule.dr 1 Cap PO DAILY Mysoline (Primidone) 50 Mg Tablet 2 Tab PO HS PROTONIX tablet (Pantoprazole Sodium) 40 Mg Tablet.dr 20 Mg PO DAILY Acetaminophen ER (Acetaminophen) 650 Mg Tablet.er 1 Tab PO Q8H PRN MDD 4000 Duoneb 2.5-0.5 Mg/3 Ml Soln (Ipratropium/Albuterol Sulfate) 0.5 Mg-3 Mg (2.5 Mg Base)/3 Ml Ampul.neb 3 Ml NEB QID Trelegy Ellipta 200-62.5-25 (Fluticasone/Umeclidin/Vilanter) 200-62.5 Blst.w.dev 1 Puffs PO DAILY Bisacodyl 5 Mg Tablet.dr 5 Mg PO BID Pregabalin 150 Mg Capsule 1 Cap PO BID MS CONTIN tablet (Morphine Sulfate) 30 Mg Tablet.sa 1 Tab PO Q8H Sertraline HCl 100 Mg Tablet 1 Tab PO DAILY Colace (Docusate Sodium) 100 Mg Capsule 1 Cap PO BID Folic Acid* (Folic Acid) 1 Mg Tablet 1 Tablet PO HS Lipitor* (Atorvastatin Calcium) 80 Mg Tablet 1 Tablet PO HS Past Medical History Past Medical History Recurrent falls and Progressive ataxia COPD 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 Family History Family History: (DM Type 2) Diabetes mellitus type 2 MOTHER Past Social History Smoking: Cigarettes (As per caregiver he currently smokes 2-3 cigarettes per day.) Alcohol Use: None Drug Use: None Lives with: Alone Lives In: Home (Caregiver: Claus Leon. Phone number: [phone].) Occupation: disabled ROS Genitourinary: Reports: burning Unable to obtain: altered mental status Exam Vitals: Vital Signs Date Time Temp Pulse Resp B/P (MAP) Pulse Ox O2 Delivery O2 Flow Rate FiO2 07/17/25 16:26 62 16 186/97 (126) 99 0 07/17/25 13:05 98.5 Physical exam: General: Somnolent, oriented to person but not in place or time. Not in acute distress. HEENT: Conjunctive are pink, sclerae clear, no icterus, pupils is reactive in the left side, no evidence of secretion. Absence of right eye covered with patch. Presence of hematoma in the level of the left eye Neck: Supple, no adenopathy, thyromegaly. Trachea is midline. No JVD. Chest: Respiratory: Vesicular breath sounds. No ronchi, crepitus or wheezing. Resonance is normal upon percussion of all lung bermudez. Cardiovascular: S1-S2 regular sinus rhythm and, regular rate, no gallops, no rubs, no murmurs Abdomen: No visible distention, Bowel sounds present on auscultation, on palpation: soft, nontender, no guarding, no rigidity. Presence of scar in the midline of the abdomen. Extremities: No obvious deformities, no pitting edema bilaterally, capillary refill intact, peripheral pulsations are intact on both sides Neurologic: Mental status: Somnolent, oriented to person but not in place or time. Difficult to complete neurological exam due to compression of the patient. Skin: Warm and dry. Presence of scar in the level of the left thigh from previous surgery. Diagnostic Data Last Recorded Lab Results: 07/17/25 1310 07/17/25 1310 Advance Care Planning Advanced Care plannin - 30 Minutes (Unable to discuss code status with the patient at this time due to altered level of consciousness. Full code at this time, to be readdressed in the morning.) Additional Plan Assessment and plan: 65-year-old male patient presented to the hospital with chief complaint of altered level of consciousness. Altered level of consciousness: Metabolic versus toxic encephalopathy: The patient presented with the hospital with altered level of consciousness. By caregiver he was not able to eat or stand and he usually is able to walk by himself. Urinalysis suggestive of infection. Leukocytosis evidenced with WBC of 12.1. Head CT scan: No intracranial hemorrhage or mass effect. Moderate global cerebral volume loss. Mild chronic microvascular ischemic changes. Paranasal sinus disease. Plan: Follow-up TSH. Ceftriaxone 1 g IV daily. Follow-up Utox. Fall precautions. Aspiration precautions. NPO until passing swallow evaluation. Hypertensive emergency: Home medication amlodipine 10 mg p.o., metoprolol succinate 50 mg daily, losartan 25 mg daily. Hydralazine 10 mg q.4h as needed for SBP more than 160 or DBP more than 90 mmHg. Prerenal acute kidney injury likely secondary to dehydration: Creatinine levels 1.72, BUN/creatinine ratio 22.1. Plan: Follow-up urine lytes. NS at 80 mL/hour. Normocytic normochromic anemia: Follow-up iron studies Continue to monitor CBC. Transfuse if hemoglobin levels dropped below seven. Bilateral ICA brain aneurysms: The patient was recently discharged on 07/13/2025: Head CT at that time showed Patent arteries in the head and neck without large vessel occlusion, dissection, significant stenosis, or AVM. Aneurysms are seen off the left ICA terminus and off the right clinoid ICA. The aneurysm off the left ICA terminus measures 5.3 x 4.9 cm and the aneurysm which is peripherally calcified off the clinoid right ICA measures 5.9 x 6.4 cm. Severe centrilobular emphysema. Prior resection of the right globe, orbit, and partial resection of the right paranasal sinuses. To follow up with Dr. Crouch as an outpatient. H/O seizure: We will continue carbamazepine and primidone after med reconciliation. COPD not in acute exacerbation: DuoNebs q.4h PRN. H/O PAD: We will continue place after med rec. Code status: Full code DVT prophylaxis: Heparin Analgesia/sedation: Morphine Line/tube: PIV GI prophylaxis: Protonix Nutrition: Regular diet after passing swallow evaluation. PT: Yes Prognosis: Guarded Disposition: The patient will be admitted to neuro floor with telemetry. Summer Dewitt Internal Medicine Resident [facility] Date of Service: Jul 17, 2025 Billing Provider: ESSENCE HATCH MD Common Visit Codes: [id number] INP/OBS CARE (HIGH) Secondary Visit Codes: [id number] CARE PLAN 30 MINUTES SUMMER ACOSTA, RES Jul 17, 2025 18:09 ESSENCE HATCH MD Jul 19, 2025 08:15
[2025-07-17] MEDS: normal saline 1000ML IV soln IVB ONE (18:19)
[2025-07-17] MEDS ORDERED: potassium Cl 40MEQ/1/2NS 520ml 520 ML IV PRN (18:20)
[2025-07-17] MEDS ORDERED: magnesium Cl slow-release 64mg tablet PO PRN (18:20)
[2025-07-17] MEDS ORDERED: magnesium sulf-water 2g/50mL 50 ML IV PRN (18:20)
[2025-07-17] MEDS ORDERED: magnesium sulf-water 4G/100mL 100 ML IV PRN (18:20)
[2025-07-17] MEDS ORDERED: mag hydrox/Alum hydrox/simeth 30ml oral suspension PO PRN (18:20)
[2025-07-17] MEDS ORDERED: magnesium hydroxide 30ml (MOM) UD suspension PO PRN (18:20)
[2025-07-17] MEDS ORDERED: ondansetron/PF 4mg/2ml inj IV PRN (18:20)
[2025-07-17] MEDS ORDERED: potassium Cl 20 mEq SR tablet PO PRN ×2 (18:20)
[2025-07-17] MEDS ORDERED: ipratropium/albuterol 3ml nebule NEB PRN (18:40)
[2025-07-17] MEDS: normal saline 1000ml 1,000 ML IV SCH (18:53)
[2025-07-17 19:04] LABS: OSMOLALITY 308 MOSM/K (280-300)
[2025-07-17] MEDS: heparin, porcine 5000 units/ml vial SQ SCH (19:08)
[2025-07-17] MEDS: hydrALAZINE 20mg/ml inj. IV PRN (19:09)
[2025-07-17 19:39] LABS: CREATININE,URINE RANDOM 111.0 MG/DL; TOTAL PROTEIN,URINE RANDOM 53.4 MG/DL; UA UREA RANDOM 853.0 MG/DL; URINE AMPHETAMINE SCREEN NEGATIVE (Neg); URINE BARBITUATE SCREEN POSITIVE (Neg); URINE BENZODIAZEPINES SCREEN NEGATIVE (Neg); URINE CANNABINOID SCREEN NEGATIVE (Neg); URINE COCAINE SCREEN NEGATIVE (Neg); URINE METHADONE SCREEN NEGATIVE (Neg); URINE OPIATE SCREEN POSITIVE (Neg); URINE PHENCYCLIDINE SCREEN NEGATIVE (Neg)
[2025-07-17 19:40] LABS: OSMOLALITY UA 654.0 MOSM/K (50-1400)
[2025-07-17] MEDS: K and/or MAG REPLACEMENT MC SCH (20:00)
[2025-07-17] MEDS: CefTRIAXone/D5W-Rocephin 1gm 50 ML IV ONE (20:04)
[2025-07-17 20:53] VITALS: PULSE 81; RESP 18; O2SAT 97
[2025-07-17 22:17] VITALS: BP 183/82; PULSE 84; RESP 18; TEMP 98.4; O2SAT 92
[2025-07-17 23:53] VITALS: RESP 18; O2SAT 92
[2025-07-18] VITALS (12 sets, daily range): BP systolic 123–182; BP diastolic 68–88; PULSE 67–86; RESP 15–16; TEMP 97.1–99.6; O2SAT 96–99
[2025-07-18 05:16] LABS: MEAN PLATELET VOLUME 8.2 FL (7.4-10.4); RED CELL DISTRIBUTION WIDTH 17.2 % (11.5-14.5)
[2025-07-18 05:30] LABS: CREATININE 1.41 MG/DL (0.60-1.10); TOTAL CARBON DIOXIDE 24.2 MMOL/L (24-32); eCRCL 39 ML/MIN; eGFR 51 ML/MIN
[2025-07-18 06:06] LABS: % IRON SATURATION 15.0 % (11-46)
[2025-07-18] MEDS: CefTRIAXone/D5W-Rocephin 1gm 50 ML IV SCH (07:03)
[2025-07-18] MEDS: pantoprazole 40mg Tablet.DR PO SCH (07:05)
[2025-07-18] MEDS ORDERED: levoFLOXACIN-Levaquin 250mg/D5 50 ML IV SCH (08:00)
[2025-07-18] MEDS: metoprolol succinate 25mg (24-HOUR) SR. Tablet PO SCH (11:04)
[2025-07-18] MEDS: ipratropium/albuterol 3ml nebule NEB SCH (13:00)
[2025-07-18] MEDS: carBAMazepine 100mg chewable tablet PO SCH ×2 (13:01→20:31)
[2025-07-18] MEDS ORDERED: metoprolol succinate 25mg (24-HOUR) SR. Tablet PO SCH (15:00)
--- NOTE | 2025-07-18 16:16 | RADIOLOGY REPORT ---
CLINICAL INDICATION: Right shoulder pain TECHNIQUE: DI SHOULDER, COMPLETE (MIN 2 VWS) Comparison: None FINDINGS/IMPRESSION: : There is no evidence of acute fracture or dislocation. Mild degenerative changes of the acromioclavicular joint with osteophytosis. Soft tissues are unremarkable.
--- NOTE | 2025-07-18 16:18 | RADIOLOGY REPORT ---
CHEST RADIOGRAPH Indication: RIGHT LOWER RIB PAIN Technique: 3 views of the right ribs available for evaluation. Comparison: None FINDINGS: Lines and Tubes: None Lungs: No focal consolidation. Left lower lung zone linear densities. Vascular stent is noted overlying the right medial clavicular head. Pleura: No effusion. No pneumothorax. Cardiomediastinal contours: Unremarkable Bones: No acute osseous abnormality. IMPRESSION: No acute rib fractures. Left lower lung zone atelectasis/scarring.
--- NOTE | 2025-07-18 16:19 | PROGRESS NOTE- Residence ---
Progress Note - Resident Providers to CC Resident Creating Document: LEONARDA PAYTON RES ~ Antibiotic Timeout Antibiotic Ordered?: Yes Subjective PATIENT WAS SEEN AND EXAMINED AT THE BEDSIDE. Patient currently complaining of right shoulder back pain. No acute overnight events recorded. Objective Vital Signs Date Time Temp Pulse Resp B/P (MAP) Pulse Ox O2 Delivery O2 Flow Rate FiO2 07/18/25 16:08 67 16 96 Room Air* 0 21 07/18/25 13:50 157/71 (99) 07/18/25 10:00 97.7 Result Diagram: 07/18/2543207/18/25432 General: Somnolent, oriented to person . Not in acute distress. HEENT: Conjunctive are pink, sclerae clear, no icterus, pupils is reactive in the left side, no evidence of secretion. Absence of right eye covered with patch. Presence of hematoma in the level of the left eye Neck: Supple, no adenopathy, thyromegaly. Trachea is midline. No JVD. Chest: Respiratory: Vesicular breath sounds. No ronchi, crepitus or wheezing. Resonance is normal upon percussion of all lung bermudez. Cardiovascular: S1-S2 regular sinus rhythm and, regular rate, no gallops, no rubs, no murmurs Abdomen: No visible distention, Bowel sounds present on auscultation, on palpation: soft, nontender, no guarding, no rigidity. Presence of scar in the midline of the abdomen. Extremities: No obvious deformities, no pitting edema bilaterally, capillary refill intact, peripheral pulsations are intact on both sides Neurologic: Mental status: Somnolent, oriented to person but not in place or time. Difficult to complete neurological exam due to compression of the patient. Skin: Warm and dry. Presence of scar in the level of the left thigh from previous surgery. Plan Plan Altered level of consciousness: Metabolic versus toxic encephalopathy: The patient presented with the hospital with altered level of consciousness. By caregiver he was not able to eat or stand and he usually is able to walk by himself. Urinalysis suggestive of infection. Leukocytosis evidenced with WBC of 12.1. Head CT scan: No intracranial hemorrhage or mass effect. Moderate global cerebral volume loss. Mild chronic microvascular ischemic changes. Paranasal sinus disease. TSH normal Ceftriaxone 1 g IV daily. U tox positive for opiates and barbiturates Fall precautions. Aspiration precautions. Hypertensive emergency: Home medication amlodipine 10 mg p.o., metoprolol succinate 50 mg daily, losartan 25 mg daily. Hydralazine 10 mg q.4h as needed for SBP more than 160 or DBP more than 90 mmHg. Prerenal acute kidney injury likely secondary to dehydration: Creatinine levels 1.72, BUN/creatinine ratio 22.1. Plan: NS at 80 mL/hour. Normocytic normochromic anemia: Current hemoglobin 11.8 Continue to monitor CBC. Transfuse if hemoglobin levels dropped below seven. Bilateral ICA brain aneurysms: The patient was recently discharged on 07/13/2025: Head CT at that time showed Patent arteries in the head and neck without large vessel occlusion, dissection, significant stenosis, or AVM. Aneurysms are seen off the left ICA terminus and off the right clinoid ICA. The aneurysm off the left ICA terminus measures 5.3 x 4.9 cm and the aneurysm which is peripherally calcified off the clinoid right ICA measures 5.9 x 6.4 cm. Severe centrilobular emphysema. Prior resection of the right globe, orbit, and partial resection of the right paranasal sinuses. To follow up with Dr. Crouch as an outpatient. COPD not in acute exacerbation: DuoNebs q.4h PRN. Disposition- patient currently complaining of right shoulder pain and right hip pain for which right shoulder x-ray and rib series have been ordered. Follow-up Code status: Full code DVT prophylaxis: Heparin Analgesia/sedation: Morphine Line/tube: PIV GI prophylaxis: Protonix Nutrition: Heart healthy PT: Yes Prognosis: Guarded Leonarda Payton PGY-1 Date of Service: Jul 18, 2025 Billing Provider: ESSENCE HATCH MD Common Visit Codes: [id number] INP/OBS CARE(HIGH) LEONARDA PAYTON, RES Jul 18, 2025 16:19 ESSENCE HATCH MD Jul 19, 2025 08:24
[2025-07-18] MEDS: oxyCODONE IR 5mg (immed. release) tablet PO PRN (16:48)
[2025-07-19] VITALS (9 sets, daily range): BP systolic 125–145; BP diastolic 57–78; PULSE 66–82; RESP 16–18; TEMP 97.1–98.8; O2SAT 98–99
[2025-07-19 05:44] LABS: MEAN PLATELET VOLUME 8.5 FL (7.4-10.4); RED CELL DISTRIBUTION WIDTH 17.2 % (11.5-14.5)
[2025-07-19 06:00] LABS: CREATININE 1.21 MG/DL (0.60-1.10); TOTAL CARBON DIOXIDE 23.3 MMOL/L (24-32); eCRCL 46 ML/MIN; eGFR 60 ML/MIN
[2025-07-19] MEDS: multivitamins, therapeutics tablet PO SCH (08:55)
[2025-07-19] MEDS: aspirin 81mg, enteric-coated 1 TAB TABLET.DR PO SCH (08:55)
[2025-07-19] MEDS: duloxetine 30mg CAPSULE.DR PO SCH (08:56)
[2025-07-19] MEDS ORDERED: LEVO-65 PO (13:20)
[2025-07-19] MEDS ORDERED: LACT1CAP26 PO (13:20)
[2025-07-19] MEDS ORDERED: LISI20TA28 PO (13:20)
--- NOTE | 2025-07-19 15:38 | DISCHARGE SUMMARY-Residence ---
Discharge Summary Providers to CC Resident Creating Document: LEONARDA MCFARLANE RES ~ Discharge Summary Admission Diagnosis: ALOC Hospital Course DATE OF ADMISSION: 07/17/25 DATE OF DISCHARGE: 07/19/25 Imaging- Head CT- No intracranial hemorrhage or mass effect. Moderate global cerebral volume loss. Mild chronic microvascular ischemic changes. Paranasal sinus disease. Chest x-ray- Scarring or atelectasis in the left lower lobe. Ribs x-ray- No acute rib fractures. Left lower lung zone atelectasis/scarring. Shoulder x-ray- There is no evidence of acute fracture or dislocation. Mild degenerative changes of the acromioclavicular joint with osteophytosis. Discharge Diagnosis\Comment: Altered level of consciousness: Metabolic encephalopathy due to underlying UTI toxic encephalopathy ruled out Hypertensive emergency Prerenal acute kidney injury likely secondary to dehydration Normocytic normochromic anemia Bilateral ICA brain aneurysms H/O seizure COPD not in acute exacerbation H/O PAD Operations\Procedures: None Consultants: None Complications: None Condition on DC: Stable New Medications: Lactobacillus Rhamnosus (Culturelle) 10 Billion Cell Capsule 1 CAP PO BID for 30 Days, #60 CAP 0 Refills Levofloxacin (Levofloxacin) 500 Mg Tablet 1 TAB PO DAILY for 7 Days, #7 TAB Lisinopril (Lisinopril) 20 Mg Tablet 1 TAB PO DAILY for 30 Days, #30 TAB Continued Medications: Acetaminophen (Acetaminophen ER) 650 Mg Tablet.er 1 TAB PO Q8H PRN for pain MDD 4000 Aspirin (Ecotrin*) 81 Mg Tablet.dr 1 TAB PO DAILY for 30 Days, #30 TAB.SR Atorvastatin Calcium* (Lipitor*) 80 Mg Tablet 1 TABLET PO HS, TABLET Baclofen (Baclofen) 10 Mg Tablet 1 TAB PO Q8H for 30 Days, #90 TAB 0 Refills Bisacodyl (Bisacodyl) 5 Mg Tablet.dr 5 MG PO BID Carbamazepine (Carbamazepine) 200 Mg Cpmp.12hr 1 CAP PO TID for 30 Days, #60 CAP 0 Refills Clopidogrel Bisulfate (Clopidogrel) 75 Mg Tablet 1 TAB PO DAILY Cyanocobalamin (Vitamin B-12) (Vitamin B-12) 100 Mcg Tablet 100 MCG PO DAILY for 30 Days, #30 TAB Docusate Sodium (Colace) 100 Mg Capsule 1 CAP PO BID, CAP Duloxetine HCl (Duloxetine HCl) 60 Mg Capsule.dr 1 CAP PO DAILY Ferrous Sulfate (Ferrous Sulfate) 325 Mg (65 Mg Iron) Tablet.dr 1 TAB PO DAILY Fluticasone/Umeclidin/Vilanter (Trelegy Ellipta 200-62.5-25) 200-62.5 Blst.w.dev 1 PUFFS PO DAILY Folic Acid* (Folic Acid*) 1 Mg Tablet 1 TABLET PO HS, TABLET Ipratropium/Albuterol Sulfate (Duoneb 2.5-0.5 Mg/3 Ml Soln) 0.5 Mg-3 Mg (2.5 Mg Base)/3 Ml Ampul.neb 3 ML NEB QID Morphine Sulfate (MS CONTIN tablet) 30 Mg Tablet.sa 1 TAB PO Q8H Multivitamin with Folic Acid (Thera Tablet) 400 Mcg Tablet 1 EACH PO DAILY for 30 Days, #30 TAB Pantoprazole Sodium (Pantoprazole Sodium) 40 Mg Tablet.dr 40 MG PO DAILY for 30 Days, #30 TAB.SR Pregabalin (Pregabalin) 150 Mg Capsule 1 CAP PO BID Primidone (Mysoline) 50 Mg Tablet 2 TAB PO HS, TAB 0 Refills Sertraline HCl (Sertraline HCl) 100 Mg Tablet 1 TAB PO DAILY Topiramate (Topiramate) 50 Mg Tablet 1 TAB PO HS for 30 Days, #60 TAB 0 Refills Discontinued Medications: Amlodipine Besylate (Amlodipine Besylate) 5 Mg Tablet 10 MG PO DAILY for 30 Days, #30 TAB Folic Acid* (Folic Acid*) Y Tab 1 MG PO DAILY for 30 Days, #30 TAB Losartan Potassium (Losartan Potassium) 50 Mg Tablet 1 TAB PO DAILY for 30 Days, #30 TAB 0 Refills Metoprolol Succinate (Metoprolol Succinate) 25 Mg Tab.sr.24h 50 MG PO DAILY for 30 Days, #30 TAB.SR Pantoprazole Sodium (PROTONIX tablet) 40 Mg Tablet.dr 20 MG PO DAILY, TAB.SR Discharge Summary: 65-year-old male patient presented to the hospital with chief complaint of altered level of consciousness. The patient was evaluated at the bedside, currently somnolent, poor historian, complaining of some back pain. Caregiver (Clausmarilyn Leon point number:[phone]) who was contacted who mentioned that the patient was recently discharged from [facility] on 07/13, after discharge he was completely normal for a couple of days, able to walk by himself, completely oriented but during the last two days the patient has been experiencing progressive decline in which got worse today. This morning the patient was not able to wake up, speak, appeared severely confused and mumbling when she was trying to wake him up. Upon further evaluation the patient has been able to complaint of burning sensation with urine. Course during the hospital stay- Patient was admitted for altered level of consciousness due to metabolic encephalopathy due to his underlying UTI, urine analysis positive for UTI with increased WBC count of 12.1 for which we started him on ceftriaxone 1 g IV d ail. Fall precautions and aspiration precautions placed. The next day patient is condition improved significantly, was awake well-oriented to time and place, was interacting well with the doctor. His WBC count eventually trended down and was back to normal on the day of discharge. Patient was afebrile. And was hemodynamically stable at the time of discharge. During his stay patient was also complaining of right shoulder pain, right back pain for which imaging was ordered and everything was found to be normal, no dislocations fracture seen in the shoulder joint or the ribs. Patient follow-up outpatient with Dr. Crouch for his ICA brain aneurysms. During his last visit to the hospital patient was maintaining blood pressure is within the normal range by taking only lisinopril, so we stopped all the other anti antihypertensive medications that the patient is using and discharged him only on lisinopril. Vital Signs Date Time Temp Pulse Resp B/P (MAP) Pulse Ox O2 Delivery O2 Flow Rate FiO2 07/19/25 12:40 72 18 Room Air 0.0 07/19/25 12:34 99 21 07/19/25 10:00 98.8 125/57 (79) Laboratory Tests Test 07/17/25 16:31 07/18/25 04:33 07/19/25 04:35 Troponin I High Sensitivity 16 ng/L Troponin I High Sens Percent Delta 15 % Troponin I Hi Sens Absolute Change -3 ng/L White Blood Count 11.5 X10'3 8.8 X10'3 Red Blood Count 3.85 X10'6 3.32 X10'6 Hemoglobin 11.8 g/dl 10.3 g/dl Hematocrit 35.8 % 30.8 % Mean Corpuscular Volume 93.0 FL 93.0 FL Mean Corpuscular Hemoglobin 30.7 PG 31.2 PG Mean Corpuscular Hemoglobin Concent 33.0 g/dL 33.5 g/dL Red Cell Distribution Width 17.2 % 17.2 % Platelet Count 407 X10'3 382 X10'3 Mean Platelet Volume 8.2 FL 8.5 FL Neutrophils (%) (Auto) 73.1 % 62.4 % Lymphocytes (%) (Auto) 12.1 % 21.1 % Monocytes (%) (Auto) 10.5 % 10.7 % Eosinophils (%) (Auto) 3.3 % 4.9 % Basophils (%) (Auto) 1.0 % 0.9 % Neutrophils # (Auto) 8.4 X10'3 5.5 X10'3 Lymphocytes # (Auto) 1.4 X10'3 1.9 X10'3 Monocytes # (Auto) 1.2 X10'3 0.9 X10'3 Eosinophils # (Auto) 0.4 X10'3 0.4 X10'3 Basophils # (Auto) 0.1 X10'3 0.1 X10'3 CBC Comment Sodium Level 141 MMOL/L 141 MMOL/L Potassium Level 4.3 MMOL/L 3.7 MMOL/L Chloride Level 109 MMOL/L 110 MMOL/L Carbon Dioxide Level 24.2 MMOL/L 23.3 MMOL/L Anion Gap 8 8 Blood Urea Nitrogen 30 MG/DL 25 MG/DL Creatinine 1.41 MG/DL 1.21 MG/DL Estimated GFR/1.73 m2 51 ML/MIN 60 ML/MIN BUN/Creatinine Ratio 21.3 20.7 Glucose Level 89 MG/DL 90 MG/DL Calcium Level 8.5 MG/DL 7.8 MG/DL Magnesium Level 2.1 MG/DL 1.8 MG/DL Iron Level 35 UG/DL Total Iron Binding Capacity 233 UG/DL Percent Iron Saturation 15 % Ferritin 96 NG/ML Total Bilirubin 0.3 MG/DL 0.2 MG/DL Aspartate Amino Transf (AST/SGOT) 26 U/L 23 U/L Alanine Aminotransferase (ALT/SGPT) 21 U/L 19 U/L Alkaline Phosphatase 110 IU/L 88 IU/L Total Protein 7.1 G/DL 5.8 G/DL Albumin 3.2 G/DL 2.5 G/DL Globulin 3.9 G/DL 3.3 G/DL Albumin/Globulin Ratio 0.8 0.8 Thyroid Stimulating Hormone (TSH) 1.11 ulU/ml Chemistry Comments Examination at the time of discharge- General: Awake, oriented to person , place and time. Not in acute distress. HEENT: Conjunctive are pink, sclerae clear, no icterus, pupils is reactive in the left side, no evidence of secretion. Absence of right eye covered with patch. Presence of hematoma in the level of the left eye Neck: Supple, no adenopathy, thyromegaly. Trachea is midline. No JVD. Respiratory: Vesicular breath sounds. No ronchi, crepitus or wheezing. Resonance is normal upon percussion of all lung bermudez. Cardiovascular: S1-S2 regular sinus rhythm and, regular rate, no gallops, no rubs, no murmurs Abdomen: No visible distention, Bowel sounds present on auscultation, on palpation: soft, nontender, no guarding, no rigidity. Presence of scar in the midline of the abdomen. Extremities: No obvious deformities, no pitting edema bilaterally, capillary refill intact, peripheral pulsations are intact on both sides Neurologic: Mental status: oriented to person place or time. Difficult to complete neurological exam due to compression of the patient. Skin: Warm and dry. Presence of scar in the level of the left thigh from previous surgery. Discharge medications- New Medications: Lactobacillus Rhamnosus (Culturelle) 10 Billion Cell Capsule Levofloxacin 500 Mg Tablet Lisinopril 20 Mg Tablet Continued Medications: Acetaminophen (Acetaminophen ER) 650 Mg Tablet.er Aspirin (Ecotrin*) 81 Mg Tablet. Atorvastatin Calcium* (Lipitor*) 80 Mg Tablet Baclofen 10 Mg Tablet Bisacodyl 5 Mg Tablet. Carbamazepine 200 Mg Cpmp.12hr Clopidogrel Bisulfate (Clopidogrel) 75 Mg Tablet Cyanocobalamin (Vitamin B-12) (Vitamin B-12) 100 Mcg Tablet Docusate Sodium (Colace) 100 Mg Capsule Duloxetine HCl 60 Mg Capsule. Ferrous Sulfate 325 Mg (65 Mg Iron) Tablet. Fluticasone/Umeclidin/Vilanter (Trelegy Ellipta 200-62.5-25) 200-62.5 Blst.w.dev Folic Acid* 1 Mg Tablet Ipratropium/Albuterol Sulfate (Duoneb 2.5-0.5 Mg/3 Ml Soln) 0.5 Mg-3 Mg (2.5 Mg Base)/3 Ml Ampul.neb Morphine Sulfate (MS CONTIN tablet) 30 Mg Tablet.sa Multivitamin with Folic Acid (Thera Tablet) 400 Mcg Tablet Pantoprazole Sodium 40 Mg Tablet. Pregabalin 150 Mg Capsule Primidone (Mysoline) 50 Mg Tablet Sertraline HCl 100 Mg Tablet Topiramate 50 Mg Tablet Discontinued Medications: Amlodipine Besylate 5 Mg Tablet Folic Acid* Y Tab Losartan Potassium 50 Mg Tablet Metoprolol Succinate 25 Mg Tab.sr.24h Pantoprazole Sodium (PROTONIX tablet) 40 Mg Tablet. Discharge instructions- -We have discontinued your antihypertensive medications losartan, metoprolol succinate, amlodipine. -only take lisinopril 20 mg daily for hypertension. -please follow-up with your PCP regarding adjustments for your antihypertensive medications. -please continue to check your blood pressures daily at home. -we are sending you on antibiotics levofloxacin 500 mg for your UTI. Please take it for a week. -follow-up with Neurosurgery. *Problems/Diagnosis: (1) Metabolic encephalopathy Status: Acute Total Time Spent on D/C: > 30 Minutes Date of Service: Jul 19, 2025 Billing Provider: ESSENCE HATCH MD, PREETHI, RES Jul 19, 2025 15:37
== END 2025-07-19 16:39 | disposition home health service (06) | DRG 463 ==
LOC: ER 13:03 → ED HOLD 17:22 → ORTHO 4S 22:04
PROVIDERS: ADMIT Internal Medicine; ATTEND Internal Medicine
DX: N39.0 Urinary tract infection, site not specified (principal); G93.41 Metabolic encephalopathy; I16.1 Hypertensive emergency; N17.9 Acute kidney failure, unspecified; J44.9 Chronic obstructive pulmonary disease, unspecified; G40.909 Epilepsy, unspecified, not intractable, without status epilepticus; I73.9 Peripheral vascular disease, unspecified; D64.9 Anemia, unspecified; G89.29 Other chronic pain; F17.210 Nicotine dependence, cigarettes, uncomplicated; I10 Essential (primary) hypertension; F41.9 Anxiety disorder, unspecified; M25.511 Pain in right shoulder; M25.551 Pain in right hip; Z83.3 Family history of diabetes mellitus; Z79.899 Other long term (current) drug therapy; G62.9 Polyneuropathy, unspecified; Z85.840 Personal history of malignant neoplasm of eye
CPT/HCPCS: 36415; 70450; 71045; 71100; 73030; 80048; 80053; 80305; 81001; 82570; 82728; 83540; 83550; 83605; 83735; 83880; 83930; 83935; 84145; 84156; 84300; 84443; 84484; 84540; 85025; 87040; 87081; 87088; 87207; 87804; 87811; 92508; 92616; 93005; 94640; 94760; 96365; 97110; 97116; 97161; 97530; 99285; A4314; A6250; A6590; C1758; G0378; J0360; J0696; J1644; J2270; J7030